=== PATIENT | male | born 1955 | race Caucasian/White ===

== ENCOUNTER 2017-10-03 15:50 | Observation (INO) | payer MEDICARE ==
--- NOTE | 2017-10-03 16:12 | ED ---
General Adult HPI - General Chief complaint: Chest Pain Stated complaint: Chest pain Time Seen by Provider: 10/03/17 15:58 Source: patient, family, EMS, RN notes reviewed Mode of arrival: EMS Limitations: no limitations - History of Present Illness Initial comments: 62-year-old male presents for evaluation of chest pain. Pain began approximately 2 hours prior to presentation. Patient described as a burning sensation, substernal. Nonradiating. Patient did have some dyspnea associated with this. He also felt shaky and lightheaded. Denied nausea or vomiting. Denied diaphoresis. Patient has past medical history of COPD, he is a current smoker. He denies any cough or fever. Denies abdominal pain. Denies lower extremity swelling or calf tenderness. Patient's pain is currently resolved. He is no longer dyspneic. He has no known history of coronary artery disease, although he does not follow regularly with a physician. - Related Data Home Medications Medication Instructions Recorded Confirmed No Known Home Medications [No 10/03/17 10/03/17 Known Home Medications] Allergies Allergy/AdvReac Type Severity Reaction Status Date / Time No Known Allergies Allergy Verified 10/03/17 16:09 Review of Systems ROS Statement: Those systems with pertinent positive or pertinent negative responses have been documented in the HPI. ROS Other: All systems not noted in ROS Statement are negative. Past Medical History Past Medical History: No Reported History History of Any Multi-Drug Resistant Organisms: None Reported Past Surgical History: No Surgical Hx Reported Additional Past Surgical History / Comment(s): hemorrhoids Past Psychological History: Bipolar, Depression Smoking Status: Current every day smoker Past Alcohol Use History: None Reported Past Drug Use History: None Reported General Exam Limitations: no limitations General appearance: alert, in no apparent distress, cachectic Head exam: Present: atraumatic, normocephalic Eye exam: Present: normal appearance, PERRL ENT exam: Present: normal exam Neck exam: Present: normal inspection. Absent: tenderness, meningismus Respiratory exam: Present: decreased breath sounds. Absent: respiratory distress Cardiovascular Exam: Present: normal rhythm, tachycardia GI/Abdominal exam: Present: soft. Absent: distended, tenderness Extremities exam: Present: normal inspection, normal capillary refill. Absent: pedal edema Back exam: Present: normal inspection, full ROM. Absent: tenderness Neurological exam: Present: alert, oriented X3, CN II-XII intact. Absent: motor sensory deficit Psychiatric exam: Present: flat affect Skin exam: Present: warm, dry, intact. Absent: cyanosis, diaphoretic Course Vital Signs 10/03/17 10/03/17 10/03/17 15:53 16:40 17:34 Temperature 97.8 F Pulse Rate 107 H 107 H 100 Respiratory 18 18 18 Rate Blood Pressure 133/78 126/71 120/74 O2 Sat by Pulse 97 98 97 Oximetry 10/03/17 10/03/17 18:17 19:59 Temperature 97.8 F Pulse Rate 98 84 Respiratory 18 18 Rate Blood Pressure 118/89 120/73 O2 Sat by Pulse 96 95 Oximetry EKG Findings - EKG Comments: EKG Findings:: EKG shows sinus tachycardia, rightward axis, ventricular rate 105 , DC interval 142, QRS duration 88, QTC 425 Q wave in the inferior leads, no ST segment elevation or depression. Medical Decision Making - Medical Decision Making 62-year-old man presenting with dyspnea and central chest burning. EKG shows sinus tachycardia rate of [address] segment elevation or depression. Patient's pain is improving and nearly resolved at the time my evaluation. White blood cell count 8.7 which is normal, hemoglobin stable 14.8. Chest x-rays obtained, does show some COPD with scarring in the right lung. D-dimer mildly elevated 0.66, CT angiography is obtained which shows 15% right-sided pneumothorax likely secondary to ruptured bleb according to the radiologist. There is also calcification of the LAD. Case discussed with Dr. Gonzalez regarding the pneumothorax. There is no signs of tension. Patient's vital signs remained stable emergency prompt. Repeat chest x-ray will be obtained to observe for worsening of pneumothorax. This pneumothorax was not present on initial chest x -ray. Cardiology will also be placed on consult as patient does have central chest burning with calcification of the LAD on CT angiography. Diagnosis: Pneumothorax, chest pain, CAD - Lab Data Result diagrams: 10/03/17 16:05 10/03/17 16:36 Lab Results 10/03/17 10/03/17 10/03/17 Range/Units 16:05 16:05 16:05 WBC 8.7 (3.8-10.6) k/uL RBC 4.81 (4.30-5.90) m/uL Hgb 14.8 (13.0-17.5) gm/dL Hct 45.6 (39.0-53.0) % MCV 94.8 (80.0-100.0) fL MCH 30.8 (25.0-35.0) pg MCHC 32.5 (31.0-37.0) g/dL RDW 14.5 (11.5-15.5) % Plt Count 370 (150-450) k/uL Neutrophils % 65 % Lymphocytes % 21 % Monocytes % 7 % Eosinophils % 3 % Basophils % 2 % Neutrophils # 5.6 (1.3-7.7) k/uL Lymphocytes # 1.8 (1.0-4.8) k/uL Monocytes # 0.6 (0-1.0) k/uL Eosinophils # 0.2 (0-0.7) k/uL Basophils # 0.1 (0-0.2) k/uL PT 10.1 (9.0-12.0) sec INR 1.0 (<1.2) APTT 25.2 (22.0-30.0) sec D-Dimer 0.66 H (<0.60) mg/L FEU Sodium (137-145) mmol/L Potassium (3.5-5.1) mmol/L Chloride (98-107) mmol/L Carbon Dioxide (22-30) mmol/L Anion Gap mmol/L BUN (9-20) mg/dL Creatinine (0.66-1.25) mg/dL Est GFR (MDRD) Af Amer (>60 ml/min/1.73 sqM) Est GFR (MDRD) Non-Af (>60 ml/min/1.73 sqM) Glucose (74-99) mg/dL Calcium (8.4-10.2) mg/dL Magnesium (1.6-2.3) mg/dL Total Bilirubin (0.2-1.3) mg/dL AST (17-59) U/L ALT (21-72) U/L Alkaline Phosphatase (38-126) U/L Total Creatine Kinase 68 (55-170) U/L CK-MB (CK-2) <0.2 (0.0-2.4) ng/mL CK-MB (CK-2) Rel Index Troponin I 0.026 (0.000-0.034) ng/mL NT-Pro-B Natriuret Pep pg/mL Total Protein (6.3-8.2) g/dL Albumin (3.5-5.0) g/dL Amylase (30-110) U/L Lipase (23-300) U/L 10/03/17 10/03/17 Range/Units 16:05 16:36 WBC (3.8-10.6) k/uL RBC (4.30-5.90) m/uL Hgb (13.0-17.5) gm/dL Hct (39.0-53.0) % MCV (80.0-100.0) fL MCH (25.0-35.0) pg MCHC (31.0-37.0) g/dL RDW (11.5-15.5) % Plt Count (150-450) k/uL Neutrophils % % Lymphocytes % % Monocytes % % Eosinophils % % Basophils % % Neutrophils # (1.3-7.7) k/uL Lymphocytes # (1.0-4.8) k/uL Monocytes # (0-1.0) k/uL Eosinophils # (0-0.7) k/uL Basophils # (0-0.2) k/uL PT (9.0-12.0) sec INR (<1.2) APTT (22.0-30.0) sec D-Dimer (<0.60) mg/L FEU Sodium 140 (137-145) mmol/L Potassium 5.1 (3.5-5.1) mmol/L Chloride 103 (98-107) mmol/L Carbon Dioxide 24 (22-30) mmol/L Anion Gap 13 mmol/L BUN 15 (9-20) mg/dL Creatinine 0.98 (0.66-1.25) mg/dL Est GFR (MDRD) Af Amer >60 (>60 ml/min/1.73 sqM) Est GFR (MDRD) Non-Af >60 (>60 ml/min/1.73 sqM) Glucose 94 (74-99) mg/dL Calcium 9.2 (8.4-10.2) mg/dL Magnesium 2.4 H (1.6-2.3) mg/dL Total Bilirubin 0.6 (0.2-1.3) mg/dL AST 21 (17-59) U/L ALT 14 L (21-72) U/L Alkaline Phosphatase 142 H (38-126) U/L Total Creatine Kinase (55-170) U/L CK-MB (CK-2) (0.0-2.4) ng/mL CK-MB (CK-2) Rel Index Troponin I (0.000-0.034) ng/mL NT-Pro-B Natriuret Pep 78 pg/mL Total Protein 7.7 (6.3-8.2) g/dL Albumin 4.1 (3.5-5.0) g/dL Amylase 67 (30-110) U/L Lipase 94 (23-300) U/L Critical Care Time Critical Care Time: Yes Total Critical Care Time: 35 Disposition Clinical Impression: Pneumothorax, Chest pain Disposition: ADMITTED IP TO THIS [facility] Condition: Stable Referrals: None,Stated [Primary Care Provider] - 1-2 days Decision to Admit Reason: Admit from EC Decision Date: 10/03/17 Decision Time: 20:09
[2017-10-03 16:22] LABS: Basophils # (A) 0.1 k/uL (0-0.2); Basophils % (A) 2 %; Eosinophils # (A) 0.2 k/uL (0-0.7); Eosinophils % (A) 3 %; HCT 45.6 % (39.0-53.0); HGB 14.8 gm/dL (13.0-17.5); Lymphocytes # (A) 1.8 k/uL (1.0-4.8); Lymphocytes % (A) 21 %; MCH 30.8 pg (25.0-35.0); MCHC 32.5 g/dL (31.0-37.0); MCV 94.8 fL (80.0-100.0); Mean Platelet Volume 8.4; Monocytes # (A) 0.6 k/uL (0-1.0); Monocytes % (A) 7 %; Neutrophils # (A) 5.6 k/uL (1.3-7.7); Neutrophils % (A) 65 %; Platelet Count 370 k/uL (150-450); RBC 4.81 m/uL (4.30-5.90); RDW 14.5 % (11.5-15.5); WBC 8.7 k/uL (3.8-10.6)
--- NOTE | 2017-10-03 16:30 | XR ---
EXAMINATION TYPE: XR chest 2V DATE OF EXAM: 10/03/2017 COMPARISON: None HISTORY: 62-year-old male with chest pain and shortness of breath TECHNIQUE: Frontal and lateral views FINDINGS: Heart normal size. Aorta and pulmonary vasculature within normal limits. Hyperinflation with flatteni ng of the hemidiaphragms. Suggestion of pleural parenchymal scarring and possible bullous changes at the apices. There are some irregular densities at the right apex. No consolidation or pleural effusio n seen. IMPRESSION: COPD with biapical pleural-parenchymal scarring. Irregular densities are greater at the right apex an d subtle underlying infiltrate would be difficult to exclude. Follow-up is recommended.
[2017-10-03 16:32] LABS: D-Dimer 0.66 mg/L FEU (<0.60)
[2017-10-03 16:42] LABS: Creatine Kinase 68 U/L (55-170)
[2017-10-03 16:55] LABS: Creatine Kinase MB <0.2 ng/mL (0.0-2.4); Troponin I 0.026 ng/mL (0.000-0.034)
[2017-10-03 16:56] LABS: ALT 14 U/L (21-72); AST 21 U/L (17-59); Albumin 4.1 g/dL (3.5-5.0); Alkaline Phosphatase 142 U/L (38-126); Amylase 67 U/L (30-110); Anion Gap 13 mmol/L; Blood Urea Nitrogen 15 mg/dL (9-20); Calcium 9.2 mg/dL (8.4-10.2); Carbon Dioxide 24 mmol/L (22-30); Chloride 103 mmol/L (98-107); Glucose 94 mg/dL (74-99); Lipase 94 U/L (23-300); Magnesium 2.4 mg/dL (1.6-2.3); Potassium 5.1 mmol/L (3.5-5.1); Sodium 140 mmol/L (137-145); Total Bilirubin 0.6 mg/dL (0.2-1.3); Total Protein 7.7 g/dL (6.3-8.2)
[2017-10-03 17:05] LABS: Partial Thromboplastin Time 25.2 sec (22.0-30.0); Prothrombin Time 10.1 sec (9.0-12.0)
[2017-10-03] MEDS ORDERED: RX INFO: IV CONTRAST WAS GIVEN 1 EACH MISC MISCELLANE PRN (17:35)
[2017-10-03] MEDS ORDERED: ASPIRIN 325 MG TAB PO STA (17:36)
--- NOTE | 2017-10-03 19:38 | CT ---
EXAMINATION TYPE: CT angio chest contrast and with 3-D reconstruction renderings DATE OF EXAM: 10/03/2017 6:19 PM COMPARISON: NONE HISTORY: Mid chest pain and difficulty breathing. CT DLP: 446.00 mGycm Automated exposure control for dose reduction was used. CONTRAST: CTA scan of the thorax is performed with IV Contrast, patient injected with 74 mL of Omnipaque 350, p ulmonary embolism protocol. . FINDINGS: AIRWAYS, LUNGS, AND PLEURAL SPACES: There are in numerable blebs and bulla throughout the lung parenc hyma, of varying sizes and morphology. There is a right-sided pneumothorax presently, occupying appro ximately 15% of the right hemithorax. The lungs are otherwise unremarkable. Airways are unremarkable. SOFT TISSUES: There is satisfactory enhancement of the pulmonary artery and its branches, there is no CT evidence for pulmonary embolism. There are no greater than 1 cm hilar or mediastinal lymph nodes . There is no cardiomegaly. LAD coronary calcification noted. No pericardial effusion is seen. The a scott shows tortuosity and intimal calcifications but is otherwise unremarkable. IMPRESSION: 1. RIGHT-SIDED PNEUMOTHORAX OCCUPYING APPROXIMATELY 15% OF THE RIGHT HEMITHORAX. 2. NEGATIVE FOR PULMONARY EMBOLI.
[2017-10-03] MEDS ORDERED: ONDANSETRON 4 MG/2 ML VIAL IVP PRN (20:01)
[2017-10-03] MEDS ORDERED: NALOXONE 0.4 MG/ML 1 ML VIAL IV PRN (20:01)
[2017-10-03] MEDS ORDERED: HYDROcodone/APAP 5-325MG 1 EACH TAB PO PRN (20:01)
--- NOTE | 2017-10-03 22:40 | XR ---
EXAMINATION TYPE: XR chest 2V DATE OF EXAM: 10/03/2017 COMPARISON: Today HISTORY: Follow-up pneumothorax TECHNIQUE: Frontal and lateral views of the chest are obtained. FINDINGS: Heart has normal size. There is pulmonary hyperinflation. There are some emphysematous sheeba nges at the lung apices. I see no pneumothorax. There is mild pleural thickening at the right lung ap ex. There are chest leads. Expiration chest x-ray shows no pneumothorax. There is slight blunting of right costophrenic angle. IMPRESSION: Emphysema. Pleural diaphragmatic scarring or fluid at the right lung base. Right apical pleural and pulmonary scarring. No change compared to exam earlier today. No demonstrated pneumothora x. There is a tiny right apical pneumothorax evident on the chest CT scan today. There is a pneumotho rax evident at the right anterior lung base on the CT scan today that is not demonstrated by this [facility] st x-ray. Trachea is midline and there is no evidence of tension.
[2017-10-03] MEDS ORDERED: TEMAZEPAM 15 MG CAP PO PRN (22:54)
[2017-10-03] MEDS ORDERED: ALPRAZolam 0.25 MG TAB PO PRN (22:54)
[2017-10-03 23:07] LABS: Creatine Kinase 33 U/L (55-170)
[2017-10-03 23:15] LABS: Creatine Kinase MB <0.2 ng/mL (0.0-2.4); Troponin I <0.012 ng/mL (0.000-0.034)
[2017-10-04] MEDS: SODIUM CHLORIDE 0.9% 1,000 ML IV SCH ×3 (01:22→19:56)
[2017-10-04] MEDS: LEVOFLOXACIN 500MG-D5W PMX 500 MG in DEXTROSE/WATER 1 100ML.BAG IVPB SCH (02:23)
[2017-10-04 03:48] LABS: Basophils # (A) 0.2 k/uL (0-0.2); Basophils % (A) 2 %; Eosinophils # (A) 0.3 k/uL (0-0.7); Eosinophils % (A) 4 %; HCT 42.9 % (39.0-53.0); HGB 13.6 gm/dL (13.0-17.5); Lymphocytes # (A) 2.6 k/uL (1.0-4.8); Lymphocytes % (A) 35 %; MCH 29.5 pg (25.0-35.0); MCHC 31.6 g/dL (31.0-37.0); MCV 93.5 fL (80.0-100.0); Monocytes # (A) 0.5 k/uL (0-1.0); Monocytes % (A) 6 %; Neutrophils # (A) 3.8 k/uL (1.3-7.7); Neutrophils % (A) 50 %; Platelet Count 335 k/uL (150-450); RBC 4.59 m/uL (4.30-5.90); RDW 13.3 % (11.5-15.5); WBC 7.6 k/uL (3.8-10.6)
[2017-10-04 04:04] LABS: ALT 27 U/L (21-72); AST 16 U/L (17-59); Albumin 3.5 g/dL (3.5-5.0); Alkaline Phosphatase 130 U/L (38-126); Anion Gap 8 mmol/L; Blood Urea Nitrogen 13 mg/dL (9-20); Carbon Dioxide 27 mmol/L (22-30); Chloride 103 mmol/L (98-107); Glucose 94 mg/dL (74-99); Potassium 4.7 mmol/L (3.5-5.1); Sodium 138 mmol/L (137-145); Total Bilirubin 0.4 mg/dL (0.2-1.3); Total Protein 6.7 g/dL (6.3-8.2)
[2017-10-04 04:12] LABS: Creatine Kinase 31 U/L (55-170)
[2017-10-04 04:25] LABS: Creatine Kinase MB <0.2 ng/mL (0.0-2.4); Troponin I <0.012 ng/mL (0.000-0.034)
[2017-10-04] MEDS: PANTOPRAZOLE 40 MG TABLET PO SCH (06:02)
[2017-10-04 06:40] VITALS: RESP 16
[2017-10-04] MEDS: NICOTINE 14MG/24HR PATCH TRANSDERM SCH (07:58)
[2017-10-04] MEDS: HEPARIN SODIUM,PORCINE 5,000 UNIT/ML 1 ML VIAL SQ SCH ×2 (07:58→19:57)
[2017-10-04] MEDS ORDERED: IPRATROPIUM 0.5 MG/2.5 ML NEBU INHALATION SCH (08:00)
[2017-10-04] MEDS ORDERED: ALBUTEROL NEB (CONC) 2.5 MG/0.5 ML INHALATION SCH (08:00)
--- NOTE | 2017-10-04 08:28 | HP ---
HISTORY AND PHYSICAL DATE OF ADMISSION: 10/03/2017 CHIEF COMPLAINT: Chest pain. HISTORY OF PRESENT ILLNESS: This 62-year-old gentleman with a past medical history of multiple medical problems including bipolar depression not being followed by primary physician in the outpatient setting, presented with complaints of cough and sputum. Patient also had right-sided chest pain. The patient came to [facility]. Patient has right-sided pneumothorax. EF 15% and the patient admitted for evaluation and treatment. There is no history of fever, rigors. No history of headache, loss of consciousness, seizures at this time. PAST MEDICAL HISTORY: 1. History of bipolar depression. 2. History of nicotine dependence. MEDICATIONS: Prior to admission include home medications are none. ALLERGIES: None. FAMILY HISTORY: No history of heart disease or strokes in the family. SOCIAL HISTORY: History of smoking on a current basis. REVIEW OF SYSTEMS: ENT: No diminished vision. No diminished hearing. Cardiovascular: No angina. Respiratory: As mentioned earlier. GI: No nausea or vomiting. no dysuria. Nervous system: No numbness, weakness. Allergy/Immunology: No asthma or hayfever. Musculoskeletal: As mentioned earlier. Hematology/Oncology: No history of anemia. Endocrine: No history of diabetes or hypothyroidism. Constitutional: As mentioned earlier. Rheumatology: Negative. Dermatology: Negative. Psychiatric: As mentioned earlier. PHYSICAL EXAM: The patient is alert and oriented times three. Pulse 81, blood pressure 120/70, respiration 18, temperature 98 degrees, pulse ox 98% on room air. HEENT: Conjunctivae normal. Neck: No jugular venous distention. Cardiovascular: S1, S2. Respiratory: Breath sounds diminished in the bases. Scattered rhonchi and crackles. Expiratory wheezing also present. ABDOMEN: Soft, nontender. No mass palpable. Legs are no edema. No swelling. NERVOUS SYSTEM: Higher functions as mentioned earlier. Moves all four limbs. No focal deficits. Lymphatics: No lymph nodes palpable in the neck, axillae or groin. Skin: No ulcer, rash or bleeding. LABS: CBC within normal limits. Alkaline phosphatase 142. Other labs noted. ASSESSMENT: 1. Right sided chest pain and right-sided pneumothorax. 2. Possible chronic obstructive pulmonary disease with acute bronchitis. 3. History of nicotine dependence. 4. Bipolar. 5. Depression. 6. History of nicotine dependence. 7. Mild to moderate protein calorie malnutrition. RECOMMENDATIONS AND DISCUSSION: In this 62-year-old gentleman who presented with multiple complex medical issues, we will monitor the patient closely, continue the current medications, continue symptomatic treatment. Otherwise at this time I recommend continue the current medications. I would recommend bronchodilators empiric antibiotics. Repeat chest x- rays. Symptomatic treatment. DVT prophylaxis. Otherwise the prognosis extremely guarded because of the multiple complex medical issues. I will obtain repeat labs as well. Otherwise, continue to monitor. Prognosis guarded because of multiple complex medical issues. Further recommendations to follow. Discussed with the patient and understands and agrees. Smoking cessation has been advised and recommended. MMODL / IJN: [id number] /
--- NOTE | 2017-10-04 08:52 | P.CRDCN ---
History of Present Illness Consult date: 10/04/17 Requesting physician: Alayna Jimenez Consult reason: chest pain Chief complaint: Chest pain and shortness of breath History of present illness: This is a 62-year-old gentleman with no prior documented history of hypertension, no diabetes, no hyperlipidemia, he is a smoker and does have history of COPD, takes no medications at home. He does not follow regularly with the physician. He presents to the hospital with symptoms of chest discomfort which he describes as a burning sensation, he states he was quite short of breath, felt mildly lightheaded and shaky. He denies any diaphoresis, no nausea or vomiting. EKG on arrival here showed a sinus tachycardia with no acute changes. Chest x-ray revealed COPD with biapical pleural parenchymal scarring. Irregular densities greater in the right apex and subtle underlying infiltrate difficult to exclude. CTA of the chest was performed which revealed a right-sided pneumothorax occupying approximately 15% of the right hemithorax. Negative for pulmonary embolism. Blood pressure 110/60, heart rate in the 90s , 100% on room air. Laboratory data was reviewed, CBC is normal, d-dimer 0.6, sodium 138, potassium 4.7, chloride 103, CO2 27, BUN 13, creatinine 1.0. Alk phos 1:30, troponins negative 3. BNP level 78. At the time of my examination this morning, patient denies chest discomfort or difficulty in breathing this morning. No dizziness or lightheadedness. Past Medical History Past Medical History: No Reported History History of Any Multi-Drug Resistant Organisms: None Reported Past Surgical History: No Surgical Hx Reported Additional Past Surgical History / Comment(s): hemorrhoids Past Psychological History: Bipolar, Depression Smoking Status: Current every day smoker Past Alcohol Use History: None Reported Past Drug Use History: None Reported Medications and Allergies Home Medications Medication Instructions Recorded Confirmed Type No Known Home Medications [No 10/03/17 10/03/17 History Known Home Medications] Allergies Allergy/AdvReac Type Severity Reaction Status Date / Time No Known Allergies Allergy Verified 10/03/17 16:09 Physical Exam Vitals: Vital Signs Temp Pulse Pulse Resp BP BP Pulse Ox 10/04/17 08:43 88 10/04/17 08:36 86 10/04/17 08:00 97.8 F 94 16 110/64 100 10/04/17 04:00 96.7 F L 70 16 113/73 99 10/03/17 21:08 97.1 F L 80 12 126/68 99 10/03/17 20:42 98.0 F 81 18 126/71 96 10/03/17 19:59 84 18 120/73 95 10/03/17 18:17 97.8 F 98 18 118/89 96 10/03/17 17:34 100 18 120/74 97 10/03/17 16:40 107 H 18 126/71 98 10/03/17 15:53 97.8 F 107 H 18 133/78 97 Intake and Output 10/03/17 10/04/17 10/04/17 22:59 06:59 14:59 Intake Total 240 Balance 240 Intake: Oral 240 Other: # Voids 2 Weight 61.235 kg 60.8 kg PHYSICAL EXAMINATION: HEENT: Head is atraumatic, normocephalic. Pupils equal, round. Neck is supple. There is no elevated jugular venous pressure. HEART EXAMINATION: Heart S1, S2 normal. No murmur or gallop heard. CHEST EXAMINATION: Lungs are clear with diminished air entry to the right posterior base. ABDOMEN: Soft, nontender. Bowel sounds are heard. No organomegaly noted. EXTREMITIES: 2+ peripheral pulses with no evidence of peripheral edema and no calf tenderness noted. NEUROLOGIC patient is awake, alert and oriented -3. . Results 10/04/17 03:14 10/04/17 03:14 Cardiac Enzymes 10/03/17 10/03/17 10/03/17 Range/Units 16:05 16:36 22:22 AST 21 (17-59) U/L CK-MB (CK-2) <0.2 <0.2 (0.0-2.4) ng/mL Troponin I 0.026 <0.012 (0.000-0.034) ng/mL 10/04/17 10/04/17 Range/Units 03:14 03:14 AST 16 L (17-59) U/L CK-MB (CK-2) <0.2 (0.0-2.4) ng/mL Troponin I <0.012 (0.000-0.034) ng/mL Coagulation 10/03/17 Range/Units 16:05 PT 10.1 (9.0-12.0) sec APTT 25.2 (22.0-30.0) sec CBC 10/03/17 10/04/17 Range/Units 16:05 03:14 WBC 8.7 7.6 (3.8-10.6) k/uL RBC 4.81 4.59 (4.30-5.90) m/uL Hgb 14.8 13.6 (13.0-17.5) gm/dL Hct 45.6 42.9 (39.0-53.0) % Plt Count 370 335 (150-450) k/uL Comprehensive Metabolic Panel 10/03/17 10/04/17 Range/Units 16:36 03:14 Sodium 140 138 (137-145) mmol/L Potassium 5.1 4.7 (3.5-5.1) mmol/L Chloride 103 103 (98-107) mmol/L Carbon Dioxide 24 27 (22-30) mmol/L BUN 15 13 (9-20) mg/dL Creatinine 0.98 1.00 (0.66-1.25) mg/dL Glucose 94 94 (74-99) mg/dL Calcium 9.2 9.0 (8.4-10.2) mg/dL AST 21 16 L (17-59) U/L ALT 14 L 27 (21-72) U/L Alkaline Phosphatase 142 H 130 H (38-126) U/L Total Protein 7.7 6.7 (6.3-8.2) g/dL Albumin 4.1 3.5 (3.5-5.0) g/dL Current Medications Generic Name Dose Route Start Last Admin Trade Name Freq PRN Reason Stop Dose Admin Hydrocodone Bitart/Acetaminophen 1 each 10/03/17 20:01 [place] 5-325 PO Q4HR PRN Moderate Pain Albuterol Sulfate 2.5 mg 10/04/17 08:00 10/04/17 08:33 Ventolin Nebulized (Conc) INHALATION 2.5 mg RT-TID MIKA Administration Alprazolam 0.25 mg 10/03/17 22:54 Xanax PO TID PRN Anxiety Heparin Sodium (Porcine) 5,000 unit 10/04/17 09:00 10/04/17 07:58 Heparin SQ 5,000 unit Q12HR MIKA Administration Sodium Chloride 1,000 mls @ 75 mls/hr 10/03/17 20:15 10/04/17 07:59 Saline 0.9% IV 75 mls/hr .[id number] MIKA Administration Levofloxacin 500 mg/ IV 100 mls @ 100 mls/hr 10/03/17 23:00 10/04/17 02:23 Solution IVPB 100 mls/hr Q24H MIKA Administration Ipratropium [place] 0.5 mg 10/04/17 08:00 10/04/17 08:33 Atrovent Nebulized INHALATION 0.5 mg RT-TID MIKA Administration Miscellaneous Information 1 each 10/03/17 17:35 10/03/17 18:17 Rx Info: Iv Contrast Was Given MISCELLANE 10/05/17 17:35 1 each DAILY PRN Administration Per Protocol Naloxone HCl 0.2 mg 10/03/17 20:01 Narcan IV Q2M PRN Opioid Reversal Nicotine 1 patch 10/04/17 09:00 10/04/17 07:58 Habitrol 14mg/24hr Patch TRANSDERM 1 patch DAILY MIKA Administration Ondansetron HCl 4 mg 10/03/17 20:01 Zofran IVP Q8HR PRN Nausea And Vomiting Pantoprazole Sodium 40 mg 10/04/17 07:30 10/04/17 06:02 Protonix PO 40 mg [id number] MIKA Administration Temazepam 15 mg 10/03/17 22:54 Restoril PO HS PRN Insomnia Intake and Output 10/03/17 10/04/17 10/04/17 22:59 06:59 14:59 Intake Total 240 Balance 240 Intake: Oral 240 Other: # Voids 2 Weight 61.235 kg 60.8 kg 10/04/17 03:14 10/04/17 03:14 EKG Interpretations (text) EKG shows a sinus tachycardia with no acute changes. Assessment and Plan Plan: Assessment and plan #1 chest pain, atypical for acute coronary syndrome, pleuritic in nature, evidence of right sided pneumothorax. Troponins are negative 3, EKG shows a sinus tachycardia with no acute changes. #2 COPD #3 nicotine dependence #4 bipolar and depression Plan We will obtain an echocardiogram with Doppler study. Check free T4 and TSH level. Further recommendations to follow. DNP note has been reviewed, I agree with a documented findings and plan of care. Patient was seen and examined.
--- NOTE | 2017-10-04 11:41 | ECHOF ---
Referral Reason:chest pain MEASUREMENTS -------- HEIGHT: 175.3 cm WEIGHT: 60.8 kg BP: RVIDd: 2.3 cm (< 3.3) IVSd: 1.0 cm (0.6 - 1.1) LVIDd: 3.9 cm (3.9 - 5.3) LVPWd: 1.0 cm (0.6 - 1.1) IVSs: 1.3 cm LVIDs: 2.6 cm LVPWs: 1.3 cm Ao Diam: 3.0 cm (2.0 - 3.7) AV Cusp: 2.1 cm (1.5 - 2.6) LA Diam: 2.5 cm (2.7 - 3.8) MV E Justino: 0.56 m/s MV DecT: 356 ms MV A Justino: 0.55 m/s MV E/A Ratio: 1.02 FINDINGS -------- Sinus rhythm. This was a technically difficult study with suboptimal views. Only able to obtain views from paraste rnal window. The left ventricular size is normal. Left ventricular wall thickness is normal. Overall left vent ricular systolic function is low-normal with, an EF between 50 - 55 %. The right ventricle is mild to moderately enlarged. The left atrium is normal in size. The right atrium was not well visualized. The aortic valve was not well visualized. The aortic valve is trileaflet and appears structurally n ormal. The mitral valve was not well visualized. The mitral valve leaflets are mildly thickened. The tricuspid valve was not well visualized. Trace tricuspid regurgitation present. Right ventric ular systolic pressure is normal at < 35 mmHg. There is no evidence of pulmonary hypertension. Trace/mild (physiologic) pulmonic regurgitation. The aortic root size is normal. IVC Not well visulized. The pericardium is normal. There is no pericardial effusion. CONCLUSIONS -------- 1. Sinus rhythm. 2. This was a technically difficult study with suboptimal views. 3. Only able to obtain views from parasternal window. 4. The left ventricular size is normal. 5. Left ventricular wall thickness is normal. 6. The right ventricle is mild to moderately enlarged. 7. The left atrium is normal in size. 8. The right atrium was not well visualized. 9. The aortic valve was not well visualized. 10. The aortic valve is trileaflet and appears structurally normal. 11. The mitral valve was not well visualized. 12. The mitral valve leaflets are mildly thickened. 13. The tricuspid valve was not well visualized. 14. Trace tricuspid regurgitation present. 15. Right ventricular systolic pressure is normal at < 35 mmHg. 16. There is no evidence of pulmonary hypertension. 17. Trace/mild (physiologic) pulmonic regurgitation. 18. The aortic root size is normal. 19. IVC Not well visulized. 20. There is no pericardial effusion. TABLE INSPECTOR: Apolinar Hammer RDCS
--- NOTE | 2017-10-04 12:10 | P.CNPUL ---
History of Present Illness Consult date: 10/04/17 Reason for consult: dyspnea, COPD History of present illness: a pleasant 62-year-old male patient was not seen a physician on a regular basis , a chronic smoker without any known history of medical problems nor any long- term medication intake, comes into the hospital because of an acute pain along the right chest and some increased shortness of breath more than his baseline. He claims that he is active and he claims that his been able to perform activities of daily life without any major respiratory difficulties. He has limited congested cough without any significant sputum production. No hemoptysis. No pleurisy. The patient has no swelling in the lower extremities. He smokes around half to 1 pack of cigarettes daily however he carries more than [id number] smoking history. Chest x-ray was consistent with COPD. Subsequently the patient had a CAT scan of the chest that showed extensive bilateral emphysematous changes throughout the lung olivares bilaterally in addition to a 10% loculated pneumothorax in the right lung base. Despite all this, the patient is on room air and is pulse oxing above 94%. He has no specific complaints and the chest pain that he experienced earlier has completed subsided. He has had a follow-up chest x-ray today this morning and she was stable findings and there is noprogression in his findings in terms of the pneumothorax. D-dimer was low.the rest of the blood work including the cardiac enzymes were negative. BNP level was nonelevated. Rest of the electrolytes are all within normal limits. Review of Systems Constitutional: Reports fatigue, Reports weakness, Reports weight loss Eyes: denies blurred vision, denies bulging eye, denies decreased vision Ears: deny: decreased hearing, ear discharge, earache Ears, nose, mouth and throat: Denies headache, Denies sore throat Cardiovascular: Reports decreased exercise tolerance, Reports dyspnea on exertion, Reports shortness of breath Respiratory: Reports congestion, Reports cough, Reports dyspnea Gastrointestinal: Denies abdominal pain, Denies diarrhea, Denies nausea, Denies vomiting Genitourinary: Reports as per HPI Musculoskeletal: Denies myalgias Musculoskeletal: absent: ankle pain, ankle stiffness, ankle swelling Integumentary: Denies pruritus, Denies rash Neurological: Denies numbness, Denies weakness Psychiatric: Denies anxiety, Denies depression Endocrine: Denies fatigue, Denies weight change Hematologic/Lymphatic: Reports as per HPI Allergic/Immunologic: Reports as per HPI Past Medical History Past Medical History: No Reported History, COPD Additional Past Medical History / Comment(s): COPD History of Any Multi-Drug Resistant Organisms: None Reported Past Surgical History: No Surgical Hx Reported Additional Past Surgical History / Comment(s): hemorrhoids Past Psychological History: Bipolar, Depression Smoking Status: Current every day smoker Past Alcohol Use History: None Reported Past Drug Use History: None Reported Medications and Allergies Home Medications Medication Instructions Recorded Confirmed Type No Known Home Medications [No 10/03/17 10/03/17 History Known Home Medications] Allergies Allergy/AdvReac Type Severity Reaction Status Date / Time No Known Allergies Allergy Verified 10/03/17 16:09 Physical Exam Vitals: Vital Signs Temp Pulse Pulse Resp BP BP Pulse Ox 10/04/17 11:35 96.9 F L 74 16 101/64 99 10/04/17 08:43 88 10/04/17 08:36 86 10/04/17 08:00 97.8 F 94 16 110/64 100 10/04/17 04:00 96.7 F L 70 16 113/73 99 10/03/17 21:08 97.1 F L 80 12 126/68 99 10/03/17 20:42 98.0 F 81 18 126/71 96 10/03/17 19:59 84 18 120/73 95 10/03/17 18:17 97.8 F 98 18 118/89 96 10/03/17 17:34 100 18 120/74 97 10/03/17 16:40 107 H 18 126/71 98 10/03/17 15:53 97.8 F 107 H 18 133/78 97 Intake and Output 10/03/17 10/04/17 10/04/17 22:59 06:59 14:59 Intake Total 240 Balance 240 Intake: Oral 240 Other: # Voids 2 Weight 61.235 kg 60.8 kg cachectic thin elderly male patient nonacute distress. He looks quite emaciated and weak. He also comes off very soft spoken.Head exam was generally normal. There was no scleral icterus or corneal arcus. Mucous membranes were moist.Neck was supple and without jugular venous distension, thyromegaly, or carotid bruits. Carotids were easily palpable bilaterally. There was no adenopathy. Lung sounds are markedly diminished bilaterally along with some few scattered external wheeze.Cardiac exam revealed the PMI to be normally situated and sized. The rhythm was regular and no extrasystoles were noted during several minutes of auscultation. The first and second heart sounds were normal and physiologic splitting of the second heart sound was noted. There were no murmurs, rubs, clicks, or gallops.Abdominal exam revealed normal bowel sounds. The abdomen was soft, non-tender, and without masses, organomegaly, or appreciable enlargement of the abdominal aorta.Examination of the extremities revealed easily palpable radial, femoral and pedal pulses. There was no cyanosis , clubbing or edema. Neurologically the patient is awake and alert and there is no focal neurological deficit. Psychiatric the patient has appropriate mood and affect.Examination of the skin revealed no evidence of significant rashes, suspicious appearing nevi or other concerning lesions. Results - Laboratory Findings CBC and BMP: 10/04/17 03:14 10/04/17 03:14 PT/INR, D-dimer PT 10.1 sec (9.0-12.0) 10/03/17 16:05 INR 1.0 (<1.2) 10/03/17 16:05 D-Dimer 0.66 mg/L FEU (<0.60) H 10/03/17 16:05 Abnormal lab findings: Abnormal Labs 10/03/17 10/03/17 10/03/17 16:05 16:36 22:22 D-Dimer 0.66 H Magnesium 2.4 H AST ALT 14 L Alkaline Phosphatase 142 H Total Creatine Kinase 33 L 10/04/17 10/04/17 03:14 03:14 D-Dimer Magnesium AST 16 L ALT Alkaline Phosphatase 130 H Total Creatine Kinase 31 L - Diagnostic Findings CT scan - chest: image reviewed Assessment and Plan Plan: assessment 1 COPD with severe emphysematous changes throughout the lung olivares bilaterally. 2 loculated right-sided 10-15% pneumothorax, not causing any significant hypoxemia or respiratory distress nor there is any significant hemodynamic alteration. 3 chest pain likely secondary to pneumothorax and this has completed subsided 4 chronic smoker 5 chronic exertional dyspnea secondary to above 6 history of depression Plan In terms of the pneumothorax, the pneumothorax is loculated is small and I do not recommend a chest tube insertion at this point. He will need however to be monitored very closely and repeat chest x-ray be done on a daily basis to make sure there is no progression of this finding. Meanwhile, we'll put the patient on DuoNeb neb last treatment [id number], we'll need an outpatient with function test assess the severity of his COPD. The patient will need to quit smoking as soon as possible and smoking cessation counseling was done. Baseline echocardiogram. Will check thyroid function test. We'll continue to follow.
[2017-10-04 12:14] LABS: HIV AB P24 Non-Reactive (Non-Reactive); HIV P24 AG Non-Reactive (Non-Reactive)
[2017-10-04] MEDS ORDERED: IPRATROPIUM-ALBUTEROL 3 ML NEB INHALATION SCH ×2 (13:00→14:10)
[2017-10-04 13:04] LABS: Creatine Kinase 41 U/L (55-170)
[2017-10-04 13:17] LABS: Creatine Kinase MB <0.2 ng/mL (0.0-2.4); Troponin I <0.012 ng/mL (0.000-0.034)
[2017-10-04] MEDS: IPRATROPIUM-ALBUTEROL 3 ML NEB INHALATION SCH ×2 (14:12→21:08)
--- NOTE | 2017-10-04 17:45 | P.PN ---
Subjective Progress Note Date: 10/04/17 Progress note being dictated for Dr. Jimenez Interval history: This is 62-year-old gentleman admitted with acute COPD exacerbation, severe emphysema, loculated right-sided pneumothorax 10-15% and multiple other medical issues. No chest tube insertion recommended at this time as per pulmonary. No further chest pain. Telemetry sinus rhythm. Echo suboptimal, reporting Low Normal LV function, EF 50-55%. Denies chest pain, palpitations or increasing shortness of breath. Denies lightheadedness dizziness or focal deficits. Maintaining O2 sats of 97 and 99% on room air. Objective - Vital Signs Vital signs: Vital Signs Temp 97.4 F L 10/04/17 15:06 Pulse 89 10/04/17 15:06 Resp 16 10/04/17 15:06 BP 97/52 10/04/17 15:06 Pulse Ox 97 10/04/17 15:06 Intake & Output 10/03/17 10/04/17 10/04/17 18:59 06:59 18:59 Intake Total 477 Balance 477 Weight 58.06 kg 60.8 kg Intake: Oral 477 Other: # Voids 2 2 - Exam PHYSICAL EXAM: VITAL SIGNS: As above GENERAL: Sitting up in bed, no acute distress. HEENT: Conjunctivae normal. eyes normal. NECK: No JVD. No thyroid enlargement. No LNs CARDIOVASCULAR: Regular S1, S2. No murmur RESPIRATION: Breath sounds diminished in the bases. Scattered rhonchi and crackles. Occasional expiratory wheeze scattered ABDOMEN: Soft, nontender . No guarding. no masses palpable. Bowel sounds heard. LEGS: No edema. no swelling PSYCHIATRY: Alert and oriented -3, mood and affect normal. NERVOUS SYSTEM: Cranial N 2-12 grossly normal. Moves all 4 limbs. Diffuse weakness No focal deficits. No sensory deficit. Skin: no ulcer no rash - Labs CBC & Chem 7: 10/04/17 03:14 10/04/17 03:14 Labs: Abnormal Lab Results - Last 24 Hours (Table) 10/03/17 10/03/17 10/03/17 Range/Units 16:05 16:36 22:22 D-Dimer 0.66 H (<0.60) mg/L FEU Magnesium 2.4 H (1.6-2.3) mg/dL AST (17-59) U/L ALT 14 L (21-72) U/L Alkaline Phosphatase 142 H (38-126) U/L Total Creatine Kinase 33 L (55-170) U/L 10/04/17 10/04/17 10/04/17 Range/Units 03:14 03:14 12:16 D-Dimer (<0.60) mg/L FEU Magnesium (1.6-2.3) mg/dL AST 16 L (17-59) U/L ALT (21-72) U/L Alkaline Phosphatase 130 H (38-126) U/L Total Creatine Kinase 31 L 41 L (55-170) U/L Assessment and Plan Assessment: 1. Right-sided chest pain with loculated right-sided pneumothorax 10-15% 2. Possible COPD with acute bronchitis, severe emphysematous changes bilateral lungs 3. Nicotine dependence 4. Bipolar 5. Depression 6. Mild to moderate protein calorie malnutrition Plan: Continue on current medication regime ,monitoring and symptomatic treatment. Maintain nebulized dilators, empiric antibiotics. Smoking cessation readdressed. As mentioned above no chest tube at this time, close monitoring with repeat chest x-ray ordered for a.m. The impression and plan of care has been dictated as directed. : I performed a history and examination of this patient, discussed the same with the dictator. I agree with the dictator's note ,documented as a scribe. Any additional findings or plans will be noted.
[2017-10-05] MEDS: LEVOFLOXACIN 500MG-D5W PMX 500 MG in DEXTROSE/WATER 1 100ML.BAG IVPB SCH (05:40)
[2017-10-05] MEDS: IPRATROPIUM-ALBUTEROL 3 ML NEB INHALATION SCH ×2 (07:54→12:59)
[2017-10-05 07:59] VITALS: BP 118/74; TEMP 96.1
[2017-10-05] MEDS: HEPARIN SODIUM,PORCINE 5,000 UNIT/ML 1 ML VIAL SQ SCH (09:10)
[2017-10-05] MEDS: NICOTINE 14MG/24HR PATCH TRANSDERM SCH (09:10)
[2017-10-05] MEDS: PANTOPRAZOLE 40 MG TABLET PO SCH (09:10)
[2017-10-05 10:38] LABS: Anion Gap 11 mmol/L; Blood Urea Nitrogen 10 mg/dL (9-20); Carbon Dioxide 24 mmol/L (22-30); Chloride 106 mmol/L (98-107); Glucose 83 mg/dL (74-99); Potassium 4.2 mmol/L (3.5-5.1); Sodium 141 mmol/L (137-145)
[2017-10-05] MEDS: SODIUM CHLORIDE 0.9% 1,000 ML IV SCH (11:25)
--- NOTE | 2017-10-05 11:56 | XR ---
EXAMINATION TYPE: XR chest 2V DATE OF EXAM: 10/05/2017 COMPARISON: Prior exam 10/03/2017 HISTORY: Right pneumothorax TECHNIQUE: Frontal and lateral views of the chest are obtained on 3 images. FINDINGS: There is no focal air space opacity, pleural effusion, or pneumothorax seen. Emphysematous changes and probable scarring present in the right lung as on prior. The cardiac silhouette size is stable. There is a spinal curvature. The osseous structures are intact. IMPRESSION: No acute cardiopulmonary process.
[2017-10-05 13:06] VITALS: PULSE 80
--- NOTE | 2017-10-05 15:04 | P.PN ---
<Vernell Winston M - Last Filed: 10/05/17 14:56> Subjective Progress Note Date: 10/05/17 Principal diagnosis: COPD with severe emphysematous changes, loculated right-sided 10-15% pneumothorax a pleasant 62-year-old male patient was not seen a physician on a regular basis , a chronic smoker without any known history of medical problems nor any long- term medication intake, comes into the hospital because of an acute pain along the right chest and some increased shortness of breath more than his baseline. He claims that he is active and he claims that his been able to perform activities of daily life without any major respiratory difficulties. He has limited congested cough without any significant sputum production. No hemoptysis. No pleurisy. The patient has no swelling in the lower extremities. He smokes around half to 1 pack of cigarettes daily however he carries more than [id number] smoking history. Chest x-ray was consistent with COPD. Subsequently the patient had a CAT scan of the chest that showed extensive bilateral emphysematous changes throughout the lung olivares bilaterally in addition to a 10% loculated pneumothorax in the right lung base. Despite all this, the patient is on room air and is pulse oxing above 94%. He has no specific complaints and the chest pain that he experienced earlier has completed subsided. He has had a follow-up chest x-ray today this morning and she was stable findings and there is noprogression in his findings in terms of the pneumothorax. D-dimer was low.the rest of the blood work including the cardiac enzymes were negative. BNP level was nonelevated. Rest of the electrolytes are all within normal limits. On 10/05/2017 patient seen in follow-up on medical surgical floor. In no acute distress, lung sounds are clear, no rhonchi no wheezes were noted. His oxygen is on standby, his pulse ox is 98% on room air, vital signs are stable, he is afebrile, be chest x-ray from this morning shows no acute cardiopulmonary process. His lab work was noted, BMP was done, electrolytes and renal profile is within normal limits. HIV testing was negative. He is stable for discharge home today. Follow-up in the office with Dr. Gonzalez in 1 week Objective - Vital Signs Vital signs: Vital Signs Temp 96.1 F L 10/05/17 07:00 Pulse 80 10/05/17 13:05 Resp 16 10/05/17 07:00 BP 118/74 10/05/17 07:00 Pulse Ox 98 10/05/17 07:57 Intake & Output 10/04/17 10/05/17 10/05/17 18:59 06:59 18:59 Intake Total 714 325 Balance 714 325 Weight 60 kg Intake: Intake, IV Titration 225 Amount Sodium Chloride 0.9% 1, 225 000 ml @ 75 mls/hr IV . [id number] [facility] Rx#:[id number] Oral 714 100 Other: # Voids 2 1 3 - Exam cachectic thin elderly male patient nonacute distress. He looks quite emaciated and weak. He also comes off very soft spoken.Head exam was generally normal. There was no scleral icterus or corneal arcus. Mucous membranes were moist.Neck was supple and without jugular venous distension, thyromegaly, or carotid bruits. Carotids were easily palpable bilaterally. There was no adenopathy. Lung sounds are markedly diminished bilaterally.Cardiac exam revealed the PMI to be normally situated and sized. The rhythm was regular and no extrasystoles were noted during several minutes of auscultation. The first and second heart sounds were normal and physiologic splitting of the second heart sound was noted. There were no murmurs, rubs, clicks, or gallops.Abdominal exam revealed normal bowel sounds. The abdomen was soft, non- tender, and without masses, organomegaly, or appreciable enlargement of the abdominal aorta.Examination of the extremities revealed easily palpable radial, femoral and pedal pulses. There was no cyanosis, clubbing or edema. Neurologically the patient is awake and alert and there is no focal neurological deficit. Psychiatric the patient has appropriate mood and affect.Examination of the skin revealed no evidence of significant rashes, suspicious appearing nevi or other concerning lesions. - Labs CBC & Chem 7: 10/04/17 03:14 10/05/17 09:52 Assessment and Plan Plan: Assessment: 1 COPD with severe emphysematous changes throughout the lung olivarse bilaterally. 2 loculated right-sided 10-15% pneumothorax, not causing any significant hypoxemia or respiratory distress nor there is any significant hemodynamic alteration. 3 chest pain likely secondary to pneumothorax and this has completed subsided 4 chronic smoker 5 chronic exertional dyspnea secondary to above 6 history of depression Plan He is doing well, repeat chest x-ray from this morning was reviewed, shows no acute cardiopulmonary process. Patient is maintaining stable oxygenation on room air, denies any acute distress, signs are stable. From pulmonary standpoint he is stable for discharge home today. He will need a follow-up appointment with Dr. Gonzalez in the office in one week. I performed a history & physical examination of the patient and discussed their management with my nurse practitioner, Vernell Winston. I reviewed the nurse practitioner's note and agree with the documented findings and plan of care. Lung sounds are diminished. The findings and the impression was discussed with the patient. I attest to the documentation by the nurse practitioner. Time with Patient: Less than 30 <Zoila Gonzalez - Last Filed: 10/05/17 18:25> Objective - Vital Signs Vital signs: Vital Signs Temp 96.1 F L 10/05/17 07:00 Pulse 80 10/05/17 13:05 Resp 16 10/05/17 07:00 BP 118/74 10/05/17 07:00 Pulse Ox 98 10/05/17 07:57 Intake & Output 10/04/17 10/05/17 10/05/17 18:59 06:59 18:59 Intake Total 714 325 Balance 714 325 Weight 60 kg 60 kg Intake: Intake, IV Titration 225 Amount Sodium Chloride 0.9% 1, 225 000 ml @ 75 mls/hr IV . [id number] [facility] Rx#:[id number] Oral 714 100 Other: # Voids 2 1 3 - Labs CBC & Chem 7: 10/04/17 03:14 10/05/17 09:52 Assessment and Plan Plan: Joint evaluation along with a nurse practitioner. The patient is stable pneumothorax and without any change on today's chest x-ray. Smoking cessation counseling was done. The patient will be discharged home today. 2 be followed up in the office. I attest to the above-mentioned formation.
[2017-10-05 15:28] VITALS: BMI 19.5
--- NOTE | 2017-10-06 08:24 | DS ---
DISCHARGE SUMMARY FINAL DIAGNOSES: 1. Right-sided chest pain with the loculated right sided pneumothorax 10-15% improved. 2. Chronic obstructive pulmonary disease with acute bronchitis with severe emphysematous changes on bilateral lungs. 3. Nicotine dependence. 4. Bipolar depression. 5. Mild to moderate protein calorie malnutrition. DISCHARGE DISPOSITION: The patient is being discharged is stable condition with guarded prognosis. HISTORY OF PRESENT ILLNESS: This 62-year-old gentleman with a past medical history of multiple medical problems was admitted with chest pain. Patient found to have pneumothorax, treated symptomatically, improved significantly. On exam, vital signs are stable. Cardiovascular S1, S2. Respirations a few rhonchi. Abdomen soft nontender. DISCHARGE ADVICE AND MEDICATIONS: 1. Discharge diet is cardiac diet. 2. Activity limited until followup. 3. Follow up with Dr. Coombs in 2-3 days. 4. Follow up with [facility] as advised. MEDICATIONS: 1. Albuterol 2 puffs b.i.d. 2. Levaquin 500 mg daily. 3. Habitrol 14 daily. PAULA / TCN: [id number] /
== END 2017-10-05 15:24 | disposition home or self-care (01) ==
LOC: EC 15:50 → 6SEL 20:03 → INTOOBSV 20:03 → 4MS4W 10-04 22:41
PROVIDERS: ADMIT Hospitalist; ATTEND Hospitalist
DX: J93.9 Pneumothorax, unspecified (principal); R07.89 Other chest pain; F31.9 Bipolar disorder, unspecified; E44.0 Moderate protein-calorie malnutrition; J44.1 Chronic obstructive pulmonary disease with (acute) exacerbation; J20.9 Acute bronchitis, unspecified; J44.0 Chronic obstructive pulmonary disease with (acute) lower respiratory infection; F17.210 Nicotine dependence, cigarettes, uncomplicated
CPT/HCPCS: 99291; 96361; 96365; 96366; 96372 ×2; 36415; 94640 ×4; 94760; 93005; 93306; 85379; 83880; 80053 ×2; 80048; 82150; 82550 ×2; 82553 ×2; 83690; 83735; 84443; 84484 ×2; 85025 ×2; 85610; 85730; 87390; 71046 ×2; 71275; G0378 ×4; S4990 ×2; J1644 ×2; Q9967; J1956 ×2

== ENCOUNTER 2018-07-22 11:43 | Observation (INO) | payer MEDICARE ==
--- NOTE | 2018-07-22 12:12 | ED ---
General Adult HPI - General Chief complaint: Chest Pain Stated complaint: CHEST PAIN, APRIL Time Seen by Provider: 07/22/18 11:56 Source: patient, RN notes reviewed, old records reviewed Mode of arrival: wheelchair Limitations: no limitations - History of Present Illness Initial comments: 63-year-old male history of COPD presents for evaluation of dyspnea and right- sided chest pain. Patient has history of previous pneumothorax proximally 10 months ago. States pain is similar to previous pneumothorax. He does report some preceding symptoms of cough and dyspnea over the past several days. Chest pain began at approximately 10 AM this morning. He states was gradual in onset and right-sided chest pain. Nonradiating. No associated nausea or vomiting. No abdominal pain. No fever or chills. - Related Data Home Medications Medication Instructions Recorded Confirmed Oxybutynin Chloride [Ditropan] 5 mg PO DAILY 07/22/18 07/22/18 Allergies Allergy/AdvReac Type Severity Reaction Status Date / Time No Known Allergies Allergy Verified 07/22/18 12:50 Review of Systems ROS Statement: Those systems with pertinent positive or pertinent negative responses have been documented in the HPI. ROS Other: All systems not noted in ROS Statement are negative. Past Medical History Past Medical History: COPD Additional Past Medical History / Comment(s): COPD History of Any Multi-Drug Resistant Organisms: None Reported Past Surgical History: No Surgical Hx Reported Additional Past Surgical History / Comment(s): hemorrhoids Past Psychological History: Bipolar, Depression Smoking Status: Current every day smoker Past Alcohol Use History: None Reported Past Drug Use History: None Reported General Exam Limitations: no limitations General appearance: alert, in no apparent distress Head exam: Present: atraumatic, normocephalic Eye exam: Present: normal appearance, PERRL ENT exam: Present: normal exam Neck exam: Present: normal inspection. Absent: tenderness, meningismus Respiratory exam: Present: chest wall tenderness (Right-sided chest wall tenderness), decreased breath sounds (Bilateral). Absent: respiratory distress , wheezes Cardiovascular Exam: Present: normal rhythm, tachycardia GI/Abdominal exam: Present: soft. Absent: distended, tenderness Extremities exam: Present: normal inspection, normal capillary refill. Absent: pedal edema Neurological exam: Present: alert, oriented X3, CN II-XII intact. Absent: motor sensory deficit Psychiatric exam: Present: normal affect, normal mood Skin exam: Present: warm, dry, intact. Absent: cyanosis, diaphoretic Course Vital Signs 07/22/18 07/22/18 07/22/18 11:45 12:43 12:47 Temperature 97.5 F L Pulse Rate 108 H 93 90 Respiratory 20 Rate Blood Pressure 152/80 O2 Sat by Pulse 97 Oximetry 07/22/18 07/22/18 07/22/18 13:00 14:08 14:20 Temperature Pulse Rate 80 91 89 Respiratory 17 Rate Blood Pressure 112/79 O2 Sat by Pulse 94 L Oximetry EKG Findings - EKG Comments: EKG Findings:: EKG: Sinus rhythm with sinus arrhythmia, rightward axis, rate of 80, NE interval 132, QRS duration 88, QTC 412, no ST segment elevation Medical Decision Making - Medical Decision Making 63-year-old male history of COPD, emphysema, and previous pneumothorax presenting with chest pain and dyspnea. X-rays obtained which does show hyperinflation, concern for right sided pneumothorax. CT is obtained which does show 15% pneumothorax which is unchanged from previous. Patient has decreased air entry bilaterally with mild respiratory distress. Symptoms likely related to COPD exacerbation without worsening of pneumothorax. Patient has normal CBC, normal CMP, troponin and BNP are negative. Patient will be admitted for treatment of COPD exacerbation. - Lab Data Result diagrams: 07/22/18 12:12 07/22/18 12:12 Lab Results 07/22/18 07/22/18 07/22/18 Range/Units 12:12 12:12 12:12 WBC 6.4 (3.8-10.6) k/uL RBC 5.11 (4.30-5.90) m/uL Hgb 15.6 (13.0-17.5) gm/dL Hct 48.4 (39.0-53.0) % MCV 94.7 (80.0-100.0) fL MCH 30.6 (25.0-35.0) pg MCHC 32.3 (31.0-37.0) g/dL RDW 13.3 (11.5-15.5) % Plt Count 342 (150-450) k/uL Neutrophils % 63 % Lymphocytes % 26 % Monocytes % 5 % Eosinophils % 1 % Basophils % 2 % Neutrophils # 4.0 (1.3-7.7) k/uL Lymphocytes # 1.6 (1.0-4.8) k/uL Monocytes # 0.3 (0-1.0) k/uL Eosinophils # 0.1 (0-0.7) k/uL Basophils # 0.1 (0-0.2) k/uL PT (9.0-12.0) sec INR (<1.2) APTT (22.0-30.0) sec Sodium 141 (137-145) mmol/L Potassium 4.6 (3.5-5.1) mmol/L Chloride 107 (98-107) mmol/L Carbon Dioxide 23 (22-30) mmol/L Anion Gap 11 mmol/L BUN 20 (9-20) mg/dL Creatinine 1.05 (0.66-1.25) mg/dL Est GFR (CKD-EPI)AfAm 89 (>60 ml/min/1.73 sqM) Est GFR (CKD-EPI)NonAf 77 (>60 ml/min/1.73 sqM) Glucose 92 (74-99) mg/dL Plasma Lactic Acid Cj (0.7-2.0) mmol/L Calcium 9.7 (8.4-10.2) mg/dL Magnesium 2.2 (1.6-2.3) mg/dL Total Bilirubin 0.9 (0.2-1.3) mg/dL AST 22 (17-59) U/L ALT 35 (21-72) U/L Alkaline Phosphatase 110 (38-126) U/L Total Creatine Kinase 35 L (55-170) U/L CK-MB (CK-2) <0.2 (0.0-2.4) ng/mL CK-MB (CK-2) Rel Index Troponin I <0.012 (0.000-0.034) ng/mL NT-Pro-B Natriuret Pep pg/mL Total Protein 8.1 (6.3-8.2) g/dL Albumin 4.5 (3.5-5.0) g/dL 07/22/18 07/22/18 07/22/18 Range/Units 12:12 12:12 12:12 WBC (3.8-10.6) k/uL RBC (4.30-5.90) m/uL Hgb (13.0-17.5) gm/dL Hct (39.0-53.0) % MCV (80.0-100.0) fL MCH (25.0-35.0) pg MCHC (31.0-37.0) g/dL RDW (11.5-15.5) % Plt Count (150-450) k/uL Neutrophils % % Lymphocytes % % Monocytes % % Eosinophils % % Basophils % % Neutrophils # (1.3-7.7) k/uL Lymphocytes # (1.0-4.8) k/uL Monocytes # (0-1.0) k/uL Eosinophils # (0-0.7) k/uL Basophils # (0-0.2) k/uL PT 10.1 (9.0-12.0) sec INR 1.0 (<1.2) APTT 23.5 (22.0-30.0) sec Sodium (137-145) mmol/L Potassium (3.5-5.1) mmol/L Chloride (98-107) mmol/L Carbon Dioxide (22-30) mmol/L Anion Gap mmol/L BUN (9-20) mg/dL Creatinine (0.66-1.25) mg/dL Est GFR (CKD-EPI)AfAm (>60 ml/min/1.73 sqM) Est GFR (CKD-EPI)NonAf (>60 ml/min/1.73 sqM) Glucose (74-99) mg/dL Plasma Lactic Acid Cj 2.0 (0.7-2.0) mmol/L Calcium (8.4-10.2) mg/dL Magnesium (1.6-2.3) mg/dL Total Bilirubin (0.2-1.3) mg/dL AST (17-59) U/L ALT (21-72) U/L Alkaline Phosphatase (38-126) U/L Total Creatine Kinase (55-170) U/L CK-MB (CK-2) (0.0-2.4) ng/mL CK-MB (CK-2) Rel Index Troponin I (0.000-0.034) ng/mL NT-Pro-B Natriuret Pep 99 pg/mL Total Protein (6.3-8.2) g/dL Albumin (3.5-5.0) g/dL Disposition Clinical Impression: Pneumothorax, COPD exacerbation Disposition: ADMITTED IP TO THIS HOSP Condition: Stable Is patient prescribed a controlled substance at d/c from ED?: No Referrals: Nicanor Coombs MD [Primary Care Provider] - 1-2 days Decision to Admit Reason: Admit from EC Decision Date: 07/22/18 Decision Time: 14:39
[2018-07-22] MEDS ORDERED: DEXAMETHASONE SOD PHOSPHATE 10 MG/ML 1 ML VIAL IV STA (12:19)
[2018-07-22] MEDS ORDERED: IPRATROPIUM-ALBUTEROL 3 ML NEB INHALATION STA ×2 (12:19→13:58)
[2018-07-22 12:34] LABS: Basophils # (A) 0.1 k/uL (0-0.2); Basophils % (A) 2 %; Eosinophils # (A) 0.1 k/uL (0-0.7); Eosinophils % (A) 1 %; HCT 48.4 % (39.0-53.0); HGB 15.6 gm/dL (13.0-17.5); Lymphocytes # (A) 1.6 k/uL (1.0-4.8); Lymphocytes % (A) 26 %; MCH 30.6 pg (25.0-35.0); MCHC 32.3 g/dL (31.0-37.0); MCV 94.7 fL (80.0-100.0); Mean Platelet Volume 6.9; Monocytes # (A) 0.3 k/uL (0-1.0); Monocytes % (A) 5 %; Neutrophils % (A) 63 %; Platelet Count 342 k/uL (150-450); RBC 5.11 m/uL (4.30-5.90); RDW 13.3 % (11.5-15.5); WBC 6.4 k/uL (3.8-10.6)
[2018-07-22 12:45] LABS: Partial Thromboplastin Time 23.5 sec (22.0-30.0); Prothrombin Time 10.1 sec (9.0-12.0)
[2018-07-22 12:48] LABS: Albumin 4.5 g/dL (3.5-5.0); Calcium 9.7 mg/dL (8.4-10.2); Magnesium 2.2 mg/dL (1.6-2.3); Potassium 4.6 mmol/L (3.5-5.1); Total Bilirubin 0.9 mg/dL (0.2-1.3); Total Protein 8.1 g/dL (6.3-8.2)
--- NOTE | 2018-07-22 12:52 | XR ---
EXAMINATION TYPE: XR chest 1V portable DATE OF EXAM: 07/22/2018 HISTORY: chest pain. REFERENCE: Previous study dated 10/05/2017. FINDINGS: The lungs are overinflated but clear. Pleural spaces are clear. Heart size is within normal limits. There is a gentle levoscoliosis. IMPRESSION: COPD.
[2018-07-22 12:56] LABS: Creatine Kinase 35 U/L (55-170)
[2018-07-22 13:10] LABS: Creatine Kinase MB <0.2 ng/mL (0.0-2.4); Troponin I <0.012 ng/mL (0.000-0.034)
--- NOTE | 2018-07-22 13:52 | CT ---
EXAMINATION TYPE: CT chest wo con DATE OF EXAM: 07/22/2018 COMPARISON: Previous study dated 10/03/2017 HISTORY: Difficulty breathing CT DLP: 226.9 mGycm. Automated Exposure Control for Dose Reduction was Utilized. TECHNIQUE: CT scan of the thorax is performed without IV contrast. FINDINGS: There are marked bullous changes in the upper lobes bilaterally. There is a moderate right- sided pneumothorax. This is larger than previous. This is approximately 50% by volume. There is some shotty axillary adenopathy. There are no pathologically enlarged lymph nodes. There is no pleural or pericardial fluid. The heart is not enlarged. Visualized portions of the upper abdomen are unremarkable. No bony lesion is seen. IMPRESSION: 1. RIGHT-SIDED PNEUMOTHORAX APPROXIMATELY 15% BY VOLUME. 2. EXTENSIVE BULLOUS CHANGE IN THE UPPER LOBES BILATERALLY AND MORE DIFFUSELY THROUGHOUT THE RIGHT ANDRES NG.
[2018-07-22] MEDS ORDERED: IPRATROPIUM-ALBUTEROL 3 ML NEB INHALATION PRN (14:37)
[2018-07-22 16:40] VITALS: BMI 19.9
[2018-07-22] MEDS: IPRATROPIUM-ALBUTEROL 3 ML NEB INHALATION SCH ×2 (16:43→20:35)
[2018-07-22] MEDS ORDERED: TEMAZEPAM 15 MG CAP PO PRN (16:53)
[2018-07-22] MEDS ORDERED: HYDROcodone/APAP 5-325MG 1 EACH TAB PO PRN (16:53)
[2018-07-22] MEDS ORDERED: ALPRAZolam 0.25 MG TAB PO PRN (16:53)
[2018-07-22] MEDS: methylPREDNISolone SOD SUCCI 125 MG/2 ML VIAL IV SCH (17:30)
--- NOTE | 2018-07-22 20:49 | HP ---
HISTORY AND PHYSICAL DATE OF SERVICE: 07/22/2018. CHIEF COMPLAINT: Shortness of breath. HISTORY OF PRESENT ILLNESS: This 63-year-old gentleman with a past history of multiple medical problems including COPD, history of bipolar, depression, history of nicotine dependence, being followed by Dr. Coombs in the outpatient setting, was admitted earlier with 10% to 15% pneumothorax on the right side. Currently the patient has dyspnea and right-sided chest pain. The patient came to [facility] and was found to have 15% pneumothorax on the right side, extensive bullous lesions also noted. The patient was admitted for evaluation and treatment. There is no history of fevers or rigors. No history of headache, loss of consciousness, seizures. PAST MEDICAL HISTORY: History of COPD, history of previous pneumothorax, hemorrhoids, bipolar, depression, history of nicotine dependence. MEDICATIONS: Prior to admission include oxybutynin 5 mg p.o. daily. ALLERGIES: None. FAMILY HISTORY: Cardiac issues in the family. SOCIAL HISTORY: Previous history of smoking. No history of current smoking or alcohol intake. REVIEW OF SYSTEMS: ENT: No diminished vision. CARDIOVASCULAR: No angina or palpitations. RESPIRATORY: As mentioned. GI: No nausea or vomiting. : No dysuria or hematuria. NEUROLOGY: No numbness or weakness. ALLERGY: None. MUSCULOSKELETAL: As mentioned earlier. HEMATOLOGY: None. ENDOCRINE: No history of diabetes or hypothyroidism. CONSTITUTIONAL: As mentioned. HEMATOLOGY: As mentioned earlier. PHYSICAL EXAM: Alert, oriented x3. VITAL SIGNS: Pulse 103, blood pressure 128/74, respirations 16, temperature 98.1, pulse ox 94% on room air. HEENT: Conjunctivae normal. Oral mucosa moist. NECK: No jugular venous distention. No lymph node enlargement. CARDIOVASCULAR: S1 and S2 muffled. LUNGS: Breath sounds diminished at the bases. Few scattered rhonchi. No crackles. ABDOMEN: Soft, scaphoid, nontender. No mass palpable. LEGS: No edema, no swelling. NERVOUS SYSTEM: Higher functions as mentioned earlier. Moves all 4 limbs. No focal deficits. LYMPHATICS: No lymph nodes in the neck. SKIN: No ulcers or rashes. LAB DATA: WBC 6.4, hemoglobin 15.6, creatinine 35. ASSESSMENT: 1. Right-sided chest pain with acute on chronic right pneumothorax, up to 15%. 2. Chronic obstructive pulmonary disease acute exacerbation. 3. History of nicotine dependence. 4. Bipolar depression. 5. Mild to moderate protein calorie malnutrition. 6. Remote history of nicotine dependence. RECOMMENDATIONS AND DISCUSSION: This 63-year-old gentleman who presented with multiple complex medical issues, we will monitor the patient closely, continue the current management, continue symptomatic treatment. It is not clear whether the patient has worsening of the pneumothorax because there is muscle-associated increasing shortness of breath and chest pain on the right side. We will continue to monitor and obtain a Pulmonary consultation with Dr. Andrews. Continue the rest of medications. DVT prophylaxis. Symptomatic treatment. See orders for details. Prognosis guarded. Further recommendations to follow. The patient is not smoking anymore. Further recommendations. Copy forwarded to Dr. Coombs, who is the primary care physician. PAULA / TCN: [id number] /
[2018-07-22] MEDS: HEPARIN SODIUM,PORCINE 5,000 UNIT/ML 1 ML VIAL SQ SCH (21:18)
[2018-07-23 00:38] LABS: Appearance,Urine Clear (Clear); Bilirubin,Urine Negative (Negative); Blood,Urine Small (Negative); Color,Urine Yellow; Glucose,Urine (UA) 3+ (Negative); Leukocyte Esterase,Urine Negative (Negative); Mucus,Urine Few /hpf; Nitrite,Urine Negative (Negative); PH, Urine 5.5 (5.0-8.0); Protein,Urine Negative (Negative); RBC,Urine <1 /hpf (0-5); Specific Gravity,Urine 1.015 (1.001-1.035); Urobilinogen,Urine <2.0 mg/dL (<2.0); WBC,Urine 1 /hpf (0-5)
[2018-07-23 00:54] LABS: Ketones,Urine 2+ (Negative)
[2018-07-23 01:18] LABS: Glucose,Whole Blood 165 mg/dL (75-99)
[2018-07-23] MEDS: methylPREDNISolone SOD SUCCI 125 MG/2 ML VIAL IV SCH ×4 (01:50→18:56)
[2018-07-23 07:19] LABS: Basophils # (A) 0.1 k/uL (0-0.2); Basophils % (A) 1 %; Eosinophils % (A) 0 %; HCT 39.4 % (39.0-53.0); Lymphocytes # (A) 1.1 k/uL (1.0-4.8); Lymphocytes % (A) 14 %; MCH 30.9 pg (25.0-35.0); MCV 93.9 fL (80.0-100.0); Monocytes # (A) 0.1 k/uL (0-1.0); Monocytes % (A) 2 %; Neutrophils # (A) 6.6 k/uL (1.3-7.7); Neutrophils % (A) 83 %; Platelet Count 306 k/uL (150-450); RDW 13.2 % (11.5-15.5); WBC 7.9 k/uL (3.8-10.6)
[2018-07-23 07:26] LABS: Anion Gap 9 mmol/L; Blood Urea Nitrogen 19 mg/dL (9-20); Calcium 9.7 mg/dL (8.4-10.2); Carbon Dioxide 24 mmol/L (22-30); Chloride 105 mmol/L (98-107); Glucose 130 mg/dL (74-99); Potassium 4.5 mmol/L (3.5-5.1); Sodium 138 mmol/L (137-145)
[2018-07-23] MEDS: IPRATROPIUM-ALBUTEROL 3 ML NEB INHALATION SCH ×4 (08:50→20:00)
[2018-07-23] MEDS: PANTOPRAZOLE 40 MG TABLET PO SCH (09:07)
[2018-07-23] MEDS: MULTIVITAMINS, THERA 1 EACH TAB PO SCH (09:08)
[2018-07-23] MEDS: OXYBUTYNIN CHLORIDE 5 MG TAB PO SCH (09:08)
[2018-07-23] MEDS: HEPARIN SODIUM,PORCINE 5,000 UNIT/ML 1 ML VIAL SQ SCH ×2 (09:08→21:22)
--- NOTE | 2018-07-23 14:09 | P.CNPUL ---
History of Present Illness Consult date: 07/23/18 Reason for consult: dyspnea, cough, chest pain, COPD, pneumothorax Chief complaint: Shortness of breath, history of pneumothorax History of present illness: Progress note dated 07/23/2018 63-year-old male with an extensive tobacco history. He apparently has a history of COPD. He also apparently has a history of previous right-sided pneumothorax. This occurred in September 2017. He stated that time, he did not require any invasive modalities to expand the right lung. He comes back into the emergency room with increasing shortness of breath and right-sided chest and again found to have a 10-15% pneumothorax in the right chest. It's similar to the prior x-rays that were done in September this year. Today he is sitting in bed. He is not short of breath. Not requiring any oxygen therapy. No audible wheezing or any use of accessory muscles. He does not appear to be in any distress at this time he states that he does feel better compared to how he fell yesterday when he came into the emergency room. The patient does have a very flat affect. Not a particularly good historian. Speaks very softly and also has this constant lipsmacking making me think that he has some sort of extrapyramidal side effect or drug effect. He is apparently oriented to pain at this time. Apparently his only past medical history other than COPD and right-sided pneumothorax includes a primarily bipolar disorder and depression. He continues to smoke cigarettes despite his COPD and his previous right-sided pneumothorax. Review of Systems A 14 point review of system is positive for shortness of breath and right-sided chest discomfort. It is sharp pain worse on deep breathing. Currently does not appear to have any respiratory distress. I hear no audible wheezing at this time. Past Medical History Past Medical History: COPD Additional Past Medical History / Comment(s): COPD History of Any Multi-Drug Resistant Organisms: None Reported Past Surgical History: No Surgical Hx Reported Additional Past Surgical History / Comment(s): hemorrhoids Past Psychological History: Bipolar, Depression Smoking Status: Former smoker Past Alcohol Use History: None Reported Past Drug Use History: None Reported - Past Family History Father Additional Family Medical History / Comment(s): cardiac issues Mother Additional Family Medical History / Comment(s): heart murmur Medications and Allergies Home Medications Medication Instructions Recorded Confirmed Type Oxybutynin Chloride [Ditropan] 5 mg PO DAILY 07/22/18 07/22/18 History Allergies Allergy/AdvReac Type Severity Reaction Status Date / Time No Known Allergies Allergy Verified 07/22/18 12:50 Physical Exam Osteopathic Statement: *. No significant issues noted on an osteopathic structural exam other than those noted in the History and Physical/Consult. Vitals: Vital Signs Temp Pulse Pulse Resp BP BP Pulse Ox 07/23/18 11:38 88 07/23/18 11:28 88 07/23/18 09:16 97.7 F 99 16 115/70 96 07/23/18 08:59 86 07/23/18 08:50 88 07/23/18 06:17 65 16 108/55 95 07/23/18 02:18 97.8 F 87 87/52 91 L 07/23/18 00:45 16 07/22/18 20:50 97 16 07/22/18 20:43 84 07/22/18 20:35 80 07/22/18 20:00 97.6 F 97 16 104/63 95 07/22/18 16:53 90 07/22/18 16:43 90 07/22/18 16:00 103 H 16 07/22/18 15:45 98.1 F 103 H 16 128/75 95 07/22/18 15:00 97 17 122/74 94 L 07/22/18 14:20 89 07/22/18 14:08 91 Intake and Output 07/22/18 07/23/18 07/23/18 22:59 06:59 14:59 Intake Total 350 250 360 Balance 350 250 360 Intake: Oral 350 250 360 Other: # Voids 2 1 Weight 61.235 kg No acute distress, oriented 3. No sandra respiratory distress. No use of accessory muscles. No audible wheezing. Currently not on any supplemental oxygen. HEENT examination is grossly unremarkable. Mucous membranes are moist. No oral lesions. Neck supple. Full range of motion. No adenopathy thyromegaly or neck vein distention. Cardiovascular examination reveals regular rhythm rate. S1-S2 normal. No S3 or S4. No discernible murmur noted. Lungs reveal very quiet breath sounds. Breath sounds are diminished throughout. No wheezes. A few scattered rhonchi. No crackles. Breath sounds equal bilaterally diminished throughout. Abdomen soft and bowel sounds are heard. No masses or tenderness. Extremities are intact. No cyanosis clubbing or edema. Skin is without rash or lesion. Neurologic examination is brief but nonfocal. Results - Laboratory Findings CBC and BMP: 07/23/18 06:20 07/23/18 06:20 PT/INR, D-dimer PT 10.1 sec (9.0-12.0) 07/22/18 12:12 INR 1.0 (<1.2) 07/22/18 12:12 Abnormal lab findings: Abnormal Labs 07/22/18 07/23/18 07/23/18 12:12 00:04 01:06 RBC Glucose POC Glucose (mg/dL) 165 H Total Creatine Kinase 35 L Urine Glucose (UA) 3+ H Urine Ketones 2+ H Urine Blood Small H Urine Mucus Few H 07/23/18 07/23/18 06:20 06:20 RBC 4.20 L Glucose 130 H POC Glucose (mg/dL) Total Creatine Kinase Urine Glucose (UA) Urine Ketones Urine Blood Urine Mucus - Diagnostic Findings Chest x-ray: report reviewed, image reviewed (X-ray, labs and medications are all reviewed.) Assessment and Plan Assessment: Assessment Mild COPD exacerbation triggered from ongoing tobacco use Persistent right-sided pneumothorax about 10-15%, and unchanged from previous x- rays History of bipolar disorder and depression Chronic tobacco dependence Bullous emphysema. Plan: Plan dated 07/23/2018 Currently, the patient is on DuoNeb's 4 times a day and when necessary and Solu- Medrol 60 mg every 6 hours. I think it's appropriate. I'll add some Symbicort 160/4.5, 2 puffs twice a day. He needs a nicotine patch is not ready ordered. Additional recommendations and suggestions are forthcoming. The pneumothorax does not need any intervention at this time as it is stable. He has significant bullous emphysema. He likely will have additional problems in the future. This is especially so if he continues to smoke. Time with Patient: Greater than 30
[2018-07-23] MEDS: SYMBICORT 160-4.5 MCG INHALER INHALATION SCH (20:00)
--- NOTE | 2018-07-23 21:23 | PN ---
PROGRESS NOTE DATE OF SERVICE: 07/23/2018 This 63-year-old gentleman who was admitted with shortness of breath and COPD also had right-sided pneumothorax also. The patient is being closely monitored at this time. The new onset pain was also suspected. Dr. Andrews has seen the patient. No chest pain. No palpitations. No fever. EXAM: Alert and oriented x2. Pulse 99, blood pressure 115/70, respiration 16, temperature 97.7, pulse ox 98% on room air. HEENT: Conjunctivae normal. Oral mucosa moist. Neck is no jugular venous distention. No carotid bruit. No lymph node enlargement. Cardiovascular: S1, S2 muffled. Respiratory: Breath sounds diminished in the bases. A few rhonchi and crackles. Expiratory wheezing also present. Abdomen is soft, nontender. Legs are no edema. No swelling. Nervous system: No focal deficits. LABS: Hemoglobin 13, glucose 130. Other labs are noted. ASSESSMENT: 1. Right-sided chest pain with possible acute on chronic right pneumothorax about 15%. 2. Chronic obstructive pulmonary disease exacerbation. 3. History of nicotine dependence. 4. Bipolar depression. 5. Mild to moderate protein calorie malnutrition. 6. Remote history of nicotine dependence. RECOMMENDATIONS AND DISCUSSION: Recommend to continue current medications, management and symptomatic treatment. Otherwise, at this time, I recommend continue with current medications. Bronchodilators. Smoking cessation. Closely follow with Pulmonary. Further recommendations to follow. MMODL / IJN: [id number] /
[2018-07-24] MEDS: methylPREDNISolone SOD SUCCI 125 MG/2 ML VIAL IV SCH ×3 (00:42→12:02)
[2018-07-24] MEDS: PANTOPRAZOLE 40 MG TABLET PO SCH (07:49)
[2018-07-24 08:35] LABS: Basophils # (A) 0.1 k/uL (0-0.2); Basophils % (A) 0 %; Eosinophils % (A) 0 %; HGB 13.5 gm/dL (13.0-17.5); Lymphocytes % (A) 5 %; MCH 30.3 pg (25.0-35.0); MCHC 32.1 g/dL (31.0-37.0); MCV 94.4 fL (80.0-100.0); Mean Platelet Volume 7.3; Monocytes # (A) 0.5 k/uL (0-1.0); Monocytes % (A) 3 %; Neutrophils # (A) 16.1 k/uL (1.3-7.7); Neutrophils % (A) 91 %; Platelet Count 326 k/uL (150-450); RBC 4.45 m/uL (4.30-5.90); RDW 13.6 % (11.5-15.5); WBC 17.8 k/uL (3.8-10.6)
[2018-07-24] MEDS: IPRATROPIUM-ALBUTEROL 3 ML NEB INHALATION SCH ×2 (09:18→13:06)
[2018-07-24] MEDS: SYMBICORT 160-4.5 MCG INHALER INHALATION SCH (09:18)
[2018-07-24] MEDS: HEPARIN SODIUM,PORCINE 5,000 UNIT/ML 1 ML VIAL SQ SCH (09:24)
[2018-07-24] MEDS: OXYBUTYNIN CHLORIDE 5 MG TAB PO SCH (09:24)
[2018-07-24 09:28] LABS: Calcium 9.9 mg/dL (8.4-10.2); Potassium 4.8 mmol/L (3.5-5.1)
[2018-07-24] MEDS: MULTIVITAMINS, THERA 1 EACH TAB PO SCH (12:03)
--- NOTE | 2018-07-24 13:47 | XR ---
EXAMINATION TYPE: XR chest 2V DATE OF EXAM: 07/24/2018 COMPARISON: Prior chest x-ray and chest CT 07/22/2018 HISTORY: Pneumothorax TECHNIQUE: Frontal and lateral views of the chest are obtained. FINDINGS: Small right-sided pneumothorax is thought to persist. Emphysematous changes are present. Pa tient is rotated. There is no focal air space opacity, pleural effusion seen. The cardiac silhouette size is stable. The osseous structures are intact. IMPRESSION: Improvement in patient's right-sided pneumothorax.
[2018-07-24 15:27] VITALS: BP 116/70; PULSE 106; RESP 16; TEMP 98.3
--- NOTE | 2018-07-24 17:08 | P.PN ---
Subjective Progress Note Date: 07/24/18 Principal diagnosis: COPD exacerbation, right-sided pneumothorax of 10-15% Progress note dated 07/23/2018 63-year-old male with an extensive tobacco history. He apparently has a history of COPD. He also apparently has a history of previous right-sided pneumothorax. This occurred in September 2017. He stated that time, he did not require any invasive modalities to expand the right lung. He comes back into the emergency room with increasing shortness of breath and right-sided chest and again found to have a 10-15% pneumothorax in the right chest. It's similar to the prior x-rays that were done in September this year. Today he is sitting in bed. He is not short of breath. Not requiring any oxygen therapy. No audible wheezing or any use of accessory muscles. He does not appear to be in any distress at this time he states that he does feel better compared to how he fell yesterday when he came into the emergency room. The patient does have a very flat affect. Not a particularly good historian. Speaks very softly and also has this constant lipsmacking making me think that he has some sort of extrapyramidal side effect or drug effect. He is apparently oriented to pain at this time. Apparently his only past medical history other than COPD and right-sided pneumothorax includes a primarily bipolar disorder and depression. He continues to smoke cigarettes despite his COPD and his previous right-sided pneumothorax. On 07/24/2018 patient seen in follow-up on medical surgical floor. He seems to be fairly comfortable at rest, does any pleurisy, denies any worsening dyspnea. Currently on room air, his pulse ox is 93%, and is slightly tachycardic, with a heart rate up to 116 BPM, hemodynamically stable. Repeated patient's chest x- ray today and it showed improvement in patient's right-sided pneumothorax. Patient has been treated with IV steroids, nebulized bronchodilators, and Symbicort, he is not bronchospastic on today's exam, no cough, no phlegm production. No chest wall discomfort. The patient is stable, from pulmonary perspective patient can be charge home today, with follow-up in the office Objective - Vital Signs Vital signs: Vital Signs Temp 98.3 F 07/24/18 15:00 Pulse 106 H 07/24/18 15:00 Resp 16 07/24/18 15:00 BP 116/70 07/24/18 15:00 Pulse Ox 93 L 07/24/18 15:00 Intake & Output 07/23/18 07/24/18 07/24/18 18:59 06:59 18:59 Intake Total 940 500 850 Balance 940 500 850 Intake: Oral 940 500 850 Other: # Voids 1 2 - Exam No acute distress, oriented 3. No sandra respiratory distress. No use of accessory muscles. No audible wheezing. Currently not on any supplemental oxygen. HEENT examination is grossly unremarkable. Mucous membranes are moist. No oral lesions. Neck supple. Full range of motion. No adenopathy thyromegaly or neck vein distention. Cardiovascular examination reveals regular rhythm rate. S1-S2 normal. No S3 or S4. No discernible murmur noted. Lungs reveal very quiet breath sounds. Breath sounds are diminished throughout. No wheezes. A few scattered rhonchi. No crackles. Breath sounds equal bilaterally diminished throughout. Abdomen soft and bowel sounds are heard. No masses or tenderness. Extremities are intact. No cyanosis clubbing or edema. Skin is without rash or lesion. Neurologic examination is brief but nonfocal. - Labs CBC & Chem 7: 07/24/18 07:23 07/24/18 07:23 Labs: Abnormal Lab Results - Last 24 Hours (Table) 07/24/18 07/24/18 Range/Units 07:23 07:23 WBC 17.8 H (3.8-10.6) k/uL Neutrophils # 16.1 H (1.3-7.7) k/uL BUN 21 H (9-20) mg/dL Glucose 113 H (74-99) mg/dL Microbiology - Last 24 Hours (Table) 07/22/18 12:12 Blood Culture - Preliminary Blood No Growth after 48 hours Assessment and Plan Plan: Assessment: Mild COPD exacerbation triggered from ongoing tobacco use Persistent right-sided pneumothorax about 10-15%, improved on today's chest x- ray History of bipolar disorder and depression Chronic tobacco dependence Bullous emphysema. Plan: Today's chest x-ray showed improvement in the appearance of the right-sided pneumothorax, clinically patient remains stable, no chest pain, no worsening dyspnea, he is on room air, not bronchospastic on today's exam, no cough, no congestion, no phlegm production. From pulmonary perspective patient is stable for discharge home today. We will need follow-up in the office with Dr. Gonzalez in 7-10 days. Instructed to come in sooner if there are recurrence of the symptoms of chest pain, worsening shortness of breath. I performed a history & physical examination of the patient and discussed their management with my nurse practitioner, Vernell Winston. I reviewed the nurse practitioner's note and agree with the documented findings and plan of care. Lung sounds are clear, diminished. The findings and the impression was discussed with the patient. I attest to the documentation by the nurse practitioner. Time with Patient: Less than 30
--- NOTE | 2018-07-31 17:05 | P.DS ---
Providers Date of admission: 07/22/18 14:37 Attending physician: Alayna Jimenez Consults: 07/22/18 16:52 Consult Physician Routine Consulting Provider: González Andrews Consult Reason/Comments: pneumo, copd Do you want consulting provider notified?: Yes Primary care physician: Malvin Vick Pertinent Studies: this is a pleasant 63 yo M with pmh of COPD, current smoker and h/o right sided pneumothorax about 10 months ago , presents with signs and symptoms of right sided chest pain , and mild dyspnea with slightly increased cough and phlegm. pt was found to have mild acute exacerbation of COPD, he was treated with steroid, breathing treatment. pt also have evaluated by pulmonary team who adjusted his medication and follow up with him closely.Repeated patient's chest x-ray today and it showed improvement in patient's right-sided pneumothorax. pt showed interval improvement and on the day of discharge he improved significantly with no dyspnea, no chest pain , no fever. his other symptoms improved as well and he is back to his baseline and felt he can go home today. pt was cleared by pulmonary team for discharge today as well. Pt was instructed about the problems and management plan and Pt verbalized understanding and acceptance Pt is found stable and can be discharged to the community but needs follow up as outpt. pt agreed with appointment and timing and state he is going to f/u with it Discharge exam Gen.: Patient alert awake and oriented X 3, NOT IN DISTRESS CVS: s1-s2, RRR, no murmur CHEST:bilateral CTA, no wheezing or crepitation Abdomen: Soft, no tenderness, no distention, positive bowel sounds Extremities: No leg edema or induration time spent : more than 35 min Patient Condition at Discharge: Stable Plan - Discharge Summary New Discharge Prescriptions: New Budesonide-Formot 160-4.5 Mcg [Symbicort 160-4.5 Mcg Inhaler] 2 puff INHALATION RT-BID 30 Days #1 vial Pantoprazole [Protonix] 40 mg PO -BRKFST #30 tablet. Albuterol Inhaler [Ventolin Hfa Inhaler] 1 - 2 puff INHALATION RT-Q6H PRN #1 inhaler PRN Reason: Shortness Of Breath Continue Oxybutynin Chloride [Ditropan] 5 mg PO DAILY Discharge Medication List Oxybutynin Chloride [Ditropan] 5 mg PO DAILY 07/22/18 [History] Albuterol Inhaler [Ventolin Hfa Inhaler] 1 - 2 puff INHALATION RT-Q6H PRN #1 inhaler 07/24/18 [Rx] Budesonide-Formot 160-4.5 Mcg [Symbicort 160-4.5 Mcg Inhaler] 2 puff INHALATION RT-BID 30 Days #1 vial 07/24/18 [Rx] Pantoprazole [Protonix] 40 mg PO AC-BRKFST #30 tablet. 07/24/18 [Rx] Follow up Appointment(s)/Referral(s): Nicanor Coombs MD [Primary Care Provider] - 08/01/18 2:40 pm Zoila Gonzalez MD [STAFF PHYSICIAN] - 1 Week (Office closed, please call to set appointment) Patient Instructions/Handouts: Albuterol (By breathing), Pantoprazole (By mouth ), Budesonide/Formoterol (By breathing), Spontaneous Pneumothorax (DC) Activity/Diet/Wound Care/Special Instructions: cardiac diet activity is limited till you see your doctor Discharge Disposition: HOME SELF-CARE
== END 2018-07-24 16:58 | disposition home or self-care (01) ==
LOC: EC 11:43 → 4SSUR 14:37
PROVIDERS: ADMIT Hospitalist; ATTEND Hospitalist
DX: J93.83 Other pneumothorax (principal); J93.81 Chronic pneumothorax; J44.1 Chronic obstructive pulmonary disease with (acute) exacerbation; F31.9 Bipolar disorder, unspecified; E44.0 Moderate protein-calorie malnutrition; F17.210 Nicotine dependence, cigarettes, uncomplicated; Z79.899 Other long term (current) drug therapy; Z82.49 Family history of ischemic heart disease and other diseases of the circulatory system; Z68.1 Body mass index [BMI] 19.9 or less, adult
CPT/HCPCS: 96376 ×2; 96372 ×3; 96375; 96374; 99285; 36415; 94640 ×5; 93005; 83880; 80053; 80048 ×2; 82550; 82553; 83605; 83735; 84484; 85025 ×3; 85610; 85730; 81001; 87040; 71045; 71046; 71250; G0378 ×3; J1644 ×3; J1100; J2930 ×3

== ENCOUNTER 2018-12-19 16:15 | Inpatient (IN) | payer MEDICARE ==
--- NOTE | 2018-12-19 16:53 | ED ---
General Adult HPI - General Chief complaint: Shortness of Breath Stated complaint: collapsed lung Time Seen by Provider: 12/19/18 16:29 Source: patient Mode of arrival: ambulatory Limitations: no limitations - History of Present Illness Initial comments: Dictation was produced using [employer] dictation software. please excuse any grammatical, word or spelling errors. Chief Complaint: 63-year-old male with past medical history of COPD and pneumothorax presents with abnormal outpatient x-ray. History of Present Illness: 62-year-old male. He has history of pneumothorax. He reports that over the last 7 days he has been having chest pain and shortness of breath. He was seen at nurse practitioner's office where an x-ray was performed and patient was thought to have a pneumothorax. He was sent to the emergency department for further intervention. The ROS documented in this emergency department record has been reviewed and confirmed by me. Those systems with pertinent positive or negative responses have been documented in the HPI. All other systems are other negative and/or noncontributory. PHYSICAL EXAM: General Impression: Alert and oriented x3, not in acute distress, cachectic HEENT: Normocephalic atraumatic, extra-ocular movements intact, pupils equal and reactive to light bilaterally, dry mucous membranes Cardiovascular: Tachycardic Chest: Diminished right lung sounds Abdomen: Bowel sounds present, abdomen soft, non-tender, non-distended, no organomegaly Musculoskeletal: Pulses present and equal in all extremities, no peripheral edema Motor: no focal deficits noted Neurological: CN II-XII grossly intact, no focal motor or sensory deficits noted Skin: Intact with no visualized rashes Psych: Normal affect and mood ED course: She 63-year-old male with past medical history of COPD pneumothoraces presents with abnormal outpatient x-ray. Vital signs upon arrival shows heart rate of 123, worse vital signs within acceptable limits. Patient is not hypoxic. Stat portable chest x-ray was obtained. It appears that there is concern for pneumothoraces versus large parenchymal bleb repaired patient sent to CT.Laboratory evaluation obtained. Grossly unremarkable. There is mild thrombocytosis with a plate count of 498. Given that there was concern that patient's findings may be secondary to a bleb chest CT was performed for confirmation of pneumothorax and for interventional planning of chest tube placement approach. CT was obtained showing large pneumothorax. Chest tube was placed. Patient tolerated procedure well. Patient observed in emergency department and found to be in stable medical condition. Patient be admitted to telemetry with consultation to pulmonology and cardiac thoracic surgery. EKG interpretation: Ventricular rate 112, sinus tachycardia, MA interval 140, care is 90, QTc 447. No MA prolongation, no QTC prolongation, no ST or T-wave changes noted. Overall, this EKG is unremarkable - Related Data Home Medications Medication Instructions Recorded Confirmed Ranitidine HCl [Zantac] 75 mg PO BID PRN 12/19/18 12/19/18 Previous Rx's Medication Instructions Recorded Albuterol Inhaler [Ventolin Hfa 1 - 2 puff INHALATION RT-Q6H PRN 07/24/18 Inhaler] #1 inhaler Budesonide-Formot 160-4.5 Mcg 2 puff INHALATION RT-BID 30 Days 07/24/18 [Symbicort 160-4.5 Mcg Inhaler] #1 vial Allergies Allergy/AdvReac Type Severity Reaction Status Date / Time No Known Allergies Allergy Verified 12/19/18 16:50 Review of Systems ROS Statement: Those systems with pertinent positive or pertinent negative responses have been documented in the HPI. ROS Other: All systems not noted in ROS Statement are negative. Past Medical History Past Medical History: COPD Additional Past Medical History / Comment(s): pneumothorax, COPD History of Any Multi-Drug Resistant Organisms: None Reported Past Surgical History: No Surgical Hx Reported Additional Past Surgical History / Comment(s): hemorrhoids Past Psychological History: Bipolar, Depression Smoking Status: Former smoker Past Alcohol Use History: None Reported Past Drug Use History: None Reported - Past Family History Father Additional Family Medical History / Comment(s): cardiac issues Mother Additional Family Medical History / Comment(s): heart murmur General Exam Limitations: no limitations Course Vital Signs 12/19/18 16:21 Temperature 97.4 F L Pulse Rate 123 H Respiratory 22 Rate Blood Pressure 127/89 O2 Sat by Pulse 96 Oximetry Procedures - Chest Tube Insertion Consent Obtained: written consent Side of Procedure: right Indication: Pneumothorax Placed on monitor/pulse oximetry: Yes Site Prep: Chloroprep Local Anesthesia: Lidocaine 1%, With Epi Insertion Site: 5th Intercostal Space Scalpel: #15 Open into Pleural Space Using: Diane Clamp Tube Size (Pashto): 28 Returns: Air Sutured in Place: Yes Type of Suture: Nylon Dressing Applied: 4x4 Attached to Suction: Yes Type of Suction: Pleuravac Repeat X-ray Results: Lung Inflated Patient Tolerated Procedure: well Medical Decision Making - Lab Data Result diagrams: 12/19/18 16:38 12/19/18 16:38 Lab Results 12/19/18 12/19/18 12/19/18 Range/Units 16:38 16:38 16:38 WBC 10.5 (3.8-10.6) k/uL RBC 5.60 (4.30-5.90) m/uL Hgb 16.5 (13.0-17.5) gm/dL Hct 51.2 (39.0-53.0) % MCV 91.6 (80.0-100.0) fL MCH 29.4 (25.0-35.0) pg MCHC 32.1 (31.0-37.0) g/dL RDW 13.5 (11.5-15.5) % Plt Count 498 H (150-450) k/uL Neutrophils % 75 % Lymphocytes % 15 % Monocytes % 6 % Eosinophils % 1 % Basophils % 2 % Neutrophils # 7.9 H (1.3-7.7) k/uL Lymphocytes # 1.5 (1.0-4.8) k/uL Monocytes # 0.6 (0-1.0) k/uL Eosinophils # 0.1 (0-0.7) k/uL Basophils # 0.2 (0-0.2) k/uL PT 10.4 (9.0-12.0) sec INR 1.0 (<1.2) Sodium 141 (137-145) mmol/L Potassium 4.9 (3.5-5.1) mmol/L Chloride 104 (98-107) mmol/L Carbon Dioxide 25 (22-30) mmol/L Anion Gap 12 mmol/L BUN 21 H (9-20) mg/dL Creatinine 1.12 (0.66-1.25) mg/dL Est GFR (CKD-EPI)AfAm 82 (>60 ml/min/1.73 sqM) Est GFR (CKD-EPI)NonAf 71 (>60 ml/min/1.73 sqM) Glucose 105 H (74-99) mg/dL Calcium 10.1 (8.4-10.2) mg/dL Disposition Clinical Impression: Pneumothorax, Ruptured emphysematous bleb Disposition: ADMITTED IP TO THIS HOSP Condition: Fair Referrals: Nicanor Coombs MD [Primary Care Provider] - 1-2 days Decision Time: 18:43
[2018-12-19 16:59] LABS: Basophils # (A) 0.2 k/uL (0-0.2); Basophils % (A) 2 %; Eosinophils # (A) 0.1 k/uL (0-0.7); Eosinophils % (A) 1 %; HCT 51.2 % (39.0-53.0); HGB 16.5 gm/dL (13.0-17.5); Lymphocytes # (A) 1.5 k/uL (1.0-4.8); Lymphocytes % (A) 15 %; MCH 29.4 pg (25.0-35.0); MCHC 32.1 g/dL (31.0-37.0); MCV 91.6 fL (80.0-100.0); Mean Platelet Volume 7.3; Monocytes # (A) 0.6 k/uL (0-1.0); Monocytes % (A) 6 %; Neutrophils # (A) 7.9 k/uL (1.3-7.7); Neutrophils % (A) 75 %; Platelet Count 498 k/uL (150-450); RDW 13.5 % (11.5-15.5); WBC 10.5 k/uL (3.8-10.6)
--- NOTE | 2018-12-19 17:06 | XR ---
EXAMINATION: XR chest 1V portable DATE AND TIME: 12/19/2018 4:48 PM CLINICAL INDICATION: PHH; Pain TECHNIQUE: 2 frontal radiographs COMPARISON: 07/24/2018 FINDINGS: There is a large right-sided pneumothorax occupies the lower two-thirds of the right hemith orax. The right upper lung zone shows inflated lung, but bulla and bleb formation is seen throughout this lung parenchyma, with nodular opacities also noted. Bulla and bleb formation is seen throughout the left lung parenchyma, with scattered nodular opacitie s seen on prior study. Able curvature of the thoracic spine is redemonstrated, apex at the lower third of the thoracic spine . No definite change in the mediastinal structures relationship to the spine were compared to the jethro or study. However, assessment for midline shift is limited due to the spinal and emphysematous valorie ectural distortion. There is no left pneumothorax; no pleural effusions. The cardiac silhouette is borderline enlarged. T he skeletal structures and soft tissues are negative for acute findings. IMPRESSION: LARGE RIGHT PNEUMOTHORAX, OCCUPYING APPROXIMATELY TWO THIRDS OF THE RIGHT HEMITHORAX. Results called to the Dr. Crystal just now, in order to ensure time-sensitive communications; patient was already he ading to the CT suite by the time we discussed the radiograph.
[2018-12-19 17:07] LABS: Prothrombin Time 10.4 sec (9.0-12.0)
[2018-12-19 17:10] LABS: Calcium 10.1 mg/dL (8.4-10.2); Potassium 4.9 mmol/L (3.5-5.1)
[2018-12-19] MEDS ORDERED: LIDOCAINE 1%-EPI 1:100,000 20 ML VIAL SQ STA (17:33)
--- NOTE | 2018-12-19 17:40 | CT ---
EXAMINATION TYPE: CT chest wo con DATE OF EXAM: 12/19/2018 COMPARISON: Same day chest radiograph taken at 4:40 PM HISTORY: Difficulty breathing CT DLP: 199.8 mGycm. Automated Exposure Control for Dose Reduction was Utilized. TECHNIQUE: CT scan of the thorax is performed without IV contrast. FINDINGS: Large right-sided pneumothorax occupies the lower two-thirds of the right hemithorax. The r ight upper lung zone shows inflated lung, but bulla and bleb formation is seen throughout this lung p arenchyma, with bronchogenic nodules also noted - which can be assessed once the lung parenchyma is f ully inflated again. Small right pleural effusion dependently noted. Bulla and bleb formation is seen throughout the left lung parenchyma, with scattered subcentimeter pu lmonary nodules. The left-sided pneumothorax. No left-sided pleural effusion. Levocurvature of the thoracic spine is redemonstrated, apex at the lower third of the thoracic spine. Cardiac silhouette is not enlarged. . The trachea is midline, but the lucy is left of midline, as i t was on the prior study. With the advanced bilateral emphysematous bulla and bleb formation is diffi cult to ascertain how much mediastinal shift is present. While there is no definite mass effect upon the right heart chambers or pericardium, the findings are borderline for clinical diagnosis of tensio n pneumothorax. Skeletal structures and soft tissues are negative for acute findings. IMPRESSION: LARGE RIGHT PNEUMOTHORAX. Results discussed with Dr. Mireles just now, in order to ensure time-sensitive communications.
[2018-12-19] MEDS ORDERED: fentaNYL (PF) 50 MCG/ML 2 ML AMP IVP STA (18:18)
[2018-12-19] MEDS ORDERED: ONDANSETRON 4 MG/2 ML VIAL IVP PRN (18:38)
[2018-12-19] MEDS ORDERED: NALOXONE 0.4 MG/ML 1 ML VIAL IV PRN (18:38)
[2018-12-19] MEDS ORDERED: ACETAMINOPHEN TAB 325 MG TAB PO PRN (18:38)
[2018-12-19] MEDS ORDERED: METHOCARBAMOL 750 MG TAB PO PRN (18:40)
--- NOTE | 2018-12-19 18:42 | XR ---
EXAMINATION: XR chest 1V portable DATE AND TIME: 12/19/2018 6:23 PM CLINICAL INDICATION: PHH; chest tube placement TECHNIQUE: Departmental protocol COMPARISON: Chest radiograph 12/19/2018 at 4:41 PM FINDINGS: Since prior study right chest tube has been placed, with its port superimposed over the med ial one third of the right lower lung zone and with its tip superimposed over the right heart border. There is interval improvement, with less pneumothorax currently than seen on the prior study. Also, the right heart border can now be seen to the right of the spine, also representing interval im provement. IMPRESSION: 1. INTERVAL IMPROVEMENT POST RIGHT CHEST TUBE PLACEMENT. 2. NO NEW PROCESS.
[2018-12-19] MEDS ORDERED: FAMOTIDINE 20 MG TAB PO PRN (21:27)
[2018-12-19] MEDS ORDERED: IPRATROPIUM-ALBUTEROL 3 ML NEB INHALATION PRN (21:28)
[2018-12-19] MEDS: SODIUM CHLORIDE 0.9% 1,000 ML IV SCH (21:30)
[2018-12-19] MEDS ORDERED: TEMAZEPAM 15 MG CAP PO PRN (21:32)
[2018-12-19] MEDS: MORPHINE SULFATE 4 MG/ML SYRINGE IV PRN (21:59)
[2018-12-19] MEDS: HYDROcodone/APAP 5-325MG 1 EACH TAB PO PRN (23:01)
--- NOTE | 2018-12-19 23:13 | HP ---
HISTORY AND PHYSICAL DATE OF SERVICE: 12/19/2018. CHIEF COMPLAINT: Shortness of breath. HISTORY OF PRESENT ILLNESS: This 63-year-old gentleman with a past medical history of multiple medical problems including COPD, history of bipolar and depression, history of nicotine dependance, being followed by Dr. Coombs in the outpatient setting, had a right-sided pneumothorax about 10 to 15%. She was treated symptomatically. Dr. Gonzalez saw the patient during hospitalization. The patient went home. Currently the patient complains of shortness of breath increasing over the last 7 days. X-ray was performed and was found to have right pneumothorax. Patient came to [facility] and had a right-sided chest tube drainage. The patient was admitted for evaluation with Pulmonology and Cardiology consultation. There is no history of fever, rigors. No headache. No seizures. PAST MEDICAL HISTORY: Minimal pneumothorax previously, pulmonary embolus, COPD, bipolar and depression. MEDICATIONS: Prior to admission home medications are: 1. Zantac 70 mg p.o. b.i.d. p.r.n. 2. Symbicort dose of 4.5 two puffs b.i.d. 3. Ventolin 1-2 puffs every 6 h p.r.n. ALLERGIES: None. FAMILY HISTORY: History of cardiac issues in the family. SOCIAL HISTORY: Previous history of smoking. No history of current smoking or alcohol. REVIEW OF SYSTEMS: ENT: No diminished hearing or vision. CARDIOVASCULAR: No angina or palpitations. RESPIRATORY: As mentioned earlier. GI: No nausea. : No dysuria. NERVOUS SYSTEM: No numbness or weakness. ALLERGY/IMMUNOLOGY: No asthma or hayfever. MUSCULOSKELETAL: As mentioned. HEMATOLOGY/ONCOLOGY: History of anemia. ENDOCRINE: No diabetes. CONSTITUTIONAL: As mentioned. PSYCHIATRY: As mentioned earlier. PHYSICAL EXAMINATION: Alert and oriented. Pulse is 89, blood pressure 114/70, respiratory rate 20, temp normal, pulse ox 100 percent room air. The patient is emaciated and interdigital spaces are very prominent. HEENT: Conjunctivae normal. NECK: No jugular venous distention. CARDIOVASCULAR: S1 and S2 muffled. LUNGS: Chest tube drainage. Breath sounds diminished gently on right side. Few rhonchi heard. ABDOMEN: Soft, nontender. No mass palpable. LEGS: No edema. No swelling. NERVOUS SYSTEM: Higher functions as mentioned earlier. Moves all 4 limbs. No focal motor deficits. SKIN: No skin rash or ulcer. JOINTS: No active deforming or arthropathy. LAB STUDIES: WBC 11.1, hemoglobin 16.2, platelets of 498,000. Glucose 109. ASSESSMENT: 1. Acute on chronic right pneumothorax status post chest tube drainage. 2. History of previous right-sided pneumothorax 10 to 15T as well as pulmonary emboli. 3. Chronic obstructive pulmonary disease. 4. History of bipolar depression. 5. History hemorrhoids. 6. History of nicotine dependence. 7. Moderate severe protein calorie malnutrition with BMI of 17.9. PLAN: At this time I recommend to continue current management and continue bronchodilators smoke cessation advised. Pulmonology and Cardiothoracic Surgery evaluation. Otherwise, pain medications. Guarded prognosis because of multiple complex medical issues. Further recommendations to follow. MMJOSE ARMANDOL / TCN: [id number] /
[2018-12-20] MEDS: MORPHINE SULFATE 4 MG/ML SYRINGE IV PRN (04:42)
[2018-12-20 06:50] LABS: Basophils # (A) 0.1 k/uL (0-0.2); Basophils % (A) 1 %; Eosinophils # (A) 0.1 k/uL (0-0.7); Eosinophils % (A) 1 %; HCT 45.3 % (39.0-53.0); HGB 14.2 gm/dL (13.0-17.5); Lymphocytes # (A) 1.4 k/uL (1.0-4.8); Lymphocytes % (A) 13 %; MCH 28.6 pg (25.0-35.0); MCHC 31.3 g/dL (31.0-37.0); MCV 91.3 fL (80.0-100.0); Mean Platelet Volume 6.9; Monocytes # (A) 0.8 k/uL (0-1.0); Monocytes % (A) 8 %; Neutrophils # (A) 8.6 k/uL (1.3-7.7); Neutrophils % (A) 76 %; Platelet Count 410 k/uL (150-450); RBC 4.95 m/uL (4.30-5.90); WBC 11.3 k/uL (3.8-10.6)
[2018-12-20 07:05] LABS: Calcium 8.9 mg/dL (8.4-10.2); Potassium 4.6 mmol/L (3.5-5.1)
[2018-12-20] MEDS: SYMBICORT 160-4.5 MCG INHALER INHALATION SCH ×2 (07:30→20:10)
[2018-12-20] MEDS: IPRATROPIUM-ALBUTEROL 3 ML NEB INHALATION SCH ×3 (07:41→20:10)
--- NOTE | 2018-12-20 08:29 | XR ---
EXAMINATION TYPE: XR chest 1V portable DATE OF EXAM: 12/20/2018 COMPARISON: 12/19/2018 HISTORY: Follow-up for pneumothorax. TECHNIQUE: Single frontal view of the chest is obtained. FINDINGS: Improving right basilar component of the pneumothorax with bullous emphysematous changes o f the lungs. Unchanged placement of a right thoracostomy tube. Trace right pleural effusion is also s een. Bibasilar atelectasis is present, right greater than left. Osseous structures are grossly intact . Cardia mediastinal silhouette is within normal limits. IMPRESSION: Improving right hydropneumothorax with extensive underlying bullous emphysema.
[2018-12-20] MEDS: PANTOPRAZOLE 40 MG/10 ML VIAL IV SCH (08:50)
[2018-12-20] MEDS: HEPARIN SODIUM,PORCINE 5,000 UNIT/ML 1 ML VIAL SQ SCH ×2 (08:50→20:30)
--- NOTE | 2018-12-20 10:01 | P.GSCN ---
History of Present Illness Consult date: 12/20/18 Reason for Consult: Recurrent right sided pneumothorax. Requesting physician: Zoila Gonzalez History of present illness: This is 63-year-old gentleman who is followed by Dr. Coombs on an outpatient basis. His past medical history significant for chronic obstructive pulmonary disease, history of nicotine dependence quit in September 2017, bipolar and depression, history of recurrent right-sided pneumothorax and gastroesophageal reflux disease. The patient followed up with pulmonary medicine yesterday and has been complaining of shortness of breath over a week with some right sided chest pain. Patient denies any recent fever, chills, cough, nausea, or vomiting. Subsequently, a chest x-ray was completed in the pulmonary medicine office which demonstrated a right sided pneumothorax. He was sent to the emergency department here at [facility] for further evaluation and treatment. While in the emergency department a chest x-ray was completed which demonstrated a large right pneumothorax. For further evaluation a computed tomography scan of his chest was completed which redemonstrated a large right pneumothorax. Due to the right pneumothorax a right thoracostomy tube was placed in the emergency department. Subsequent, due to the patient's recurrent right pneumothorax and placement of right thoracostomy tube a consult was placed to Dr. Greg Trejo from cardiothoracic surgery for evaluation and further recommendations. Review of Systems A 14 point review of systems was completed and was negative except as mentioned in HPI. Past Medical History Past Medical History: COPD, GERD/Reflux Additional Past Medical History / Comment(s): pneumothorax September 2017 and July 2018, COPD History of Any Multi-Drug Resistant Organisms: None Reported Past Surgical History: No Surgical Hx Reported Additional Past Surgical History / Comment(s): hemorrhoids Past Anesthesia/Blood Transfusion Reactions: No Reported Reaction Past Psychological History: Bipolar, Depression Smoking Status: Former smoker (Quit September 2017) Past Alcohol Use History: None Reported Past Drug Use History: None Reported - Past Family History Father Family Medical History: Cancer Additional Family Medical History / Comment(s): cardiac issues, lung ca Mother Family Medical History: Coronary Artery Disease (CAD) Additional Family Medical History / Comment(s): heart murmur Medications and Allergies Home Medications Medication Instructions Recorded Confirmed Type Albuterol Inhaler [Ventolin Hfa 1 - 2 puff INHALATION RT-Q6H PRN 07/24/18 12/19/18 Rx Inhaler] #1 inhaler Budesonide-Formot 160-4.5 Mcg 2 puff INHALATION RT-BID 30 Days 07/24/18 12/19/18 Rx [Symbicort 160-4.5 Mcg Inhaler] #1 vial Ranitidine HCl [Zantac] 75 mg PO BID PRN 12/19/18 12/19/18 History Allergies Allergy/AdvReac Type Severity Reaction Status Date / Time No Known Allergies Allergy Verified 12/19/18 16:50 Surgical - Exam Vital Signs Temp Pulse Resp BP Pulse Ox 97.4 F L 123 H 22 127/89 96 12/19/18 16:21 12/19/18 16:21 12/19/18 16:21 12/19/18 16:21 12/19/18 16:21 - General well developed, well nourished, no distress, no pain, chronically ill - Eyes PERRL, normal ocular movement - ENT normal pinna, normal nares, normal mucosa, no hearing loss, no congestion, poor fdc - Neck Neck is supple, no lymphadenopathy. no masses, no bruits, trachea midline, no venous distension - Respiratory Lungs sounds are essentially clear but diminished throughout. Respirations are symmetrical and nonlabored. Oxygen saturation are 97% on 4 L nasal cannula. - Cardiovascular Regular rhythm and rate. S1 and S2 present, negative for S3, gallop or murmur. No edema present. Remote telemetry showing normal sinus rhythm heart rate 91. - Abdomen Abdomen soft, nontender and nondistended. Active bowel sounds to all 4 abdominal quadrants. No guarding or rigidity. No organomegaly. - Genitourinary Deferred. - Rectum Deferred - Integumentary no rash, no growths, no abnormal pigmentation - Neurologic normal coordination, normal sensation - Musculoskeletal normal gait, normal posture - Psychiatric oriented to time, oriented to person, oriented to place, speech is normal, memory intact Results - Labs 12/20/18 06:05 12/20/18 06:05 Abnormal Lab Results - Last 24 Hours (Table) 12/19/18 12/19/18 12/20/18 Range/Units 16:38 16:38 06:05 WBC 11.3 H (3.8-10.6) k/uL Plt Count 498 H (150-450) k/uL Neutrophils # 7.9 H 8.6 H (1.3-7.7) k/uL BUN 21 H (9-20) mg/dL Glucose 105 H (74-99) mg/dL 12/20/18 Range/Units 06:05 WBC (3.8-10.6) k/uL Plt Count (150-450) k/uL Neutrophils # (1.3-7.7) k/uL BUN 21 H (9-20) mg/dL Glucose 101 H (74-99) mg/dL Diabetes panel 12/19/18 12/20/18 Range/Units 16:38 06:05 Sodium 141 140 (137-145) mmol/L Potassium 4.9 4.6 (3.5-5.1) mmol/L Chloride 104 105 (98-107) mmol/L Carbon Dioxide 25 29 (22-30) mmol/L BUN 21 H 21 H (9-20) mg/dL Creatinine 1.12 1.04 (0.66-1.25) mg/dL Glucose 105 H 101 H (74-99) mg/dL Calcium 10.1 8.9 (8.4-10.2) mg/dL Calcium panel 12/19/18 12/20/18 Range/Units 16:38 06:05 Calcium 10.1 8.9 (8.4-10.2) mg/dL Pituitary panel 12/19/18 12/20/18 Range/Units 16:38 06:05 Sodium 141 140 (137-145) mmol/L Potassium 4.9 4.6 (3.5-5.1) mmol/L Chloride 104 105 (98-107) mmol/L Carbon Dioxide 25 29 (22-30) mmol/L BUN 21 H 21 H (9-20) mg/dL Creatinine 1.12 1.04 (0.66-1.25) mg/dL Glucose 105 H 101 H (74-99) mg/dL Calcium 10.1 8.9 (8.4-10.2) mg/dL Adrenal panel 12/19/18 12/20/18 Range/Units 16:38 06:05 Sodium 141 140 (137-145) mmol/L Potassium 4.9 4.6 (3.5-5.1) mmol/L Chloride 104 105 (98-107) mmol/L Carbon Dioxide 25 29 (22-30) mmol/L BUN 21 H 21 H (9-20) mg/dL Creatinine 1.12 1.04 (0.66-1.25) mg/dL Glucose 105 H 101 H (74-99) mg/dL Calcium 10.1 8.9 (8.4-10.2) mg/dL - Imaging Chest x-ray: report reviewed, image reviewed CT scan - chest: report reviewed, image reviewed Assessment and Plan Assessment: Recurrent spontaneous pneumothorax, right-sided Chronic obstructive pulmonary disease Gastroesophageal reflux disease History of bipolar and depression History of nicotine dependence in remission, quit in September 2017 Plan: The patient was seen and examined. His chart and diagnostics were reviewed. His case was discussed with Dr. Greg Trejo from cardiothoracic surgery. his right-sided chest tube shows continuous air leak, we will keep his chest tube to low continuous wall suction at this time. No surgical intervention is recommended at this time, although we will continue to follow. Encourage use of incentive spirometry every hour while awake. Discussed the importance with the patient of continued smoking cessation. Medical management per primary care service. Bronchodilators per pulmonary medicine. Recommendations to follow based on patient's clinical course. Thank you Dr. Gonzalez for this consult and we look forward to working with you in the care of your patient. Time with Patient: Greater than 30
[2018-12-20] MEDS: HYDROcodone/APAP 5-325MG 1 EACH TAB PO PRN ×2 (10:40→20:30)
--- NOTE | 2018-12-20 14:22 | P.CNPUL ---
History of Present Illness Consult date: 12/20/18 Requesting physician: Alyce Lovelace Reason for consult: dyspnea, chest pain Chief complaint: Dyspnea, right-sided chest discomfort History of present illness: This is a very pleasant 63-year-old gentleman who follows with Dr. Coombs as his primary care physician. He has a previous history of chronic tobacco dependence quitting in 2018, chronic obstructive pulmonary disease, chronic right-sided pneumothorax of 10-15% and the right chest. He was seen in our office yesterday with complaints of increasing shortness of breath and right-sided chest discomfort. A chest x-ray revealed a significant right-sided pneumothorax. He was referred to the emergency room for chest tube placement. Computed tomography scan of the chest revealed a large right-sided pneumothorax occupying the lower two thirds of the right hemithorax. There is also significant bulla and bleb formation seen within the lung. Chest tube was placed in the emergency room. He is seen today on the selective care unit and consultation. He is currently resting fairly comfortable in bed. He is awake and alert in no acute distress. He is maintaining high 90s on 4 L/m per nasal cannula. He's been afebrile. Digital site pain but no significant chest discomfort. White count 11.3. Hemoglobin 14.2. Creatinine 1.04. He's been initiated and DuoNeb inhalations, Symbicort. Today's chest x-ray shows improved right hydropneumothorax with extensive underlying bullous emphysema. Review of Systems REVIEW OF SYSTEMS: CONSTITUTIONAL: Denies any recent significant weight loss or weight gain. EYES: Denies change in vision. EARS, NOSE, MOUTH, THROAT: Denies headaches, denies sore throat. CARDIOVASCULAR: Positive right-sided chest pain, no palpitations or syncopal episodes. RESPIRATORY: Positive for shortness of breath, no cough, congestion or hemoptysis. GASTROINTESTINAL: Denies change in appetite, denies abdominal pain GENITOURINARY: Difficulty urinating. MUSKULOSKELETAL: Denies pain, denies swelling. INTEGUMENTARY: Denies rash, denies eczema. NEUROLOGICAL: Denies recent memory loss, no recent seizure activity. PSYCHIATRIC: Denies anxiety, denies depression. HEMATOLOGIC/LYMPHATIC: Denies anemia, denies enlarged lymph nodes. Past Medical History Past Medical History: COPD, GERD/Reflux Additional Past Medical History / Comment(s): pneumothorax September 2017 and July 2018, COPD History of Any Multi-Drug Resistant Organisms: None Reported Past Surgical History: No Surgical Hx Reported Additional Past Surgical History / Comment(s): hemorrhoids Past Anesthesia/Blood Transfusion Reactions: No Reported Reaction Past Psychological History: Bipolar, Depression Smoking Status: Former smoker (Quit September 2017) Past Alcohol Use History: None Reported Past Drug Use History: None Reported - Past Family History Father Family Medical History: Cancer Additional Family Medical History / Comment(s): cardiac issues, lung ca Mother Family Medical History: Coronary Artery Disease (CAD) Additional Family Medical History / Comment(s): heart murmur Medications and Allergies Home Medications Medication Instructions Recorded Confirmed Type Albuterol Inhaler [Ventolin Hfa 1 - 2 puff INHALATION RT-Q6H PRN 07/24/18 12/19/18 Rx Inhaler] #1 inhaler Budesonide-Formot 160-4.5 Mcg 2 puff INHALATION RT-BID 30 Days 07/24/18 12/19/18 Rx [Symbicort 160-4.5 Mcg Inhaler] #1 vial Ranitidine HCl [Zantac] 75 mg PO BID PRN 12/19/18 12/19/18 History Allergies Allergy/AdvReac Type Severity Reaction Status Date / Time No Known Allergies Allergy Verified 12/19/18 16:50 Physical Exam Vitals: Vital Signs Temp Pulse Pulse Resp BP BP Pulse Ox 12/20/18 13:28 84 12/20/18 13:17 84 12/20/18 12:00 104 H 16 120/75 99 12/20/18 08:00 97.4 F L 109 H 16 118/86 97 12/20/18 07:43 88 12/20/18 07:30 80 96 12/20/18 04:00 97.9 F 95 22 136/82 97 12/20/18 00:00 113 H 20 116/75 99 12/19/18 20:00 97.6 F 95 22 133/77 100 12/19/18 19:50 89 20 114/76 100 12/19/18 19:40 90 22 131/85 100 12/19/18 19:30 92 17 123/84 100 12/19/18 19:20 94 23 123/84 99 12/19/18 19:10 91 26 H 122/81 99 12/19/18 18:50 99 19 131/91 98 12/19/18 18:40 106 H 14 126/82 99 12/19/18 18:30 108 H 18 135/74 99 12/19/18 18:10 24 114/90 100 12/19/18 18:00 105 H 18 135/85 100 12/19/18 17:40 105 H 25 H 131/88 12/19/18 17:30 112 H 13 139/88 12/19/18 17:10 124/86 12/19/18 17:00 109 H 13 132/88 99 12/19/18 16:40 112 H 18 142/81 97 12/19/18 16:37 96 12/19/18 16:21 97.4 F L 123 H 22 127/89 96 Intake and Output 12/19/18 12/20/18 12/20/18 22:59 06:59 14:59 Intake Total 600 Output Total 700 Balance 600 -700 Intake: Oral 600 Output: Urine 700 Other: Voiding Method Urinal Urinal Urinal Weight 55.066 kg GENERAL EXAM: Alert, active, comfortable in no apparent distress. On 4 L nasal cannula. HEAD: Normocephalic. EYES: Normal reaction of pupils, equal size. NOSE: Clear with pink turbinates. THROAT: No erythema or exudates. NECK: No masses, no JVD. CHEST: No chest wall deformity. LUNGS: Diminished in the right lung, few scattered rhonchi. CVS: S1 and S2 normal with no audible murmur, regular rhythm. ABDOMEN: No hepatosplenomegaly, normal bowel sounds, no guarding or rigidity. SPINE: No scoliosis or deformity SKIN: No rashes CENTRAL NERVOUS SYSTEM: No focal deficits, tone is normal in all 4 extremities. EXTREMITIES: There is no peripheral edema. No clubbing, no cyanosis. Peripheral pulses are intact. Results - Laboratory Findings CBC and BMP: 12/20/18 06:05 12/20/18 06:05 PT/INR, D-dimer PT 10.4 sec (9.0-12.0) 12/19/18 16:38 INR 1.0 (<1.2) 12/19/18 16:38 Abnormal lab findings: Abnormal Labs 12/19/18 12/19/18 12/20/18 16:38 16:38 06:05 WBC 11.3 H Plt Count 498 H Neutrophils # 7.9 H 8.6 H BUN 21 H Glucose 105 H 12/20/18 06:05 WBC Plt Count Neutrophils # BUN 21 H Glucose 101 H - Diagnostic Findings Chest x-ray: image reviewed Assessment and Plan Assessment: Impression: #1 Dyspnea with right-sided chest pain in a patient found to have significant right-sided pneumothorax, status post chest tube placement. #2 History of chronic 10-15% right-sided pneumothorax. #3 History of significant bullous emphysema. #4 history of chronic obstructive pulmonary disease, currently inactive and stable. #5 Chronic tobacco dependence, quit in 2018. #6 History of bipolar disorder. PLAn: The patient was seen and evaluated by Dr. Gonzalez. Chest x-ray and labs were reviewed. Right-sided chest tube remains in place for now. Add incentive spirometer and encourage cough and deep breathing exercises. Continue bronchodilators. Increase his activity as tolerated. We'll continue to follow and make further recommendations based on his clinical status. I, the cosigning physician, performed a history & physical examination of the patient. Lungs sounds are diminished breath sounds on the right. Maintaining good O2 saturations in the 90s on 4 L nasal cannula. I discussed the assessment and plan of care with my nurse practitioner, Venecia Crocker. I attest to the above note as dictated by her. Time with Patient: Greater than 30
[2018-12-20] MEDS: TAMSULOSIN 0.4 MG CAP.ER.24H PO SCH (16:06)
--- NOTE | 2018-12-20 20:51 | HP ---
HISTORY AND PHYSICAL DATE OF SERVICE: 12/20/2018 This 63-year-old gentleman who was admitted with acute on chronic right pneumothorax, had a chest tube drainage. No chest pain. No palpitations. No fever. EXAM: Alert and oriented times three. Pulse 114, blood pressure 140/58. Respirations 15, temperature 97.7, pulse ox 97% on 4 L. HEENT: Conjunctivae normal. NECK: No jugular venous distention. CARDIOVASCULAR: S1, S2 muffled. Respirations: Breath sounds diminished in the bases. A few scattered rhonchi and crackles. ABDOMEN is soft, nontender. Legs are no edema, no swelling. LABS: WBC 11.3, hemoglobin 14.2. ASSESSMENT: 1. Acute on chronic right pneumothorax, status post chest tube drainage. 2. History of previous 10-15 percent. 3. Chronic obstructive pulmonary disease. 4. History of bipolar depression. 5. History of hemorrhoids. 6. History of nicotine dependence. 7. Moderate to severe protein calorie malnutrition BMI of 17.9. RECOMMENDATIONS AND DISCUSSION: Recommend to continue current medications, continue with monitoring, symptomatic treatment. Otherwise, at this time, I recommend closely follow. Follow with multiple consultants including pulmonary and cardiothoracic surgery. Further recommendation to follow. Patient still has some air leak. MMODL / IJN: [id number] / SARITA
[2018-12-21] MEDS: HYDROcodone/APAP 5-325MG 1 EACH TAB PO PRN ×3 (05:30→17:50)
--- NOTE | 2018-12-21 07:24 | XR ---
EXAMINATION TYPE: XR chest 1V portable DATE OF EXAM: 12/21/2018 COMPARISON: 12/20/2018 HISTORY: Follow-up pneumothorax TECHNIQUE: Single frontal view of the chest is obtained. FINDINGS: Stable right basilar component of the pneumothorax with bullous emphysematous changes of t he lungs. Unchanged placement of a right thoracostomy tube. Trace right pleural effusion is also seen . Bibasilar atelectasis is present, right greater than left. Osseous structures are grossly intact. C ardia mediastinal silhouette is within normal limits. IMPRESSION: COPD with stable right-sided hydropneumothorax..
[2018-12-21] MEDS: SODIUM CHLORIDE 0.9% 1,000 ML IV SCH ×2 (07:47→15:02)
[2018-12-21] MEDS: HEPARIN SODIUM,PORCINE 5,000 UNIT/ML 1 ML VIAL SQ SCH ×2 (07:53→21:33)
[2018-12-21] MEDS: TAMSULOSIN 0.4 MG CAP.ER.24H PO SCH (07:53)
[2018-12-21] MEDS: PANTOPRAZOLE 40 MG/10 ML VIAL IV SCH (07:53)
[2018-12-21 08:20] LABS: Basophils # (A) 0.1 k/uL (0-0.2); Basophils % (A) 1 %; Eosinophils # (A) 0.1 k/uL (0-0.7); Eosinophils % (A) 1 %; HCT 44.9 % (39.0-53.0); HGB 13.5 gm/dL (13.0-17.5); Hypochromasia Slight; Lymphocytes # (A) 1.3 k/uL (1.0-4.8); Lymphocytes % (A) 14 %; MCH 28.8 pg (25.0-35.0); MCHC 30.1 g/dL (31.0-37.0); MCV 95.9 fL (80.0-100.0); Monocytes # (A) 0.7 k/uL (0-1.0); Monocytes % (A) 8 %; Neutrophils % (A) 74 %; Platelet Count 382 k/uL (150-450); RBC 4.68 m/uL (4.30-5.90); RDW 12.9 % (11.5-15.5); WBC 9.4 k/uL (3.8-10.6)
[2018-12-21 08:39] LABS: Anion Gap 7 mmol/L; Blood Urea Nitrogen 14 mg/dL (9-20); Calcium 8.8 mg/dL (8.4-10.2); Carbon Dioxide 29 mmol/L (22-30); Chloride 101 mmol/L (98-107); Glucose 93 mg/dL (74-99); Potassium 4.2 mmol/L (3.5-5.1); Sodium 137 mmol/L (137-145)
--- NOTE | 2018-12-21 09:38 | P.PN ---
Subjective Progress Note Date: 12/21/18 Principal diagnosis: Recurrent right-sided pneumothorax with significant bullous emphysema, status post right pleural thoracostomy tube placement by the emergency room physicians. Previous medical history of recurrent right pneumothoraces 2 in 2018, COPD, tobacco dependence, bipolar/depression, GERD. The patient's currently sitting up in bed in no acute distress. Denies pain, states shortness of breath is about baseline. Actively using incentive spirometry. Right-sided chest tube present, continuous air leak present. No new complaints. Objective - Vital Signs Vital signs: Vital Signs Temp 97.6 F 12/21/18 08:00 Pulse 105 H 12/21/18 08:00 Resp 16 12/21/18 08:00 BP 110/71 12/21/18 08:00 Pulse Ox 98 12/21/18 08:00 Intake & Output 12/20/18 12/21/18 12/21/18 18:59 06:59 18:59 Intake Total 840 400 300 Output Total 1190 30 150 Balance -350 370 150 Weight 54.2 kg Intake: Intake, IV Titration 600 Amount Sodium Chloride 0.9% 1, 600 000 ml @ 20 mls/hr IV . Q24H [facility] Rx#:[id number] Oral 240 400 300 Output: Chest Tube Drainage 40 30 Chest Tube Right Mid- 40 30 Axillary Chest Urine 1150 150 Other: Voiding Method Urinal Urinal Urinal # Voids 2 - Constitutional General appearance: Present: cooperative, no acute distress - Respiratory Details: Lungs sounds diminished bilaterally but more so on the right side. Respirations even, nonlabored. Currently on 4 L nasal cannula with oxygen saturation 98%. Able to achieve 4156-5914 mL on his incentive spirometry. Right pleural chest tube to continuous wall suction, 30 mL serous drainage overnight, 300 mL since insertion, continuous air leak present. - Cardiovascular Details: S1, S2 present. Regular rate and rhythm. Palpable peripheral pulses bilaterally. No edema present. No calf pain or tenderness noted. - Gastrointestinal Gastrointestinal Comment(s): Abdomen soft, nontender, nondistended. Active bowel sounds present 4 quadrants. Tolerating diet. - Genitourinary Genitourinary Comment(s): Continues to void clear, yellow urine. - Integumentary Integumentary Comment(s): Skin is warm and dry with evidence of good perfusion. Right lateral chest tube site covered with dry intact dressing. - Neurologic Neurologic: Present: CNII-XII intact - Musculoskeletal Musculoskeletal: Present: strength equal bilaterally - Psychiatric Psychiatric: Present: A&O x's 3, appropriate affect, intact judgment & insight - Allied health notes Allied health notes reviewed: nursing - Labs CBC & Chem 7: 12/21/18 07:28 12/21/18 07:28 Labs: Abnormal Lab Results - Last 24 Hours (Table) 12/21/18 Range/Units 07:28 MCHC 30.1 L (31.0-37.0) g/dL - Imaging and Cardiology Chest x-ray: report reviewed, image reviewed Assessment and Plan Assessment: Recurrent right-sided pneumothorax with significant bullous emphysema, status post right pleural thoracostomy tube placement by the emergency room physicians History of recurrent right pneumothoraces 2 in 2018 COPD Previous tobacco dependence Bipolar/depression GERD Plan: 1. No surgical intervention at this time. Continue right pleural chest tube to wall suction. We will monitor for resolution of air leak. 2. Will monitor daily x-rays. 3. Wean O2 as tolerated. Encourage incentive spirometry is 10 times every hour while awake. 4. Encourage continued smoking cessation. 5. Increase activity, ambulate as tolerated. Nursing to connect enough suction tubing so patient may ambulate around the room. 6. Bronchodilators per pulmonology. 7. Medical management of other comorbidities per primary care service. 8. Will continue to monitor. Time with Patient: Greater than 30
[2018-12-21] MEDS: SYMBICORT 160-4.5 MCG INHALER INHALATION SCH ×2 (09:53→19:37)
[2018-12-21] MEDS: IPRATROPIUM-ALBUTEROL 3 ML NEB INHALATION SCH ×3 (09:54→19:37)
--- NOTE | 2018-12-21 15:45 | P.PN ---
Subjective Progress Note Date: 12/21/18 Principal diagnosis: Dyspnea with right-sided chest pain, related to significant right-sided pneumothorax, status post chest tube placement This is a very pleasant 63-year-old gentleman who follows with Dr. Coombs as his primary care physician. He has a previous history of chronic tobacco dependence quitting in 2018, chronic obstructive pulmonary disease, chronic right-sided pn eumothorax of 10-15% and the right chest. He was seen in our office yesterday with complaints of increasing shortness of breath and right-sided chest discomfort. A chest x-ray revealed a significant right-sided pneumothorax. He was referred to the emergency room for chest tube placement. Computed tomography scan of the chest revealed a large right-sided pneumothorax occupying the lower two thirds of the right hemithorax. There is also significant bulla and bleb formation seen within the lung. Chest tube was placed in the emergency room. He is seen today on the selective care unit and consultation. He is currently resting fairly comfortable in bed. He is awake and alert in no acute distress. He is maintaining high 90s on 4 L/m per nasal cannula. He's been afebrile. Digital site pain but no significant chest discomfort. White count 11.3. Hemoglobin 14.2. Creatinine 1.04. He's been initiated and DuoNeb inhalations, Symbicort. Today's chest x-ray shows improved right hydro pneumothorax with extensive underlying bullous emphysema. On 12/21/2018 patient seen in follow-up. He is awake and alert, in no acute distress, room air pulse ox is 97%, no fever or chills, right-sided chest tube is in place, is continuous air leak still present, today's chest x-ray has been reviewed with Dr. Gonzalez, shows COPD with stable right-sided hydropneumothorax. There is serosanguineous output in the Pleur-evac, and there has been 70 mL of output in last 24 hours. He is working on his incentive spirometer. Denies any specific complaints. She surgery is following, increase activity as tolerated. Objective - Vital Signs Vital signs: Vital Signs Temp 97.4 F L 12/21/18 15:00 Pulse 115 H 12/21/18 15:00 Resp 16 12/21/18 15:02 BP 109/70 12/21/18 15:00 Pulse Ox 97 12/21/18 15:00 Intake & Output 12/20/18 12/21/18 12/21/18 18:59 06:59 18:59 Intake Total 840 400 856 Output Total 1190 30 450 Balance -350 370 406 Weight 54.2 kg 54.2 kg Intake: Intake, IV Titration 600 Amount Sodium Chloride 0.9% 1, 600 000 ml @ 20 mls/hr IV . Q24H MIKA Rx#:[id number] Oral 240 400 856 Output: Chest Tube Drainage 40 30 Chest Tube Right Mid- 40 30 Axillary Chest Urine 1150 450 Other: Voiding Method Urinal Urinal Urinal # Voids 2 - Exam GENERAL EXAM: Alert, pleasant, 63-year-old white male, comfortable in no apparent distress. HEAD: Normocephalic/atraumatic. EYES: Normal reaction of pupils, equal size. Conjunctiva pink, sclera white. NOSE: Clear with pink turbinates. THROAT: No erythema or exudates. NECK: No masses, no JVD, no thyroid enlargement, no adenopathy. CHEST: No chest wall deformity. Symmetrical expansion. Right-sided chest tube is present, connected to Pleur-evac and wall suction, and there is a continuous air leak noted, there is a small amount of serosanguineous output in the Pleur- evac LUNGS: Equal air entry with diminished breath sounds on the right, her breath sounds on the left CVS: Regular rate and rhythm, normal S1 and S2, no gallops, no murmurs, no rubs ABDOMEN: Soft, nontender. No hepatosplenomegaly, normal bowel sounds, no guar ding or rigidity. EXTREMITIES: No clubbing, no edema, no cyanosis, 2+ pulses and upper and lower extremities. MUSCULOSKELETAL: Muscle strength and tone normal. SPINE: No scoliosis or deformity SKIN: No rashes CENTRAL NERVOUS SYSTEM: Alert and oriented -3. No focal deficits, tone is normal in all 4 extremities. PSYCHIATRIC: Alert and oriented -3. Appropriate affect. Intact judgment and insight. - Labs CBC & Chem 7: 12/21/18 07:28 12/21/18 07:28 Labs: Abnormal Lab Results - Last 24 Hours (Table) 12/21/18 Range/Units 07:28 MCHC 30.1 L (31.0-37.0) g/dL Assessment and Plan Plan: Assessment: #1 Dyspnea with right-sided chest pain in a patient found to have significant right-sided pneumothorax, status post chest tube placement. #2 History of chronic 10-15% right-sided pneumothorax. #3 History of significant bullous emphysema. #4 history of chronic obstructive pulmonary disease, currently inactive and stable. #5 Chronic tobacco dependence, quit in 2018. #6 History of bipolar disorder. Plan: Encourage deep breathing and coughing, increase ambulation, patient has a persistent air leak in the right-sided chest tube, right-sided chest tube will remain to suction, today's chest x-ray has been reviewed with Dr. Gonzalez, shows stable right sided hydropneumothorax. No complaints of pain, or shortness of breath. No signs are stable. We'll continue to follow I performed a history & physical examination of the patient and discussed their management with my nurse practitioner, Vernell Winston. I reviewed the nurse practitioner's note and agree with the documented findings and plan of care. Lung sounds are positive for diminished breath sounds on the right, clear breath sounds in the left. The findings and the impression was discussed with the patient. I attest to the documentation by the nurse practitioner. Time with Patient: Less than 30
--- NOTE | 2018-12-21 17:07 | PN ---
PROGRESS NOTE DATE OF SERVICE: 12/21/2018 This 63-year-old gentleman who was admitted with acute on chronic right pneumothorax, had chest tube drainage. Cardiothoracic surgery is following the patient closely. The most recent chest x-ray showed COPD with stable right pneumothorax. Patient being closely monitored along with pulmonary and cardiovascular present. EXAM: Patient is alert, oriented x3, pulse 105. Blood pressure 110/71, respirations 16, temperature 97.2, pulse ox 98% on room air. HEENT: Conjunctivae normal. NECK: No jugular venous distention. CARDIOVASCULAR: S1, S2 muffled. RESPIRATIONS: Breath sounds diminished in the bases. A few scattered rhonchi and crackles. ABDOMEN is soft, nontender. No tenderness. CENTRAL NERVOUS SYSTEM: No focal deficits. Right chest is . LABS: WBC 9.2, hemoglobin 13.5, sodium 137, potassium 4.2. ASSESSMENT: 1. Acute on chronic right pneumothorax with shortness of breath, status post chest tube drainage. 2. History of previous 10-15 percent pneumothorax on the right. 3. Chronic obstructive pulmonary disease. 4. History of bipolar depression. 5. Hemorrhoids. 6. History of nicotine dependence. 7. Moderate to severe protein calorie malnutrition with BMI of 17.9. RECOMMENDATIONS AND DISCUSSION: I recommend to continue current medications, continue with monitoring and symptomatic treatment. Otherwise, at this time, closely follow with cardiothoracic surgery and pulmonary. Further recommendations to follow. PAULA / CORINNA: [id number] / MTDD
--- NOTE | 2018-12-22 07:39 | XR ---
EXAMINATION TYPE: XR chest 1V portable DATE OF EXAM: 12/22/2018 HISTORY: Follow-up pneumothorax COMPARISON: 12/21/2018 TECHNIQUE: Single view of the chest is submitted. FINDINGS: Stable loculated right basilar pneumothorax with adjacent chest tube. Severe emphysematous changes no carlos bilaterally. Left basilar linear atelectasis or infiltrate remains stable. The heart is stable. Hilar and mediastinal structures are within normal limits. Degenerative changes are seen of the dorsal spine. IMPRESSION: 1. Stable chest
[2018-12-22] MEDS: HYDROcodone/APAP 5-325MG 1 EACH TAB PO PRN (07:50)
[2018-12-22] MEDS: TAMSULOSIN 0.4 MG CAP.ER.24H PO SCH (07:50)
[2018-12-22] MEDS: HEPARIN SODIUM,PORCINE 5,000 UNIT/ML 1 ML VIAL SQ SCH ×2 (07:50→20:39)
[2018-12-22] MEDS: PANTOPRAZOLE 40 MG TABLET PO SCH (07:50)
[2018-12-22 08:10] LABS: Basophils # (A) 0.1 k/uL (0-0.2); Basophils % (A) 1 %; Eosinophils # (A) 0.1 k/uL (0-0.7); Eosinophils % (A) 2 %; HCT 43.5 % (39.0-53.0); HGB 13.4 gm/dL (13.0-17.5); Hypochromasia Slight; Lymphocytes # (A) 1.5 k/uL (1.0-4.8); Lymphocytes % (A) 17 %; MCH 29.3 pg (25.0-35.0); MCHC 30.9 g/dL (31.0-37.0); MCV 94.9 fL (80.0-100.0); Monocytes # (A) 0.6 k/uL (0-1.0); Monocytes % (A) 7 %; Neutrophils # (A) 6.2 k/uL (1.3-7.7); Neutrophils % (A) 71 %; Platelet Count 360 k/uL (150-450); RBC 4.58 m/uL (4.30-5.90); WBC 8.7 k/uL (3.8-10.6)
[2018-12-22 08:32] LABS: Anion Gap 5 mmol/L; Blood Urea Nitrogen 14 mg/dL (9-20); Carbon Dioxide 31 mmol/L (22-30); Chloride 102 mmol/L (98-107); Glucose 91 mg/dL (74-99); Potassium 4.7 mmol/L (3.5-5.1); Sodium 138 mmol/L (137-145)
[2018-12-22] MEDS: SYMBICORT 160-4.5 MCG INHALER INHALATION SCH ×2 (09:03→21:04)
[2018-12-22] MEDS: IPRATROPIUM-ALBUTEROL 3 ML NEB INHALATION SCH ×3 (09:03→21:04)
--- NOTE | 2018-12-22 10:51 | P.PN ---
Subjective Progress Note Date: 12/22/18 Principal diagnosis: Recurrent right-sided pneumothorax with significant bullous emphysema, status post right pleural thoracostomy tube placement by the emergency room physicians. Previous medical history of recurrent right pneumothoraces 2 in 2018, chronic obstructive pulmonary disease, history of tobacco dependence, quit smoking in September 2017, bipolar/depression, gastroesophageal reflux disease. POD #2 placement of right sided thoracostomy tube by an emergency room tru hoffman. The patient is currently laying in bed in no acute distress. He denies any complaints of pain or shortness of breath at this time. His oxygen saturation are 98% on 3 L nasal cannula. He is achieving 1000 mL on his incentive spirometry. He is tolerating oral intake. He reports that he did sit up to the bedside chair for most of the day yesterday. Left pleural chest tube remains in place to low continuous wall suction -20 cm H2O, remains with continuous air leak. Objective - Vital Signs Vital signs: Vital Signs Temp 98.2 F 12/22/18 07:15 Pulse 112 H 12/22/18 09:17 Resp 16 12/22/18 00:43 BP 117/76 12/22/18 07:15 Pulse Ox 98 12/22/18 07:15 Intake & Output 12/21/18 12/22/18 12/22/18 18:59 06:59 18:59 Intake Total 1092 650 240 Output Total 470 270 Balance 622 380 240 Weight 54.2 kg Intake: Oral 1092 650 240 Output: Chest Tube Drainage 20 20 Chest Tube Right Mid- 20 20 Axillary Chest Urine 450 250 Other: Voiding Method Urinal Urinal # Voids 3 - Constitutional General appearance: Present: cooperative, no acute distress, thin - Respiratory Details: Lung sounds are essentially diminished throughout. Respirations are symmetrical and nonlabored. Oxygen saturation are 98% on 3 L nasal cannula. Right pleural chest tube remains in place to low continuous wall suction -20 cm H2O. Draining thin serosanguineous drainage. Continuous air leak is present. 10 mL output in the last 8 hours, 40 mL output in the last 24 hours. - Cardiovascular Details: Regular rhythm and rate. S1 and S2 present, negative for S3, gallop or murmur. No edema is present. - Gastrointestinal Gastrointestinal Comment(s): Abdomen is soft, nontender and nondistended. Active bowel sounds all 4 abdominal quadrants. No organomegaly. No guarding or rigidity. - Genitourinary Genitourinary Comment(s): Voiding clear yellow urine. - Integumentary Integumentary Comment(s): Skin is warm and dry. No clubbing or cyanosis is present. No rash or abnormal pigmentation is present. Right pleural chest tube dressing is intact with dressing clean, dry and intact. - Neurologic Neurologic: Present: CNII-XII intact - Musculoskeletal Musculoskeletal: Present: generalized weakness, strength equal bilaterally - Psychiatric Psychiatric: Present: A&O x's 3, appropriate affect, intact judgment & insight - Allied health notes Allied health notes reviewed: nursing - Labs CBC & Chem 7: 12/22/18 07:33 12/22/18 07:33 Labs: Abnormal Lab Results - Last 24 Hours (Table) 12/22/18 12/22/18 Range/Units 07:33 07:33 MCHC 30.9 L (31.0-37.0) g/dL Carbon Dioxide 31 H (22-30) mmol/L - Imaging and Cardiology Chest x-ray: report reviewed, image reviewed Assessment and Plan Assessment: Recurrent spontaneous pneumothorax, right-sided Chronic obstructive pulmonary disease Gastroesophageal reflux disease History of bipolar and depression History of nicotine dependence in remission, quit in September 2017 Plan: 1. No surgical intervention planned at this time. Continue right pleural chest tube to low continuous wall suction at -20 cm H2O. We will monitor for resolution of air leak. 2. Will continue to monitor daily chest x-rays. 3. Wean O2 as tolerated. Encourage use of his incentive spirometry is 10 times every hour while awake. 4. Encourage continued smoking cessation. Discussed the importance of smoking cessation with the patient. 5. Increase activity, ambulate as tolerated. Physical and occupational therapy has been consulted and is following. 6. Bronchodilators per pulmonology management. 7. Medical management of other comorbidities per primary care service. 8. More recommendations follow based on patient's clinical course. Time with Patient: Greater than 30
--- NOTE | 2018-12-22 15:22 | P.PN ---
Subjective Progress Note Date: 12/22/18 Principal diagnosis: Dyspnea with right-sided chest pain, related to significant right-sided pneumothorax, status post chest tube placement This is a very pleasant 63-year-old gentleman who follows with Dr. Coombs as his primary care physician. He has a previous history of chronic tobacco dependence quitting in 2018, chronic obstructive pulmonary disease, chronic right-sided pn eumothorax of 10-15% and the right chest. He was seen in our office yesterday with complaints of increasing shortness of breath and right-sided chest discomfort. A chest x-ray revealed a significant right-sided pneumothorax. He was referred to the emergency room for chest tube placement. Computed tomography scan of the chest revealed a large right-sided pneumothorax occupying the lower two thirds of the right hemithorax. There is also significant bulla and bleb formation seen within the lung. Chest tube was placed in the emergency room. He is seen today on the selective care unit and consultation. He is currently resting fairly comfortable in bed. He is awake and alert in no acute distress. He is maintaining high 90s on 4 L/m per nasal cannula. He's been afebrile. Digital site pain but no significant chest discomfort. White count 11.3. Hemoglobin 14.2. Creatinine 1.04. He's been initiated and DuoNeb inhalations, Symbicort. Today's chest x-ray shows improved right hydro pneumothorax with extensive underlying bullous emphysema. On 12/21/2018 patient seen in follow-up. He is awake and alert, in no acute distress, room air pulse ox is 97%, no fever or chills, right-sided chest tube is in place, is continuous air leak still present, today's chest x-ray has been reviewed with Dr. Gonzalez, shows COPD with stable right-sided hydropneumothorax. There is serosanguineous output in the Pleur-evac, and there has been 70 mL of output in last 24 hours. He is working on his incentive spirometer. Denies any specific complaints. She surgery is following, increase activity as tolerated. On 12/22/2016 patient seen in follow-up on medical surgical floor. Right-sided chest tube still has a significant air leak. Patient is on 2 L of oxygen, with pulse ox of 98%, afebrile, hemodynamically stable, he is up in the recliner today, no significant pain from the chest tube site, no specific complaints, he is working on his incentive spirometer. He's achieving 1000 mL on his incentive spirometer. Left-sided pleural chest tube remains to wall suction, and 40 mL of serosanguineous output in the Pleur-evac. Objective - Vital Signs Vital signs: Vital Signs Temp 98.2 F 12/22/18 07:15 Pulse 132 H 12/22/18 13:52 Resp 16 12/22/18 00:43 BP 117/76 12/22/18 07:15 Pulse Ox 98 12/22/18 07:15 Intake & Output 12/21/18 12/22/18 12/22/18 18:59 06:59 18:59 Intake Total 1092 650 240 Output Total 470 270 130 Balance 622 380 110 Weight 54.2 kg Intake: Oral 1092 650 240 Output: Chest Tube Drainage 20 20 130 Chest Tube Right Mid- 20 20 130 Axillary Chest Urine 450 250 Other: Voiding Method Urinal Urinal # Voids 3 - Exam GENERAL EXAM: Alert, pleasant, 63-year-old white male, comfortable in no apparent distress. HEAD: Normocephalic/atraumatic. EYES: Normal reaction of pupils, equal size. Conjunctiva pink, sclera white. NOSE: Clear with pink turbinates. THROAT: No erythema or exudates. NECK: No masses, no JVD, no thyroid enlargement, no adenopathy. CHEST: No chest wall deformity. Symmetrical expansion. Right-sided chest tube is present, connected to Pleur-evac and wall suction, and there is a continuous air leak noted, there is a small amount of serosanguineous output in the Pleur- evac LUNGS: Equal air entry with diminished breath sounds on the right, her breath sounds on the left CVS: Regular rate and rhythm, normal S1 and S2, no gallops, no murmurs, no rubs ABDOMEN: Soft, nontender. No hepatosplenomegaly, normal bowel sounds, no guarding or rigidity. EXTREMITIES: No clubbing, no edema, no cyanosis, 2+ pulses and upper and lower extremities. MUSCULOSKELETAL: Muscle strength and tone normal. SPINE: No scoliosis or deformity SKIN: No rashes CENTRAL NERVOUS SYSTEM: Alert and oriented -3. No focal deficits, tone is normal in all 4 extremities. PSYCHIATRIC: Alert and oriented -3. Appropriate affect. Intact judgment and insight. - Labs CBC & Chem 7: 12/22/18 07:33 12/22/18 07:33 Labs: Abnormal Lab Results - Last 24 Hours (Table) 12/22/18 12/22/18 Range/Units 07:33 07:33 MCHC 30.9 L (31.0-37.0) g/dL Carbon Dioxide 31 H (22-30) mmol/L Assessment and Plan Plan: Assessment: #1 Dyspnea with right-sided chest pain in a patient found to have significant right-sided pneumothorax, status post chest tube placement. #2 History of chronic 10-15% right-sided pneumothorax. #3 History of significant bullous emphysema. #4 history of chronic obstructive pulmonary disease, currently inactive and stable. #5 Chronic tobacco dependence, quit in 2018. #6 History of bipolar disorder. Plan: Encourage deep breathing and coughing, right-sided chest tube has a significant air leak, remains to wall suction. Today's chest x-ray has been reviewed and shows stable loculated right-sided basilar pneumothorax, severe emphysematous changes bilaterally. Vital signs are stable, no fever or chills. Will follow I performed a history & physical examination of the patient and discussed their management with my nurse practitioner, Vernell Winston. I reviewed the nurse practitioner's note and agree with the documented findings and plan of care. Lung sounds are positive for diminished breath sounds on the right, clear breath sounds in the left. The findings and the impression was discussed with the patient. I attest to the documentation by the nurse practitioner. Time with Patient: Less than 30
--- NOTE | 2018-12-22 20:35 | PN ---
PROGRESS NOTE DATE OF SERVICE: 12/22/2018. This 63-year-old gentleman who was admitted with acute on chronic right pneumothorax, had a chest tube. There is some air leak persisted. No chest pain. No palpitations. Multiple consultants are following the patient. EXAM: Alert and oriented x3. Pulse is 111, blood pressure 103/66, respiration 17, temperature 97.6, pulse ox 98% on 2 L. HEENT is conjunctivae normal. CARDIOVASCULAR: S1, S2 muffled. Respirations: Breath sounds diminished in the bases. A few scattered rhonchi. No crackles. Breath sounds diminished on the right side. Abdomen soft. Nontender. Nervous system: No focal deficits. LABS: WBC 8.7, sodium 130, potassium 4.7. ASSESSMENT: 1. Acute on chronic recurrent right pneumothorax, shortness of breath, status post chest tube drainage. 2. History of previous 2014 pneumothorax on the right ostia. 3. Chronic obstructive pulmonary disease. 4. History of bipolar depression. 5. Hemorrhoids. 6. Nicotine dependence. 7. Remote history of protein calorie malnutrition with BMI of 17.9. RECOMMENDATIONS AND DISCUSSION: Recommend to continue current medications, management and symptomatic treatment. Follow closely. Bronchodilators. Incentive spirometry. Closely follow with cardiothoracic surgery. Further recommendations to follow. MMODL / IJN: [id number] /
[2018-12-22] MEDS: SODIUM CHLORIDE 0.9% 1,000 ML IV SCH (20:59)
[2018-12-23] MEDS: HYDROcodone/APAP 5-325MG 1 EACH TAB PO PRN (06:57)
--- NOTE | 2018-12-23 07:28 | XR ---
EXAMINATION TYPE: XR chest 1V portable DATE OF EXAM: 12/23/2018 HISTORY: chest tube. REFERENCE: Previous study dated 12/22/1989. FINDINGS: There is a right pleural drain in place. There is some lucency at the right lung base. A lo culated basilar pneumothorax is not excluded. There is underlying COPD. Atelectatic change at the lef t lung base has cleared. The heart is not enlarged. IMPRESSION: NO SIGNIFICANT INTERVAL CHANGE IN APPEARANCE OF THE CHEST.
[2018-12-23] MEDS: SYMBICORT 160-4.5 MCG INHALER INHALATION SCH ×2 (07:32→20:52)
[2018-12-23] MEDS: IPRATROPIUM-ALBUTEROL 3 ML NEB INHALATION SCH ×3 (07:32→20:52)
[2018-12-23] MEDS: HEPARIN SODIUM,PORCINE 5,000 UNIT/ML 1 ML VIAL SQ SCH ×2 (08:26→20:40)
[2018-12-23] MEDS: PANTOPRAZOLE 40 MG TABLET PO SCH (08:27)
[2018-12-23] MEDS: TAMSULOSIN 0.4 MG CAP.ER.24H PO SCH (08:27)
--- NOTE | 2018-12-23 15:05 | P.PN ---
Subjective Progress Note Date: 12/23/18 Principal diagnosis: Recurrent right-sided pneumothorax with significant bullous emphysema, status post right pleural thoracostomy tube placement by the emergency room physicians. Previous medical history of recurrent right pneumothoraces 2 in 2018, chronic obstructive pulmonary disease, history of tobacco dependence, quit smoking in September 2017, bipolar/depression, gastroesophageal reflux disease. POD #3 placement of right sided thoracostomy tube by an emergency room tru hoffman. The patient is currently laying in bed in no acute distress. He denies any complaints of pain or shortness of breath at this time. His oxygen saturation are 96% on 2 L nasal cannula. He is achieving 1500 mL on his incentive spirometry. He is tolerating oral intake. He reports that he did sit up to the bedside chair for most of the day yesterday. Left pleural chest tube remains in place to low continuous wall suction -20 cm H2O, remains with continuous air leak. He remains hemodynamically stable. Physical therapy is following. Objective - Vital Signs Vital signs: Vital Signs Temp 97.5 F L 12/23/18 07:00 Pulse 112 H 12/23/18 14:01 Resp 16 12/23/18 07:00 BP 114/78 12/23/18 07:00 Pulse Ox 96 12/23/18 07:34 Intake & Output 12/22/18 12/23/18 12/23/18 18:59 06:59 18:59 Intake Total 240 480 Output Total 260 465 50 Balance -20 -465 430 Intake: Oral 240 480 Output: Chest Tube Drainage 160 90 50 Chest Tube Right Mid- 160 90 50 Axillary Chest Urine 100 375 Other: Voiding Method Urinal Urinal Urinal # Voids 1 2 4 - Constitutional General appearance: Present: cooperative, no acute distress, thin - Respiratory Details: Lung sounds are essentially diminished throughout. Respirations are symmetrical and nonlabored. Oxygen saturation are 98% on 3 L nasal cannula. Right pleural chest tube remains in place to low continuous wall suction -20 cm H2O. Draining thin serosanguineous drainage. Continuous air leak is present. 10 mL output in the last 8 hours, 200 mL output in the last 24 hours. - Cardiovascular Details: Regular rhythm and rate. S1 and S2 present, negative for S3, gallop or murmur. No edema is present. - Gastrointestinal Gastrointestinal Comment(s): Abdomen is soft, nontender and nondistended. Active bowel sounds all 4 abdominal quadrants. No organomegaly. No cardiac or rigidity. - Genitourinary Genitourinary Comment(s): Voiding clear yellow urine. - Integumentary Integumentary Comment(s): Skin is warm and dry. No clubbing or cyanosis present. No rash or abnormal pigmentation is present. Right pleural chest tube dressing is clean, dry and intact. - Neurologic Neurologic: Present: CNII-XII intact - Musculoskeletal Musculoskeletal: Present: generalized weakness, strength equal bilaterally - Psychiatric Psychiatric: Present: A&O x's 3, appropriate affect, intact judgment & insight - Allied health notes Allied health notes reviewed: nursing - Labs CBC & Chem 7: 12/22/18 07:33 12/22/18 07:33 - Imaging and Cardiology Chest x-ray: report reviewed, image reviewed Assessment and Plan Assessment: Recurrent spontaneous pneumothorax, right-sided Chronic obstructive pulmonary disease Gastroesophageal reflux disease History of bipolar and depression History of nicotine dependence in remission, quit in September 2017 Plan: 1. No surgical intervention planned at this time. Continue right pleural chest tube to low continuous wall suction at -20 cm H2O. We will monitor for resolution of air leak. 2. Will continue to monitor daily chest x-rays. 3. Wean O2 as tolerated. Encourage use of his incentive spirometry is 10 times every hour while awake. 4. Encourage continued smoking cessation. Discussed the importance of smoking cessation with the patient. 5. Increase activity, ambulate as tolerated. Physical and occupational therapy has been consulted and is following. 6. Bronchodilators per pulmonology management. 7. Medical management of other comorbidities per primary care service. 8. More recommendations follow based on patient's clinical course. Time with Patient: Greater than 30
--- NOTE | 2018-12-23 15:35 | P.PN ---
Subjective Progress Note Date: 12/23/18 Principal diagnosis: Dyspnea with right-sided chest pain, related to significant right-sided pneumothorax, status post chest tube placement. This is a very pleasant 63-year-old gentleman who follows with Dr. Coombs as his primary care physician. He has a previous history of chronic tobacco dependence quitting in 2018, chronic obstructive pulmonary disease, chronic right-sided p neumothorax of 10-15% and the right chest. He was seen in our office yesterday with complaints of increasing shortness of breath and right-sided chest discomfort. A chest x-ray revealed a significant right-sided pneumothorax. He was referred to the emergency room for chest tube placement. Computed tomography scan of the chest revealed a large right-sided pneumothorax occupying the lower two thirds of the right hemithorax. There is also significant bulla and bleb formation seen within the lung. Chest tube was placed in the emergency room. He is seen today on the selective care unit and consultation. He is currently resting fairly comfortable in bed. He is awake and alert in no acute distress. He is maintaining high 90s on 4 L/m per nasal cannula. He's been afebrile. Digital site pain but no significant chest discomfort. White count 11.3. Hemoglobin 14.2. Creatinine 1.04. He's been initiated and DuoNeb inhalations, Symbicort. Today's chest x-ray shows improved right hydr opneumothorax with extensive underlying bullous emphysema. On 12/21/2018 patient seen in follow-up. He is awake and alert, in no acute distress, room air pulse ox is 97%, no fever or chills, right-sided chest tube is in place, is continuous air leak still present, today's chest x-ray has been reviewed with Dr. Gonzalez, shows COPD with stable right-sided hydropneumothorax. There is serosanguineous output in the Pleur-evac, and there has been 70 mL of output in last 24 hours. He is working on his incentive spirometer. Denies any specific complaints. She surgery is following, increase activity as tolerated. On 12/22/2016 patient seen in follow-up on medical surgical floor. Right-sided chest tube still has a significant air leak. Patient is on 2 L of oxygen, with pulse ox of 98%, afebrile, hemodynamically stable, he is up in the recliner today, no significant pain from the chest tube site, no specific complaints, he is working on his incentive spirometer. He's achieving 1000 mL on his incentive spirometer. Left-sided pleural chest tube remains to wall suction, and 40 mL of serosanguineous output in the Pleur-evac. The patient is seen today 12/23/2018 in follow-up on the regular medical floor. He is currently resting quite comfortably in bed. Awake and alert in no acute distress. No worsening shortness of breath. Some chest tube site insertion discomfort. He is maintaining good O2 saturations in the 90s on 2 L/m per nasal cannula. Chest x-ray shows lucency at the right lung base. Loculated basilar pneumothorax is not excluded. No significant interval change compared to yesterday. Continues with an air leak. He remains on bronchodilators, Symbicort. Working well with the incentive spirometer. Objective - Vital Signs Vital signs: Vital Signs Temp 97.5 F L 12/23/18 07:00 Pulse 112 H 12/23/18 14:01 Resp 16 12/23/18 07:00 BP 114/78 12/23/18 07:00 Pulse Ox 96 12/23/18 07:34 Intake & Output 12/22/18 12/23/18 12/23/18 18:59 06:59 18:59 Intake Total 240 480 Output Total 260 465 50 Balance -20 -465 430 Intake: Oral 240 480 Output: Chest Tube Drainage 160 90 50 Chest Tube Right Mid- 160 90 50 Axillary Chest Urine 100 375 Other: Voiding Method Urinal Urinal Urinal # Voids 1 2 4 - Exam GENERAL EXAM: Alert, pleasant, frail cachectic 63-year-old white male, comfort able in no apparent distress. On 2 L nasal cannula. HEAD: Normocephalic/atraumatic. EYES: Normal reaction of pupils, equal size. Conjunctiva pink, sclera white. NOSE: Clear with pink turbinates. THROAT: No erythema or exudates. NECK: No masses, no JVD, no thyroid enlargement, no adenopathy. CHEST: No chest wall deformity. Symmetrical expansion. Right-sided chest tube is present, connected to Pleur-evac and wall suction, and there is a continuous air leak noted, there is a small amount of serosanguineous output in the Pleur- evac LUNGS: Equal air entry with diminished breath sounds on the right, her breath sounds on the left CVS: Regular rate and rhythm, normal S1 and S2, no gallops, no murmurs, no rubs ABDOMEN: Soft, nontender. No hepatosplenomegaly, normal bowel sounds, no guarding or rigidity. EXTREMITIES: No clubbing, no edema, no cyanosis, 2+ pulses and upper and lower extremities. MUSCULOSKELETAL: Muscle strength and tone normal. SPINE: No scoliosis or deformity SKIN: No rashes CENTRAL NERVOUS SYSTEM: No focal deficits, tone is normal in all 4 extremities. PSYCHIATRIC: Alert and oriented -3. Appropriate affect. Intact judgment and insight. - Labs CBC & Chem 7: 12/22/18 07:33 12/22/18 07:33 Assessment and Plan Assessment: Impression: #1 Dyspnea with right-sided chest pain in a patient found to have significant right-sided pneumothorax, status post chest tube placement. #2 History of chronic 10-15% right-sided pneumothorax. #3 History of significant bullous emphysema. #4 history of chronic obstructive pulmonary disease, currently inactive and stable. #5 Chronic tobacco dependence, quit in 2018. #6 History of bipolar disorder. PLAn: The patient was seen and evaluated by Dr. Gonzalez. Chest x-ray reviewed. Right-sided chest tube remains in place for now, continues with air leak. Add incentive spirometer and encourage cough and deep breathing exercises. Continue bronchodilators. Increase his activity as tolerated. We'll continue to follow and make further recommendations based on his clinical status. I, the cosigning physician, performed a history & physical examination of the patient. Lungs sounds are diminished breath sounds on the right. Maintaining good O2 saturations in the 90s on 2 L nasal cannula. I discussed the assessment and plan of care with my nurse practitioner, Venecia Crocker. I attest to the above note as dictated by her.
[2018-12-23] MEDS: SODIUM CHLORIDE 0.9% 1,000 ML IV SCH (18:10)
--- NOTE | 2018-12-23 19:24 | PN ---
PROGRESS NOTE DATE OF SERVICE: 12/23/2018 This 63-year-old gentleman who was admitted with acute on chronic recurrent right pneumothorax is being closely monitored at this time. No chest pain. No palpitations. No fever. Cardiothoracic Surgery is following the patient for possible intervention on Tuesday. EXAM: Alert and oriented x3. Pulse is 112, blood pressure 130/68, respirations 16, temperature 98.2, pulse ox 98% on room air. HEENT: Conjunctivae normal. CARDIOVASCULAR: S1, S2. Ejection systolic murmur. RESPIRATORY: Breath sounds diminished in the bases. A few scattered rhonchi and crackles. ABDOMEN: Soft, nontender. NERVOUS SYSTEM: No focal deficits. EXAMINATION OF THE RIGHT CHEST: Chest tube with air leak present. LABS: WBC 8.2, hemoglobin 13.4. ASSESSMENT: 1. Acute on chronic recurrent right pneumothorax, shortness of breath, status post chest tube drainage. 2. History of previous 10-15 percent pneumothorax on the right side. 3. Chronic obstructive pulmonary disease. 4. History of bipolar depression. 5. History of hemorrhoids. 6. History of nicotine dependence. 7. Severe protein calorie malnutrition with BMI of 17.9. RECOMMENDATIONS AND DISCUSSION: I recommend to continue current management, continue monitoring and symptomatic treatment. The patient has significant bullous disease of the lungs and as well as air leak. We will closely monitor with Pulmonary and Cardiothoracic Surgery. Possible surgical evaluation. Further recommendations to follow. Guarded prognosis. MMJOSE ARMANDOL / IJN: [id number] /
--- NOTE | 2018-12-24 07:30 | XR ---
EXAMINATION TYPE: XR chest 1V portable DATE OF EXAM: 12/24/2018 HISTORY: Right pneumothorax.. REFERENCE: Previous study dated 12/23/2018. FINDINGS: Right pleural drain remains in place. A small, loculated right basilar pneumothorax is iden tified. There is atelectatic change present at the left lung base. Heart size is upper limits of norm al. No definite pleural fluid is seen. IMPRESSION: NO SIGNIFICANT CHANGE IN THE APPEARANCE OF THE CHEST FROM THE PREVIOUS STUDY.
[2018-12-24] MEDS: SYMBICORT 160-4.5 MCG INHALER INHALATION SCH ×2 (07:53→19:49)
[2018-12-24] MEDS: IPRATROPIUM-ALBUTEROL 3 ML NEB INHALATION SCH ×3 (07:53→19:49)
[2018-12-24] MEDS: TAMSULOSIN 0.4 MG CAP.ER.24H PO SCH (08:32)
[2018-12-24] MEDS: PANTOPRAZOLE 40 MG TABLET PO SCH (08:32)
[2018-12-24] MEDS: HEPARIN SODIUM,PORCINE 5,000 UNIT/ML 1 ML VIAL SQ SCH ×2 (08:32→21:13)
--- NOTE | 2018-12-24 13:25 | P.PN ---
Subjective Progress Note Date: 12/24/18 Principal diagnosis: Recurrent right-sided pneumothorax with significant bullous emphysema, status post right pleural thoracostomy tube placement by the emergency room physicians. Previous medical history of recurrent right pneumothoraces 2 in 2017, chronic obstructive pulmonary disease, history of tobacco dependence, quit smoking in September 2017, bipolar/depression, gastroesophageal reflux disease. POD #4 placement of right sided thoracostomy tube by an emergency room tru hoffman. The patient is currently laying in bed in no acute distress. He denies any complaints of pain or shortness of breath at this time. His oxygen saturation are 97% on 2 L nasal cannula. He is achieving 1250 mL on his incentive spirometry. He is tolerating oral intake. He reports that he did sit up to the bedside chair for most of the day yesterday. Left pleural chest tube remains in place to low continuous wall suction -20 cm H2O, remains with continuous air leak, although seems somewhat improved today. He remains hemodynamically stable. Physical therapy is following. He remains afebrile. Objective - Vital Signs Vital signs: Vital Signs Temp 98.5 F 12/24/18 07:00 Pulse 112 H 12/24/18 08:05 Resp 18 12/24/18 07:00 BP 115/74 12/24/18 07:00 Pulse Ox 97 12/24/18 07:00 Intake & Output 12/23/18 12/24/18 12/24/18 18:59 06:59 18:59 Intake Total 870 100 720 Output Total 80 75 Balance 790 25 720 Intake: Oral 870 100 720 Output: Chest Tube Drainage 80 75 Chest Tube Right Mid- 80 75 Axillary Chest Other: Voiding Method Urinal # Voids 4 1 - Constitutional General appearance: Present: cooperative, no acute distress, thin - Respiratory Details: Lung sounds are essentially diminished throughout. Respirations are symmetrical and nonlabored. Oxygen saturation are 97% on 2 L nasal cannula. Right pleural chest tube remains in place to low continuous wall suction -20 cm H2O. Continuous air leak is present. Draining thin serosanguineous drainage. 120 mL output in the last 24 hours. - Cardiovascular Details: Regular rhythm and tachycardic rate. S1 and S2 present, negative for S3, gallop or murmur. No edema present. - Gastrointestinal Gastrointestinal Comment(s): Abdomen is soft, nontender and nondistended. Hypoactive bowel sounds all 4 abdominal quadrants. No guarding or rigidity. No organomegaly. - Genitourinary Genitourinary Comment(s): Voiding clear yellow urine. - Integumentary Integumentary Comment(s): Skin is warm and dry. No clubbing or cyanosis present. No rash or abnormal pigmentation is present. Right pleural chest tube dressing is clean, dry and intact. - Neurologic Neurologic: Present: CNII-XII intact - Musculoskeletal Musculoskeletal: Present: gait normal, strength equal bilaterally - Psychiatric Psychiatric Comment(s): Flat affect. Psychiatric: Present: A&O x's 3, intact judgment & insight - Allied health notes Allied health notes reviewed: nursing - Labs CBC & Chem 7: 12/22/18 07:33 12/22/18 07:33 - Imaging and Cardiology Chest x-ray: report reviewed, image reviewed Assessment and Plan Assessment: Recurrent spontaneous pneumothorax, right-sided Chronic obstructive pulmonary disease, with significant bullous emphysema Gastroesophageal reflux disease History of bipolar and depression History of nicotine dependence in remission, quit in September 2017 Plan: 1. No surgical intervention planned at this time. Continue right pleural chest tube to low continuous wall suction at -20 cm H2O. We will monitor for resolution of air leak. 2. Will continue to monitor daily chest x-rays. 3. Wean O2 as tolerated. Encourage use of his incentive spirometry is 10 times every hour while awake. 4. Encourage continued smoking cessation. Discussed the importance of smoking cessation with the patient. 5. Increase activity, ambulate as tolerated. Physical and occupational therapy has been consulted and is following. 6. Bronchodilators per pulmonology management. 7. Medical management of other comorbidities per primary care service. 8. More recommendations follow based on patient's clinical course. Time with Patient: Greater than 30
--- NOTE | 2018-12-24 14:48 | P.PN ---
Subjective Progress Note Date: 12/24/18 This is a very pleasant 63-year-old gentleman who follows with Dr. Coombs as his primary care physician. He has a previous history of chronic tobacco dependence quitting in 2018, chronic obstructive pulmonary disease, chronic right-sided pneumothorax of 10-15% and the right chest. He was seen in our office yesterday with complaints of increasing shortness of breath and right-sided chest discomfort. A chest x-ray revealed a significant right-sided pneumothorax. He was referred to the emergency room for chest tube placement. Computed tomography scan of the chest revealed a large right-sided pneumothorax occupying the lower two thirds of the right hemithorax. There is also significant bulla and bleb formation seen within the lung. Chest tube was placed in the emergency room. He is seen today on the selective care unit and consultation. He is currently resting fairly comfortable in bed. He is awake and alert in no acute distress. He is maintaining high 90s on 4 L/m per nasal cannula. He's been afebrile. Digital site pain but no significant chest discomfort. White count 11.3. Hemoglobin 14.2. Creatinine 1.04. He's been initiated and DuoNeb inhalations, Symbicort. Today's chest x-ray shows improved right hydropneumothorax with extensive underlying bullous emphysema. On 12/21/2018 patient seen in follow-up. He is awake and alert, in no acute distress, room air pulse ox is 97%, no fever or chills, right-sided chest tube is in place, is continuous air leak still present, today's chest x-ray has been reviewed with Dr. Gonzalez, shows COPD with stable right-sided hydropne umothorax. There is serosanguineous output in the Pleur-evac, and there has been 70 mL of output in last 24 hours. He is working on his incentive spirometer. Denies any specific complaints. She surgery is following, increase activity as tolerated. On 12/22/2016 patient seen in follow-up on medical surgical floor. Right-sided chest tube still has a significant air leak. Patient is on 2 L of oxygen, with pulse ox of 98%, afebrile, hemodynamically stable, he is up in the recliner today, no significant pain from the chest tube site, no specific complaints, he is working on his incentive spirometer. He's achieving 1000 mL on his incentive spirometer. Left-sided pleural chest tube remains to wall suction, and 40 mL of serosanguineous output in the Pleur-evac. The patient is seen today 12/23/2018 in follow-up on the regular medical floor. He is currently resting quite comfortably in bed. Awake and alert in no acute distress. No worsening shortness of breath. Some chest tube site insertion discomfort. He is maintaining good O2 saturations in the 90s on 2 L/m per nasal cannula. Chest x-ray shows lucency at the right lung base. Loculated basilar pneumothorax is not excluded. No significant interval change compared to yesterday. Continues with an air leak. He remains on bronchodilators, Symbicort. Working well with the incentive spirometer. On 12/24/2018 the patient is postop day #4 following a chest tube insertion on the right. There is still air leak. The chest tube is still attached to wall suction and there is air leak although the motor weakness improved compared to yesterday. He is doing well. Saturation 97% on 2 L of oxygen nasal cannula. His incentive spirometer. No chest pain. No shortness of breath. Hemodynamically stable. No evidence of any tension. Objective - Vital Signs Vital signs: Vital Signs Temp 98.5 F 12/24/18 07:00 Pulse 100 12/24/18 13:56 Resp 18 12/24/18 07:00 BP 115/74 12/24/18 07:00 Pulse Ox 97 12/24/18 07:00 Intake & Output 12/23/18 12/24/18 12/24/18 18:59 06:59 18:59 Intake Total 870 100 720 Output Total 80 75 300 Balance 790 25 420 Intake: Oral 870 100 720 Output: Chest Tube Drainage 80 75 Chest Tube Right Mid- 80 75 Axillary Chest Urine 300 Other: Voiding Method Urinal # Voids 4 1 - Exam - Constitutional General appearance: Present: cooperative, no acute distress, thin - Respiratory Details: Lung sounds are essentially diminished throughout. Respirations are symmetrical and nonlabored. Oxygen saturation are 97% on 2 L nasal cannula. Right pleural chest tube remains in place to low continuous wall suction -20 cm H2O. Continuous air leak is present. Draining thin serosanguineous drainage. 120 mL output in the last 24 hours. - Cardiovascular Details: Regular rhythm and tachycardic rate. S1 and S2 present, negative for S3, gallop or murmur. No edema present. - Gastrointestinal Gastrointestinal Comment(s): Abdomen is soft, nontender and nondistended. Hypoactive bowel sounds all 4 abdominal quadrants. No guarding or rigidity. No organomegaly. - Genitourinary Genitourinary Comment(s): Voiding clear yellow urine. - Integumentary Integumentary Comment(s): Skin is warm and dry. No clubbing or cyanosis present. No rash or abnormal pigmentation is present. Right pleural chest tube dressing is clean, dry and intact. - Neurologic Neurologic: Present: CNII-XII intact - Musculoskeletal Musculoskeletal: Present: gait normal, strength equal bilaterally - Psychiatric Psychiatric Comment(s): Flat affect. Psychiatric: Present: A&O x's 3, intact judgment & insight - Labs CBC & Chem 7: 12/22/18 07:33 12/22/18 07:33 Assessment and Plan Plan: #1 right-sided pneumothorax post chest tube insertion. The patient continues to have some air leak and there is improvement in size of the pneumothorax although is not completely resolved. The follow-up chest x-ray today shows a stable loculated right lower lobe pneumothorax. #2 shortness of breath secondary to above, improved #3 History of significant bullous emphysema. #4 history of chronic obstructive pulmonary disease, currently inactive and stable. #5 Chronic tobacco dependence, quit in 2018. #6 History of bipolar disorder. Plan Keep the chest tube in place to suction. Monitor the air leak. Daily chest x- ray. Incentive spirometer. We'll likely need a surgical bullectomy at a later stage especially if he continues to have persistent air leak and persistent pneumothorax on the right.
--- NOTE | 2018-12-24 15:01 | PN ---
PROGRESS NOTE DATE OF SERVICE: 12/24/2018 This 63-year-old gentleman was admitted with acute on chronic right pneumothorax, also had air leak. The chest x-ray showed no significant changes at this time. No chest pain. No palpitations. No fever. No surgical intervention is being planned at this time. EXAM: Alert and oriented times three. Pulse is 118, blood pressure 150/74, respiration 18, temperature 98.4, pulse ox 97% on 2 L. HEENT: Conjunctivae normal. NECK: No jugular venous distention. CARDIOVASCULAR: S1, S2 muffled. RESPIRATORY: Breath sounds diminished in the bases. A few scattered rhonchi and crackles. Breath sounds diminished on the right side. Chest tube present with some air leak. Abdomen soft nontender. Central nervous system: No focal deficits. LABS: WBC 8.2, hemoglobin 13.4. ASSESSMENT: 1. Acute on chronic right pneumothorax shortness of breath. Status post chest tube drainage. 2. History of previous 10-15 percent pneumothorax on the right side. 3. Chronic obstructive pulmonary disease. 4. History of bipolar depression. 5. History of hemorrhoids. 6. History of nicotine dependence. 7. Severe protein calorie malnutrition with BMI of 17.9. RECOMMENDATIONS AND DISCUSSION: Recommend to continue current medications, continue with monitoring, management. Symptomatic treatment. Otherwise, at this time, I recommend follow closely with cardiothoracic surgery. Continue the bronchodilators. No plan for surgery at this time. Further recommendations to follow. MMODL / IJN: [id number] /
[2018-12-25] MEDS: HEPARIN SODIUM,PORCINE 5,000 UNIT/ML 1 ML VIAL SQ SCH ×2 (07:21→20:34)
[2018-12-25] MEDS: SODIUM CHLORIDE 0.9% 1,000 ML IV SCH ×2 (07:21→20:35)
[2018-12-25] MEDS: PANTOPRAZOLE 40 MG TABLET PO SCH (07:24)
[2018-12-25] MEDS: TAMSULOSIN 0.4 MG CAP.ER.24H PO SCH (07:24)
[2018-12-25] MEDS: IPRATROPIUM-ALBUTEROL 3 ML NEB INHALATION SCH ×3 (07:38→19:26)
[2018-12-25] MEDS: SYMBICORT 160-4.5 MCG INHALER INHALATION SCH ×2 (07:38→19:26)
--- NOTE | 2018-12-25 08:04 | XR ---
EXAMINATION TYPE: XR chest 1V portable DATE OF EXAM: 12/25/2018 Comparison: 12/24/2018 Clinical History: 63-year-old male Right pneumothorax. Findings: Heart normal size. Underlying emphysematous change. Basilar right-sided chest tube. There is suggesti on of a pleural edge at the right base and a small basilar pneumothorax is difficult to exclude. Some patchy opacity along the left heart margin. Impression: Persistent small loculated right basilar pneumothorax with chest tube in place. Some patchy infiltrat e/atelectasis at the left base slightly increased.
--- NOTE | 2018-12-25 11:33 | P.PN ---
Subjective Progress Note Date: 12/25/18 Principal diagnosis: Dyspnea with right-sided chest pain, related to significant right-sided pneumothorax, status post chest tube placement This is a very pleasant 63-year-old gentleman who follows with Dr. Coombs as his primary care physician. He has a previous history of chronic tobacco dependence quitting in 2018, chronic obstructive pulmonary disease, chronic right-sided pn eumothorax of 10-15% and the right chest. He was seen in our office yesterday with complaints of increasing shortness of breath and right-sided chest discomfort. A chest x-ray revealed a significant right-sided pneumothorax. He was referred to the emergency room for chest tube placement. Computed tomography scan of the chest revealed a large right-sided pneumothorax occupying the lower two thirds of the right hemithorax. There is also significant bulla and bleb formation seen within the lung. Chest tube was placed in the emergency room. He is seen today on the selective care unit and consultation. He is currently resting fairly comfortable in bed. He is awake and alert in no acute distress. He is maintaining high 90s on 4 L/m per nasal cannula. He's been afebrile. Digital site pain but no significant chest discomfort. White count 11.3. Hemoglobin 14.2. Creatinine 1.04. He's been initiated and DuoNeb inhalations, Symbicort. Today's chest x-ray shows improved right hydro pneumothorax with extensive underlying bullous emphysema. On 12/21/2018 patient seen in follow-up. He is awake and alert, in no acute distress, room air pulse ox is 97%, no fever or chills, right-sided chest tube is in place, is continuous air leak still present, today's chest x-ray has been reviewed with Dr. Gonzalez, shows COPD with stable right-sided hydropneumothorax. There is serosanguineous output in the Pleur-evac, and there has been 70 mL of output in last 24 hours. He is working on his incentive spirometer. Denies any specific complaints. She surgery is following, increase activity as tolerated. On 12/22/2016 patient seen in follow-up on medical surgical floor. Right-sided chest tube still has a significant air leak. Patient is on 2 L of oxygen, with pulse ox of 98%, afebrile, hemodynamically stable, he is up in the recliner today, no significant pain from the chest tube site, no specific complaints, he is working on his incentive spirometer. He's achieving 1000 mL on his incentive spirometer. Left-sided pleural chest tube remains to wall suction, and 40 mL of serosanguineous output in the Pleur-evac. On 12/25/2018 patient seen in follow-up on medical surgical floor. She is resting comfortably in bed, in no acute distress, there is a persistent air leak from the right-sided chest tube, today's chest x-ray has been reviewed, shows persistent right basilar loculated pneumothorax. Denies any pain, denies any pacific complaints, remains on 2 L of oxygen, lung sounds are diminished at the right base otherwise are clear. His spirometry effort is 1250 ML. Tolerating oral diet, he is voiding, for now has only been up in the chair, has not ambulated much. His labs have been reviewed, and are unremarkable. Objective - Vital Signs Vital signs: Vital Signs Temp 97.8 F 12/25/18 07:00 Pulse 108 H 12/25/18 07:49 Resp 16 12/25/18 07:25 BP 110/75 12/25/18 07:00 Pulse Ox 95 12/25/18 07:38 Intake & Output 12/24/18 12/25/18 12/25/18 18:59 06:59 18:59 Intake Total 1160 296 Output Total 300 500 250 Balance 860 -500 46 Weight 54.2 kg Intake: Oral 1160 296 Output: Chest Tube Drainage 50 Chest Tube Right Mid- 50 Axillary Chest Urine 300 500 200 Other: Voiding Method Urinal # Voids 1 - Exam GENERAL EXAM: Alert, pleasant, 63-year-old white male, comfortable in no apparent distress. HEAD: Normocephalic/atraumatic. EYES: Normal reaction of pupils, equal size. Conjunctiva pink, sclera white. NOSE: Clear with pink turbinates. THROAT: No erythema or exudates. NECK: No masses, no JVD, no thyroid enlargement, no adenopathy. CHEST: No chest wall deformity. Symmetrical expansion. Right-sided chest tube is present, connected to Pleur-evac and wall suction, and there is a continuous air leak noted, there is a small amount of serosanguineous output in the Pleur- evac LUNGS: Equal air entry with diminished breath sounds on the right, her breath sounds on the left CVS: Regular rate and rhythm, normal S1 and S2, no gallops, no murmurs, no rubs ABDOMEN: Soft, nontender. No hepatosplenomegaly, normal bowel sounds, no guarding or rigidity. EXTREMITIES: No clubbing, no edema, no cyanosis, 2+ pulses and upper and lower extremities. MUSCULOSKELETAL: Muscle strength and tone normal. SPINE: No scoliosis or deformity SKIN: No rashes CENTRAL NERVOUS SYSTEM: Alert and oriented -3. No focal deficits, tone is normal in all 4 extremities. PSYCHIATRIC: Alert and oriented -3. Appropriate affect. Intact judgment and insight. - Labs CBC & Chem 7: 12/22/18 07:33 12/22/18 07:33 Assessment and Plan Plan: Assessment: #1 Dyspnea with right-sided chest pain in a patient found to have significant right-sided pneumothorax, status post chest tube placement.The patient continues to have some air leak and there is improvement in size of the pneumothorax although is not completely resolved. The follow-up chest x-ray today shows a stable loculated right lower lobe pneumothorax. #2 History of chronic 10-15% right-sided pneumothorax. #3 History of significant bullous emphysema. #4 history of chronic obstructive pulmonary disease, currently inactive and stable. #5 Chronic tobacco dependence, quit in 2018. #6 History of bipolar disorder. Plan: Continue with the right-sided chest tube to suction, the air leak and the chest tube persists. Chest x-ray shows stable right sided loculated right lower lobe pneumothorax. Encourage deep breathing and coughing. Labs have been reviewed, no acute events overnight. CT surgeries following. We'll continue with nebulized bronchodilators, Symbicort. Pain is controlled. We'll continue to follow. I performed a history & physical examination of the patient and discussed their management with my nurse practitioner, Vernell Winston. I reviewed the nurse practitioner's note and agree with the documented findings and plan of care. Lung sounds are positive for diminished breath sounds on the right, clear breath sounds in the left. The findings and the impression was discussed with the patient. I attest to the documentation by the nurse practitioner. Time with Patient: Less than 30
--- NOTE | 2018-12-25 14:12 | P.PN ---
Subjective Progress Note Date: 12/25/18 Principal diagnosis: Recurrent right-sided pneumothorax with significant bullous emphysema, status post right pleural thoracostomy tube placement by the emergency room physicians. Previous medical history of recurrent right pneumothoraces 2 in 2018, chronic obstructive pulmonary disease, history of tobacco dependence, quit smoking in September 2017, bipolar/depression, gastroesophageal reflux disease. POD #5 placement of right sided thoracostomy tube by an emergency room tru hoffman. The patient is currently laying in bed, he is alert and oriented 3. He denies any complaints of pain or shortness of breath at this time. Oxygen saturation are 95% on 2 L nasal cannula. Achieving 1500 mL on his incentive spirometry. Right pleural chest tube remains in place with continuous air leak present. He reports he has been sitting in the chair off and on yesterday. He remains hemodynamically stable and afebrile. Objective - Vital Signs Vital signs: Vital Signs Temp 97.8 F 12/25/18 07:00 Pulse 108 H 12/25/18 07:49 Resp 16 12/25/18 07:25 BP 110/75 12/25/18 07:00 Pulse Ox 95 12/25/18 07:38 Intake & Output 12/24/18 12/25/18 12/25/18 18:59 06:59 18:59 Intake Total 1160 296 Output Total 300 500 250 Balance 860 -500 46 Weight 54.2 kg Intake: Oral 1160 296 Output: Chest Tube Drainage 50 Chest Tube Right Mid- 50 Axillary Chest Urine 300 500 200 Other: Voiding Method Urinal # Voids 1 - Constitutional General appearance: Present: cooperative, no acute distress, thin - Respiratory Details: Lungs sounds essentially clear to his bilateral upper lobes, diminished to his bilateral bases. Respirations are symmetrical and nonlabored. Oxygen saturation is 95% on 2 L nasal cannula. Achieving 1500 mL on his incentive spir ometry. Right pleural chest tube remains in place to low continuous wall suction -20 cm H2O. Continuous air leak is present. Draining thin serosanguineous drainage 50 mL output in the last 8 hours, 100 mL output in the last 24 hours. - Cardiovascular Details: Regular rhythm and tachycardic rate. S1 and S2 present, negative for S3, gallop or murmur. No edema present. Sequential compression devices in place to his bilateral lower extremities. - Gastrointestinal Gastrointestinal Comment(s): Abdomen is soft, nontender and nondistended. Hypoactive bowel sounds to all 4 abdominal quadrants. No guarding or rigidity. Tolerating oral intake. No organomegaly. - Genitourinary Genitourinary Comment(s): Voiding clear yellow urine. - Integumentary Integumentary Comment(s): Skin is warm and dry. No clubbing or cyanosis present. No rash or abnormal pigmentation is present. Right pleural chest tube dressing is clean, dry and i ntact. - Neurologic Neurologic: Present: CNII-XII intact - Musculoskeletal Musculoskeletal: Present: gait normal, generalized weakness, strength equal bilaterally - Psychiatric Psychiatric: Present: A&O x's 3, appropriate affect, intact judgment & insight - Allied health notes Allied health notes reviewed: nursing - Labs CBC & Chem 7: 12/22/18 07:33 12/22/18 07:33 - Imaging and Cardiology Chest x-ray: report reviewed, image reviewed Assessment and Plan Assessment: Recurrent spontaneous pneumothorax, right-sided Chronic obstructive pulmonary disease, with significant bullous emphysema Gastroesophageal reflux disease History of bipolar and depression History of nicotine dependence in remission, quit in September 2017 Plan: 1. Due to the patient's persistent air leak from his right thoracostomy tube, he will be scheduled for a right video-assisted thoracoscopic surgery with stapling of blebs and talc pleurodesis for 12/28/2018 to be performed by Dr. Lan Quevedo. 2. Will continue to monitor daily chest x-rays. 3. Wean O2 as tolerated. Encourage use of his incentive spirometry is 10 times every hour while awake. 4. Encourage continued smoking cessation. Discussed the importance of smoking cessation with the patient. 5. Increase activity, ambulate as tolerated. Physical and occupational therapy has been consulted and is following. 6. Bronchodilators per pulmonology management. 7. Medical management of other comorbidities per primary care service. 8. He will be made nothing by mouth after midnight on 12/28/2018. We have ordered 2 g of Kefzol IV piggyback to be on-call for the operating room to be given prior to his VATS procedure. 9. More recommendations follow based on patient's clinical course. Time with Patient: Greater than 30
[2018-12-25] MEDS ORDERED: ceFAZolin IN SWFI 2 GM/20 ML SYRINGE IVP ONE (14:15)
--- NOTE | 2018-12-25 14:46 | P.PN ---
Subjective This is a pleasant 63 years old male with past medical history of COPD, GERD, pneumothorax in September 2017. Presents because of signs symptoms of p neumothorax. This is status post chest tube placement on the right side. Is been followed closely by pulmonary and cardiothoracic surgery team. Currently patient is breathing quietly. perspiration is not labored. Pain is controlled. Still has chest tube in place. And still needs to be monitored general medical floor. Vitals stable, however his somewhat tachycardic around 110 but patient is afebrile and blood pressure is stable. Labs reviewed. Objective - Vital Signs Vital signs: Vital Signs Temp 97.8 F 12/25/18 07:00 Pulse 109 H 12/25/18 13:28 Resp 16 12/25/18 13:28 BP 110/75 12/25/18 07:00 Pulse Ox 95 12/25/18 07:38 Intake & Output 12/24/18 12/25/18 12/25/18 18:59 06:59 18:59 Intake Total 1160 1172 Output Total 300 500 250 Balance 860 -500 922 Weight 54.2 kg Intake: Intake, IV Titration 180 Amount Sodium Chloride 0.9% 1, 180 000 ml @ 20 mls/hr IV . Q24H [facility] Rx#:[id number] Oral 1160 992 Output: Chest Tube Drainage 50 Chest Tube Right Mid- 50 Axillary Chest Urine 300 500 200 Other: Voiding Method Urinal # Voids 1 - Exam GENERAL: The patient is alert and oriented x3, not in any acute distress. Well developed, well nourished. HEENT: Pupils are round and equally reacting to light. EOMI. No scleral icterus. No conjunctival pallor. Normocephalic, atraumatic. No pharyngeal erythema. No thyromegaly. CARDIOVASCULAR: S1 and S2 present. No murmurs, rubs, or gallops. -PULMONARY: Chest is clear to auscultation, no wheezing or crackles. Right chest tube ABDOMEN: Soft, nontender, nondistended, normoactive bowel sounds. No palpable organomegaly. MUSCULOSKELETAL: No joint swelling or deformity. EXTREMITIES: No cyanosis, clubbing, or pedal edema. NEUROLOGICAL: Gross neurological examination did not reveal any focal deficits. SKIN: No rashes. - Labs CBC & Chem 7: 12/22/18 07:33 12/22/18 07:33 Assessment and Plan Assessment: Acute and chronic right pneumothorax, status post right-sided chest tube drainage. History of previous 10-15% pneumothorax on the right side Chronic obstructive pulmonary disease, not in acute exacerbation History of bipolar depression, not an active issue History of nicotine dependence Severe protein calorie malnutrition with BMI of 17.9 Plan: This is a pleasant 63 years old male who presents with recurrent right side pneumothorax, his status post chest tube placement. His been followed closely by pulmonary and cardiothoracic surgery.Labs and medication were reviewed.. Continue same treatment. Continue with symptomatic treatment. Resume home medication. Monitor lytes and vitals. DVT and GI prophylaxis. Further recommendations of the clinical course of the patient DVT prophylaxis: Subcutaneous heparin GI Prophylaxis: Ppi Prognosis is guarded
[2018-12-25] MEDS: MAGNESIUM HYDROXIDE 2,400 MG/10 ML CUP PO PRN (16:03)
[2018-12-26 07:11] LABS: Basophils # (A) 0.1 k/uL (0-0.2); Basophils % (A) 1 %; Eosinophils # (A) 0.4 k/uL (0-0.7); Eosinophils % (A) 4 %; HCT 41.7 % (39.0-53.0); HGB 13.3 gm/dL (13.0-17.5); Lymphocytes # (A) 1.9 k/uL (1.0-4.8); Lymphocytes % (A) 20 %; MCH 29.4 pg (25.0-35.0); MCHC 31.9 g/dL (31.0-37.0); Mean Platelet Volume 7.2; Monocytes # (A) 0.7 k/uL (0-1.0); Monocytes % (A) 7 %; Neutrophils # (A) 6.2 k/uL (1.3-7.7); Neutrophils % (A) 65 %; Platelet Count 445 k/uL (150-450); RBC 4.54 m/uL (4.30-5.90); RDW 13.4 % (11.5-15.5); WBC 9.6 k/uL (3.8-10.6)
[2018-12-26 07:16] LABS: Anion Gap 7 mmol/L; Blood Urea Nitrogen 22 mg/dL (9-20); Carbon Dioxide 25 mmol/L (22-30); Chloride 104 mmol/L (98-107); Glucose 87 mg/dL (74-99); Potassium 4.9 mmol/L (3.5-5.1); Sodium 136 mmol/L (137-145)
[2018-12-26] MEDS: SYMBICORT 160-4.5 MCG INHALER INHALATION SCH ×2 (08:10→20:05)
[2018-12-26] MEDS: IPRATROPIUM-ALBUTEROL 3 ML NEB INHALATION SCH ×3 (08:10→20:05)
[2018-12-26] MEDS: PANTOPRAZOLE 40 MG TABLET PO SCH (08:18)
[2018-12-26] MEDS: HEPARIN SODIUM,PORCINE 5,000 UNIT/ML 1 ML VIAL SQ SCH ×2 (08:18→20:21)
[2018-12-26] MEDS: TAMSULOSIN 0.4 MG CAP.ER.24H PO SCH (08:18)
--- NOTE | 2018-12-26 09:39 | P.PN ---
Subjective Progress Note Date: 12/26/18 Principal diagnosis: Recurrent right-sided pneumothorax with significant bullous emphysema, status post right pleural thoracostomy tube placement by the emergency room physicians. Previous medical history of recurrent right pneumothoraces 2 in 2017, chronic obstructive pulmonary disease, history of tobacco dependence, quit smoking in September 2017, bipolar/depression, gastroesophageal reflux disease. POD #6 placement of right sided thoracostomy tube by an emergency room tru hoffman. The patient is currently laying in bed, he is alert and oriented 3. He denies any complaints of pain or shortness of breath at this time. Oxygen saturation are 96% on 2 L nasal cannula. Achieving 1500 mL on his incentive spirometry. Right pleural chest tube remains in place with continuous air leak present. He reports he has been sitting in the chair off and on yesterday. He remains hemodynamically stable and afebrile. He has been scheduled for a right VATS procedure with stapling of blebs and talc pleurodesis for , 12/28/2018 to be performed by Dr. Lan Quevedo. Objective - Vital Signs Vital signs: Vital Signs Temp 97.5 F L 12/26/18 07:00 Pulse 114 H 12/26/18 08:25 Resp 20 12/26/18 08:11 BP 110/72 12/26/18 07:00 Pulse Ox 96 12/26/18 08:11 Intake & Output 12/25/18 12/26/18 12/26/18 18:59 06:59 18:59 Intake Total 1408 240 Output Total 250 15 Balance 1158 -15 240 Intake: Intake, IV Titration 180 Amount Sodium Chloride 0.9% 1, 180 000 ml @ 20 mls/hr IV . Q24H [facility] Rx#:[id number] Oral 1228 240 Output: Chest Tube Drainage 50 15 Chest Tube Right Mid- 50 15 Axillary Chest Urine 200 Other: Voiding Method Urinal Toilet # Voids 1 2 - Constitutional General appearance: Present: cooperative, no acute distress, thin - Respiratory Details: Lungs sounds essentially clear to his bilateral upper lobes, diminished to his bilateral bases. Respirations are symmetrical and nonlabored. Oxygen saturation is 96% on 2 L nasal cannula. Achieving 1500 mL on his incentive spirometry. Right pleural chest tube remains in place to low continuous wall suction -20 cm H2O. Continuous air leak is present. Draining thin serosanguineous drainage 15 mL output in the last 8 hours, 65 mL output in the last 24 hours. - Cardiovascular Details: Regular rhythm with a tachycardic rate. S1 and S2 present, negative for S3, gallop or murmur. No edema present. Knee-high sequential compression devices in place to his bilateral lower extremities. - Gastrointestinal Gastrointestinal Comment(s): Abdomen is soft, nontender and nondistended. Active bowel sounds all 4 abdominal quadrants. No guarding or rigidity. No organomegaly. - Genitourinary Genitourinary Comment(s): Voiding clear yellow urine. - Integumentary Integumentary Comment(s): Skin is warm and dry. No clubbing or cyanosis is present. No rash or abnormal pigmentation is present. Right pleural chest tube site with dressing clean, dry and intact. - Neurologic Neurologic: Present: CNII-XII intact - Musculoskeletal Musculoskeletal: Present: gait normal, strength equal bilaterally - Psychiatric Psychiatric: Present: A&O x's 3, appropriate affect, intact judgment & insight - Allied health notes Allied health notes reviewed: nursing - Labs CBC & Chem 7: 12/26/18 06:19 12/26/18 06:19 Labs: Abnormal Lab Results - Last 24 Hours (Table) 12/26/18 Range/Units 06:19 Sodium 136 L (137-145) mmol/L BUN 22 H (9-20) mg/dL Assessment and Plan Assessment: Recurrent spontaneous pneumothorax, right-sided Chronic obstructive pulmonary disease, with significant bullous emphysema Gastroesophageal reflux disease History of bipolar and depression History of nicotine dependence in remission, quit in September 2017 Plan: 1. Due to the patient's persistent air leak from his right thoracostomy tube, he has been scheduled for a right video-assisted thoracoscopic surgery with stapling of blebs and talc pleurodesis for , 12/28/2018 to be performed by Dr. Lan Quevedo. 2. Will continue to monitor daily chest x-rays. 3. Wean O2 as tolerated. Encourage use of his incentive spirometry is 10 times every hour while awake. 4. Encourage continued smoking cessation. Discussed the importance of smoking cessation with the patient. 5. Increase activity, ambulate as tolerated. Physical and occupational therapy has been consulted and is following. 6. Bronchodilators per pulmonology management. 7. Medical management of other comorbidities per primary care service. 8. He will be made nothing by mouth after midnight on , 12/28/2018. We have ordered 2 g of Kefzol IV piggyback to be on-call for the operating room to be given prior to his VATS procedure. 9. Preoperative teaching initiated. 10. More recommendations follow based on patient's clinical course. Time with Patient: Greater than 30
--- NOTE | 2018-12-26 10:27 | P.PN ---
Subjective This is a pleasant 63 years old male with past medical history of COPD, GERD, pneumothorax in September 2017. Presents because of signs symptoms of p neumothorax. This is status post chest tube placement on the right side. Is been followed closely by pulmonary and cardiothoracic surgery team. Currently patient is breathing quietly. perspiration is not labored. Pain is controlled. Still has chest tube in place. And still needs to be monitored general medical floor. Vitals stable, however his somewhat tachycardic around 110 but patient is afebrile and blood pressure is stable. Labs reviewed. 12/26/2018 Patient clinically stable, with no significant dyspnea. Cardiothoracic surgery team are planning for right-sided pleurodesis on this coming , 12/28/2018. Vitals and labs were reviewed. Objective - Vital Signs Vital signs: Vital Signs Temp 97.5 F L 12/26/18 07:00 Pulse 114 H 12/26/18 08:25 Resp 20 12/26/18 08:18 BP 110/72 12/26/18 07:00 Pulse Ox 96 12/26/18 08:11 Intake & Output 12/25/18 12/26/18 12/26/18 18:59 06:59 18:59 Intake Total 1408 240 Output Total 250 15 Balance 1158 -15 240 Intake: Intake, IV Titration 180 Amount Sodium Chloride 0.9% 1, 180 000 ml @ 20 mls/hr IV . Q24H [facility] Rx#:[id number] Oral 1228 240 Output: Chest Tube Drainage 50 15 Chest Tube Right Mid- 50 15 Axillary Chest Urine 200 Other: Voiding Method Urinal Toilet Toilet Urinal # Voids 1 2 - Exam GENERAL: The patient is alert and oriented x3, not in any acute distress. Well developed, well nourished. HEENT: Pupils are round and equally reacting to light. EOMI. No scleral icterus. No conjunctival pallor. Normocephalic, atraumatic. No pharyngeal erythema. No thyromegaly. CARDIOVASCULAR: S1 and S2 present. No murmurs, rubs, or gallops. -PULMONARY: Chest is clear to auscultation, no wheezing or crackles. Right chest tube ABDOMEN: Soft, nontender, nondistended, normoactive bowel sounds. No palpable organomegaly. MUSCULOSKELETAL: No joint swelling or deformity. EXTREMITIES: No cyanosis, clubbing, or pedal edema. NEUROLOGICAL: Gross neurological examination did not reveal any focal deficits. SKIN: No rashes. - Labs CBC & Chem 7: 12/26/18 06:19 12/26/18 06:19 Labs: Abnormal Lab Results - Last 24 Hours (Table) 12/26/18 Range/Units 06:19 Sodium 136 L (137-145) mmol/L BUN 22 H (9-20) mg/dL Assessment and Plan Assessment: Acute and chronic right pneumothorax, status post right-sided chest tube drainage. History of previous 10-15% pneumothorax on the right side Chronic obstructive pulmonary disease, not in acute exacerbation History of bipolar depression, not an active issue History of nicotine dependence Severe protein calorie malnutrition with BMI of 17.9 Plan: This is a pleasant 63 years old male who presents with recurrent right side pneumothorax, his status post chest tube placement. His been followed closely by pulmonary and cardiothoracic surgery.Labs and medication were reviewed.. Continue same treatment. Continue with symptomatic treatment. Resume home medication. Monitor lytes and vitals. DVT and GI prophylaxis. Further recommendations of the clinical course of the patient DVT prophylaxis: Subcutaneous heparin GI Prophylaxis: Ppi Prognosis is guarded
--- NOTE | 2018-12-26 11:15 | P.PN ---
Subjective Progress Note Date: 12/26/18 Principal diagnosis: Dyspnea with right-sided chest pain, related to significant right-sided pneumothorax, status post chest tube placement This is a very pleasant 63-year-old gentleman who follows with Dr. Coombs as his primary care physician. He has a previous history of chronic tobacco dependence quitting in 2018, chronic obstructive pulmonary disease, chronic right-sided pn eumothorax of 10-15% and the right chest. He was seen in our office yesterday with complaints of increasing shortness of breath and right-sided chest discomfort. A chest x-ray revealed a significant right-sided pneumothorax. He was referred to the emergency room for chest tube placement. Computed tomography scan of the chest revealed a large right-sided pneumothorax occupying the lower two thirds of the right hemithorax. There is also significant bulla and bleb formation seen within the lung. Chest tube was placed in the emergency room. He is seen today on the selective care unit and consultation. He is currently resting fairly comfortable in bed. He is awake and alert in no acute distress. He is maintaining high 90s on 4 L/m per nasal cannula. He's been afebrile. Digital site pain but no significant chest discomfort. White count 11.3. Hemoglobin 14.2. Creatinine 1.04. He's been initiated and DuoNeb inhalations, Symbicort. Today's chest x-ray shows improved right hydro pneumothorax with extensive underlying bullous emphysema. On 12/21/2018 patient seen in follow-up. He is awake and alert, in no acute distress, room air pulse ox is 97%, no fever or chills, right-sided chest tube is in place, is continuous air leak still present, today's chest x-ray has been reviewed with Dr. Gonzalez, shows COPD with stable right-sided hydropneumothorax. There is serosanguineous output in the Pleur-evac, and there has been 70 mL of output in last 24 hours. He is working on his incentive spirometer. Denies any specific complaints. She surgery is following, increase activity as tolerated. On 12/22/2016 patient seen in follow-up on medical surgical floor. Right-sided chest tube still has a significant air leak. Patient is on 2 L of oxygen, with pulse ox of 98%, afebrile, hemodynamically stable, he is up in the recliner today, no significant pain from the chest tube site, no specific complaints, he is working on his incentive spirometer. He's achieving 1000 mL on his incentive spirometer. Left-sided pleural chest tube remains to wall suction, and 40 mL of serosanguineous output in the Pleur-evac. On 12/25/2018 patient seen in follow-up on medical surgical floor. She is resting comfortably in bed, in no acute distress, there is a persistent air leak from the right-sided chest tube, today's chest x-ray has been reviewed, shows persistent right basilar loculated pneumothorax. Denies any pain, denies any pacific complaints, remains on 2 L of oxygen, lung sounds are diminished at the right base otherwise are clear. His spirometry effort is 1250 ML. Tolerating oral diet, he is voiding, for now has only been up in the chair, has not ambulated much. His labs have been reviewed, and are unremarkable. On 12/26/2018 patient seen in follow-up on medical surgical floor. Right-sided chest tube still has a persistent leak, patient remains on 2 L of oxygen with a pulse ox of 96%, afebrile, hemodynamics are stable, today's chest x-ray shows stable right basilar left pneumothorax. No acute complaints, patient is working on incentive spirometer, able to achieve 1262-4973 mL. Patient is scheduled for right VATS with the stapling of the blebs in the pleurodesis on . She surgery is following. No acute events overnight. Patient does experience some discomfort in the right chest with deep breathing and moving, but no acute distress. Objective - Vital Signs Vital signs: Vital Signs Temp 97.5 F L 12/26/18 07:00 Pulse 114 H 12/26/18 08:25 Resp 20 12/26/18 08:18 BP 110/72 12/26/18 07:00 Pulse Ox 96 12/26/18 08:11 Intake & Output 12/25/18 12/26/18 12/26/18 18:59 06:59 18:59 Intake Total 1408 240 Output Total 250 15 Balance 1158 -15 240 Intake: Intake, IV Titration 180 Amount Sodium Chloride 0.9% 1, 180 000 ml @ 20 mls/hr IV . Q24H [facility] Rx#:[id number] Oral 1228 240 Output: Chest Tube Drainage 50 15 Chest Tube Right Mid- 50 15 Axillary Chest Urine 200 Other: Voiding Method Urinal Toilet Toilet Urinal # Voids 1 2 - Exam GENERAL EXAM: Alert, pleasant, 63-year-old white male, comfortable in no appar ent distress. HEAD: Normocephalic/atraumatic. EYES: Normal reaction of pupils, equal size. Conjunctiva pink, sclera white. NOSE: Clear with pink turbinates. THROAT: No erythema or exudates. NECK: No masses, no JVD, no thyroid enlargement, no adenopathy. CHEST: No chest wall deformity. Symmetrical expansion. Right-sided chest tube is present, connected to Pleur-evac and wall suction, and there is a continuous air leak noted, there is a small amount of serosanguineous output in the Pleur- evac LUNGS: Equal air entry with diminished breath sounds on the right, her breath sounds on the left CVS: Regular rate and rhythm, normal S1 and S2, no gallops, no murmurs, no rubs ABDOMEN: Soft, nontender. No hepatosplenomegaly, normal bowel sounds, no guarding or rigidity. EXTREMITIES: No clubbing, no edema, no cyanosis, 2+ pulses and upper and lower extremities. MUSCULOSKELETAL: Muscle strength and tone normal. SPINE: No scoliosis or deformity SKIN: No rashes CENTRAL NERVOUS SYSTEM: Alert and oriented -3. No focal deficits, tone is normal in all 4 extremities. PSYCHIATRIC: Alert and oriented -3. Appropriate affect. Intact judgment and insight. - Labs CBC & Chem 7: 12/26/18 06:19 12/26/18 06:19 Labs: Abnormal Lab Results - Last 24 Hours (Table) 12/26/18 Range/Units 06:19 Sodium 136 L (137-145) mmol/L BUN 22 H (9-20) mg/dL Assessment and Plan Plan: Assessment: #1 Dyspnea with right-sided chest pain in a patient found to have significant right-sided pneumothorax, status post chest tube placement.The patient continues to have some air leak and there is improvement in size of the pneumothorax although is not completely resolved. The follow-up chest x-ray today shows a stable loculated right lower lobe pneumothorax. #2 History of chronic 10-15% right-sided pneumothorax. #3 History of significant bullous emphysema. #4 history of chronic obstructive pulmonary disease, currently inactive and stable. #5 Chronic tobacco dependence, quit in 2018. #6 History of bipolar disorder. Plan: Continue severely persists from the right-sided chest tube, today's chest x-ray has been reviewed, showed stable findings of right basilar likely related pneumothorax, encourage deep breathing and coughing, continue with nebulized broncho-dilators, Symbicort. Continue pain control. CT surgery is following, patient is scheduled for right VATS on I performed a history & physical examination of the patient and discussed their management with my nurse practitioner, Vernell Winston. I reviewed the nurse practitioner's note and agree with the documented findings and plan of care. Lung sounds are positive for diminished breath sounds on the right, clear breath sounds in the left. The findings and the impression was discussed with the margaret ferro. I attest to the documentation by the nurse practitioner. Time with Patient: Less than 30
--- NOTE | 2018-12-26 13:47 | XR ---
EXAMINATION TYPE: XR chest 1V portable DATE OF EXAM: 12/26/2018 COMPARISON: 12/25/2018 INDICATION: Pneumothorax, right-sided chest tube TECHNIQUE: Single frontal view of the chest is obtained. FINDINGS: The suspected loculated right lower lobe pneumothorax remains present. Chest tube is at the right bas e stable in position. Apical pneumothorax is not evident. The heart size is normal. The pulmonary vasculature is normal. The lungs are otherwise clear. IMPRESSION: 1. Loculated right basilar pneumothorax.
[2018-12-26] MEDS: SODIUM CHLORIDE 0.9% 1,000 ML IV SCH (19:13)
[2018-12-27] MEDS: TAMSULOSIN 0.4 MG CAP.ER.24H PO SCH (08:00)
[2018-12-27] MEDS: HEPARIN SODIUM,PORCINE 5,000 UNIT/ML 1 ML VIAL SQ SCH ×2 (08:00→20:06)
[2018-12-27] MEDS: HYDROcodone/APAP 5-325MG 1 EACH TAB PO PRN ×2 (08:00→19:03)
[2018-12-27] MEDS: PANTOPRAZOLE 40 MG TABLET PO SCH (08:00)
[2018-12-27 08:01] LABS: Basophils # (A) 0.2 k/uL (0-0.2); Basophils % (A) 2 %; Eosinophils # (A) 0.3 k/uL (0-0.7); Eosinophils % (A) 3 %; HCT 42.9 % (39.0-53.0); HGB 13.2 gm/dL (13.0-17.5); Lymphocytes # (A) 1.9 k/uL (1.0-4.8); Lymphocytes % (A) 19 %; MCH 28.8 pg (25.0-35.0); MCHC 30.8 g/dL (31.0-37.0); MCV 93.8 fL (80.0-100.0); Mean Platelet Volume 6.7; Monocytes # (A) 0.7 k/uL (0-1.0); Monocytes % (A) 7 %; Neutrophils # (A) 6.6 k/uL (1.3-7.7); Neutrophils % (A) 67 %; Platelet Count 428 k/uL (150-450); RBC 4.57 m/uL (4.30-5.90); RDW 13.1 % (11.5-15.5); WBC 9.9 k/uL (3.8-10.6)
[2018-12-27 08:11] LABS: Anion Gap 7 mmol/L; Blood Urea Nitrogen 24 mg/dL (9-20); Calcium 9.2 mg/dL (8.4-10.2); Carbon Dioxide 28 mmol/L (22-30); Chloride 104 mmol/L (98-107); Glucose 88 mg/dL (74-99); Potassium 5.1 mmol/L (3.5-5.1); Sodium 139 mmol/L (137-145)
[2018-12-27] MEDS: SYMBICORT 160-4.5 MCG INHALER INHALATION SCH ×2 (08:11→20:15)
[2018-12-27] MEDS: IPRATROPIUM-ALBUTEROL 3 ML NEB INHALATION SCH ×3 (08:11→20:15)
--- NOTE | 2018-12-27 09:04 | P.PN ---
Subjective Progress Note Date: 12/27/18 Principal diagnosis: Recurrent right-sided pneumothorax with significant bullous emphysema, status post right pleural thoracostomy tube placement by the emergency room physicians. Previous medical history of recurrent right pneumothoraces 2 in 2017, chronic obstructive pulmonary disease, history of tobacco dependence, quit smoking in September 2017, bipolar/depression, gastroesophageal reflux disease. POD #7 placement of right sided thoracostomy tube by an emergency room tru hoffman. The patient is currently laying in bed, he is alert and oriented 3. He denies any complaints of pain or shortness of breath at this time. Oxygen saturation are 98% on 2 L nasal cannula. He is achieving 1500 mL on his incentive spirometry. Right pleural chest tube remains in place with continuous air leak present. He has been scheduled for a right VATS procedure with stapling of blebs and talc pleurodesis for , 12/28/2018 to be performed by Dr. Lan Quevedo. He remains hemodynamically stable and afebrile. He is tolerating oral intake. He reports he has been sitting up to the bedside chair periodically throughout the day. Questions answered regarding his VATS procedure scheduled for tomorrow to the best of my ability. Objective - Vital Signs Vital signs: Vital Signs Temp 98.0 F 12/27/18 07:02 Pulse 90 12/27/18 08:22 Resp 16 12/27/18 08:00 BP 115/77 12/27/18 07:02 Pulse Ox 98 12/27/18 07:02 Intake & Output 12/26/18 12/27/18 12/27/18 18:59 06:59 18:59 Intake Total 640 Output Total 440 40 Balance 200 -40 Intake: Oral 640 Output: Chest Tube Drainage 40 40 Chest Tube Right Mid- 40 40 Axillary Chest Urine 400 Other: Voiding Method Toilet Toilet Toilet Urinal Urinal Urinal # Voids 3 1 - Constitutional General appearance: Present: cooperative, no acute distress, thin - Respiratory Details: Lung sounds are essentially clear throughout, diminished his bilateral bases. Respirations are symmetrical and nonlabored. Oxygen saturation are 98% on 2 L nasal cannula. He is achieving 1500 mL on his incentive spirometry. Right pleural chest tube remains in place to low continuous wall suction -20 cm H2O. Continuous air leak is present. Draining thin serosanguineous drainage, 110 mL output in the last 24 hours. - Cardiovascular Details: Regular rhythm and and tachycardic rate. S1 and S2 present, negative for S3, gallop or murmur. No edema present. Knee-high sequential compression devices in place was bilateral lower extremities. - Gastrointestinal Gastrointestinal Comment(s): Abdomen is soft, nontender and nondistended. Active bowel sounds all 4 abdominal quadrants. No guarding or rigidity. No organomegaly. - Genitourinary Genitourinary Comment(s): Voiding clear yellow urine. - Integumentary Integumentary Comment(s): Skin is warm and dry. No clubbing or cyanosis is present. Right lateral chest tube insertion site with dressing clean, dry and intact. - Neurologic Neurologic: Present: CNII-XII intact - Musculoskeletal Musculoskeletal: Present: gait normal, generalized weakness, strength equal bilaterally - Psychiatric Psychiatric: Present: A&O x's 3, appropriate affect, intact judgment & insight - Allied health notes Allied health notes reviewed: nursing - Labs CBC & Chem 7: 12/27/18 07:24 12/27/18 07:24 Labs: Abnormal Lab Results - Last 24 Hours (Table) 12/27/18 12/27/18 Range/Units 07:24 07:24 MCHC 30.8 L (31.0-37.0) g/dL BUN 24 H (9-20) mg/dL - Imaging and Cardiology Chest x-ray: image reviewed Assessment and Plan Assessment: Recurrent spontaneous pneumothorax, right-sided Chronic obstructive pulmonary disease, with significant bullous emphysema Gastroesophageal reflux disease History of bipolar and depression History of nicotine dependence in remission, quit in September 2017 Plan: 1. Due to the patient's persistent air leak from his right thoracostomy tube, he is scheduled for a right video-assisted thoracoscopic surgery with stapling of blebs and talc pleurodesis for tomorrow , 12/28/2018 to be performed by Dr. Lan Quevedo. 2. Will continue to monitor daily chest x-rays. 3. Wean O2 as tolerated. Encourage use of his incentive spirometry is 10 times every hour while awake. 4. Encourage continued smoking cessation. Discussed the importance of smoking cessation with the patient. 5. Increase activity, ambulate as tolerated. Physical and occupational therapy has been consulted and is following. 6. Bronchodilators per pulmonology management. 7. Medical management of other comorbidities per primary care service. 8. Nothing by mouth after midnight on , 12/28/2018. We have ordered 2 g of Kefzol IV piggyback to be on-call for the operating room to be given prior to his VATS procedure. 9. Preoperative teaching continued. 10. More recommendations follow based on patient's clinical course. Time with Patient: Greater than 30
--- NOTE | 2018-12-27 09:21 | XR ---
EXAMINATION TYPE: XR chest 1V portable DATE OF EXAM: 12/27/2018 COMPARISON: CT chest 12/19/2018,, CT chest 07/22/2018 chest x-ray 12/26/2018 INDICATION: Pneumothorax TECHNIQUE: Single frontal view of the chest is obtained. FINDINGS: The heart size is normal. The pulmonary vasculature is normal. No suspicious consolidation is evident. Emphysematous changes are evident. There is a chest tube at t he right base. The suspected loculated pneumothorax at the right lung base may be smaller than compar amarilys. Given the extensive emphysematous changes as well as bulla also identified at the lung base. Co nsider CT chest for confirmation of resolution of pneumothorax. IMPRESSION: 1. Right-sided chest tube remains in position. There may be some improvement of the suspected loculat ed pneumothorax at the right base. This could be an emphysematous bulla and CT could be utilized for confirmation.
--- NOTE | 2018-12-27 12:49 | P.PN ---
Subjective This the first day of meeting care of this patient He still has a chest tube in the right chest He is scheduled for VATS tomorrow. Patient says that he is doing good. He is breathing a little better. He does not complain of any chest pain No abdominal pain, no nausea and vomiting, or diarrhea constipation Objective - Vital Signs Vital signs: Vital Signs Temp 98.0 F 12/27/18 07:02 Pulse 93 12/27/18 11:35 Resp 16 12/27/18 08:00 BP 115/77 12/27/18 07:02 Pulse Ox 98 12/27/18 07:02 Intake & Output 12/26/18 12/27/18 12/27/18 18:59 06:59 18:59 Intake Total 640 Output Total 440 40 Balance 200 -40 Intake: Oral 640 Output: Chest Tube Drainage 40 40 Chest Tube Right Mid- 40 40 Axillary Chest Urine 400 Other: Voiding Method Toilet Toilet Toilet Urinal Urinal Urinal # Voids 3 1 1 - Exam On exam, alert and oriented x3. HEENT: Conjunctivae normal. eyes normal. NECK: No JVD. No thyroid enlargement. No LNs CARDIOVASCULAR: S1-S2 positive RESPIRATION: Breath sounds present bilaterally diminished in the bases. Patient has a chest of the right chest hooked to low continuous suction. Draining serosanguineous discharge. ABDOMEN: Soft, nontender . No guarding. no masses palpable. No ascites, No hepatosplenomegaly.Bowel sounds heard. LEGS: No edema. no swelling NERVOUS SYSTEM: Cranial N 2-12 grossly normal. Moves all 4 limbs. No focal deficits. No sensory deficit. No signs of cerebellar dysfucntion. Skin: no ulcer no rash - Labs CBC & Chem 7: 12/27/18 07:24 12/27/18 07:24 Labs: Abnormal Lab Results - Last 24 Hours (Table) 12/27/18 12/27/18 Range/Units 07:24 07:24 MCHC 30.8 L (31.0-37.0) g/dL BUN 24 H (9-20) mg/dL Assessment and Plan Assessment: - Recurrent spontaneous pneumothorax the right side - COPD - History of bipolar disorder and depression - GERD Plan - Patient will possibly have VATS procedure tomorrow - Chest tube hooked to low continuous suction draining serous anginous discharge. - Continue breathing treatments - Continue rest of the medications - We'll follow the patient Time with Patient: Greater than 30
--- NOTE | 2018-12-27 12:59 | P.PN ---
Subjective Progress Note Date: 12/27/18 Principal diagnosis: Dyspnea with right-sided chest pain, related to significant right-sided pneumothorax, status post chest tube placement This is a very pleasant 63-year-old gentleman who follows with Dr. Coombs as his primary care physician. He has a previous history of chronic tobacco dependence quitting in 2018, chronic obstructive pulmonary disease, chronic right-sided pn eumothorax of 10-15% and the right chest. He was seen in our office yesterday with complaints of increasing shortness of breath and right-sided chest discomfort. A chest x-ray revealed a significant right-sided pneumothorax. He was referred to the emergency room for chest tube placement. Computed tomography scan of the chest revealed a large right-sided pneumothorax occupying the lower two thirds of the right hemithorax. There is also significant bulla and bleb formation seen within the lung. Chest tube was placed in the emergency room. He is seen today on the selective care unit and consultation. He is currently resting fairly comfortable in bed. He is awake and alert in no acute distress. He is maintaining high 90s on 4 L/m per nasal cannula. He's been afebrile. Digital site pain but no significant chest discomfort. White count 11.3. Hemoglobin 14.2. Creatinine 1.04. He's been initiated and DuoNeb inhalations, Symbicort. Today's chest x-ray shows improved right hydro pneumothorax with extensive underlying bullous emphysema. On 12/21/2018 patient seen in follow-up. He is awake and alert, in no acute distress, room air pulse ox is 97%, no fever or chills, right-sided chest tube is in place, is continuous air leak still present, today's chest x-ray has been reviewed with Dr. Gonzalez, shows COPD with stable right-sided hydropneumothorax. There is serosanguineous output in the Pleur-evac, and there has been 70 mL of output in last 24 hours. He is working on his incentive spirometer. Denies any specific complaints. She surgery is following, increase activity as tolerated. On 12/22/2016 patient seen in follow-up on medical surgical floor. Right-sided chest tube still has a significant air leak. Patient is on 2 L of oxygen, with pulse ox of 98%, afebrile, hemodynamically stable, he is up in the recliner today, no significant pain from the chest tube site, no specific complaints, he is working on his incentive spirometer. He's achieving 1000 mL on his incentive spirometer. Left-sided pleural chest tube remains to wall suction, and 40 mL of serosanguineous output in the Pleur-evac. On 12/25/2018 patient seen in follow-up on medical surgical floor. She is resting comfortably in bed, in no acute distress, there is a persistent air leak from the right-sided chest tube, today's chest x-ray has been reviewed, shows persistent right basilar loculated pneumothorax. Denies any pain, denies any pacific complaints, remains on 2 L of oxygen, lung sounds are diminished at the right base otherwise are clear. His spirometry effort is 1250 ML. Tolerating oral diet, he is voiding, for now has only been up in the chair, has not ambulated much. His labs have been reviewed, and are unremarkable. On 12/26/2018 patient seen in follow-up on medical surgical floor. Right-sided chest tube still has a persistent leak, patient remains on 2 L of oxygen with a pulse ox of 96%, afebrile, hemodynamics are stable, today's chest x-ray shows stable right basilar left pneumothorax. No acute complaints, patient is working on incentive spirometer, able to achieve 8334-2221 mL. Patient is scheduled for right VATS with the stapling of the blebs in the pleurodesis on . She surgery is following. No acute events overnight. Patient does experience some discomfort in the right chest with deep breathing and moving, but no acute distress. On 12/27/2018 patient seen in follow-up on medical surgical floor. He sitting up in the recliner, currently cleaning up, taken a sponge bath, right-sided chest tube has a persistent leak, chest x-ray was reviewed and shows a right- sided chest tube in good location, some improvement in the suspected loculated pneumothorax at the right base, lung remains reinflated, with continuous leak. Patient is scheduled for a right-sided VATS bleb stapling tomorrow with Dr. Quevedo. Otherwise hemodynamically stable, no acute complaints, his pain is controlled, he is working on his incentive spirometer. Objective - Vital Signs Vital signs: Vital Signs Temp 98.0 F 12/27/18 07:02 Pulse 93 12/27/18 11:35 Resp 16 12/27/18 08:00 BP 115/77 12/27/18 07:02 Pulse Ox 98 12/27/18 07:02 Intake & Output 12/26/18 12/27/18 12/27/18 18:59 06:59 18:59 Intake Total 640 Output Total 440 40 Balance 200 -40 Intake: Oral 640 Output: Chest Tube Drainage 40 40 Chest Tube Right Mid- 40 40 Axillary Chest Urine 400 Other: Voiding Method Toilet Toilet Toilet Urinal Urinal Urinal # Voids 3 1 1 - Exam GENERAL EXAM: Alert, pleasant, 63-year-old white male, comfortable in no apparent distress. HEAD: Normocephalic/atraumatic. EYES: Normal reaction of pupils, equal size. Conjunctiva pink, sclera white. NOSE: Clear with pink turbinates. THROAT: No erythema or exudates. NECK: No masses, no JVD, no thyroid enlargement, no adenopathy. CHEST: No chest wall deformity. Symmetrical expansion. Right-sided chest tube is present, connected to Pleur-evac and wall suction, and there is a continuous air leak noted, there is a small amount of serosanguineous output in the Pleur- evac LUNGS: Equal air entry with diminished breath sounds on the right, her breath sounds on the left CVS: Regular rate and rhythm, normal S1 and S2, no gallops, no murmurs, no rubs ABDOMEN: Soft, nontender. No hepatosplenomegaly, normal bowel sounds, no guarding or rigidity. EXTREMITIES: No clubbing, no edema, no cyanosis, 2+ pulses and upper and lower extremities. MUSCULOSKELETAL: Muscle strength and tone normal. SPINE: No scoliosis or deformity SKIN: No rashes CENTRAL NERVOUS SYSTEM: Alert and oriented -3. No focal deficits, tone is normal in all 4 extremities. PSYCHIATRIC: Alert and oriented -3. Appropriate affect. Intact judgment and insight. - Labs CBC & Chem 7: 12/27/18 07:24 12/27/18 07:24 Labs: Abnormal Lab Results - Last 24 Hours (Table) 12/27/18 12/27/18 Range/Units 07:24 07:24 MCHC 30.8 L (31.0-37.0) g/dL BUN 24 H (9-20) mg/dL Assessment and Plan Plan: Assessment: #1 Dyspnea with right-sided chest pain in a patient found to have significant right-sided pneumothorax, status post chest tube placement.The patient continues to have some air leak and there is improvement in size of the pneumothorax although is not completely resolved. The follow-up chest x-ray today shows a stable loculated right lower lobe pneumothorax. #2 History of chronic 10-15% right-sided pneumothorax. #3 History of significant bullous emphysema. #4 history of chronic obstructive pulmonary disease, currently inactive and stable. #5 Chronic tobacco dependence, quit in 2018. #6 History of bipolar disorder. Plan: We'll continue to follow, no significant events overnight, no acute complaints, right-sided chest tube still has persistent and continuous air leak, patient is scheduled for right-sided VATS tomorrow with Dr. Quevedo. I performed a history & physical examination of the patient and discussed their management with my nurse practitioner, Vernell Winston. I reviewed the nurse practitioner's note and agree with the documented findings and plan of care. Lung sounds are positive for diminished breath sounds on the right, clear breath sounds in the left. The findings and the impression was discussed with the patient. I attest to the documentation by the nurse practitioner. Time with Patient: Less than 30
[2018-12-27] MEDS: SODIUM CHLORIDE 0.9% 1,000 ML IV SCH (20:06)
[2018-12-28] MEDS: HEPARIN SODIUM,PORCINE 5,000 UNIT/ML 1 ML VIAL SQ SCH ×2 (07:13→20:36)
[2018-12-28] MEDS: PANTOPRAZOLE 40 MG TABLET PO SCH (07:13)
[2018-12-28] MEDS: TAMSULOSIN 0.4 MG CAP.ER.24H PO SCH (07:13)
[2018-12-28] MEDS: IPRATROPIUM-ALBUTEROL 3 ML NEB INHALATION SCH ×3 (07:31→20:58)
[2018-12-28] MEDS: SYMBICORT 160-4.5 MCG INHALER INHALATION SCH ×2 (07:31→20:58)
[2018-12-28] MEDS: MORPHINE SULFATE 4 MG/ML SYRINGE IV PRN (07:50)
[2018-12-28] MEDS ORDERED: ceFAZolin IN SWFI 2 GM/20 ML SYRINGE IVP ONE (10:52)
[2018-12-28] MEDS ORDERED: ceFAZolin (PMX-bag) 2,000 MG in DEXTROSE/WATER 1 50ML.BAG IVPB ONE (11:30)
--- NOTE | 2018-12-28 12:23 | P.PN ---
Subjective Progress Note Date: 12/28/18 Principal diagnosis: Dyspnea with right-sided chest pain, related to significant right-sided pneumothorax, status post chest tube placement This is a very pleasant 63-year-old gentleman who follows with Dr. Coombs as his primary care physician. He has a previous history of chronic tobacco dependence quitting in 2018, chronic obstructive pulmonary disease, chronic right-sided pn eumothorax of 10-15% and the right chest. He was seen in our office yesterday with complaints of increasing shortness of breath and right-sided chest discomfort. A chest x-ray revealed a significant right-sided pneumothorax. He was referred to the emergency room for chest tube placement. Computed tomography scan of the chest revealed a large right-sided pneumothorax occupying the lower two thirds of the right hemithorax. There is also significant bulla and bleb formation seen within the lung. Chest tube was placed in the emergency room. He is seen today on the selective care unit and consultation. He is currently resting fairly comfortable in bed. He is awake and alert in no acute distress. He is maintaining high 90s on 4 L/m per nasal cannula. He's been afebrile. Digital site pain but no significant chest discomfort. White count 11.3. Hemoglobin 14.2. Creatinine 1.04. He's been initiated and DuoNeb inhalations, Symbicort. Today's chest x-ray shows improved right hydro pneumothorax with extensive underlying bullous emphysema. On 12/21/2018 patient seen in follow-up. He is awake and alert, in no acute distress, room air pulse ox is 97%, no fever or chills, right-sided chest tube is in place, is continuous air leak still present, today's chest x-ray has been reviewed with Dr. Gonzalez, shows COPD with stable right-sided hydropneumothorax. There is serosanguineous output in the Pleur-evac, and there has been 70 mL of output in last 24 hours. He is working on his incentive spirometer. Denies any specific complaints. She surgery is following, increase activity as tolerated. On 12/22/2016 patient seen in follow-up on medical surgical floor. Right-sided chest tube still has a significant air leak. Patient is on 2 L of oxygen, with pulse ox of 98%, afebrile, hemodynamically stable, he is up in the recliner today, no significant pain from the chest tube site, no specific complaints, he is working on his incentive spirometer. He's achieving 1000 mL on his incentive spirometer. Left-sided pleural chest tube remains to wall suction, and 40 mL of serosanguineous output in the Pleur-evac. On 12/25/2018 patient seen in follow-up on medical surgical floor. She is resting comfortably in bed, in no acute distress, there is a persistent air leak from the right-sided chest tube, today's chest x-ray has been reviewed, shows persistent right basilar loculated pneumothorax. Denies any pain, denies any pacific complaints, remains on 2 L of oxygen, lung sounds are diminished at the right base otherwise are clear. His spirometry effort is 1250 ML. Tolerating oral diet, he is voiding, for now has only been up in the chair, has not ambulated much. His labs have been reviewed, and are unremarkable. On 12/26/2018 patient seen in follow-up on medical surgical floor. Right-sided chest tube still has a persistent leak, patient remains on 2 L of oxygen with a pulse ox of 96%, afebrile, hemodynamics are stable, today's chest x-ray shows stable right basilar left pneumothorax. No acute complaints, patient is working on incentive spirometer, able to achieve 1254-0643 mL. Patient is scheduled for right VATS with the stapling of the blebs in the pleurodesis on . She surgery is following. No acute events overnight. Patient does experience some discomfort in the right chest with deep breathing and moving, but no acute distress. On 12/27/2018 patient seen in follow-up on medical surgical floor. He sitting up in the recliner, currently cleaning up, taken a sponge bath, right-sided chest tube has a persistent leak, chest x-ray was reviewed and shows a right- sided chest tube in good location, some improvement in the suspected loculated pneumothorax at the right base, lung remains reinflated, with continuous leak. Patient is scheduled for a right-sided VATS bleb stapling tomorrow with Dr. Quevedo. Otherwise hemodynamically stable, no acute complaints, his pain is controlled, he is working on his incentive spirometer. On 12/28/2018 patient seen in follow-up in medical surgical floor. He is awake and alert, in no acute distress, he is right-sided VATS is scheduled for today for 11:[address] Quevedo. Right-sided chest tube remains in place, with intermittent air leak, seems to have decreased from yesterday. Hemoglobin and the patient is stable, vital signs are stable, afebrile, remains on 2 L of oxygen with a pulse ox of 97%. No complaints of pain, no acute events overnight. Today's lab work has been reviewed, and is unremarkable. Objective - Vital Signs Vital signs: Vital Signs Temp 97.8 F 12/28/18 07:00 Pulse 101 H 12/28/18 07:00 Resp 20 12/28/18 07:00 BP 110/70 12/28/18 07:00 Pulse Ox 97 12/28/18 07:00 Intake & Output 12/27/18 12/28/18 12/28/18 18:59 06:59 18:59 Intake Total 60 Balance 60 Weight 54.2 kg Intake: Intake, IV Titration 60 Amount Sodium Chloride 0.9% 1, 60 000 ml @ 20 mls/hr IV . Q24H [facility] Rx#:[id number] Other: Voiding Method Toilet Toilet Urinal Urinal # Voids 2 - Exam GENERAL EXAM: Alert, pleasant, 63-year-old white male, comfortable in no apparent distress. HEAD: Normocephalic/atraumatic. EYES: Normal reaction of pupils, equal size. Conjunctiva pink, sclera white. NOSE: Clear with pink turbinates. THROAT: No erythema or exudates. NECK: No masses, no JVD, no thyroid enlargement, no adenopathy. CHEST: No chest wall deformity. Symmetrical expansion. Right-sided chest tube is present, connected to Pleur-evac and wall suction, and there is a continuous air leak noted, there is a small amount of serosanguineous output in the Pleur- evac LUNGS: Equal air entry with diminished breath sounds on the right, her breath sounds on the left CVS: Regular rate and rhythm, normal S1 and S2, no gallops, no murmurs, no rubs ABDOMEN: Soft, nontender. No hepatosplenomegaly, normal bowel sounds, no guarding or rigidity. EXTREMITIES: No clubbing, no edema, no cyanosis, 2+ pulses and upper and lower extremities. MUSCULOSKELETAL: Muscle strength and tone normal. SPINE: No scoliosis or deformity SKIN: No rashes CENTRAL NERVOUS SYSTEM: Alert and oriented -3. No focal deficits, tone is normal in all 4 extremities. PSYCHIATRIC: Alert and oriented -3. Appropriate affect. Intact judgment and insight. - Labs CBC & Chem 7: 12/27/18 07:24 12/27/18 07:24 Assessment and Plan Plan: Assessment: #1 Dyspnea with pain in a patient found to have significant right-sided pneumothorax, status post chest tube placement.The patient continues to have some air leak and there is improvement in size of the pneumothorax although is not completely resolved. The follow-up chest x-ray today shows a stable loculated right lower lobe pneumothorax. #2 History of chronic 10-15% right-sided pneumothorax. #3 History of significant bullous emphysema. #4 history of chronic obstructive pulmonary disease, currently inactive and stable. #5 Chronic tobacco dependence, quit in 2018. #6 History of bipolar disorder. Plan: Decreased somewhat, patient is scheduled for right-sided VATS today, no acute events overnight, stable vital signs, we'll continue to follow along with the thoracic surgery. I performed a history & physical examination of the patient and discussed their management with my nurse practitioner, Vernell Winston. I reviewed the nurse practitioner's note and agree with the documented findings and plan of care. Lung sounds are positive for diminished breath sounds on the right, clear breath sounds in the left. The findings and the impression was discussed with the patient. I attest to the documentation by the nurse practitioner. Time with Patient: Less than 30
--- NOTE | 2018-12-28 12:56 | P.PN ---
Subjective This the first day of meeting care of this patient He still has a chest tube in the right chest He is scheduled for VATS tomorrow. Patient says that he is doing good. He is breathing a little better. He does not complain of any chest pain No abdominal pain, no nausea and vomiting, or diarrhea constipation 12/28/2017 Patient to go for VATS procedure today Apprehensive about it Not complaining of any chest pain or racing heart Says the shortness of breath is better No abdominal pain, nausea and vomiting Objective - Vital Signs Vital signs: Vital Signs Temp 97.8 F 12/28/18 07:00 Pulse 101 H 12/28/18 07:00 Resp 20 12/28/18 07:00 BP 110/70 12/28/18 07:00 Pulse Ox 97 12/28/18 07:00 Intake & Output 12/27/18 12/28/18 12/28/18 18:59 06:59 18:59 Intake Total 60 Balance 60 Weight 54.2 kg Intake: Intake, IV Titration 60 Amount Sodium Chloride 0.9% 1, 60 000 ml @ 20 mls/hr IV . Q24H [facility] Rx#:[id number] Other: Voiding Method Toilet Toilet Urinal Urinal # Voids 2 - Exam On exam, alert and oriented x3. HEENT: Conjunctivae normal. eyes normal. NECK: No JVD. No thyroid enlargement. No LNs CARDIOVASCULAR: S1-S2 positive RESPIRATION: Breath sounds present bilaterally diminished in the bases. Patient has a chest of the right chest hooked to low continuous suction. Draining serosanguineous discharge. ABDOMEN: Soft, nontender . No guarding. no masses palpable. No ascites, No hepatosplenomegaly.Bowel sounds heard. LEGS: No edema. no swelling NERVOUS SYSTEM: Cranial N 2-12 grossly normal. Moves all 4 limbs. No focal deficits. No sensory deficit. No signs of cerebellar dysfucntion. Skin: no ulcer no rash - Labs CBC & Chem 7: 12/27/18 07:24 12/27/18 07:24 Assessment and Plan Assessment: - Recurrent spontaneous pneumothorax the right side - COPD - History of bipolar disorder and depression - GERD Plan - Patient will possibly have VATS procedure today - Continue to monitor - Continue rest medical care Time with Patient: Greater than 30
[2018-12-28] MEDS ORDERED: STERILE TALC 3 GM POWDER W/BLOWER KIT MISCELLANE STA (13:04)
[2018-12-28] MEDS ORDERED: TALC, STERILE 4 GM VIAL INTRAPLEUR STA (13:13)
[2018-12-28] MEDS ORDERED: LACTATED RINGERS 1,000 ML IV ONE (13:27)
[2018-12-28] MEDS ORDERED: MIDAZOLAM 2 MG/2 ML VIAL IVP ONE (13:28)
[2018-12-28] MEDS ORDERED: ONDANSETRON 4 MG/2 ML VIAL IVP ONE ×2 (13:43→18:49)
[2018-12-28] MEDS ORDERED: DEXAMETHASONE SOD PHOS (MDV) 100 MG/10 ML VIAL IVP ONE (13:44)
[2018-12-28] MEDS ORDERED: STERILE TALC 3 GM POWDER W/BLOWER KIT INTRAPLEUR ONE (13:45)
[2018-12-28] MEDS ORDERED: GLYCOPYRROLATE 0.2 MG/ML 2 ML VIAL ONE (14:20)
[2018-12-28] MEDS ORDERED: MIDAZOLAM 2 MG/2 ML VIAL ONE (14:20)
[2018-12-28] MEDS ORDERED: PROPOFOL 10 MG/ML 20 ML VIAL IV ONE (14:20)
[2018-12-28] MEDS ORDERED: fentaNYL (PF) 50 MCG/ML 2 ML AMP ONE (14:20)
[2018-12-28] MEDS ORDERED: LIDOCAINE 1% INJ 10MG/ML (20 ML MDV) ONE (14:20)
[2018-12-28] MEDS ORDERED: HYDROmorphone (PF) 1 MG/ML ONE (14:20)
[2018-12-28] MEDS ORDERED: BUPIVACAINE (PF) 0.5% 30 ML VIAL SQ ONE (14:20)
[2018-12-28] MEDS ORDERED: SUCCINYLCHOLINE CHLORIDE 100 MG/5 ML SYR IV ONE (14:20)
[2018-12-28] MEDS ORDERED: ROCURONIUM BROMIDE 10 MG/ML 10 ML VIAL IV ONE (14:20)
[2018-12-28] MEDS ORDERED: NEOSTIGMINE 1 MG/ML 10 ML VIAL ONE (14:20)
[2018-12-28] MEDS ORDERED: HYDROcodone/APAP 5-325MG 1 EACH TAB PO PRN (16:25)
[2018-12-28] MEDS ORDERED: DEXTROSE 5%-0.45% NACL 1,000 ML IV SCH (16:30)
--- NOTE | 2018-12-28 16:43 | XR ---
EXAMINATION TYPE: XR chest 1V portable DATE OF EXAM: 12/28/2018 COMPARISON: Yesterday HISTORY: Chest tube placement TECHNIQUE: Single frontal view of the chest is obtained. FINDINGS: There is a right-sided chest tube. There is approximately 50% right pneumothorax. There is patchy atelectasis right lower lobe. There is mild atelectasis left lung base. Heart size is normal. Trachea is midline. IMPRESSION: There is right-sided pneumothorax increased compared to yesterday. Chest tube appears i n good position in the right lung apex.
--- NOTE | 2018-12-28 17:52 | P.OP ---
Date of Procedure: 12/28/18 Preoperative Diagnosis: Recurrent spontaneous pneumothorax, persistent bronchopleural fistula, severe COPD with severe bleb disease. Postoperative Diagnosis: Same Procedure(s) Performed: Right thoracoscopy, lysis of pleural he adhesions, stapling of blebs, Talc pleurodesis Anesthesia: MOSES Surgeon: Lan Quevedo Dealer Sales Manager #1: Lennox Orozco Estimated Blood Loss (ml): 20 IV fluids (ml): 200 Urine output (ml): 200 Pathology: other (Left lung with blebs) Condition: stable Disposition: PACU Indications for Procedure: 63-year-old male who presents with his third episode of spontaneous pneumothorax. Chest tube was placed in the emergency room. There is been persistent air leak for a week. Thoracoscopy was indicated for control of persistent bronchopleural fistula in patient with severe COPD and blebs. Operative Findings: The lung tissue was very poor. There was evidence of bleb disease. There were significant adhesions of the upper lobe to the lateral and superior parietal pleura. Description of Procedure: Patient was brought to the operating room, placed supine on the operating table, anesthetized and intubated with a double-lumen endotracheal tube. Tube was positioned with fiberoptic bronchoscopy. The patient was turned in the left lateral decubitus position and the right chest sterilely prepped and draped. 2 one-inch incisions were made lower on the chest and the video thoracoscope was introduced through one. Immediately evident ruptured bleb was evident on the lateral wall of the lung. The lung was partially adherent and was taken down where possible with easy blunt dissection. Superiorly and laterally the lung was more densely adherent and these adhesions were much more difficult to mobilize. Lung tissue itself was very friable and tore easily. The initially discovered a hole in the lung was stapled. 45 mm reinforced medium thick stapler load was used. Higher up where there was severe disease that was densel y adherent to the chest wall was decided to take this down using multiple firings of a medium thick 60 mm reinforced staple layer. This was performed up to the apex completely freeing the lung from the chest wall.'s opened resected lung was removed. We now insufflated 3 g of talc into the chest cavity. 28- Danish chest tube was placed through separate stab incision and positioned posterior apically. Lung was reinflated under direct thoracoscopic vision. There were no obvious leaking blebs at this time. Thoracoscope was removed and the incisions were closed with layers of Vicryl suture. Rib blocks were performed at the level of the incision with half percent Marcaine. Dry sterile dressings were applied the patient was transferred to recovery in stable condition.
[2018-12-28] MEDS: KETOROLAC 30 MG/ML 1 ML VIAL IVP SCH ×2 (18:44→23:00)
[2018-12-28] MEDS ORDERED: DEXAMETHASONE SOD PHOSPHATE 10 MG/ML 1 ML VIAL IV ONE (18:49)
[2018-12-28] MEDS ORDERED: LIDOCAINE 1% 20 ML VIAL (10MG/ML) FOR IV START INTRADERMA PRN (18:49)
[2018-12-28] MEDS ORDERED: SCOPOLAMINE 1.5MG/72HR PATCH TRANSDERM ONE (18:49)
[2018-12-28] MEDS ORDERED: fentaNYL (PF) 50 MCG/ML 2 ML AMP IV PRN (18:49)
[2018-12-28] MEDS ORDERED: HYDROmorphone 0.5 MG/0.5 ML SYRINGE IVP PRN (18:49)
[2018-12-28] MEDS ORDERED: MIDAZOLAM (PF) 2 MG/2 ML VIAL IV PRN (18:49)
[2018-12-28] MEDS: SODIUM CHLORIDE 0.9% 1,000 ML IV SCH (20:27)
[2018-12-28] MEDS: LACTATED RINGERS 1,000 ML IV SCH (20:28)
[2018-12-28] MEDS: ceFAZolin IN SWFI 2 GM/20 ML SYRINGE IVP SCH (23:00)
[2018-12-29] MEDS: PANTOPRAZOLE 40 MG TABLET PO SCH (06:48)
[2018-12-29] MEDS: KETOROLAC 30 MG/ML 1 ML VIAL IVP SCH ×3 (06:49→18:00)
[2018-12-29 07:52] LABS: Basophils # (A) 0.1 k/uL (0-0.2); Basophils % (A) 1 %; Eosinophils % (A) 0 %; HCT 42.4 % (39.0-53.0); HGB 13.3 gm/dL (13.0-17.5); Lymphocytes % (A) 7 %; MCH 28.8 pg (25.0-35.0); MCHC 31.3 g/dL (31.0-37.0); MCV 92.2 fL (80.0-100.0); Mean Platelet Volume 7.4; Monocytes # (A) 0.7 k/uL (0-1.0); Monocytes % (A) 5 %; Neutrophils # (A) 12.8 k/uL (1.3-7.7); Neutrophils % (A) 87 %; Platelet Count 545 k/uL (150-450); WBC 14.8 k/uL (3.8-10.6)
[2018-12-29 08:01] LABS: Anion Gap 6 mmol/L; Blood Urea Nitrogen 20 mg/dL (9-20); Calcium 9.3 mg/dL (8.4-10.2); Carbon Dioxide 29 mmol/L (22-30); Chloride 102 mmol/L (98-107); Glucose 109 mg/dL (74-99); Sodium 137 mmol/L (137-145)
--- NOTE | 2018-12-29 08:03 | XR ---
EXAMINATION TYPE: XR chest 1V DATE OF EXAM: 12/29/2018 COMPARISON: 12/28/2018 HISTORY: Shortness of breath. Post VATS. TECHNIQUE: Single frontal view of the chest is obtained. FINDINGS: There is a persistent pneumothorax despite the right thoracostomy tube appearing appropria tely placed and unchanged in position. Maximum apical pleural separation measures 6.2 cm and right up per lung lateral pleural separation measures 4.8 cm. Punctate foci of subcutaneous emphysema are seen along the right chest wall. Emphysematous changes are noted of the lungs with multifocal probable ri ght-sided linear atelectasis. Cardia mediastinal silhouette is mildly enlarged. IMPRESSION: Similar-appearing right sided pneumothorax in comparison to the exam of 12/28/2018 with s table placement of a right thoracostomy tube and underlying emphysematous change.
[2018-12-29] MEDS: ceFAZolin IN SWFI 2 GM/20 ML SYRINGE IVP SCH (09:00)
[2018-12-29] MEDS: SYMBICORT 160-4.5 MCG INHALER INHALATION SCH ×2 (09:03→20:29)
[2018-12-29] MEDS: IPRATROPIUM-ALBUTEROL 3 ML NEB INHALATION SCH ×3 (09:03→20:29)
[2018-12-29] MEDS: HEPARIN SODIUM,PORCINE 5,000 UNIT/ML 1 ML VIAL SQ SCH ×2 (10:00→20:11)
[2018-12-29] MEDS: TAMSULOSIN 0.4 MG CAP.ER.24H PO SCH (10:00)
--- NOTE | 2018-12-29 10:47 | P.PN ---
Subjective Progress Note Date: 12/29/18 Principal diagnosis: Recurrent right-sided spontaneous pneumothorax with significant bullous emphysema, persistent bronchopleural fistula, status post right pleural thoracostomy tube placement by the emergency room physicians. Previous medical history of recurrent right pneumothoraces 2 in 2018, severe COPD with bleb disease, tobacco dependence, bipolar/depression, GERD. POD #1 right thoracoscopy, lysis of pleural adhesions, stapling of blebs, talc pleurodesis The patient's currently sitting up in bed in no acute distress. Denies pain, states shortness of breath is about baseline. Actively using incentive spirometry. Right-sided chest tube present, continuous air leak present. No new complaints. Objective - Vital Signs Vital signs: Vital Signs Temp 98.1 F 12/29/18 04:00 Pulse 103 H 12/29/18 09:14 Resp 16 12/29/18 09:14 BP 137/69 12/29/18 04:00 Pulse Ox 97 12/29/18 09:04 Intake & Output 12/28/18 12/29/18 12/29/18 18:59 06:59 18:59 Intake Total 900 400 Output Total 250 1350 Balance 650 -1350 400 Weight 54.2 kg 63.5 kg Intake: IV 900 Oral 400 Output: Drainage 150 350 Right Chest 150 350 Urine 80 1000 Estimated Blood Loss 20 Other: Voiding Method Urinal Urinal # Voids 1 - Constitutional General appearance: Present: cooperative, no acute distress - Respiratory Details: Lung sounds diminished bilaterally. Respirations even, nonlabored. Currently on 3 L nasal cannula with oxygen saturation 98%. Able to achieve 1500 mL on his incentive spirometry. Right pleural chest tube to continuous wall suction, 350 mL serosanguineous drainage overnight, 520 mL since surgery, continuous air leak present. - Cardiovascular Details: S1, S2 present. Tachycardic but regular rate and rhythm, sinus tach on telemetry. Palpable peripheral pulses bilaterally. No edema present. No calf pain or tenderness noted. SCDs present. - Gastrointestinal Gastrointestinal Comment(s): Abdomen soft, nontender, nondistended. Active bowel sounds present 4 quadrants. Tolerating diet. - Genitourinary Genitourinary Comment(s): Continues to void clear, yellow urine. - Integumentary Integumentary Comment(s): Skin is warm and dry with evidence of good perfusion. Right pleural chest tube site covered with dry intact dressing. - Neurologic Neurologic: Present: CNII-XII intact - Musculoskeletal Musculoskeletal: Present: gait normal, strength equal bilaterally - Psychiatric Psychiatric: Present: A&O x's 3, appropriate affect, intact judgment & insight - Allied health notes Allied health notes reviewed: nursing - Labs CBC & Chem 7: 12/29/18 07:22 12/29/18 07:22 Labs: Abnormal Lab Results - Last 24 Hours (Table) 12/29/18 12/29/18 Range/Units 07:22 07:22 WBC 14.8 H (3.8-10.6) k/uL Plt Count 545 H (150-450) k/uL Neutrophils # 12.8 H (1.3-7.7) k/uL Glucose 109 H (74-99) mg/dL - Imaging and Cardiology Chest x-ray: report reviewed, image reviewed Assessment and Plan Assessment: 1. Recurrent right-sided pneumothorax with significant bullous emphysema, status post right pleural thoracostomy tube placement by the emergency room physicians, status post right thoracoscopy with lysis of adhesions, stapling of blebs, and talc pleurodesis 2. History of recurrent right pneumothoraces 2 in 2018 3. Severe COPD with bleb disease 4. Previous tobacco dependence 5. Bipolar/depression 6. GERD Plan: 1. Continue right pleural chest tube to wall suction. Will monitor for resolution of air leak. 2. Will monitor daily x-rays. 3. Wean O2 as tolerated. Encourage incentive spirometry is 10 times every hour while awake. 4. Encourage continued smoking cessation. 5. Pain control with current medication regimen. 6. Increase activity, ambulate as tolerated. Nursing to connect enough suction tubing so patient may ambulate around the room. 7. Bronchodilators per pulmonology. 8. GI/DVT prophylaxis. 9. Medical management of other comorbidities per primary care service. 10. More recommendations based on patient's progress. Time with Patient: Greater than 30
--- NOTE | 2018-12-29 14:46 | P.PN ---
Subjective Progress Note Date: 12/29/18 Principal diagnosis: Dyspnea with right-sided chest pain, related to significant right-sided pneumothorax, status post chest tube placement This is a very pleasant 63-year-old gentleman who follows with Dr. Coombs as his primary care physician. He has a previous history of chronic tobacco dependence quitting in 2018, chronic obstructive pulmonary disease, chronic right-sided pn eumothorax of 10-15% and the right chest. He was seen in our office yesterday with complaints of increasing shortness of breath and right-sided chest discomfort. A chest x-ray revealed a significant right-sided pneumothorax. He was referred to the emergency room for chest tube placement. Computed tomography scan of the chest revealed a large right-sided pneumothorax occupying the lower two thirds of the right hemithorax. There is also significant bulla and bleb formation seen within the lung. Chest tube was placed in the emergency room. He is seen today on the selective care unit and consultation. He is currently resting fairly comfortable in bed. He is awake and alert in no acute distress. He is maintaining high 90s on 4 L/m per nasal cannula. He's been afebrile. Digital site pain but no significant chest discomfort. White count 11.3. Hemoglobin 14.2. Creatinine 1.04. He's been initiated and DuoNeb inhalations, Symbicort. Today's chest x-ray shows improved right hydro pneumothorax with extensive underlying bullous emphysema. On 12/21/2018 patient seen in follow-up. He is awake and alert, in no acute distress, room air pulse ox is 97%, no fever or chills, right-sided chest tube is in place, is continuous air leak still present, today's chest x-ray has been reviewed with Dr. Gonzalez, shows COPD with stable right-sided hydropneumothorax. There is serosanguineous output in the Pleur-evac, and there has been 70 mL of output in last 24 hours. He is working on his incentive spirometer. Denies any specific complaints. She surgery is following, increase activity as tolerated. On 12/22/2016 patient seen in follow-up on medical surgical floor. Right-sided chest tube still has a significant air leak. Patient is on 2 L of oxygen, with pulse ox of 98%, afebrile, hemodynamically stable, he is up in the recliner today, no significant pain from the chest tube site, no specific complaints, he is working on his incentive spirometer. He's achieving 1000 mL on his incentive spirometer. Left-sided pleural chest tube remains to wall suction, and 40 mL of serosanguineous output in the Pleur-evac. On 12/25/2018 patient seen in follow-up on medical surgical floor. She is resting comfortably in bed, in no acute distress, there is a persistent air leak from the right-sided chest tube, today's chest x-ray has been reviewed, shows persistent right basilar loculated pneumothorax. Denies any pain, denies any pacific complaints, remains on 2 L of oxygen, lung sounds are diminished at the right base otherwise are clear. His spirometry effort is 1250 ML. Tolerating oral diet, he is voiding, for now has only been up in the chair, has not ambulated much. His labs have been reviewed, and are unremarkable. On 12/26/2018 patient seen in follow-up on medical surgical floor. Right-sided chest tube still has a persistent leak, patient remains on 2 L of oxygen with a pulse ox of 96%, afebrile, hemodynamics are stable, today's chest x-ray shows stable right basilar left pneumothorax. No acute complaints, patient is working on incentive spirometer, able to achieve 3154-4451 mL. Patient is scheduled for right VATS with the stapling of the blebs in the pleurodesis on . She surgery is following. No acute events overnight. Patient does experience some discomfort in the right chest with deep breathing and moving, but no acute distress. On 12/27/2018 patient seen in follow-up on medical surgical floor. He sitting up in the recliner, currently cleaning up, taken a sponge bath, right-sided chest tube has a persistent leak, chest x-ray was reviewed and shows a right- sided chest tube in good location, some improvement in the suspected loculated pneumothorax at the right base, lung remains reinflated, with continuous leak. Patient is scheduled for a right-sided VATS bleb stapling tomorrow with Dr. Quevedo. Otherwise hemodynamically stable, no acute complaints, his pain is controlled, he is working on his incentive spirometer. On 12/28/2018 patient seen in follow-up in medical surgical floor. He is awake and alert, in no acute distress, he is right-sided VATS is scheduled for today for 11:[address] Quevedo. Right-sided chest tube remains in place, with intermittent air leak, seems to have decreased from yesterday. Hemoglobin and the patient is stable, vital signs are stable, afebrile, remains on 2 L of oxygen with a pulse ox of 97%. No complaints of pain, no acute events overnight. Today's lab work has been reviewed, and is unremarkable. On 12/29/2018 patient seen in follow-up on selective care unit, right-sided chest tube is in place, with the continuous air leak. Today is postop day 1, post right-sided VATS, lysis of pleural adhesions, stapling of the blebs, and talc pleurodesis. He is working on his incentive spirometer, he is able to achieve thousand and melena today. States his pain is reasonably well controlled. He is on 3 L of oxygen with a pulse ox of 97%, today's chest x-ray has been reviewed and showed right-sided pneumothorax of 50% with stable placement of a right thoracostomy tube. Objective - Vital Signs Vital signs: Vital Signs Temp 98.1 F 12/29/18 04:00 Pulse 103 H 12/29/18 13:03 Resp 16 12/29/18 13:03 BP 137/69 12/29/18 04:00 Pulse Ox 97 12/29/18 09:04 Intake & Output 12/28/18 12/29/18 12/29/18 18:59 06:59 18:59 Intake Total 900 400 Output Total 250 1350 Balance 650 -1350 400 Weight 54.2 kg 63.5 kg Intake: IV 900 Oral 400 Output: Drainage 150 350 Right Chest 150 350 Urine 80 1000 Estimated Blood Loss 20 Other: Voiding Method Urinal Urinal # Voids 1 - Exam GENERAL EXAM: Alert, pleasant, 63-year-old white male, comfortable in no apparent distress. HEAD: Normocephalic/atraumatic. EYES: Normal reaction of pupils, equal size. Conjunctiva pink, sclera white. NOSE: Clear with pink turbinates. THROAT: No erythema or exudates. NECK: No masses, no JVD, no thyroid enlargement, no adenopathy. CHEST: No chest wall deformity. Symmetrical expansion. Right-sided chest tube is present, connected to Pleur-evac and wall suction, and there is a continuous air leak noted, there is a moderate amount of serosanguineous output in the Pleur-evac LUNGS: Equal air entry with diminished breath sounds on the right, her breath sounds on the left CVS: Regular rate and rhythm, normal S1 and S2, no gallops, no murmurs, no rubs ABDOMEN: Soft, nontender. No hepatosplenomegaly, normal bowel sounds, no guarding or rigidity. EXTREMITIES: No clubbing, no edema, no cyanosis, 2+ pulses and upper and lower extremities. MUSCULOSKELETAL: Muscle strength and tone normal. SPINE: No scoliosis or deformity SKIN: No rashes CENTRAL NERVOUS SYSTEM: Alert and oriented -3. No focal deficits, tone is normal in all 4 extremities. PSYCHIATRIC: Alert and oriented -3. Appropriate affect. Intact judgment and insight. - Labs CBC & Chem 7: 12/29/18 07:22 12/29/18 07:22 Labs: Abnormal Lab Results - Last 24 Hours (Table) 12/29/18 12/29/18 Range/Units 07:22 07:22 WBC 14.8 H (3.8-10.6) k/uL Plt Count 545 H (150-450) k/uL Neutrophils # 12.8 H (1.3-7.7) k/uL Glucose 109 H (74-99) mg/dL Assessment and Plan Plan: Assessment: #1 Dyspnea with pain in a patient found to have significant right-sided pneumothorax, status post chest tube placement, status post right-sided thoracoscopy with lysis of adhesions, stapling of blebs, Intal pleurodesis. Postop chest x-ray showed a 50% pneumothorax on the right with the replacement of the thoracostomy tube #2 History of chronic 10-15% right-sided pneumothorax. #3 History of significant bullous emphysema. #4 history of chronic obstructive pulmonary disease, currently inactive and stable. #5 Chronic tobacco dependence, quit in 2018. #6 History of bipolar disorder. Plan: Continue encouraging deep breathing and coughing, pain control, today's chest x- ray shows stable right-sided pneumothorax approximately 50%, clinically stable, no acute distress, continue breathing treatments. We'll continue to follow with CT surgery I performed a history & physical examination of the patient and discussed their management with my nurse practitioner, Vernell Catrachito. I reviewed the nurse practitioner's note and agree with the documented findings and plan of care. Lung sounds are positive for diminished breath sounds on the right, clear breath sounds in the left. The findings and the impression was discussed with the patient. I attest to the documentation by the nurse practitioner. Time with Patient: Less than 30
[2018-12-29] MEDS: LACTATED RINGERS 1,000 ML IV SCH (18:04)
[2018-12-29] MEDS: SODIUM CHLORIDE 0.9% 1,000 ML IV SCH (18:04)
[2018-12-30] MEDS: KETOROLAC 30 MG/ML 1 ML VIAL IVP SCH ×5 (00:08→23:16)
[2018-12-30] MEDS: HYDROcodone/APAP 5-325MG 1 EACH TAB PO PRN (00:17)
[2018-12-30] MEDS: PANTOPRAZOLE 40 MG TABLET PO SCH (06:43)
--- NOTE | 2018-12-30 07:52 | XR ---
EXAMINATION TYPE: XR chest 1V portable DATE OF EXAM: 12/30/2018 Comparison: 12/29/2018 Clinical History: 63-year-old male post vats Findings: The heart is normal size. Aorta within normal limits. Mild interstitial prominence is unchanged. Righ t apical chest tube remains in place with persistent moderate but slightly smaller right apical pneum othorax. From the apical margin, it measures 5.3 cm versus 6.2 cm, previously. Slightly more peripher ally, it measures 4.1 cm versus 4.8 cm, previously. No cardiomediastinal shift. Impression: Right-sided chest tube with persistent but slightly smaller moderate sized right apical pneumothorax.
[2018-12-30 08:12] LABS: Anion Gap 7 mmol/L; Blood Urea Nitrogen 30 mg/dL (9-20); Calcium 8.3 mg/dL (8.4-10.2); Carbon Dioxide 26 mmol/L (22-30); Chloride 104 mmol/L (98-107); Glucose 88 mg/dL (74-99); Potassium 4.7 mmol/L (3.5-5.1); Sodium 137 mmol/L (137-145)
[2018-12-30 08:19] LABS: Basophils # (A) 0.1 k/uL (0-0.2); Basophils % (A) 1 %; Eosinophils % (A) 0 %; HCT 35.4 % (39.0-53.0); HGB 11.4 gm/dL (13.0-17.5); Lymphocytes # (A) 1.6 k/uL (1.0-4.8); Lymphocytes % (A) 14 %; MCH 29.4 pg (25.0-35.0); MCHC 32.3 g/dL (31.0-37.0); MCV 91.1 fL (80.0-100.0); Mean Platelet Volume 7.5; Monocytes % (A) 8 %; Neutrophils # (A) 8.8 k/uL (1.3-7.7); Neutrophils % (A) 75 %; Platelet Count 418 k/uL (150-450); RBC 3.88 m/uL (4.30-5.90); RDW 13.2 % (11.5-15.5); WBC 11.7 k/uL (3.8-10.6)
[2018-12-30] MEDS: HEPARIN SODIUM,PORCINE 5,000 UNIT/ML 1 ML VIAL SQ SCH ×2 (08:47→20:05)
[2018-12-30] MEDS: TAMSULOSIN 0.4 MG CAP.ER.24H PO SCH (08:47)
[2018-12-30] MEDS: SYMBICORT 160-4.5 MCG INHALER INHALATION SCH ×2 (09:04→19:22)
[2018-12-30] MEDS: IPRATROPIUM-ALBUTEROL 3 ML NEB INHALATION SCH ×3 (09:05→19:22)
--- NOTE | 2018-12-30 09:46 | P.PN ---
Subjective Progress Note Date: 12/30/18 Principal diagnosis: Recurrent right-sided spontaneous pneumothorax with significant bullous emphysema, persistent bronchopleural fistula, status post right pleural thoracostomy tube placement by the emergency room physicians. Previous medical history of recurrent right pneumothoraces 2 in 2018, severe COPD with bleb disease, tobacco dependence, bipolar/depression, GERD. POD #2 right thoracoscopy, lysis of pleural adhesions, stapling of blebs, talc pleurodesis The patient's currently sitting up in bed in no acute distress. States pain is well controlled on current medication regimen, shortness of breath is about baseline. Actively using incentive spirometry. Right-sided chest tube present, continuous air leak present. No new complaints. Objective - Vital Signs Vital signs: Vital Signs Temp 98.7 F 12/30/18 04:22 Pulse 120 H 12/30/18 09:17 Resp 18 12/30/18 04:22 BP 94/58 12/30/18 04:22 Pulse Ox 94 L 12/30/18 04:22 Intake & Output 12/29/18 12/30/18 12/30/18 18:59 06:59 18:59 Intake Total 580 80 Output Total 790 330 Balance -210 -330 80 Intake: Oral 580 80 Output: Chest Tube Drainage 100 Chest Tube Right Mid- 100 Axillary Chest Urine 790 230 Other: Voiding Method Urinal Urinal - Constitutional General appearance: Present: cooperative, no acute distress - Respiratory Details: Lung sounds diminished bilaterally. Respirations even, nonlabored. Currently on 3 L nasal cannula with oxygen saturation 94%. Able to achieve 1500 mL on his incentive spirometry. Right pleural chest tube to continuous wall suction, 100 mL serosanguineous drainage overnight, 700 mL since surgery, continuous air leak present. - Cardiovascular Details: S1, S2 present. Tachycardic but regular rate and rhythm, sinus tach on telemetry. Palpable peripheral pulses bilaterally. No edema present. No calf pain or tenderness noted. SCDs present. - Gastrointestinal Gastrointestinal Comment(s): Abdomen soft, nontender, nondistended. Active bowel sounds present 4 quadrants. Tolerating diet. - Genitourinary Genitourinary Comment(s): Continues to void clear, yellow urine. - Integumentary Integumentary Comment(s): Skin is warm and dry with evidence of good perfusion. Right pleural chest tube site covered with dry intact dressing. - Neurologic Neurologic: Present: CNII-XII intact - Musculoskeletal Musculoskeletal: Present: strength equal bilaterally - Psychiatric Psychiatric: Present: A&O x's 3, appropriate affect, intact judgment & insight - Allied health notes Allied health notes reviewed: nursing - Labs CBC & Chem 7: 12/30/18 06:32 12/30/18 06:32 Labs: Abnormal Lab Results - Last 24 Hours (Table) 12/30/18 12/30/18 Range/Units 06:32 06:32 WBC 11.7 H (3.8-10.6) k/uL RBC 3.88 L (4.30-5.90) m/uL Hgb 11.4 L (13.0-17.5) gm/dL Hct 35.4 L (39.0-53.0) % Neutrophils # 8.8 H (1.3-7.7) k/uL BUN 30 H (9-20) mg/dL Calcium 8.3 L (8.4-10.2) mg/dL - Imaging and Cardiology Chest x-ray: report reviewed, image reviewed Assessment and Plan Assessment: 1. Recurrent right-sided pneumothorax with significant bullous emphysema, status post right pleural thoracostomy tube placement by the emergency room physicians, status post right thoracoscopy with lysis of adhesions, stapling of blebs, and talc pleurodesis 2. History of recurrent right pneumothoraces 2 in 2018 3. Severe COPD with bleb disease 4. Previous tobacco dependence 5. Bipolar/depression 6. GERD Plan: 1. Continue right pleural chest tube to wall suction. Will monitor for resolution of air leak. 2. Will monitor daily x-rays. 3. Wean O2 as tolerated. Encourage incentive spirometry is 10 times every hour while awake. 4. Encourage continued smoking cessation. 5. Pain control with current medication regimen. 6. Increase activity, ambulate as tolerated. Patient may ambulate around the room. 7. Bronchodilators per pulmonology. 8. GI/DVT prophylaxis. 9. Medical management of other comorbidities per primary care service. 10. More recommendations based on patient's progress. Time with Patient: Greater than 30
--- NOTE | 2018-12-30 11:12 | P.PN ---
Subjective Progress Note Date: 12/30/18 Principal diagnosis: Dyspnea with right-sided chest pain, related to significant right-sided pneumothorax, status post chest tube placement. Status post VATS procedure. This is a very pleasant 63-year-old gentleman who follows with Dr. Coombs as his primary care physician. He has a previous history of chronic tobacco dependence quitting in 2018, chronic obstructive pulmonary disease, chronic right-sided pneumothorax of 10-15% and the right chest. He was seen in our office yesterday with complaints of increasing shortness of breath and right-sided chest discomfort. A chest x-ray revealed a significant right-sided pneumothorax. He was referred to the emergency room for chest tube placement. Computed tomography scan of the chest revealed a large right-sided pneumothorax occupying the lower two thirds of the right hemithorax. There is also significant bulla and bleb formation seen within the lung. Chest tube was placed in the emergency room. He is seen today on the selective care unit and consultation. He is currently resting fairly comfortable in bed. He is awake and alert in no acute distress. He is maintaining high 90s on 4 L/m per nasal cannula. He's been afebrile. Digital site pain but no significant chest discomfort. White count 11.3. Hemoglobin 14.2. Creatinine 1.04. He's been initiated and DuoNeb inhalations, Symbicort. Today's chest x-ray shows improved right hydropneumothorax with extensive underlying bullous emphysema. Patient is seen today 12/30/2018 in follow-up on the selective care unit. He is now status post right-sided VATS procedure with lysis of pleural adhesions, stapling of blebs and top pleurodesis. Pathology pending. Chest tube remains in place. There is a continuous air leak today. Chest x-ray reveals persistent but slightly smaller moderate size right apical pneumothorax. He is currently awake and alert in no acute distress. Resting comfortably in bed. He is maintaining O2 saturations in the 90s on 2 L/m per nasal cannula. Working well with the incentive spirometer. He's been afebrile. Still tachycardic in the 110s-120s. White count 11.7. Hemoglobin 11.4. Creatinine 0.87. Objective - Vital Signs Vital signs: Vital Signs Temp 97.4 F L 12/30/18 08:00 Pulse 120 H 12/30/18 09:17 Resp 18 12/30/18 08:00 BP 109/57 12/30/18 08:00 Pulse Ox 96 12/30/18 08:00 Intake & Output 12/29/18 12/30/18 12/30/18 18:59 06:59 18:59 Intake Total 580 80 Output Total 790 330 Balance -210 -330 80 Intake: Oral 580 80 Output: Chest Tube Drainage 100 Chest Tube Right Mid- 100 Axillary Chest Urine 790 230 Other: Voiding Method Urinal Urinal Urinal - Exam GENERAL EXAM: Alert, pleasant, frail cachectic 63-year-old white male, comfortable in no apparent distress. On 2 L nasal cannula. HEAD: Normocephalic/atraumatic. EYES: Normal reaction of pupils, equal size. Conjunctiva pink, sclera white. NOSE: Clear with pink turbinates. THROAT: No erythema or exudates. NECK: No masses, no JVD, no thyroid enlargement, no adenopathy. CHEST: No chest wall deformity. Symmetrical expansion. Right-sided chest tube is present, connected to Pleur-evac and wall suction, and there is a continuous air leak noted, there is a small amount of serosanguineous output in the Pleur- evac LUNGS: Equal air entry with diminished breath sounds on the right, her breath sounds on the left CVS: Regular rate and rhythm, normal S1 and S2, no gallops, no murmurs, no rubs ABDOMEN: Soft, nontender. No hepatosplenomegaly, normal bowel sounds, no guarding or rigidity. EXTREMITIES: No clubbing, no edema, no cyanosis, 2+ pulses and upper and lower extremities. MUSCULOSKELETAL: Muscle strength and tone normal. SPINE: No scoliosis or deformity SKIN: No rashes CENTRAL NERVOUS SYSTEM: No focal deficits, tone is normal in all 4 extremities. PSYCHIATRIC: Alert and oriented -3. Appropriate affect. Intact judgment and insight. - Labs CBC & Chem 7: 12/30/18 06:32 12/30/18 06:32 Labs: Abnormal Lab Results - Last 24 Hours (Table) 12/30/18 12/30/18 Range/Units 06:32 06:32 WBC 11.7 H (3.8-10.6) k/uL RBC 3.88 L (4.30-5.90) m/uL Hgb 11.4 L (13.0-17.5) gm/dL Hct 35.4 L (39.0-53.0) % Neutrophils # 8.8 H (1.3-7.7) k/uL BUN 30 H (9-20) mg/dL Calcium 8.3 L (8.4-10.2) mg/dL Assessment and Plan Assessment: Impression: #1 Dyspnea with right-sided chest pain in a patient found to have significant right-sided pneumothorax, status post chest tube placement. Now status post right-sided thoracoscopy with lysis of adhesions, stapling of blebs, talc pleurodesis. Chest x-ray reveals persistent but slightly smaller right-sided pneumothorax #2 History of chronic 10-15% right-sided pneumothorax. #3 History of significant bullous emphysema. #4 history of chronic obstructive pulmonary disease, currently inactive and stable. #5 Chronic tobacco dependence, quit in 2018. #6 History of bipolar disorder. PLAn: The patient was seen and evaluated by Dr. Gonzalez. Chest x-ray reviewed. Right-sided chest tube remains in place for now, continues with air leak. Continue incentive spirometer and encourage cough and deep breathing exercises. Continue bronchodilators. Increase his activity as tolerated. We'll continue to follow and make further recommendations based on his clinical status. I, the cosigning physician, performed a history & physical examination of the patient. Lungs sounds are diminished breath sounds on the right. Maintaining good O2 saturations in the 90s on 2 L nasal cannula. I discussed the assessment and plan of care with my nurse practitioner, Venecia Crocker. I attest to the above note as dictated by her.
--- NOTE | 2018-12-30 14:54 | P.PN ---
Subjective Progress Note Date: 12/29/18 Principal diagnosis: Recurrent right-sided spontaneous pneumothorax/ bullous emphysema Persistent bronchopleural fistula Recurrent right-sided spontaneous pneumothorax with significant bullous emphysema, persistent bronchopleural fistula, status post right pleural thoracostomy tube placement by the emergency room physicians. Previous medical history of recurrent right pneumothoraces 2 in 2018, severe COPD with bleb disease, tobacco dependence, bipolar/depression, GERD. POD #1 right thoracoscopy, lysis of pleural adhesions, stapling of blebs, talc pleurodesis Objective - Vital Signs Vital signs: Vital Signs Temp 98.1 F 12/29/18 04:00 Pulse 105 H 12/29/18 09:04 Resp 16 12/29/18 09:04 BP 137/69 12/29/18 04:00 Pulse Ox 97 12/29/18 09:04 Intake & Output 12/28/18 12/29/18 12/29/18 18:59 06:59 18:59 Intake Total 900 400 Output Total 250 1350 Balance 650 -1350 400 Weight 54.2 kg 63.5 kg Intake: IV 900 Oral 400 Output: Drainage 150 350 Right Chest 150 350 Urine 80 1000 Estimated Blood Loss 20 Other: Voiding Method Urinal Urinal # Voids 1 - Exam On exam, alert and oriented x3. HEENT: Conjunctivae normal. eyes normal. NECK: No JVD. No thyroid enlargement. No LNs CARDIOVASCULAR: S1-S2 positive RESPIRATION: Breath sounds present bilaterally diminished in the bases. Patient has a chest of the right chest hooked to low continuous suction. Draining sero sanguineous discharge. ABDOMEN: Soft, nontender . No guarding. no masses palpable. No ascites, No hepatosplenomegaly.Bowel sounds heard. LEGS: No edema. no swelling NERVOUS SYSTEM: Cranial N 2-12 grossly normal. Moves all 4 limbs. No focal deficits. No sensory deficit. No signs of cerebellar dysfucntion. Skin: no ulcer no rash - Labs CBC & Chem 7: 12/30/18 06:32 12/30/18 06:32 Labs: Abnormal Lab Results - Last 24 Hours (Table) 12/29/18 12/29/18 Range/Units 07:22 07:22 WBC 14.8 H (3.8-10.6) k/uL Plt Count 545 H (150-450) k/uL Neutrophils # 12.8 H (1.3-7.7) k/uL Glucose 109 H (74-99) mg/dL Assessment and Plan Assessment: 1. Recurrent right-sided pneumothorax with significant bullous emphysema, status post right pleural thoracostomy tube placement by the emergency room physicians, status post right thoracoscopy with lysis of adhesions, stapling of blebs, and talc pleurodesis 2. History of recurrent right pneumothoraces 2 in 2018 3. Severe COPD with bleb disease 4. Previous tobacco dependence 5. Bipolar/depression 6. GERD Plan: 1. Continue right pleural chest tube to wall suction. Will monitor for resolution of air leak. 2. Will monitor daily x-rays. 3. Wean O2 as tolerated. Encourage incentive spirometry is 10 times every hour while awake. 4. Encourage continued smoking cessation. 5. Pain control with current medication regimen. 6. Increase activity, ambulate as tolerated. Nursing to connect enough suction tubing so patient may ambulate around the room. 7. Bronchodilators per pulmonology. 8. GI/DVT prophylaxis. 9. Medical management of other comorbidities per primary care service. 10. More recommendations based on patient's progress.
[2018-12-30] MEDS: SODIUM CHLORIDE 0.9% 1,000 ML IV SCH (17:48)
[2018-12-30] MEDS ORDERED: SODIUM CHLORIDE 0.9% 250 ML IV ONE (19:15)
[2018-12-31] MEDS: KETOROLAC 30 MG/ML 1 ML VIAL IVP SCH ×4 (06:19→23:23)
[2018-12-31] MEDS: PANTOPRAZOLE 40 MG TABLET PO SCH (06:20)
--- NOTE | 2018-12-31 07:15 | XR ---
EXAMINATION TYPE: XR chest 1V portable DATE OF EXAM: 12/31/2018 HISTORY: Shortness of breath. COMPARISON: 12/30/2018 TECHNIQUE: Single view of the chest is submitted. FINDINGS: Right-sided chest tube is unchanged in position. Right apical pneumothorax remains stable measuring a pproximately 0.4 cm from the lung apex. Patchy infiltrate persists throughout the remainder of the ri ght lung. Mild patchy density left medial lung base. Cardiac mediastinal silhouette is stable. IMPRESSION: 1. Stable chest.
[2018-12-31] MEDS: TAMSULOSIN 0.4 MG CAP.ER.24H PO SCH (08:02)
[2018-12-31] MEDS: HEPARIN SODIUM,PORCINE 5,000 UNIT/ML 1 ML VIAL SQ SCH ×2 (08:02→20:05)
[2018-12-31] MEDS: IPRATROPIUM-ALBUTEROL 3 ML NEB INHALATION SCH ×3 (08:46→20:23)
[2018-12-31] MEDS: SYMBICORT 160-4.5 MCG INHALER INHALATION SCH ×2 (08:46→20:23)
--- NOTE | 2018-12-31 09:08 | P.PN ---
Subjective Progress Note Date: 12/31/18 Principal diagnosis: Dyspnea with right-sided chest pain, related to significant right-sided pneumothorax, status post chest tube placement This is a very pleasant 63-year-old gentleman who follows with Dr. Coombs as his primary care physician. He has a previous history of chronic tobacco dependence quitting in 2018, chronic obstructive pulmonary disease, chronic right-sided pn eumothorax of 10-15% and the right chest. He was seen in our office yesterday with complaints of increasing shortness of breath and right-sided chest discomfort. A chest x-ray revealed a significant right-sided pneumothorax. He was referred to the emergency room for chest tube placement. Computed tomography scan of the chest revealed a large right-sided pneumothorax occupying the lower two thirds of the right hemithorax. There is also significant bulla and bleb formation seen within the lung. Chest tube was placed in the emergency room. He is seen today on the selective care unit and consultation. He is currently resting fairly comfortable in bed. He is awake and alert in no acute distress. He is maintaining high 90s on 4 L/m per nasal cannula. He's been afebrile. Digital site pain but no significant chest discomfort. White count 11.3. Hemoglobin 14.2. Creatinine 1.04. He's been initiated and DuoNeb inhalations, Symbicort. Today's chest x-ray shows improved right hydro pneumothorax with extensive underlying bullous emphysema. On 12/21/2018 patient seen in follow-up. He is awake and alert, in no acute distress, room air pulse ox is 97%, no fever or chills, right-sided chest tube is in place, is continuous air leak still present, today's chest x-ray has been reviewed with Dr. Gonzalez, shows COPD with stable right-sided hydropneumothorax. There is serosanguineous output in the Pleur-evac, and there has been 70 mL of output in last 24 hours. He is working on his incentive spirometer. Denies any specific complaints. She surgery is following, increase activity as tolerated. On 12/22/2016 patient seen in follow-up on medical surgical floor. Right-sided chest tube still has a significant air leak. Patient is on 2 L of oxygen, with pulse ox of 98%, afebrile, hemodynamically stable, he is up in the recliner today, no significant pain from the chest tube site, no specific complaints, he is working on his incentive spirometer. He's achieving 1000 mL on his incentive spirometer. Left-sided pleural chest tube remains to wall suction, and 40 mL of serosanguineous output in the Pleur-evac. On 12/25/2018 patient seen in follow-up on medical surgical floor. She is resting comfortably in bed, in no acute distress, there is a persistent air leak from the right-sided chest tube, today's chest x-ray has been reviewed, shows persistent right basilar loculated pneumothorax. Denies any pain, denies any pacific complaints, remains on 2 L of oxygen, lung sounds are diminished at the right base otherwise are clear. His spirometry effort is 1250 ML. Tolerating oral diet, he is voiding, for now has only been up in the chair, has not ambulated much. His labs have been reviewed, and are unremarkable. On 12/26/2018 patient seen in follow-up on medical surgical floor. Right-sided chest tube still has a persistent leak, patient remains on 2 L of oxygen with a pulse ox of 96%, afebrile, hemodynamics are stable, today's chest x-ray shows stable right basilar left pneumothorax. No acute complaints, patient is working on incentive spirometer, able to achieve 4383-3616 mL. Patient is scheduled for right VATS with the stapling of the blebs in the pleurodesis on . She surgery is following. No acute events overnight. Patient does experience some discomfort in the right chest with deep breathing and moving, but no acute distress. On 12/27/2018 patient seen in follow-up on medical surgical floor. He sitting up in the recliner, currently cleaning up, taken a sponge bath, right-sided chest tube has a persistent leak, chest x-ray was reviewed and shows a right- sided chest tube in good location, some improvement in the suspected loculated pneumothorax at the right base, lung remains reinflated, with continuous leak. Patient is scheduled for a right-sided VATS bleb stapling tomorrow with Dr. Quevdeo. Otherwise hemodynamically stable, no acute complaints, his pain is controlled, he is working on his incentive spirometer. On 12/28/2018 patient seen in follow-up in medical surgical floor. He is awake and alert, in no acute distress, he is right-sided VATS is scheduled for today for 11:[address] Quevedo. Right-sided chest tube remains in place, with intermittent air leak, seems to have decreased from yesterday. Hemoglobin and the patient is stable, vital signs are stable, afebrile, remains on 2 L of oxygen with a pulse ox of 97%. No complaints of pain, no acute events overnight. Today's lab work has been reviewed, and is unremarkable. On 12/29/2018 patient seen in follow-up on selective care unit, right-sided chest tube is in place, with the continuous air leak. Today is postop day 1, post right-sided VATS, lysis of pleural adhesions, stapling of the blebs, and talc pleurodesis. He is working on his incentive spirometer, he is able to achieve thousand and melena today. States his pain is reasonably well controlled. He is on 3 L of oxygen with a pulse ox of 97%, today's chest x-ray has been reviewed and showed right-sided pneumothorax of 50% with stable placement of a right thoracostomy tube. On 12/31/2018 ration seen in follow-up on selective care unit, she is resting quietly in bed, in no acute distress, right-sided chest tube is in place, and are still persistent air leak, today's chest x-ray shows persistence of right apical pneumothorax, lung sounds reveal coarse rhonchi over right lung, clear on the left. He is working on his incentive spirometer, he denies any pain. Biopsy results are pending. His lab work has been noted. Chest X-ray has been reviewed with Dr. Byrnes. Objective - Vital Signs Vital signs: Vital Signs Temp 97.6 F 12/31/18 07:58 Pulse 112 H 12/31/18 08:47 Resp 16 12/31/18 07:58 BP 111/62 12/31/18 07:58 Pulse Ox 98 12/31/18 07:58 Intake & Output 12/30/18 12/31/18 12/31/18 18:59 06:59 18:59 Intake Total 260 1200 Output Total 250 725 80 Balance 10 475 -80 Intake: Oral 260 1200 Output: Chest Tube Drainage 200 80 Chest Tube Right Mid- 200 80 Axillary Chest Urine 250 525 Other: Voiding Method Urinal Urinal Urinal - Exam GENERAL EXAM: Alert, pleasant, 63-year-old white male, comfortable in no apparent distress. HEAD: Normocephalic/atraumatic. EYES: Normal reaction of pupils, equal size. Conjunctiva pink, sclera white. NOSE: Clear with pink turbinates. THROAT: No erythema or exudates. NECK: No masses, no JVD, no thyroid enlargement, no adenopathy. CHEST: No chest wall deformity. Symmetrical expansion. Right-sided chest tube is present, connected to Pleur-evac and wall suction, and there is a continuous air leak noted, there is a moderate amount of serosanguineous output in the Pleur-evac LUNGS: Equal air entry with diminished breath sounds on the right, her breath sounds on the left CVS: Regular rate and rhythm, normal S1 and S2, no gallops, no murmurs, no rubs ABDOMEN: Soft, nontender. No hepatosplenomegaly, normal bowel sounds, no guarding or rigidity. EXTREMITIES: No clubbing, no edema, no cyanosis, 2+ pulses and upper and lower extremities. MUSCULOSKELETAL: Muscle strength and tone normal. SPINE: No scoliosis or deformity SKIN: No rashes CENTRAL NERVOUS SYSTEM: Alert and oriented -3. No focal deficits, tone is normal in all 4 extremities. PSYCHIATRIC: Alert and oriented -3. Appropriate affect. Intact judgment and insight. - Labs CBC & Chem 7: 12/30/18 06:32 12/30/18 06:32 Assessment and Plan Plan: Assessment: #1 Dyspnea with pain in a patient found to have significant right-sided pneumothorax, status post chest tube placement, status post right-sided thoracoscopy with lysis of adhesions, stapling of blebs, Intal pleurodesis. Postop chest x-ray showed a 50% pneumothorax on the right with the replacement of the thoracostomy tube. On 12/31/2018 chest tube remains in place, with persistent air leak, chest x-ray shows decreasing apical pneumothorax #2 History of chronic 10-15% right-sided pneumothorax. #3 History of significant bullous emphysema. #4 history of chronic obstructive pulmonary disease, currently inactive and stable. #5 Chronic tobacco dependence, quit in 2018. #6 History of bipolar disorder. Plan: Clinically patient remains stable, denies any acute complaints, denies any pain, he is working on his incentive spirometer, chest x-ray shows decreasing apical pneumothorax, still positive persistent air leak from the chest tube. Otherwise no acute events overnight, lung wedge biopsy is pending, continue to follow along with CT surgery. I performed a history & physical examination of the patient and discussed their management with my nurse practitioner, Vernell Winston. I reviewed the nurse practitioner's note and agree with the documented findings and plan of care. Lung sounds are positive for diminished breath sounds on the right, clear breath sounds in the left. The findings and the impression was discussed with the patient. I attest to the documentation by the nurse practitioner. Time with Patient: Less than 30
--- NOTE | 2018-12-31 11:19 | P.PN ---
Subjective Progress Note Date: 12/30/18 Principal diagnosis: Recurrent right-sided spontaneous pneumothorax/ bullous emphysema Persistent bronchopleural fistula Recurrent right-sided spontaneous pneumothorax with significant bullous emphysema, persistent bronchopleural fistula, status post right pleural thoracostomy tube placement by the emergency room physicians. Previous medical history of recurrent right pneumothoraces 2 in 2018, severe COPD with bleb disease, tobacco dependence, bipolar/depression, GERD. POD #1 right thoracoscopy, lysis of pleural adhesions, stapling of blebs, talc pleurodesis 12/30/2018 Patient seen and evaluated in follow-up on the selective care unit. He is now status post right-sided VATS procedure with lysis of pleural adhesions, stapling of blebs and top pleurodesis. Pathology pending. Chest tube remains in place. There is a continuous air leak today. Chest x-ray reveals persistent but slightly smaller moderate size right apical pneumothorax. He is currently awake and alert in no acute distress. Resting comfortably in bed. He is maintaining O2 saturations in the 90s on 2 L/m per nasal cannula. Working well with the incentive spirometer. He's been afebrile. Still tachycardic in the 110s-120s. White count 11.7. Hemoglobin 11.4. Creatinine 0.87. Chest x-ray shows right sided chest tube in place; continuous air leak; pulmonary's recommending to continue incentive spirometry and encourage cough and deep breathing exercises; continue with current regimen of bronchodilators and increase activity as tolerated Objective - Vital Signs Vital signs: Vital Signs Temp 97.4 F L 12/30/18 08:00 Pulse 120 H 12/30/18 13:13 Resp 18 12/30/18 08:00 BP 109/57 12/30/18 08:00 Pulse Ox 96 12/30/18 08:00 Intake & Output 12/29/18 12/30/18 12/30/18 18:59 06:59 18:59 Intake Total 580 260 Output Total 790 330 250 Balance -210 -330 10 Intake: Oral 580 260 Output: Chest Tube Drainage 100 Chest Tube Right Mid- 100 Axillary Chest Urine 790 230 250 Other: Voiding Method Urinal Urinal Urinal - Exam On exam, alert and oriented x3. HEENT: Conjunctivae normal. eyes normal. NECK: No JVD. No thyroid enlargement. No LNs CARDIOVASCULAR: S1-S2 positive RESPIRATION: Breath sounds present bilaterally diminished in the bases. Patient has a chest of the right chest hooked to low continuous suction. Draining serosanguineous discharge. ABDOMEN: Soft, nontender . No guarding. no masses palpable. No ascites, No hepatosplenomegaly.Bowel sounds heard. LEGS: No edema. no swelling NERVOUS SYSTEM: Cranial N 2-12 grossly normal. Moves all 4 limbs. No focal deficits. No sensory deficit. No signs of cerebellar dysfucntion. Skin: no ulcer no rash - Labs CBC & Chem 7: 12/30/18 06:32 12/30/18 06:32 Labs: Abnormal Lab Results - Last 24 Hours (Table) 12/30/18 12/30/18 Range/Units 06:32 06:32 WBC 11.7 H (3.8-10.6) k/uL RBC 3.88 L (4.30-5.90) m/uL Hgb 11.4 L (13.0-17.5) gm/dL Hct 35.4 L (39.0-53.0) % Neutrophils # 8.8 H (1.3-7.7) k/uL BUN 30 H (9-20) mg/dL Calcium 8.3 L (8.4-10.2) mg/dL Assessment and Plan Assessment: 1. Recurrent right-sided pneumothorax with significant bullous emphysema, status post right pleural thoracostomy tube placement by the emergency room physicians, status post right thoracoscopy with lysis of adhesions, stapling of blebs, and talc pleurodesis 2. History of recurrent right pneumothoraces 2 in 2018 3. Severe COPD with bleb disease 4. Previous tobacco dependence 5. Bipolar/depression 6. GERD Plan: 1. Continue right pleural chest tube to wall suction. Will monitor for resolution of air leak. 2. Will monitor daily x-rays. 3. Wean O2 as tolerated. Encourage incentive spirometry is 10 times every hour while awake. 4. Encourage continued smoking cessation. 5. Pain control with current medication regimen. 6. Increase activity, ambulate as tolerated. Nursing to connect enough suction tubing so patient may ambulate around the room. 7. Bronchodilators per pulmonology. 8. GI/DVT prophylaxis. 9. Medical management of other comorbidities per primary care service. 10. More recommendations based on patient's progress. Time with Patient: Greater than 30
--- NOTE | 2018-12-31 11:28 | P.PN ---
Subjective Progress Note Date: 12/31/18 Principal diagnosis: Recurrent right-sided spontaneous pneumothorax with significant bullous emphysema, persistent bronchopleural fistula, status post right pleural thoracostomy tube placement by the emergency room physicians. Previous medical history of recurrent right pneumothoraces 2 in 2018, severe COPD with bleb disease, tobacco dependence, bipolar/depression, GERD. POD #3 right thoracoscopy, lysis of pleural adhesions, stapling of blebs, talc pleurodesis The patient's currently sitting up in bed in no acute distress. Denies pain, shortness of breath. Actively using incentive spirometry. Right-sided chest tube present, continuous air leak present. No new complaints. Objective - Vital Signs Vital signs: Vital Signs Temp 97.6 F 12/31/18 07:58 Pulse 120 H 12/31/18 09:05 Resp 16 12/31/18 07:58 BP 111/62 12/31/18 07:58 Pulse Ox 98 12/31/18 07:58 Intake & Output 12/30/18 12/31/18 12/31/18 18:59 06:59 18:59 Intake Total 260 1200 240 Output Total 250 725 110 Balance 10 475 130 Intake: Oral 260 1200 240 Output: Chest Tube Drainage 200 110 Chest Tube Right Mid- 200 110 Axillary Chest Urine 250 525 Other: Voiding Method Urinal Urinal Urinal # Voids 0 # Bowel Movements 0 - Constitutional General appearance: Present: cooperative, no acute distress - Respiratory Details: Lung sounds diminished bilaterally. Respirations even, nonlabored. Currently on 2 L nasal cannula with oxygen saturation 97%. Able to achieve 1250 mL on his incentive spirometry. Right pleural chest tube to continuous wall suction, 200 mL serosanguineous drainage overnight, 500 mL since surgery, continuous air leak present. - Cardiovascular Details: S1, S2 present. Tachycardic but regular rate and rhythm, sinus tach on telemetry. Palpable peripheral pulses bilaterally. No edema present. No calf pain or tenderness noted. SCDs present. - Gastrointestinal Gastrointestinal Comment(s): Abdomen soft, nontender, nondistended. Active bowel sounds present 4 quadrants. Tolerating diet. - Genitourinary Genitourinary Comment(s): Continues to void clear, yellow urine. - Integumentary Integumentary Comment(s): Skin is warm and dry with evidence of good perfusion. Right pleural chest tube site covered with dry intact dressing. - Neurologic Neurologic: Present: CNII-XII intact - Musculoskeletal Musculoskeletal: Present: gait normal, strength equal bilaterally - Psychiatric Psychiatric: Present: A&O x's 3, appropriate affect, intact judgment & insight - Allied health notes Allied health notes reviewed: nursing - Labs CBC & Chem 7: 12/30/18 06:32 12/30/18 06:32 - Imaging and Cardiology Chest x-ray: report reviewed, image reviewed Assessment and Plan Assessment: 1. Recurrent right-sided pneumothorax with significant bullous emphysema, status post right pleural thoracostomy tube placement by the emergency room physicians, status post right thoracoscopy with lysis of adhesions, stapling of blebs, and talc pleurodesis 2. History of recurrent right pneumothoraces 2 in 2018 3. Severe COPD with bleb disease 4. Previous tobacco dependence 5. Bipolar/depression 6. GERD Plan: 1. Continue right pleural chest tube to wall suction. Will monitor for resolution of air leak. 2. Will monitor daily x-rays. 3. Wean O2 as tolerated. Encourage incentive spirometry is 10 times every hour while awake. 4. Encourage continued smoking cessation. 5. Pain control with current medication regimen. 6. Increase activity, ambulate as tolerated. Patient may ambulate around the room. 7. Bronchodilators per pulmonology. 8. GI/DVT prophylaxis. 9. Medical management of other comorbidities per primary care service. 10. More recommendations based on patient's progress. Time with Patient: Greater than 30
--- NOTE | 2018-12-31 15:02 | P.PN ---
Subjective Progress Note Date: 12/31/18 Principal diagnosis: Recurrent right-sided spontaneous pneumothorax/ bullous emphysema Persistent bronchopleural fistula Recurrent right-sided spontaneous pneumothorax with significant bullous emphysema, persistent bronchopleural fistula, status post right pleural thoracostomy tube placement by the emergency room physicians. Previous medical history of recurrent right pneumothoraces 2 in 2018, severe COPD with bleb disease, tobacco dependence, bipolar/depression, GERD. POD #1 right thoracoscopy, lysis of pleural adhesions, stapling of blebs, talc pleurodesis 12/30/2018 Patient seen and evaluated in follow-up on the selective care unit. He is now status post right-sided VATS procedure with lysis of pleural adhesions, stapling of blebs and top pleurodesis. Pathology pending. Chest tube remains in place. There is a continuous air leak today. Chest x-ray reveals persistent but slightly smaller moderate size right apical pneumothorax. He is currently awake and alert in no acute distress. Resting comfortably in bed. He is maintaining O2 saturations in the 90s on 2 L/m per nasal cannula. Working well with the incentive spirometer. He's been afebrile. Still tachycardic in the 110s-120s. White count 11.7. Hemoglobin 11.4. Creatinine 0.87. Chest x-ray shows right sided chest tube in place; continuous air leak; pulmonary's recommending to continue incentive spirometry and encourage cough and deep breathing exercises; continue with current regimen of bronchodilators and increase activity as tolerated 12/31/2018 patient seen in follow-up on selective care unit, she is resting quietly in bed, in no acute distress, right-sided chest tube is in place, and are still persistent air leak, today's chest x-ray shows persistence of right apical pneumothorax, lung sounds reveal coarse rhonchi over right lung, clear on the left. He is working on his incentive spirometer, he denies any pain. Biopsy results are pending. His lab work has been noted. Objective - Vital Signs Vital signs: Vital Signs Temp 97.6 F 12/31/18 07:58 Pulse 120 H 12/31/18 09:05 Resp 16 12/31/18 07:58 BP 111/62 12/31/18 07:58 Pulse Ox 98 12/31/18 07:58 Intake & Output 12/30/18 12/31/18 12/31/18 18:59 06:59 18:59 Intake Total 260 1200 240 Output Total 250 725 110 Balance 10 475 130 Intake: Oral 260 1200 240 Output: Chest Tube Drainage 200 110 Chest Tube Right Mid- 200 110 Axillary Chest Urine 250 525 Other: Voiding Method Urinal Urinal Urinal # Voids 0 # Bowel Movements 0 - Exam On exam, alert and oriented x3. HEENT: Conjunctivae normal. eyes normal. NECK: No JVD. No thyroid enlargement. No LNs CARDIOVASCULAR: S1-S2 positive RESPIRATION: Breath sounds present bilaterally diminished in the bases. Patient has a chest of the right chest hooked to low continuous suction. Draining serosanguineous discharge. ABDOMEN: Soft, nontender . No guarding. no masses palpable. No ascites, No hepatosplenomegaly.Bowel sounds heard. LEGS: No edema. no swelling NERVOUS SYSTEM: Cranial N 2-12 grossly normal. Moves all 4 limbs. No focal deficits. No sensory deficit. No signs of cerebellar dysfucntion. Skin: no ulcer no rash - Labs CBC & Chem 7: 12/30/18 06:32 12/30/18 06:32 Assessment and Plan Assessment: 1. Recurrent right-sided pneumothorax with significant bullous emphysema, status post right pleural thoracostomy tube placement by the emergency room physicians, status post right thoracoscopy with lysis of adhesions, stapling of blebs, and talc pleurodesis 2. History of recurrent right pneumothoraces 2 in 2018 3. Severe COPD with bleb disease 4. Previous tobacco dependence 5. Bipolar/depression 6. GERD Plan: 1. Continue right pleural chest tube to wall suction. Will monitor for resolution of air leak. 2. Will monitor daily x-rays. 3. Wean O2 as tolerated. Encourage incentive spirometry is 10 times every hour while awake. 4. Encourage continued smoking cessation. 5. Pain control with current medication regimen. 6. Increase activity, ambulate as tolerated. Nursing to connect enough suction tubing so patient may ambulate around the room. 7. Bronchodilators per pulmonology. 8. GI/DVT prophylaxis. 9. Medical management of other comorbidities per primary care service. 10. More recommendations based on patient's progress. Time with Patient: Greater than 30
[2018-12-31] MEDS: SODIUM CHLORIDE 0.9% 1,000 ML IV SCH (18:56)
[2019-01-01 06:35] LABS: Basophils # (A) 0.1 k/uL (0-0.2); Basophils % (A) 1 %; Eosinophils # (A) 0.2 k/uL (0-0.7); Eosinophils % (A) 2 %; HGB 11.2 gm/dL (13.0-17.5); Lymphocytes # (A) 1.3 k/uL (1.0-4.8); Lymphocytes % (A) 15 %; MCH 29.7 pg (25.0-35.0); MCHC 31.9 g/dL (31.0-37.0); MCV 93.2 fL (80.0-100.0); Mean Platelet Volume 7.5; Monocytes # (A) 0.7 k/uL (0-1.0); Monocytes % (A) 8 %; Neutrophils # (A) 5.9 k/uL (1.3-7.7); Neutrophils % (A) 70 %; Platelet Count 452 k/uL (150-450); RBC 3.76 m/uL (4.30-5.90); RDW 13.1 % (11.5-15.5); WBC 8.4 k/uL (3.8-10.6)
[2019-01-01] MEDS: KETOROLAC 30 MG/ML 1 ML VIAL IVP SCH ×4 (06:36→23:12)
[2019-01-01] MEDS: PANTOPRAZOLE 40 MG TABLET PO SCH (06:36)
[2019-01-01] MEDS: HEPARIN SODIUM,PORCINE 5,000 UNIT/ML 1 ML VIAL SQ SCH ×2 (08:01→19:45)
[2019-01-01] MEDS: TAMSULOSIN 0.4 MG CAP.ER.24H PO SCH (08:01)
[2019-01-01] MEDS: IPRATROPIUM-ALBUTEROL 3 ML NEB INHALATION SCH ×3 (09:06→20:22)
[2019-01-01] MEDS: SYMBICORT 160-4.5 MCG INHALER INHALATION SCH ×2 (09:06→20:23)
--- NOTE | 2019-01-01 10:03 | P.PN ---
Subjective This is a pleasant 63 years old male with past medical history of COPD, GERD, pneumothorax in September 2017. Presents because of signs symptoms of p neumothorax. This is status post chest tube placement on the right side. Is been followed closely by pulmonary and cardiothoracic surgery team. Currently patient is breathing quietly. perspiration is not labored. Pain is controlled. Still has chest tube in place. And still needs to be monitored general medical floor. Vitals stable, however his somewhat tachycardic around 110 but patient is afebrile and blood pressure is stable. Labs reviewed. 12/26/2018 Patient clinically stable, with no significant dyspnea. Cardiothoracic surgery team are planning for right-sided pleurodesis on this coming , 12/28/2018. Vitals and labs were reviewed. Subjective 01/01/2019 Patient lying in bed, not in respiratory distress. No chest pain or dyspnea. He still have right-sided chest tube with air leak. Pulmonology and cardiothoracic surgery R following the patient closely. No leukocytosis today. Vitals stable Objective - Vital Signs Vital signs: Vital Signs Temp 97.5 F L 01/01/19 08:00 Pulse 99 01/01/19 09:07 Resp 18 01/01/19 07:44 BP 115/68 01/01/19 07:44 Pulse Ox 97 01/01/19 07:44 Intake & Output 12/31/18 01/01/19 01/01/19 18:59 06:59 18:59 Intake Total 1320 Output Total 1400 197 160 Balance -80 -197 -160 Intake: Oral 1320 Output: Chest Tube Drainage 200 77 160 Chest Tube Right Mid- 200 77 160 Axillary Chest Urine 1200 120 Other: Voiding Method Urinal Urinal Urinal # Voids 0 0 # Bowel Movements 0 - Exam GENERAL: The patient is alert and oriented x3, not in any acute distress. Well developed, well nourished. HEENT: Pupils are round and equally reacting to light. EOMI. No scleral icterus. No conjunctival pallor. Normocephalic, atraumatic. No pharyngeal erythema. No thyromegaly. CARDIOVASCULAR: S1 and S2 present. No murmurs, rubs, or gallops. -PULMONARY: Chest is clear to auscultation, no wheezing or crackles. Right chest tube ABDOMEN: Soft, nontender, nondistended, normoactive bowel sounds. No palpable organomegaly. MUSCULOSKELETAL: No joint swelling or deformity. EXTREMITIES: No cyanosis, clubbing, or pedal edema. NEUROLOGICAL: Gross neurological examination did not reveal any focal deficits. SKIN: No rashes. - Labs CBC & Chem 7: 01/01/19 06:15 12/30/18 06:32 Labs: Abnormal Lab Results - Last 24 Hours (Table) 01/01/19 Range/Units 06:15 RBC 3.76 L (4.30-5.90) m/uL Hgb 11.2 L (13.0-17.5) gm/dL Hct 35.0 L (39.0-53.0) % Plt Count 452 H (150-450) k/uL Assessment and Plan Assessment: Acute and chronic right pneumothorax, status post right-sided chest tube drainage. History of previous 10-15% pneumothorax on the right side Chronic obstructive pulmonary disease, not in acute exacerbation History of bipolar depression, not an active issue History of nicotine dependence Severe protein calorie malnutrition with BMI of 17.9 Plan: This is a pleasant 63 years old male who presents with recurrent right side pneumothorax, his status post chest tube placement. His been followed closely by pulmonary and cardiothoracic surgery.Labs and medication were reviewed.. Continue same treatment. Continue with symptomatic treatment. Resume home medication. Monitor lytes and vitals. DVT and GI prophylaxis. Further recommendations of the clinical course of the patient DVT prophylaxis: Subcutaneous heparin GI Prophylaxis: Ppi Prognosis is guarded
--- NOTE | 2019-01-01 10:05 | XR ---
EXAMINATION TYPE: XR chest 1V portable DATE OF EXAM: 01/01/2019 COMPARISON: 12/31/2018 INDICATION: Pneumothorax TECHNIQUE: Single frontal view of the chest is obtained. FINDINGS: The heart size is normal. The pulmonary vasculature is normal. There is a right apical pneumothorax. Right-sided chest tube is present. The airspace appears to have increased slightly over the interval IMPRESSION: 1. Small increase in size of the right apical pneumothorax. A Red level critical message alert has been initiated for Ruth Rick via the [employer] (acquired by [employer]) Results System on 01/01/2019 10:02 AM. This message alert has been sent to Ruth Rick via the pref erences provided by the clinician for the receipt of Radiology Critical Findings. Message ID [id number].
--- NOTE | 2019-01-01 11:25 | P.PN ---
Subjective Progress Note Date: 01/01/19 Principal diagnosis: Recurrent right-sided spontaneous pneumothorax with significant bullous emphysema, persistent bronchopleural fistula, status post right pleural thoracostomy tube placement by the emergency room physicians. Previous medical history of recurrent right pneumothoraces 2 in 2018, severe COPD with bleb disease, tobacco dependence, bipolar/depression, GERD. POD #4 right thoracoscopy, lysis of pleural adhesions, stapling of blebs, talc pleurodesis The patient's currently sitting up in bed in no acute distress. Denies pain, shortness of breath. Actively using incentive spirometry. Right-sided chest tube present, continuous air leak present. No new complaints. Objective - Vital Signs Vital signs: Vital Signs Temp 97.5 F L 01/01/19 08:00 Pulse 99 01/01/19 09:07 Resp 18 01/01/19 07:44 BP 115/68 01/01/19 07:44 Pulse Ox 97 01/01/19 07:44 Intake & Output 12/31/18 01/01/19 01/01/19 18:59 06:59 18:59 Intake Total 1320 Output Total 1400 197 160 Balance -80 -197 -160 Intake: Oral 1320 Output: Chest Tube Drainage 200 77 160 Chest Tube Right Mid- 200 77 160 Axillary Chest Urine 1200 120 Other: Voiding Method Urinal Urinal Urinal # Voids 0 0 # Bowel Movements 0 - Constitutional General appearance: Present: cooperative, no acute distress - Respiratory Details: Lung sounds diminished bilaterally. Respirations even, nonlabored. Currently on 2 L nasal cannula with oxygen saturation 98%. Able to achieve 1000 mL on his incentive spirometry. Right pleural chest tube to continuous wall suction, 40 mL serosanguineous drainage overnight, 430 mL in the last 24 hours, continuous air leak present. - Cardiovascular Details: S1, S2 present. Tachycardic but regular rate and rhythm, sinus tach on telemetry. Palpable peripheral pulses bilaterally. No edema present. No calf pain or tenderness noted. SCDs present. - Gastrointestinal Gastrointestinal Comment(s): Abdomen soft, nontender, nondistended. Active bowel sounds present 4 quadrants. Tolerating diet. - Genitourinary Genitourinary Comment(s): Continues to void clear, yellow urine. - Integumentary Integumentary Comment(s): Skin is warm and dry with evidence of good perfusion. Right pleural chest tube site covered with dry intact dressing. - Neurologic Neurologic: Present: CNII-XII intact - Musculoskeletal Musculoskeletal: Present: gait normal, strength equal bilaterally - Psychiatric Psychiatric: Present: A&O x's 3, appropriate affect, intact judgment & insight - Allied health notes Allied health notes reviewed: nursing - Labs CBC & Chem 7: 01/01/19 06:15 12/30/18 06:32 Labs: Abnormal Lab Results - Last 24 Hours (Table) 01/01/19 Range/Units 06:15 RBC 3.76 L (4.30-5.90) m/uL Hgb 11.2 L (13.0-17.5) gm/dL Hct 35.0 L (39.0-53.0) % Plt Count 452 H (150-450) k/uL - Imaging and Cardiology Chest x-ray: report reviewed, image reviewed Assessment and Plan Assessment: 1. Recurrent right-sided pneumothorax with significant bullous emphysema, status post right pleural thoracostomy tube placement by the emergency room physicians, status post right thoracoscopy with lysis of adhesions, stapling of blebs, and talc pleurodesis 2. Continued air leak 3. History of recurrent right pneumothoraces 2 in 2018 4. Severe COPD with bleb disease 5. Previous tobacco dependence 6. Bipolar/depression 7. GERD Plan: 1. Continue right pleural chest tube to wall suction. Will monitor for resolution of air leak. 2. Will monitor daily x-rays. 3. Wean O2 as tolerated. Encourage incentive spirometry is 10 times every hour while awake. 4. Encourage continued smoking cessation. 5. Pain control with current medication regimen. 6. Increase activity, ambulate as tolerated. Patient may ambulate around the room. 7. Bronchodilators per pulmonology. 8. GI/DVT prophylaxis. 9. Medical management of other comorbidities per primary care service. 10. More recommendations based on patient's progress. Time with Patient: Greater than 30
--- NOTE | 2019-01-01 13:58 | P.PN ---
Subjective Progress Note Date: 01/01/19 Principal diagnosis: Dyspnea with right-sided chest pain, related to significant right-sided pneumothorax, status post chest tube placement This is a very pleasant 63-year-old gentleman who follows with Dr. Coombs as his primary care physician. He has a previous history of chronic tobacco dependence quitting in 2018, chronic obstructive pulmonary disease, chronic right-sided pn eumothorax of 10-15% and the right chest. He was seen in our office yesterday with complaints of increasing shortness of breath and right-sided chest discomfort. A chest x-ray revealed a significant right-sided pneumothorax. He was referred to the emergency room for chest tube placement. Computed tomography scan of the chest revealed a large right-sided pneumothorax occupying the lower two thirds of the right hemithorax. There is also significant bulla and bleb formation seen within the lung. Chest tube was placed in the emergency room. He is seen today on the selective care unit and consultation. He is currently resting fairly comfortable in bed. He is awake and alert in no acute distress. He is maintaining high 90s on 4 L/m per nasal cannula. He's been afebrile. Digital site pain but no significant chest discomfort. White count 11.3. Hemoglobin 14.2. Creatinine 1.04. He's been initiated and DuoNeb inhalations, Symbicort. Today's chest x-ray shows improved right hydro pneumothorax with extensive underlying bullous emphysema. On 12/21/2018 patient seen in follow-up. He is awake and alert, in no acute distress, room air pulse ox is 97%, no fever or chills, right-sided chest tube is in place, is continuous air leak still present, today's chest x-ray has been reviewed with Dr. Gonzalez, shows COPD with stable right-sided hydropneumothorax. There is serosanguineous output in the Pleur-evac, and there has been 70 mL of output in last 24 hours. He is working on his incentive spirometer. Denies any specific complaints. She surgery is following, increase activity as tolerated. On 12/22/2016 patient seen in follow-up on medical surgical floor. Right-sided chest tube still has a significant air leak. Patient is on 2 L of oxygen, with pulse ox of 98%, afebrile, hemodynamically stable, he is up in the recliner today, no significant pain from the chest tube site, no specific complaints, he is working on his incentive spirometer. He's achieving 1000 mL on his incentive spirometer. Left-sided pleural chest tube remains to wall suction, and 40 mL of serosanguineous output in the Pleur-evac. On 12/25/2018 patient seen in follow-up on medical surgical floor. She is resting comfortably in bed, in no acute distress, there is a persistent air leak from the right-sided chest tube, today's chest x-ray has been reviewed, shows persistent right basilar loculated pneumothorax. Denies any pain, denies any pacific complaints, remains on 2 L of oxygen, lung sounds are diminished at the right base otherwise are clear. His spirometry effort is 1250 ML. Tolerating oral diet, he is voiding, for now has only been up in the chair, has not ambulated much. His labs have been reviewed, and are unremarkable. On 12/26/2018 patient seen in follow-up on medical surgical floor. Right-sided chest tube still has a persistent leak, patient remains on 2 L of oxygen with a pulse ox of 96%, afebrile, hemodynamics are stable, today's chest x-ray shows stable right basilar left pneumothorax. No acute complaints, patient is working on incentive spirometer, able to achieve 5827-0842 mL. Patient is scheduled for right VATS with the stapling of the blebs in the pleurodesis on . She surgery is following. No acute events overnight. Patient does experience some discomfort in the right chest with deep breathing and moving, but no acute distress. On 12/27/2018 patient seen in follow-up on medical surgical floor. He sitting up in the recliner, currently cleaning up, taken a sponge bath, right-sided chest tube has a persistent leak, chest x-ray was reviewed and shows a right- sided chest tube in good location, some improvement in the suspected loculated pneumothorax at the right base, lung remains reinflated, with continuous leak. Patient is scheduled for a right-sided VATS bleb stapling tomorrow with Dr. Quevedo. Otherwise hemodynamically stable, no acute complaints, his pain is controlled, he is working on his incentive spirometer. On 12/28/2018 patient seen in follow-up in medical surgical floor. He is awake and alert, in no acute distress, he is right-sided VATS is scheduled for today for 11:[address] Quevedo. Right-sided chest tube remains in place, with intermittent air leak, seems to have decreased from yesterday. Hemoglobin and the patient is stable, vital signs are stable, afebrile, remains on 2 L of oxygen with a pulse ox of 97%. No complaints of pain, no acute events overnight. Today's lab work has been reviewed, and is unremarkable. On 12/29/2018 patient seen in follow-up on selective care unit, right-sided chest tube is in place, with the continuous air leak. Today is postop day 1, post right-sided VATS, lysis of pleural adhesions, stapling of the blebs, and talc pleurodesis. He is working on his incentive spirometer, he is able to achieve thousand and melena today. States his pain is reasonably well controlled. He is on 3 L of oxygen with a pulse ox of 97%, today's chest x-ray has been reviewed and showed right-sided pneumothorax of 50% with stable placement of a right thoracostomy tube. On 12/31/2018 ration seen in follow-up on selective care unit, she is resting quietly in bed, in no acute distress, right-sided chest tube is in place, and are still persistent air leak, today's chest x-ray shows persistence of right apical pneumothorax, lung sounds reveal coarse rhonchi over right lung, clear on the left. He is working on his incentive spirometer, he denies any pain. Biopsy results are pending. His lab work has been noted. Chest X-ray has been reviewed with Dr. Byrnes. On 01/01/2019 patient seen in follow-up on selective care unit, he is awake and alert, resting comfortably in bed, in no acute distress, remains on 3 L of oxygen with a pulse ox of 97%, he is afebrile, right-sided chest tube is in place, with continuous air leak. Today's chest x-ray has been reviewed by Dr. Andrews and showed a small increase in size the right apical pneumothorax, patient is working on his incentive spirometer, he denies any pain or discomfort, lung sounds reveal coarse rhonchi over right lung, there are on the left. Wedge biopsy is still pending, today's labs have been noted. No acute events overnight, we'll continue to follow. Objective - Vital Signs Vital signs: Vital Signs Temp 97.4 F L 01/01/19 12:00 Pulse 104 H 01/01/19 12:00 Resp 18 01/01/19 12:00 BP 111/69 01/01/19 12:00 Pulse Ox 97 01/01/19 12:00 Intake & Output 12/31/18 01/01/19 01/01/19 18:59 06:59 18:59 Intake Total 1320 Output Total 1400 197 250 Balance -80 -197 -250 Weight 63.5 kg Intake: Oral 1320 Output: Chest Tube Drainage 200 77 250 Chest Tube Right Mid- 200 77 250 Axillary Chest Urine 1200 120 Other: Voiding Method Urinal Urinal Urinal # Voids 0 0 # Bowel Movements 0 - Exam GENERAL EXAM: Alert, pleasant, 63-year-old white male, comfortable in no apparent distress. HEAD: Normocephalic/atraumatic. EYES: Normal reaction of pupils, equal size. Conjunctiva pink, sclera white. NOSE: Clear with pink turbinates. THROAT: No erythema or exudates. NECK: No masses, no JVD, no thyroid enlargement, no adenopathy. CHEST: No chest wall deformity. Symmetrical expansion. Right-sided chest tube is present, connected to Pleur-evac and wall suction, and there is a continuous air leak noted, there is a moderate amount of serosanguineous output in the Pleur-evac LUNGS: Equal air entry with diminished breath sounds on the right, her breath sounds on the left CVS: Regular rate and rhythm, normal S1 and S2, no gallops, no murmurs, no rubs ABDOMEN: Soft, nontender. No hepatosplenomegaly, normal bowel sounds, no guarding or rigidity. EXTREMITIES: No clubbing, no edema, no cyanosis, 2+ pulses and upper and lower extremities. MUSCULOSKELETAL: Muscle strength and tone normal. SPINE: No scoliosis or deformity SKIN: No rashes CENTRAL NERVOUS SYSTEM: Alert and oriented -3. No focal deficits, tone is norm al in all 4 extremities. PSYCHIATRIC: Alert and oriented -3. Appropriate affect. Intact judgment and insight. - Labs CBC & Chem 7: 01/01/19 06:15 12/30/18 06:32 Labs: Abnormal Lab Results - Last 24 Hours (Table) 01/01/19 Range/Units 06:15 RBC 3.76 L (4.30-5.90) m/uL Hgb 11.2 L (13.0-17.5) gm/dL Hct 35.0 L (39.0-53.0) % Plt Count 452 H (150-450) k/uL Assessment and Plan Plan: Assessment: #1 Dyspnea with pain in a patient found to have significant right-sided pneumothorax, status post chest tube placement, status post right-sided thoracoscopy with lysis of adhesions, stapling of blebs, Intal pleurodesis. Postop chest x-ray showed a 50% pneumothorax on the right with the replacement of the thoracostomy tube. On 12/31/[address] chest tube remains in [address], with persistent air leak, chest x-ray shows decreasing apical pneumothorax On 01/01/2019 right-sided chest tube remains in place with continuous persistent air leak, and chest x-ray shows some worsening in the appearance of the size of the apical pneumothorax on the right side #2 History of chronic 10-15% right-sided pneumothorax. #3 History of significant bullous emphysema. #4 history of chronic obstructive pulmonary disease, currently inactive and stable. #5 Chronic tobacco dependence, quit in 2018. #6 History of bipolar disorder. Plan: Continue current treatment, deep breathing and coughing, incentive spirometry use, today's chest x-ray shows some decrease in the size of the right apical pneumothorax, clinical patient is asymptomatic, no pain, continues with persistent air leak from the right-sided chest tube, CT surgery is on, and we will continue to follow along with them. I performed a history & physical examination of the patient and discussed their management with my nurse practitioner, Vernell Winston. I reviewed the nurse practitioner's note and agree with the documented findings and plan of care. Lung sounds are positive for diminished breath sounds on the right, clear breath sounds in the left. The findings and the impression was discussed with the patient. I attest to the documentation by the nurse practitioner. Time with Patient: Less than 30
[2019-01-01] MEDS: SENNOSIDES-DOCUSATE SODIUM 1 EACH TAB PO SCH (19:45)
[2019-01-02] MEDS: KETOROLAC 30 MG/ML 1 ML VIAL IVP SCH ×3 (06:59→17:44)
[2019-01-02] MEDS: PANTOPRAZOLE 40 MG TABLET PO SCH (06:59)
[2019-01-02 07:07] LABS: Anion Gap 4 mmol/L; Blood Urea Nitrogen 22 mg/dL (9-20); Calcium 8.7 mg/dL (8.4-10.2); Carbon Dioxide 28 mmol/L (22-30); Chloride 106 mmol/L (98-107); Glucose 87 mg/dL (74-99); Potassium 5.2 mmol/L (3.5-5.1); Sodium 138 mmol/L (137-145)
[2019-01-02 07:09] LABS: Basophils # (A) 0.1 k/uL (0-0.2); Basophils % (A) 1 %; Eosinophils # (A) 0.3 k/uL (0-0.7); Eosinophils % (A) 4 %; HCT 35.7 % (39.0-53.0); HGB 11.2 gm/dL (13.0-17.5); Lymphocytes # (A) 1.4 k/uL (1.0-4.8); Lymphocytes % (A) 17 %; MCH 29.1 pg (25.0-35.0); MCHC 31.2 g/dL (31.0-37.0); MCV 93.1 fL (80.0-100.0); Mean Platelet Volume 7.3; Monocytes # (A) 0.6 k/uL (0-1.0); Monocytes % (A) 7 %; Neutrophils # (A) 5.7 k/uL (1.3-7.7); Neutrophils % (A) 68 %; Platelet Count 532 k/uL (150-450); RBC 3.84 m/uL (4.30-5.90); RDW 13.2 % (11.5-15.5); WBC 8.4 k/uL (3.8-10.6)
[2019-01-02] MEDS: IPRATROPIUM-ALBUTEROL 3 ML NEB INHALATION SCH ×3 (08:00→19:48)
[2019-01-02] MEDS: SYMBICORT 160-4.5 MCG INHALER INHALATION SCH ×2 (08:00→19:47)
--- NOTE | 2019-01-02 08:24 | XR ---
EXAMINATION TYPE: XR chest 1V portable DATE OF EXAM: 01/02/2019 HISTORY: Follow-up pneumothorax COMPARISON: 01/01/2019 TECHNIQUE: Single view of the chest is submitted. FINDINGS: Right-sided pneumothorax persists and has increased in size with maximal dimension of 4.9 cm currentl y versus 4.4 cm previously. Right-sided chest tube is unchanged in position with its distal tip withi n the right lung apex. Patchy right perihilar and right lower lobe infiltrate as well as patchy densi ty left medial lung base. The heart is stable. Hilar and mediastinal structures are within normal limits. Degenerative changes are seen of the dorsal spine. IMPRESSION: 1. Right-sided pneumothorax persists and has increased in size with maximal dimension of 4.9 cm curr ently versus 4.4 cm previously. 2.Patchy right perihilar and right lower lobe infiltrate as well as patchy density left medial lung b ase.
[2019-01-02] MEDS: TAMSULOSIN 0.4 MG CAP.ER.24H PO SCH (08:38)
[2019-01-02] MEDS: SENNOSIDES-DOCUSATE SODIUM 1 EACH TAB PO SCH ×2 (08:38→20:38)
[2019-01-02] MEDS: HEPARIN SODIUM,PORCINE 5,000 UNIT/ML 1 ML VIAL SQ SCH ×2 (08:38→20:38)
--- NOTE | 2019-01-02 11:17 | P.PN ---
Subjective Progress Note Date: 01/02/19 Principal diagnosis: Recurrent right-sided spontaneous pneumothorax with significant bullous emphysema, persistent bronchopleural fistula, status post right pleural thoracostomy tube placement by the emergency room physicians. Previous medical history of recurrent right pneumothoraces 2 in 2018, severe COPD with bleb disease, tobacco dependence, bipolar/depression, GERD. POD #5 right thoracoscopy, lysis of pleural adhesions, stapling of blebs, talc pleurodesis The patient's currently sitting up in bed in no acute distress. Denies pain, shortness of breath. Actively using incentive spirometry. Right-sided chest tube present, continuous air leak present. No new complaints. Objective - Vital Signs Vital signs: Vital Signs Temp 97.1 F L 01/02/19 07:32 Pulse 112 H 01/02/19 08:13 Resp 16 01/02/19 07:32 BP 110/77 01/02/19 07:32 Pulse Ox 98 01/02/19 07:32 Intake & Output 01/01/19 01/02/19 01/02/19 18:59 06:59 18:59 Intake Total 10 300 240 Output Total 580 110 100 Balance -570 190 140 Weight 63.5 kg 54 kg Intake: Intake, IV Titration 10 Amount Sodium Chloride 0.9% 1, 10 000 ml @ 20 mls/hr IV . Q24H [facility] Rx#:[id number] Oral 300 240 Output: Chest Tube Drainage 280 20 Chest Tube Right Mid- 280 20 Axillary Chest Drainage 90 100 Right Chest 90 100 Urine 300 Other: Voiding Method Urinal Urinal - Constitutional General appearance: Present: cooperative, no acute distress - Respiratory Details: Lung sounds diminished bilaterally. Respirations even, nonlabored. Currently on 2 L nasal cannula with oxygen saturation 94%. Able to achieve 1000 mL on his incentive spirometry. Right pleural chest tube to continuous wall suction, 200 mL serous drainage overnight, 490 mL in the last 24 hours, continuous air leak present. - Cardiovascular Details: S1, S2 present. Tachycardic but regular rate and rhythm, sinus tach on telemetry. Palpable peripheral pulses bilaterally. No edema present. No calf pain or tenderness noted. SCDs present. - Gastrointestinal Gastrointestinal Comment(s): Abdomen soft, nontender, nondistended. Active bowel sounds present 4 quadrants. Tolerating diet. - Genitourinary Genitourinary Comment(s): Continues to void clear, yellow urine. - Integumentary Integumentary Comment(s): Skin is warm and dry with evidence of good perfusion. Right pleural chest tube site covered with dry intact dressing. - Neurologic Neurologic: Present: CNII-XII intact - Musculoskeletal Musculoskeletal: Present: gait normal, strength equal bilaterally - Psychiatric Psychiatric: Present: A&O x's 3, appropriate affect, intact judgment & insight - Allied health notes Allied health notes reviewed: nursing - Labs CBC & Chem 7: 01/02/19 06:22 01/02/19 06:22 Labs: Abnormal Lab Results - Last 24 Hours (Table) 01/02/19 01/02/19 Range/Units 06:22 06:22 RBC 3.84 L (4.30-5.90) m/uL Hgb 11.2 L (13.0-17.5) gm/dL Hct 35.7 L (39.0-53.0) % Plt Count 532 H (150-450) k/uL Potassium 5.2 H (3.5-5.1) mmol/L BUN 22 H (9-20) mg/dL - Imaging and Cardiology Chest x-ray: report reviewed, image reviewed Assessment and Plan Assessment: 1. Recurrent right-sided pneumothorax with significant bullous emphysema, status post right pleural thoracostomy tube placement by the emergency room physicians, status post right thoracoscopy with lysis of adhesions, stapling of blebs, and talc pleurodesis 2. Continued air leak 3. History of recurrent right pneumothoraces 2 in 2018 4. Severe COPD with bleb disease 5. Previous tobacco dependence 6. Bipolar/depression 7. GERD Plan: 1. Continue right pleural chest tube to wall suction. Will monitor for resolution of air leak. 2. Will monitor daily x-rays. 3. Wean O2 as tolerated. Encourage incentive spirometry is 10 times every hour while awake. 4. Encourage continued smoking cessation. 5. Pain control with current medication regimen. 6. Increase activity, ambulate as tolerated. Patient may ambulate around the room. PT/OT following. 7. Bronchodilators per pulmonology. 8. GI/DVT prophylaxis. 9. Medical management of other comorbidities per primary care service. 10. More recommendations based on patient's progress. Time with Patient: Greater than 30
--- NOTE | 2019-01-02 11:49 | P.PN ---
Subjective Progress Note Date: 01/02/19 Principal diagnosis: Dyspnea with right-sided chest pain, related to significant right-sided pneumothorax, status post chest tube placement. Status post VATS procedure. This is a very pleasant 63-year-old gentleman who follows with Dr. Coombs as his primary care physician. He has a previous history of chronic tobacco dependence quitting in 2018, chronic obstructive pulmonary disease, chronic right-sided pneumothorax of 10-15% and the right chest. He was seen in our office yesterday with complaints of increasing shortness of breath and right-sided chest discomfort. A chest x-ray revealed a significant right-sided pneumothorax. He was referred to the emergency room for chest tube placement. Computed tomography scan of the chest revealed a large right-sided pneumothorax occupying the lower two thirds of the right hemithorax. There is also significant bulla and bleb formation seen within the lung. Chest tube was placed in the emergency room. He is seen today on the selective care unit and consultation. He is currently resting fairly comfortable in bed. He is awake and alert in no acute distress. He is maintaining high 90s on 4 L/m per nasal cannula. He's been afebrile. Digital site pain but no significant chest discomfort. White count 11.3. Hemoglobin 14.2. Creatinine 1.04. He's been initiated and DuoNeb inhalations, Symbicort. Today's chest x-ray shows improved right hydropneumothorax with extensive underlying bullous emphysema. Patient is seen today 12/30/2018 in follow-up on the selective care unit. He is now status post right-sided VATS procedure with lysis of pleural adhesions, stapling of blebs and top pleurodesis. Pathology pending. Chest tube remains in place. There is a continuous air leak today. Chest x-ray reveals persistent but slightly smaller moderate size right apical pneumothorax. He is currently awake and alert in no acute distress. Resting comfortably in bed. He is maintaining O2 saturations in the 90s on 2 L/m per nasal cannula. Working well with the incentive spirometer. He's been afebrile. Still tachycardic in the 110s-120s. White count 11.7. Hemoglobin 11.4. Creatinine 0.87. On 12/31/2018 ration seen in follow-up on selective care unit, she is resting quietly in bed, in no acute distress, right-sided chest tube is in place, and are still persistent air leak, today's chest x-ray shows persistence of right apical pneumothorax, lung sounds reveal coarse rhonchi over right lung, clear on the left. He is working on his incentive spirometer, he denies any pain. Biopsy results are pending. His lab work has been noted. Chest X-ray has been reviewed with Dr. Byrnes. On 01/01/2019 patient seen in follow-up on selective care unit, he is awake and alert, resting comfortably in bed, in no acute distress, remains on 3 L of oxygen with a pulse ox of 97%, he is afebrile, right-sided chest tube is in place, with continuous air leak. Today's chest x-ray has been reviewed by Dr. Andrews and showed a small increase in size the right apical pneumothorax, patient is working on his incentive spirometer, he denies any pain or discomfort, lung sounds reveal coarse rhonchi over right lung, there are on the left. Wedge biopsy is still pending, today's labs have been noted. No acute events o vernight, we'll continue to follow. Patient is seen today 01/02/2019 in follow-up on the selective care unit. He is awake and alert in no acute distress. Continues to maintain good O2 saturation in the upper 90s on 2 L/m per nasal cannula. He is afebrile. Hemodynamically stable. White count 8.4. Hemoglobin 11.2. Potassium 5.2. Creatinine 0.72. He remains on DuoNeb inhalations, Symbicort. Working with the incentive spirometer. Chest tube remains in place significant leak. Chest x-ray reveals a right-sided pneumothorax which has increased in size currently 4.9 cm versus 4.4 cm. There is a patchy right perihilar and right lower lobe infiltrate as well. Itchy density in the left medial lung base. Pathology was negative for malignancy. Objective - Vital Signs Vital signs: Vital Signs Temp 97.1 F L 01/02/19 07:32 Pulse 112 H 01/02/19 08:13 Resp 16 01/02/19 07:32 BP 110/77 01/02/19 07:32 Pulse Ox 98 01/02/19 07:32 Intake & Output 01/01/19 01/02/19 01/02/19 18:59 06:59 18:59 Intake Total 10 300 240 Output Total 580 110 100 Balance -570 190 140 Weight 63.5 kg 54 kg Intake: Intake, IV Titration 10 Amount Sodium Chloride 0.9% 1, 10 000 ml @ 20 mls/hr IV . Q24H [facility] Rx#:[id number] Oral 300 240 Output: Chest Tube Drainage 280 20 Chest Tube Right Mid- 280 20 Axillary Chest Drainage 90 100 Right Chest 90 100 Urine 300 Other: Voiding Method Urinal Urinal - Exam GENERAL EXAM: Alert, pleasant, frail cachectic 63-year-old white male, comfort able in no apparent distress. On 2 L nasal cannula. HEAD: Normocephalic/atraumatic. EYES: Normal reaction of pupils, equal size. Conjunctiva pink, sclera white. NOSE: Clear with pink turbinates. THROAT: No erythema or exudates. NECK: No masses, no JVD, no thyroid enlargement, no adenopathy. CHEST: No chest wall deformity. Symmetrical expansion. Right-sided chest tube is present, connected to Pleur-evac and wall suction, and there is a continuous air leak noted, there is a small amount of serosanguineous output in the Pleur- evac LUNGS: Equal air entry with diminished breath sounds on the right, her breath sounds on the left CVS: Regular rate and rhythm, normal S1 and S2, no gallops, no murmurs, no rubs ABDOMEN: Soft, nontender. No hepatosplenomegaly, normal bowel sounds, no guarding or rigidity. EXTREMITIES: No clubbing, no edema, no cyanosis, 2+ pulses and upper and lower extremities. MUSCULOSKELETAL: Muscle strength and tone normal. SPINE: No scoliosis or deformity SKIN: No rashes CENTRAL NERVOUS SYSTEM: No focal deficits, tone is normal in all 4 extremities. PSYCHIATRIC: Alert and oriented -3. Appropriate affect. Intact judgment and insight. - Labs CBC & Chem 7: 01/02/19 06:22 01/02/19 06:22 Labs: Abnormal Lab Results - Last 24 Hours (Table) 01/02/19 01/02/19 Range/Units 06:22 06:22 RBC 3.84 L (4.30-5.90) m/uL Hgb 11.2 L (13.0-17.5) gm/dL Hct 35.7 L (39.0-53.0) % Plt Count 532 H (150-450) k/uL Potassium 5.2 H (3.5-5.1) mmol/L BUN 22 H (9-20) mg/dL Assessment and Plan Assessment: Impression: #1 Dyspnea with right-sided chest pain in a patient found to have significant right-sided pneumothorax, status post chest tube placement. Now status post right-sided thoracoscopy with lysis of adhesions, stapling of blebs, talc pleurodesis. Chest x-ray reveals persistent but slightly larger right-sided pneumothorax and 4.9 cm versus 4.4 cm. #2 History of chronic 10-15% right-sided pneumothorax. #3 History of significant bullous emphysema. #4 history of chronic obstructive pulmonary disease, currently inactive and stable. #5 Chronic tobacco dependence, quit in 2018. #6 History of bipolar disorder. PLAn: The patient was seen and evaluated by Dr. Andrews Chest x-ray reviewed. Right- sided chest tube remains in place for now, continues with air leak. May receive talc pleurodesis today. Continue incentive spirometer and encourage cough and deep breathing exercises. Continue bronchodilators. Increase his activity as tolerated. We'll continue to follow and make further recommendations based on his clinical status. I, the cosigning physician, performed a history & physical examination of the patient. Lungs sounds are diminished breath sounds on the right. Maintaining go od O2 saturations in the 90s on 2 L nasal cannula. I discussed the assessment and plan of care with my nurse practitioner, Venecia Crocker. I attest to the above note as dictated by her.
[2019-01-02] MEDS: MAGNESIUM HYDROXIDE 2,400 MG/10 ML CUP PO PRN (12:41)
--- NOTE | 2019-01-02 12:48 | P.PN ---
Subjective This is a pleasant 63 years old male with past medical history of COPD, GERD, pneumothorax in September 2017. Presents because of signs symptoms of p neumothorax. This is status post chest tube placement on the right side. Is been followed closely by pulmonary and cardiothoracic surgery team. Currently patient is breathing quietly. perspiration is not labored. Pain is controlled. Still has chest tube in place. And still needs to be monitored general medical floor. Vitals stable, however his somewhat tachycardic around 110 but patient is afebrile and blood pressure is stable. Labs reviewed. 12/26/2018 Patient clinically stable, with no significant dyspnea. Cardiothoracic surgery team are planning for right-sided pleurodesis on this coming , 12/28/2018. Vitals and labs were reviewed. Subjective 01/01/2019 Patient lying in bed, not in respiratory distress. No chest pain or dyspnea. He still have right-sided chest tube with air leak. Pulmonology and cardiothoracic surgery R following the patient closely. No leukocytosis today. Vitals stable 01/02/2019 Patient clinically the same, with no dyspnea or chest pain. Still have left chest tube in place. Repeat chest x-ray showing a large pneumothorax today from 4.4 up to 4.9 cm. Pulmonary and cardiothoracic surgery R following the case. Objective - Vital Signs Vital signs: Vital Signs Temp 97.1 F L 01/02/19 07:32 Pulse 114 H 01/02/19 12:00 Resp 16 01/02/19 12:00 BP 131/82 01/02/19 12:00 Pulse Ox 99 01/02/19 12:00 Intake & Output 01/01/19 01/02/19 01/02/19 18:59 06:59 18:59 Intake Total 10 300 480 Output Total 580 110 100 Balance -570 190 380 Weight 63.5 kg 54 kg Intake: Intake, IV Titration 10 Amount Sodium Chloride 0.9% 1, 10 000 ml @ 20 mls/hr IV . Q24H [facility] Rx#:[id number] Oral 300 480 Output: Chest Tube Drainage 280 20 Chest Tube Right Mid- 280 20 Axillary Chest Drainage 90 100 Right Chest 90 100 Urine 300 Other: Voiding Method Urinal Urinal - Exam GENERAL: The patient is alert and oriented x3, not in any acute distress. Well developed, well nourished. HEENT: Pupils are round and equally reacting to light. EOMI. No scleral icterus. No conjunctival pallor. Normocephalic, atraumatic. No pharyngeal erythema. No thyromegaly. CARDIOVASCULAR: S1 and S2 present. No murmurs, rubs, or gallops. -PULMONARY: Chest is clear to auscultation, no wheezing or crackles. Right chest tube ABDOMEN: Soft, nontender, nondistended, normoactive bowel sounds. No palpable organomegaly. MUSCULOSKELETAL: No joint swelling or deformity. EXTREMITIES: No cyanosis, clubbing, or pedal edema. NEUROLOGICAL: Gross neurological examination did not reveal any focal deficits. SKIN: No rashes. - Labs CBC & Chem 7: 01/02/19 06:22 01/02/19 06:22 Labs: Abnormal Lab Results - Last 24 Hours (Table) 01/02/19 01/02/19 Range/Units 06:22 06:22 RBC 3.84 L (4.30-5.90) m/uL Hgb 11.2 L (13.0-17.5) gm/dL Hct 35.7 L (39.0-53.0) % Plt Count 532 H (150-450) k/uL Potassium 5.2 H (3.5-5.1) mmol/L BUN 22 H (9-20) mg/dL Assessment and Plan Assessment: Acute and chronic right pneumothorax, status post right-sided chest tube drainage. History of previous 10-15% pneumothorax on the right side Chronic obstructive pulmonary disease, not in acute exacerbation History of bipolar depression, not an active issue History of nicotine dependence Severe protein calorie malnutrition with BMI of 17.9 Plan: This is a pleasant 63 years old male who presents with recurrent right side pneumothorax, his status post chest tube placement. His been followed closely by pulmonary and cardiothoracic surgery.Labs and medication were reviewed.. Continue same treatment. Continue with symptomatic treatment. Resume home medication. Monitor lytes and vitals. DVT and GI prophylaxis. Further recommendations of the clinical course of the patient DVT prophylaxis: Subcutaneous heparin GI Prophylaxis: Ppi Prognosis is guarded
[2019-01-03] MEDS: PANTOPRAZOLE 40 MG TABLET PO SCH (06:08)
[2019-01-03 06:55] LABS: Anion Gap 7 mmol/L; Blood Urea Nitrogen 17 mg/dL (9-20); Carbon Dioxide 28 mmol/L (22-30); Chloride 104 mmol/L (98-107); Glucose 94 mg/dL (74-99); Sodium 139 mmol/L (137-145)
[2019-01-03] MEDS: IPRATROPIUM-ALBUTEROL 3 ML NEB INHALATION SCH ×3 (07:53→20:12)
[2019-01-03] MEDS: SYMBICORT 160-4.5 MCG INHALER INHALATION SCH ×2 (07:59→20:12)
--- NOTE | 2019-01-03 08:18 | XR ---
EXAMINATION TYPE: XR chest 1V portable DATE OF EXAM: 01/03/2019 COMPARISON: 01/02/2019 HISTORY: Pneumothorax. Follow-up exam. TECHNIQUE: Single frontal view of the chest is obtained. FINDINGS: There is continued fluctuation in size of the right apical pneumothorax currently measurin g larger than on the prior with similar location in the measurement. This currently measures 5.8 cm a nd previously measured 4.9 cm. Multifocal right lung atelectasis is seen. Patchy airspace disease at the right costophrenic angle also likely relates to atelectasis. Left-sided pulmonary hyperinflation may indicate underlying COPD. Right thoracostomy tube is unchanged in position. Cardiomediastinal jessica houette is within normal limits. Osseous structures are grossly intact. IMPRESSION: Continued fluctuation of the right-sided pneumothorax mildly increased from the prior. M ultifocal right-sided atelectasis.
[2019-01-03] MEDS: SENNOSIDES-DOCUSATE SODIUM 1 EACH TAB PO SCH ×2 (09:45→21:07)
[2019-01-03] MEDS: TAMSULOSIN 0.4 MG CAP.ER.24H PO SCH (09:45)
[2019-01-03] MEDS: MAGNESIUM HYDROXIDE 2,400 MG/10 ML CUP PO PRN (09:45)
[2019-01-03] MEDS: HEPARIN SODIUM,PORCINE 5,000 UNIT/ML 1 ML VIAL SQ SCH ×2 (09:45→21:07)
[2019-01-03] MEDS: SODIUM CHLORIDE 0.9% 1,000 ML IV SCH ×2 (12:00→21:08)
--- NOTE | 2019-01-03 13:50 | P.PN ---
Subjective Progress Note Date: 01/03/19 Principal diagnosis: Dyspnea with right-sided chest pain, related to significant right-sided pneumothorax, status post chest tube placement. Status post VATS procedure. This is a very pleasant 63-year-old gentleman who follows with Dr. Coombs as his primary care physician. He has a previous history of chronic tobacco dependence quitting in 2018, chronic obstructive pulmonary disease, chronic right-sided pneumothorax of 10-15% and the right chest. He was seen in our office yesterday with complaints of increasing shortness of breath and right-sided chest discomfort. A chest x-ray revealed a significant right-sided pneumothorax. He was referred to the emergency room for chest tube placement. Computed tomography scan of the chest revealed a large right-sided pneumothorax occupying the lower two thirds of the right hemithorax. There is also significant bulla and bleb formation seen within the lung. Chest tube was placed in the emergency room. He is seen today on the selective care unit and consultation. He is currently resting fairly comfortable in bed. He is awake and alert in no acute distress. He is maintaining high 90s on 4 L/m per nasal cannula. He's been afebrile. Digital site pain but no significant chest discomfort. White count 11.3. Hemoglobin 14.2. Creatinine 1.04. He's been initiated and DuoNeb inhalations, Symbicort. Today's chest x-ray shows improved right hydropneumothorax with extensive underlying bullous emphysema. Patient is seen today 12/30/2018 in follow-up on the selective care unit. He is now status post right-sided VATS procedure with lysis of pleural adhesions, stapling of blebs and top pleurodesis. Pathology pending. Chest tube remains in place. There is a continuous air leak today. Chest x-ray reveals persistent but slightly smaller moderate size right apical pneumothorax. He is currently awake and alert in no acute distress. Resting comfortably in bed. He is maintaining O2 saturations in the 90s on 2 L/m per nasal cannula. Working well with the incentive spirometer. He's been afebrile. Still tachycardic in the 110s-120s. White count 11.7. Hemoglobin 11.4. Creatinine 0.87. On 12/31/2018 ration seen in follow-up on selective care unit, she is resting quietly in bed, in no acute distress, right-sided chest tube is in place, and are still persistent air leak, today's chest x-ray shows persistence of right apical pneumothorax, lung sounds reveal coarse rhonchi over right lung, clear on the left. He is working on his incentive spirometer, he denies any pain. Biopsy results are pending. His lab work has been noted. Chest X-ray has been reviewed with Dr. Byrnes. On 01/01/2019 patient seen in follow-up on selective care unit, he is awake and alert, resting comfortably in bed, in no acute distress, remains on 3 L of oxygen with a pulse ox of 97%, he is afebrile, right-sided chest tube is in place, with continuous air leak. Today's chest x-ray has been reviewed by Dr. Andrews and showed a small increase in size the right apical pneumothorax, patient is working on his incentive spirometer, he denies any pain or discomfort, lung sounds reveal coarse rhonchi over right lung, there are on the left. Wedge biopsy is still pending, today's labs have been noted. No acute events o vernight, we'll continue to follow. Patient is seen today 01/02/2019 in follow-up on the selective care unit. He is awake and alert in no acute distress. Continues to maintain good O2 saturation in the upper 90s on 2 L/m per nasal cannula. He is afebrile. Hemodynamically stable. White count 8.4. Hemoglobin 11.2. Potassium 5.2. Creatinine 0.72. He remains on DuoNeb inhalations, Symbicort. Working with the incentive spirometer. Chest tube remains in place significant leak. Chest x-ray reveals a right-sided pneumothorax which has increased in size currently 4.9 cm versus 4.4 cm. There is a patchy right perihilar and right lower lobe infiltrate as well. Itchy density in the left medial lung base. Pathology was negative for malignancy. The patient is seen today 01/03/2019 in follow-up on the selective care unit. He is currently resting quite comfortably in bed. Awake and alert in no acute distress. His x-ray continues to reveal fluctuation in the right-sided pneumothorax mildly increased from prior. Multifocal right-sided atelectasis. Chest tube remains in place with continuous air leak. He is maintaining O2 saturations in the high 90s on 2 L/m per nasal cannula. He's been afebrile. Hemodynamically stable. Working well with the incentive spirometer. Sodium 1 39. Potassium 5.0. Creatinine 0.81. He remains on DuoNeb inhalations and Symbicort. Surgical pathology reveals bullous pulmonary emphysema with focal subacute infarction, interstitial and pleural fibrosis. No malignancy. Objective - Vital Signs Vital signs: Vital Signs Temp 98 F 01/03/19 11:42 Pulse 108 H 01/03/19 13:04 Resp 20 01/03/19 11:42 BP 101/62 01/03/19 11:42 Pulse Ox 99 01/03/19 11:42 Intake & Output 01/02/19 01/03/19 01/03/19 18:59 06:59 18:59 Intake Total 720 480 Output Total 100 1330 Balance 620 -1330 480 Intake: Oral 720 480 Output: Chest Tube Drainage 80 Chest Tube Right Mid- 80 Axillary Chest Drainage 100 200 Right Chest 100 200 Urine 1050 Other: Voiding Method Urinal Urinal # Voids 400 - Exam GENERAL EXAM: Alert, pleasant, frail cachectic 63-year-old white male, comfortable in no apparent distress. On 2 L nasal cannula. HEAD: Normocephalic/atraumatic. EYES: Normal reaction of pupils, equal size. Conjunctiva pink, sclera white. NOSE: Clear with pink turbinates. THROAT: No erythema or exudates. NECK: No masses, no JVD, no thyroid enlargement, no adenopathy. CHEST: No chest wall deformity. Symmetrical expansion. Right-sided chest tube is present, connected to Pleur-evac and wall suction, and there is a continuous air leak noted. LUNGS: Equal air entry with diminished breath sounds on the right, her breath sounds on the left CVS: Regular rate and rhythm, normal S1 and S2, no gallops, no murmurs, no rubs ABDOMEN: Soft, nontender. No hepatosplenomegaly, normal bowel sounds, no guarding or rigidity. EXTREMITIES: No clubbing, no edema, no cyanosis, 2+ pulses and upper and lower extremities. MUSCULOSKELETAL: Muscle strength and tone normal. SPINE: No scoliosis or deformity SKIN: No rashes CENTRAL NERVOUS SYSTEM: No focal deficits, tone is normal in all 4 extremities. PSYCHIATRIC: Alert and oriented -3. Appropriate affect. Intact judgment and insight. - Labs CBC & Chem 7: 01/02/19 06:22 01/03/19 06:26 Labs: Abnormal Lab Results - Last 24 Hours (Table) 01/03/19 Range/Units 06:26 Magnesium 2.5 H (1.6-2.3) mg/dL Assessment and Plan Assessment: Impression: #1 Dyspnea with right-sided chest pain in a patient found to have significant right-sided pneumothorax, status post chest tube placement. Now status post right-sided thoracoscopy with lysis of adhesions, stapling of blebs, talc pleurodesis. Chest x-ray reveals persistent but slightly larger right-sided pneumothorax and now 5.8 cm was previously at 4.9 cm yesterday. #2 History of chronic 10-15% right-sided pneumothorax. #3 History of significant bullous emphysema. #4 history of chronic obstructive pulmonary disease, currently inactive and s table. #5 Chronic tobacco dependence, quit in 2018. #6 History of bipolar disorder. PLAn: The patient was seen and evaluated by Dr. Andrews Chest x-ray reviewed. Right- sided chest tube remains in place for now, continues with air leak. May receive talc pleurodesis. Continue incentive spirometer and encourage cough and deep breathing exercises. Continue bronchodilators. Increase his activity as tolerated. We'll continue to follow and make further recommendations based on his clinical status. I, the cosigning physician, performed a history & physical examination of the patient. Lungs sounds are diminished breath sounds on the right. Maintaining good O2 saturations in the 90s on 2 L nasal cannula. I discussed the assessment and plan of care with my nurse practitioner, Venecia Crocker. I attest to the above note as dictated by her.
--- NOTE | 2019-01-03 14:44 | P.PN ---
Subjective Progress Note Date: 01/03/19 Principal diagnosis: Recurrent right-sided spontaneous pneumothorax with significant bullous emphysema, persistent bronchopleural fistula, status post right pleural thoracostomy tube placement by the emergency room physicians. Previous medical history of recurrent right pneumothoraces 2 in 2018, severe COPD with bleb disease, tobacco dependence, bipolar/depression, GERD. POD #6 right thoracoscopy, lysis of pleural adhesions, stapling of blebs, talc pleurodesis with continuing air leak The patient's currently sitting up in bed in no acute distress. Denies pain, shortness of breath. Actively using incentive spirometry. Right-sided chest tube present, continuous air leak present. No new complaints. Objective - Vital Signs Vital signs: Vital Signs Temp 98 F 01/03/19 11:42 Pulse 108 H 01/03/19 13:04 Resp 20 01/03/19 11:42 BP 101/62 01/03/19 11:42 Pulse Ox 99 01/03/19 11:42 Intake & Output 01/02/19 01/03/19 01/03/19 18:59 06:59 18:59 Intake Total 720 480 Output Total 100 1330 Balance 620 -1330 480 Intake: Oral 720 480 Output: Chest Tube Drainage 80 Chest Tube Right Mid- 80 Axillary Chest Drainage 100 200 Right Chest 100 200 Urine 1050 Other: Voiding Method Urinal Urinal # Voids 400 - Constitutional General appearance: Present: cooperative, no acute distress - Respiratory Details: Lung sounds diminished bilaterally. Respirations even, nonlabored. Currently on 2 L nasal cannula with oxygen saturation 99%. Able to achieve 1000 mL on his incentive spirometry. Right pleural chest tube to continuous wall suction, 200 mL serous drainage overnight, 380 mL in the last 24 hours, continuous air leak present. - Cardiovascular Details: S1, S2 present. Tachycardic but regular rate and rhythm, sinus tach on telemetry. Palpable peripheral pulses bilaterally. No edema present. No calf pain or tenderness noted. SCDs present. - Gastrointestinal Gastrointestinal Comment(s): Abdomen soft, nontender, nondistended. Active bowel sounds present 4 quadrants. Tolerating diet. - Genitourinary Genitourinary Comment(s): Continues to void clear, yellow urine. - Integumentary Integumentary Comment(s): Skin is warm and dry with evidence of good perfusion. Right pleural chest tube site covered with dry intact dressing. - Neurologic Neurologic: Present: CNII-XII intact - Musculoskeletal Musculoskeletal: Present: gait normal, strength equal bilaterally - Psychiatric Psychiatric: Present: A&O x's 3, appropriate affect, intact judgment & insight - Allied health notes Allied health notes reviewed: nursing - Labs CBC & Chem 7: 01/02/19 06:22 01/03/19 06:26 Labs: Abnormal Lab Results - Last 24 Hours (Table) 01/03/19 Range/Units 06:26 Magnesium 2.5 H (1.6-2.3) mg/dL - Imaging and Cardiology Chest x-ray: report reviewed, image reviewed Assessment and Plan Assessment: 1. Recurrent right-sided pneumothorax with significant bullous emphysema, status post right pleural thoracostomy tube placement by the emergency room physicians, status post right thoracoscopy with lysis of adhesions, stapling of blebs, and talc pleurodesis 2. Continued air leak 3. History of recurrent right pneumothoraces 2 in 2018 4. Severe COPD with bleb disease 5. Previous tobacco dependence 6. Bipolar/depression 7. GERD Plan: 1. Continue right pleural chest tube to wall suction. Will monitor for resolution of air leak. 2. Will monitor daily x-rays. 3. Wean O2 as tolerated. Encourage incentive spirometry is 10 times every hour while awake. 4. Encourage continued smoking cessation. 5. Pain control with current medication regimen. 6. Increase activity, ambulate as tolerated. Patient may ambulate around the room. PT/OT following. 7. Bronchodilators per pulmonology. 8. GI/DVT prophylaxis. 9. Medical management of other comorbidities per primary care service. 10. More recommendations based on patient's progress. Time with Patient: Greater than 30
[2019-01-03] MEDS: METOPROLOL TARTRATE 25 MG TAB PO SCH ×2 (16:15→21:08)
[2019-01-03] MEDS: HYDROcodone/APAP 5-325MG 1 EACH TAB PO PRN (21:07)
--- NOTE | 2019-01-03 21:09 | P.PN ---
Subjective This is a pleasant 63 years old male with past medical history of COPD, GERD, pneumothorax in September 2017. Presents because of signs symptoms of p neumothorax. This is status post chest tube placement on the right side. Is been followed closely by pulmonary and cardiothoracic surgery team. Currently patient is breathing quietly. perspiration is not labored. Pain is controlled. Still has chest tube in place. And still needs to be monitored general medical floor. Vitals stable, however his somewhat tachycardic around 110 but patient is afebrile and blood pressure is stable. Labs reviewed. 12/26/2018 Patient clinically stable, with no significant dyspnea. Cardiothoracic surgery team are planning for right-sided pleurodesis on this coming , 12/28/2018. Vitals and labs were reviewed. Subjective 01/01/2019 Patient lying in bed, not in respiratory distress. No chest pain or dyspnea. He still have right-sided chest tube with air leak. Pulmonology and cardiothoracic surgery R following the patient closely. No leukocytosis today. Vitals stable 01/02/2019 Patient clinically the same, with no dyspnea or chest pain. Still have left chest tube in place. Repeat chest x-ray showing a large pneumothorax today from 4.4 up to 4.9 cm. Pulmonary and cardiothoracic surgery R following the case. 01/03/2019 Patient remains stable with no dyspnea or chest pain. No other new complaints. Still has chest tube is in place. BMP was unremarkable. Chest x-ray: Mildly increased pneumothorax. Patient today developed tachycardia of heart rate of 150 while walking. EKG was checked and showing:sinus tachycardia. pt is started on normal saline , mg and K level were checked and they are acceptable, pt is with no chest pain or worsening dyspnea, . lopressor is started Review of Systems CONSTITUTIONAL: negative. RESPIRATORY: Negative. CARDIOVASCULAR: Negative. GASTROINTESTINAL: Negative. GENITOURINARY: Negative. INTEGUMENT/BREAST: Negative. MUSCULOSKELETAL: Negative. NEUROLOGICAL: Negative. medication: lopressor, tylenol , albuterol, xanax, symbicort, heparin , norcoro, baxin, Milk of magnesia, zofran, protonix senokot, temazepam, flomax Objective - Vital Signs Vital signs: Vital Signs Temp 97.4 F L 01/03/19 15:47 Pulse 108 H 01/03/19 20:30 Resp 18 01/03/19 15:47 BP 113/65 01/03/19 15:47 Pulse Ox 98 01/03/19 15:47 Intake & Output 01/03/19 01/03/19 01/04/19 06:59 18:59 06:59 Intake Total 720 Output Total 1330 550 Balance -1330 170 Intake: Oral 720 Output: Chest Tube Drainage 80 50 Chest Tube Right Mid- 80 50 Axillary Chest Drainage 200 Right Chest 200 Urine 1050 500 Other: Voiding Method Urinal Urinal - Exam GENERAL: The patient is alert and oriented x3, not in any acute distress. Well developed, well nourished. HEENT: Pupils are round and equally reacting to light. EOMI. No scleral icterus. No conjunctival pallor. Normocephalic, atraumatic. No pharyngeal erythema. No thyromegaly. CARDIOVASCULAR: S1 and S2 present. No murmurs, rubs, or gallops. -PULMONARY: Chest is clear to auscultation, no wheezing or crackles. Right chest tube ABDOMEN: Soft, nontender, nondistended, normoactive bowel sounds. No palpable organomegaly. MUSCULOSKELETAL: No joint swelling or deformity. EXTREMITIES: No cyanosis, clubbing, or pedal edema. NEUROLOGICAL: Gross neurological examination did not reveal any focal deficits. SKIN: No rashes. - Labs CBC & Chem 7: 01/02/19 06:22 01/03/19 06:26 Labs: Abnormal Lab Results - Last 24 Hours (Table) 01/03/19 Range/Units 06:26 Magnesium 2.5 H (1.6-2.3) mg/dL Assessment and Plan Assessment: Acute and chronic right pneumothorax, status post right-sided chest tube drainage. tachycardia History of previous 10-15% pneumothorax on the right side Chronic obstructive pulmonary disease, not in acute exacerbation History of bipolar depression, not an active issue History of nicotine dependence Severe protein calorie malnutrition with BMI of 17.9 Plan: This is a pleasant 63 years old male who presents with recurrent right side pneumothorax, his status post chest tube placement. His been followed closely by pulmonary and cardiothoracic surgery.Labs and medication were reviewed.. Co ntinue same treatment. Continue with symptomatic treatment. Resume home medication. Monitor lytes and vitals. DVT and GI prophylaxis. Further recommendations of the clinical course of the patient DVT prophylaxis: Subcutaneous heparin GI Prophylaxis: Ppi Prognosis is guarded
[2019-01-04] MEDS: PANTOPRAZOLE 40 MG TABLET PO SCH (06:13)
--- NOTE | 2019-01-04 07:18 | XR ---
EXAMINATION TYPE: XR chest 1V portable DATE OF EXAM: 01/04/2019 Comparison: 01/03/2019 Clinical History: 63-year-old male follow-up pneumothorax Findings: Right apical chest tube remains in place. Right apical pneumothorax also redemonstrated. Continues to be small to moderate in size measuring 5.6 cm from the apical margin versus 5.8 cm, previously. Hype rinflation. Some scattered patchy densities in the right lung and in the retrocardiac region. There i s a nodular area at the right base which can be evaluated by CT once the patient's condition has reso lved and the lung is appropriately inflated. Impression: 1. COPD with persistent [id number] right apical pneumothorax not significantly changed (5.6 cm now versus 5.8 cm, previously). 2. Patchy bibasilar areas of atelectasis. 3. Nodular density at the right base can be further evaluated with CT once the patient's condition uriarte s resolved and the lung has fully inflated.
[2019-01-04 07:39] LABS: Basophils # (A) 0.1 k/uL (0-0.2); Basophils % (A) 2 %; Eosinophils # (A) 0.3 k/uL (0-0.7); Eosinophils % (A) 4 %; HCT 36.9 % (39.0-53.0); HGB 11.5 gm/dL (13.0-17.5); Hypochromasia Slight; Lymphocytes # (A) 1.6 k/uL (1.0-4.8); Lymphocytes % (A) 20 %; MCH 29.4 pg (25.0-35.0); MCHC 31.1 g/dL (31.0-37.0); MCV 94.5 fL (80.0-100.0); Mean Platelet Volume 6.7; Monocytes # (A) 0.6 k/uL (0-1.0); Monocytes % (A) 7 %; Neutrophils # (A) 5.1 k/uL (1.3-7.7); Neutrophils % (A) 64 %; Platelet Count 575 k/uL (150-450); RDW 13.2 % (11.5-15.5)
[2019-01-04 07:42] LABS: Anion Gap 4 mmol/L; Blood Urea Nitrogen 17 mg/dL (9-20); Calcium 8.6 mg/dL (8.4-10.2); Carbon Dioxide 27 mmol/L (22-30); Chloride 107 mmol/L (98-107); Glucose 86 mg/dL (74-99); Sodium 138 mmol/L (137-145)
[2019-01-04] MEDS: SYMBICORT 160-4.5 MCG INHALER INHALATION SCH ×2 (08:05→20:12)
[2019-01-04] MEDS: IPRATROPIUM-ALBUTEROL 3 ML NEB INHALATION SCH ×3 (08:05→20:12)
[2019-01-04] MEDS: METOPROLOL TARTRATE 25 MG TAB PO SCH ×2 (08:48→20:42)
[2019-01-04] MEDS: HEPARIN SODIUM,PORCINE 5,000 UNIT/ML 1 ML VIAL SQ SCH ×2 (08:48→20:42)
[2019-01-04] MEDS: TAMSULOSIN 0.4 MG CAP.ER.24H PO SCH (08:48)
[2019-01-04] MEDS: SENNOSIDES-DOCUSATE SODIUM 1 EACH TAB PO SCH ×2 (08:48→20:42)
--- NOTE | 2019-01-04 09:12 | P.PN ---
Subjective Progress Note Date: 01/04/19 Principal diagnosis: Recurrent right-sided spontaneous pneumothorax with significant bullous emphysema, persistent bronchopleural fistula, status post right pleural thoracostomy tube placement by the emergency room physicians. Previous medical history of recurrent right pneumothoraces 2 in 2018, severe chronic obstructive pulmonary disease, history of tobacco dependence, quit smoking in September 2017, bipolar/depression, gastroesophageal reflux disease. POD #7 right thoracoscopy, lysis of pleural adhesions, stapling of blebs, talc pleurodesis with continuing air leak The patient is currently lying in bed with his head elevated. He is in no acute distress. Denies any complaints of pain or shortness of breath. He remains on 2 L nasal cannula with oxygen saturations 99%. He remains afebrile and hemodynamically stable. Right pleural chest tube in place to low continuous wall suction -20 cm H2O. Continuous air leak is present. Draining thin serosanguineous drainage. Achieving 1500 mL on his incentive spirometry. Objective - Vital Signs Vital signs: Vital Signs Temp 98.1 F 01/04/19 04:00 Pulse 102 H 01/04/19 08:18 Resp 18 01/04/19 04:00 BP 100/58 01/04/19 04:00 Pulse Ox 99 01/04/19 08:05 Intake & Output 01/03/19 01/04/19 01/04/19 18:59 06:59 18:59 Intake Total 720 100 Output Total 550 430 Balance 170 -330 Intake: Oral 720 100 Output: Chest Tube Drainage 50 130 Chest Tube Right Mid- 50 130 Axillary Chest Urine 500 300 Other: Voiding Method Urinal Urinal - Constitutional General appearance: Present: cooperative, no acute distress, thin - Respiratory Details: Lungs sounds essentially diminished throughout bilaterally. Oxygen saturations are 99% on 2 L nasal cannula. Respirations are symmetrical and nonlabored. Achieving 1500 mL on his incentive spirometry. Right pleural chest tube in place to low continuous wall suction -20 cm H2O. Continuous air leak is present. Draining thin serosanguineous drainage, 170 mL output in the last 24 hours. - Cardiovascular Details: Regular rhythm and tachycardic rate. S1 and S2 present, negative for S3, or gallop. Patterson systolic murmur 2/6 present. No edema present. Remote telemetry showing sinus tachycardia heart rate 109. Knee-high sequential compression devices in place to his bilateral lower extremities. - Gastrointestinal Gastrointestinal Comment(s): Abdomen is soft, nontender and nondistended. Active bowel sounds to all 4 abdominal quadrants. No guarding or rigidity. No organomegaly. Tolerating oral intake. - Genitourinary Genitourinary Comment(s): Voiding clear yellow urine. - Integumentary Integumentary Comment(s): Skin is warm and dry. No clubbing or cyanosis is present. Right chest thoracoscopy sites clean, dry and approximated. No drainage or redness is present. Right pleural chest tube site dressing is clean, dry and intact. - Neurologic Neurologic: Present: CNII-XII intact - Musculoskeletal Musculoskeletal: Present: gait normal, generalized weakness, strength equal bilaterally - Psychiatric Psychiatric Comment(s): Flat affect. Psychiatric: Present: appropriate affect, intact judgment & insight - Allied health notes Allied health notes reviewed: nursing - Labs CBC & Chem 7: 01/04/19 06:50 01/04/19 06:50 Labs: Abnormal Lab Results - Last 24 Hours (Table) 01/03/19 01/04/19 Range/Units 06:26 06:50 RBC 3.90 L (4.30-5.90) m/uL Hgb 11.5 L (13.0-17.5) gm/dL Hct 36.9 L (39.0-53.0) % Plt Count 575 H (150-450) k/uL Magnesium 2.5 H (1.6-2.3) mg/dL - Imaging and Cardiology Chest x-ray: report reviewed, image reviewed Assessment and Plan Assessment: 1. Recurrent right-sided pneumothorax with significant bullous emphysema, status post right pleural thoracostomy tube placement by the emergency room physicians, status post right thoracoscopy with lysis of adhesions, stapling of blebs, and talc pleurodesis 2. Continued persistent air leak 3. History of recurrent right spontaneous pneumothoraces 2 in 2018 4. Severe COPD with bleb disease 5. Previous tobacco dependence 6. Bipolar/depression 7. GERD Plan: 1. Continue right pleural chest tube to continuous low wall suction. We will continue to monitor for resolution of air leak. 2. Continue to monitor daily x-rays. 3. Wean O2 as tolerated. Encourage incentive spirometry is 10 times every hour while awake. 4. Encourage and discuss the importance of continued smoking cessation. 5. Pain control with current medication regimen. 6. Increase activity, ambulate as tolerated. Patient may ambulate around the room. PT/OT following. 7. Bronchodilators per pulmonology. 8. GI/DVT prophylaxis. 9. Medical management of other comorbidities per primary care service. 10. More recommendations based on patient's clinical course. Time with Patient: Greater than 30
--- NOTE | 2019-01-04 13:26 | P.PN ---
Subjective This is a pleasant 63 years old male with past medical history of COPD, GERD, pneumothorax in September 2017. Presents because of signs symptoms of p neumothorax. This is status post chest tube placement on the right side. Is been followed closely by pulmonary and cardiothoracic surgery team. Currently patient is breathing quietly. perspiration is not labored. Pain is controlled. Still has chest tube in place. And still needs to be monitored general medical floor. Vitals stable, however his somewhat tachycardic around 110 but patient is afebrile and blood pressure is stable. Labs reviewed. 12/26/2018 Patient clinically stable, with no significant dyspnea. Cardiothoracic surgery team are planning for right-sided pleurodesis on this coming , 12/28/2018. Vitals and labs were reviewed. Subjective 01/01/2019 Patient lying in bed, not in respiratory distress. No chest pain or dyspnea. He still have right-sided chest tube with air leak. Pulmonology and cardiothoracic surgery R following the patient closely. No leukocytosis today. Vitals stable 01/02/2019 Patient clinically the same, with no dyspnea or chest pain. Still have left chest tube in place. Repeat chest x-ray showing a large pneumothorax today from 4.4 up to 4.9 cm. Pulmonary and cardiothoracic surgery R following the case. 01/03/2019 Patient remains stable with no dyspnea or chest pain. No other new complaints. Still has chest tube is in place. BMP was unremarkable. Chest x-ray: Mildly increased pneumothorax. Patient today developed tachycardia of heart rate of 150 while walking. EKG was checked and showing:sinus tachycardia. pt is started on normal saline , mg and K level were checked and they are acceptable, pt is with no chest pain or worsening dyspnea, . lopressor is started 01/04/2019 Patient most in bed comfortable not in distress. He denies chest pain or dyspnea. Patient generally feels better with no specific abnormality or complained from last night when his heart rate went high up to 150. Patient already on Lopressor. Currently his heart rate is 102 pressure 98/65, is still on normal saline at 75 mL/h and will be lower today to 50 mL/h. Still has right-sided chest tube. Cardiothoracic surgery and pulmonary team are following the patient closely Objective - Vital Signs Vital signs: Vital Signs Temp 98.0 F 01/04/19 10:38 Pulse 102 H 01/04/19 10:38 Resp 20 01/04/19 10:38 BP 98/65 01/04/19 10:38 Pulse Ox 98 01/04/19 10:38 Intake & Output 01/03/19 01/04/19 01/04/19 18:59 06:59 18:59 Intake Total 720 100 Output Total 550 430 750 Balance 170 -330 -750 Intake: Oral 720 100 Output: Chest Tube Drainage 50 130 Chest Tube Right Mid- 50 130 Axillary Chest Urine 500 300 750 Other: Voiding Method Urinal Urinal # Voids 3 - Exam GENERAL: The patient is alert and oriented x3, not in any acute distress. Well developed, well nourished. HEENT: Pupils are round and equally reacting to light. EOMI. No scleral icterus. No conjunctival pallor. Normocephalic, atraumatic. No pharyngeal erythema. No thyromegaly. CARDIOVASCULAR: S1 and S2 present. No murmurs, rubs, or gallops. -PULMONARY: Chest is clear to auscultation, no wheezing or crackles. Right chest tube ABDOMEN: Soft, nontender, nondistended, normoactive bowel sounds. No palpable organomegaly. MUSCULOSKELETAL: No joint swelling or deformity. EXTREMITIES: No cyanosis, clubbing, or pedal edema. NEUROLOGICAL: Gross neurological examination did not reveal any focal deficits. SKIN: No rashes. - Labs CBC & Chem 7: 01/04/19 06:50 01/04/19 06:50 Labs: Abnormal Lab Results - Last 24 Hours (Table) 01/04/19 Range/Units 06:50 RBC 3.90 L (4.30-5.90) m/uL Hgb 11.5 L (13.0-17.5) gm/dL Hct 36.9 L (39.0-53.0) % Plt Count 575 H (150-450) k/uL Assessment and Plan Assessment: Acute and chronic right pneumothorax, status post right-sided chest tube drainage. tachycardia History of previous 10-15% pneumothorax on the right side Chronic obstructive pulmonary disease, not in acute exacerbation History of bipolar depression, not an active issue History of nicotine dependence Severe protein calorie malnutrition with BMI of 17.9 Plan: This is a pleasant 63 years old male who presents with recurrent right side pneumothorax, his status post chest tube placement. His been followed closely by pulmonary and cardiothoracic surgery.Labs and medication were reviewed.. Continue same treatment. Continue with symptomatic treatment. Resume home medication. Monitor lytes and vitals. DVT and GI prophylaxis. Further recommendations of the clinical course of the patient DVT prophylaxis: Subcutaneous heparin GI Prophylaxis: Ppi Prognosis is guarded
[2019-01-04] MEDS: SODIUM CHLORIDE 0.9% 1,000 ML IV SCH (14:12)
--- NOTE | 2019-01-04 14:56 | P.PN ---
Subjective Progress Note Date: 01/04/19 Principal diagnosis: Dyspnea with right-sided chest pain, related to significant right-sided pneumothorax, status post chest tube placement This is a very pleasant 63-year-old gentleman who follows with Dr. Coombs as his primary care physician. He has a previous history of chronic tobacco dependence quitting in 2018, chronic obstructive pulmonary disease, chronic right-sided pn eumothorax of 10-15% and the right chest. He was seen in our office yesterday with complaints of increasing shortness of breath and right-sided chest discomfort. A chest x-ray revealed a significant right-sided pneumothorax. He was referred to the emergency room for chest tube placement. Computed tomography scan of the chest revealed a large right-sided pneumothorax occupying the lower two thirds of the right hemithorax. There is also significant bulla and bleb formation seen within the lung. Chest tube was placed in the emergency room. He is seen today on the selective care unit and consultation. He is currently resting fairly comfortable in bed. He is awake and alert in no acute distress. He is maintaining high 90s on 4 L/m per nasal cannula. He's been afebrile. Digital site pain but no significant chest discomfort. White count 11.3. Hemoglobin 14.2. Creatinine 1.04. He's been initiated and DuoNeb inhalations, Symbicort. Today's chest x-ray shows improved right hydro pneumothorax with extensive underlying bullous emphysema. On 12/21/2018 patient seen in follow-up. He is awake and alert, in no acute distress, room air pulse ox is 97%, no fever or chills, right-sided chest tube is in place, is continuous air leak still present, today's chest x-ray has been reviewed with Dr. Gonzalez, shows COPD with stable right-sided hydropneumothorax. There is serosanguineous output in the Pleur-evac, and there has been 70 mL of output in last 24 hours. He is working on his incentive spirometer. Denies any specific complaints. She surgery is following, increase activity as tolerated. On 12/22/2016 patient seen in follow-up on medical surgical floor. Right-sided chest tube still has a significant air leak. Patient is on 2 L of oxygen, with pulse ox of 98%, afebrile, hemodynamically stable, he is up in the recliner today, no significant pain from the chest tube site, no specific complaints, he is working on his incentive spirometer. He's achieving 1000 mL on his incentive spirometer. Left-sided pleural chest tube remains to wall suction, and 40 mL of serosanguineous output in the Pleur-evac. On 12/25/2018 patient seen in follow-up on medical surgical floor. She is resting comfortably in bed, in no acute distress, there is a persistent air leak from the right-sided chest tube, today's chest x-ray has been reviewed, shows persistent right basilar loculated pneumothorax. Denies any pain, denies any pacific complaints, remains on 2 L of oxygen, lung sounds are diminished at the right base otherwise are clear. His spirometry effort is 1250 ML. Tolerating oral diet, he is voiding, for now has only been up in the chair, has not ambulated much. His labs have been reviewed, and are unremarkable. On 12/26/2018 patient seen in follow-up on medical surgical floor. Right-sided chest tube still has a persistent leak, patient remains on 2 L of oxygen with a pulse ox of 96%, afebrile, hemodynamics are stable, today's chest x-ray shows stable right basilar left pneumothorax. No acute complaints, patient is working on incentive spirometer, able to achieve 6595-6425 mL. Patient is scheduled for right VATS with the stapling of the blebs in the pleurodesis on . She surgery is following. No acute events overnight. Patient does experience some discomfort in the right chest with deep breathing and moving, but no acute distress. On 12/27/2018 patient seen in follow-up on medical surgical floor. He sitting up in the recliner, currently cleaning up, taken a sponge bath, right-sided chest tube has a persistent leak, chest x-ray was reviewed and shows a right- sided chest tube in good location, some improvement in the suspected loculated pneumothorax at the right base, lung remains reinflated, with continuous leak. Patient is scheduled for a right-sided VATS bleb stapling tomorrow with Dr. Quevedo. Otherwise hemodynamically stable, no acute complaints, his pain is controlled, he is working on his incentive spirometer. On 12/28/2018 patient seen in follow-up in medical surgical floor. He is awake and alert, in no acute distress, he is right-sided VATS is scheduled for today for 11:[address] Quevedo. Right-sided chest tube remains in place, with intermittent air leak, seems to have decreased from yesterday. Hemoglobin and the patient is stable, vital signs are stable, afebrile, remains on 2 L of oxygen with a pulse ox of 97%. No complaints of pain, no acute events overnight. Today's lab work has been reviewed, and is unremarkable. On 12/29/2018 patient seen in follow-up on selective care unit, right-sided chest tube is in place, with the continuous air leak. Today is postop day 1, post right-sided VATS, lysis of pleural adhesions, stapling of the blebs, and talc pleurodesis. He is working on his incentive spirometer, he is able to achieve thousand and melena today. States his pain is reasonably well controlled. He is on 3 L of oxygen with a pulse ox of 97%, today's chest x-ray has been reviewed and showed right-sided pneumothorax of 50% with stable placement of a right thoracostomy tube. On 12/31/2018 ration seen in follow-up on selective care unit, she is resting quietly in bed, in no acute distress, right-sided chest tube is in place, and are still persistent air leak, today's chest x-ray shows persistence of right apical pneumothorax, lung sounds reveal coarse rhonchi over right lung, clear on the left. He is working on his incentive spirometer, he denies any pain. Biopsy results are pending. His lab work has been noted. Chest X-ray has been reviewed with Dr. Byrnes. On 01/01/2019 patient seen in follow-up on selective care unit, he is awake and alert, resting comfortably in bed, in no acute distress, remains on 3 L of oxygen with a pulse ox of 97%, he is afebrile, right-sided chest tube is in place, with continuous air leak. Today's chest x-ray has been reviewed by Dr. Andrews and showed a small increase in size the right apical pneumothorax, patient is working on his incentive spirometer, he denies any pain or discomfort, lung sounds reveal coarse rhonchi over right lung, there are on the left. Wedge biopsy is still pending, today's labs have been noted. No acute events overnight, we'll continue to follow. On 01/04/2019 patient seen in follow-up in selective care unit, he is awake and alert, he is resting in bed, is on supplemental oxygen on 2 L of oxygen, with a pulse ox of 98%, he is afebrile, hemodynamically stable, right-sided chest tube continued with persistent leak. His chest x-ray has been reviewed today, and showed persistent small to moderate right apical pneumothorax that has not significantly changed. Patchy bibasilar areas of atelectasis. Right side chest tube remains to wall suction. She does work on his incentive spirometer, he is able to achieve 1500 ML on it today. Lung sounds are diminished bilaterally, he does have 5 chest wall soreness on the right, which is reasonably controlled, has been able to ambulate in the room, mainly to the bathroom and back and tolerated activity very well. Surgical pathology revealed bullous pulmonary emphysema with focal subacute infarction, interstitial and pleural fibrosis. No cytologically malignant cells. Objective - Vital Signs Vital signs: Vital Signs Temp 98.0 F 01/04/19 10:38 Pulse 100 01/04/19 13:44 Resp 20 01/04/19 10:38 BP 98/65 01/04/19 10:38 Pulse Ox 98 01/04/19 10:38 Intake & Output 01/03/19 01/04/19 01/04/19 18:59 06:59 18:59 Intake Total 720 100 Output Total 550 430 750 Balance 170 -330 -750 Intake: Oral 720 100 Output: Chest Tube Drainage 50 130 Chest Tube Right Mid- 50 130 Axillary Chest Urine 500 300 750 Other: Voiding Method Urinal Urinal # Voids 3 - Exam GENERAL EXAM: Alert, pleasant, 63-year-old white male, comfortable in no apparent distress. HEAD: Normocephalic/atraumatic. EYES: Normal reaction of pupils, equal size. Conjunctiva pink, sclera white. NOSE: Clear with pink turbinates. THROAT: No erythema or exudates. NECK: No masses, no JVD, no thyroid enlargement, no adenopathy. CHEST: No chest wall deformity. Symmetrical expansion. Right-sided chest tube is present, connected to Pleur-evac and wall suction, and there is a continuous air leak noted, there is a moderate amount of serosanguineous output in the Pleur-evac LUNGS: Equal air entry with diminished breath sounds on the right, her breath sounds on the left CVS: Regular rate and rhythm, normal S1 and S2, no gallops, no murmurs, no rubs ABDOMEN: Soft, nontender. No hepatosplenomegaly, normal bowel sounds, no guarding or rigidity. EXTREMITIES: No clubbing, no edema, no cyanosis, 2+ pulses and upper and lower extremities. MUSCULOSKELETAL: Muscle strength and tone normal. SPINE: No scoliosis or deformity SKIN: No rashes CENTRAL NERVOUS SYSTEM: Alert and oriented -3. No focal deficits, tone is normal in all 4 extremities. PSYCHIATRIC: Alert and oriented -3. Appropriate affect. Intact judgment and insight. - Labs CBC & Chem 7: 01/04/19 06:50 01/04/19 06:50 Labs: Abnormal Lab Results - Last 24 Hours (Table) 01/04/19 Range/Units 06:50 RBC 3.90 L (4.30-5.90) m/uL Hgb 11.5 L (13.0-17.5) gm/dL Hct 36.9 L (39.0-53.0) % Plt Count 575 H (150-450) k/uL Assessment and Plan Plan: Assessment: #1 Dyspnea with pain in a patient found to have significant right-sided pneumothorax, status post chest tube placement, status post right-sided thoracoscopy with lysis of adhesions, stapling of blebs, talc pleurodesis. Postop chest x-ray showed a 50% pneumothorax on the right with the replacement of the thoracostomy tube. On 12/31/[address], with persistent air leak, chest x-ray shows decreasing apical pneumothorax On 01/01/2019 right-sided chest tube remains in place with continuous persistent air leak, and chest x-ray shows some worsening in the appearance of the size of the apical pneumothorax on the right side #2 History of chronic 10-15% right-sided pneumothorax. #3 History of significant bullous emphysema. #4 history of chronic obstructive pulmonary disease, currently inactive and stable. #5 Chronic tobacco dependence, quit in 2018. #6 History of bipolar disorder. Plan: continue with current medical treatment, etc. chest tube continues to have persistent air leak, will remain to wall suction, encourage deep breathing and coughing, today's chest x-ray shows stable right apical pneumothorax, not significantly changed. Continue with pain control, ambulation in the room. We'll continue to follow with CT surgery. I performed a history & physical examination of the patient and discussed their management with my nurse practitioner, Vernell Winston. I reviewed the nurse practitioner's note and agree with the documented findings and plan of care. Lung sounds are positive for diminished breath sounds on the right, clear breath sounds in the left. The findings and the impression was discussed with the patient. I attest to the documentation by the nurse practitioner. Time with Patient: Less than 30
[2019-01-04] MEDS: HYDROcodone/APAP 5-325MG 1 EACH TAB PO PRN (20:42)
[2019-01-05] MEDS: SODIUM CHLORIDE 0.9% 1,000 ML IV SCH (03:46)
[2019-01-05] MEDS: PANTOPRAZOLE 40 MG TABLET PO SCH (06:11)
--- NOTE | 2019-01-05 07:38 | XR ---
EXAMINATION TYPE: XR chest 1V portable DATE OF EXAM: 01/05/2019 COMPARISON: 01/04/2019 INDICATION: Pneumothorax TECHNIQUE: Single frontal view of the chest is obtained. FINDINGS: The heart size is normal. The pulmonary vasculature is normal. On lung nodule may be at the right lung base. The adjacent loculated pneumothorax remains present. A right apical pneumothorax remains present which has increased in size over the interval. Right-sided chest tube remains in position. IMPRESSION: 1. Increasing size right apical pneumothorax. 2. Loculated right costophrenic angle pneumothorax with an adjacent nodule, present previously. A [place] critical message alert has been initiated for Ruth Rick via the [employer] al Results System on 01/05/2019 7:35 AM. This message alert has been sent to Ruth Rick via the prefe rences provided by the clinician for the receipt of Radiology Critical Findings. Message ID [id number].
[2019-01-05 08:15] LABS: Basophils # (A) 0.2 k/uL (0-0.2); Basophils % (A) 2 %; Eosinophils # (A) 0.4 k/uL (0-0.7); Eosinophils % (A) 4 %; HCT 37.9 % (39.0-53.0); HGB 11.9 gm/dL (13.0-17.5); Lymphocytes # (A) 1.6 k/uL (1.0-4.8); Lymphocytes % (A) 15 %; MCH 29.3 pg (25.0-35.0); MCHC 31.3 g/dL (31.0-37.0); MCV 93.6 fL (80.0-100.0); Mean Platelet Volume 6.9; Monocytes # (A) 0.7 k/uL (0-1.0); Monocytes % (A) 6 %; Neutrophils % (A) 72 %; Platelet Count 663 k/uL (150-450); RBC 4.05 m/uL (4.30-5.90); RDW 13.5 % (11.5-15.5); WBC 11.1 k/uL (3.8-10.6)
[2019-01-05 08:19] LABS: Anion Gap 1 mmol/L; Blood Urea Nitrogen 15 mg/dL (9-20); Calcium 8.7 mg/dL (8.4-10.2); Carbon Dioxide 29 mmol/L (22-30); Chloride 106 mmol/L (98-107); Glucose 88 mg/dL (74-99); Potassium 5.1 mmol/L (3.5-5.1); Sodium 136 mmol/L (137-145)
[2019-01-05] MEDS: METOPROLOL TARTRATE 25 MG TAB PO SCH ×2 (08:38→20:09)
[2019-01-05] MEDS: TAMSULOSIN 0.4 MG CAP.ER.24H PO SCH (08:38)
[2019-01-05] MEDS: SENNOSIDES-DOCUSATE SODIUM 1 EACH TAB PO SCH ×2 (08:38→20:09)
[2019-01-05] MEDS: HEPARIN SODIUM,PORCINE 5,000 UNIT/ML 1 ML VIAL SQ SCH ×2 (08:38→20:09)
[2019-01-05] MEDS: MAGNESIUM HYDROXIDE 2,400 MG/10 ML CUP PO PRN ×2 (08:38→16:26)
[2019-01-05] MEDS: IPRATROPIUM-ALBUTEROL 3 ML NEB INHALATION SCH ×3 (10:00→20:31)
--- NOTE | 2019-01-05 11:45 | P.PN ---
Subjective Progress Note Date: 01/05/19 Principal diagnosis: Recurrent right-sided spontaneous pneumothorax with significant bullous emphysema, persistent bronchopleural fistula, status post right pleural thoracostomy tube placement by the emergency room physicians. Previous medical history of recurrent right pneumothoraces 2 in 2017, severe chronic obstructive pulmonary disease, history of tobacco dependence, quit smoking in September 2017, bipolar/depression, gastroesophageal reflux disease. POD #8 right thoracoscopy, lysis of pleural adhesions, stapling of blebs, talc pleurodesis with continuing air leak The patient is currently lying in bed with his head elevated. He is in no acute distress. Denies any complaints of pain or shortness of breath. Oxygen saturations 95% on room air. He remains afebrile and hemodynamically stable. Right pleural chest tube in place and was placed to -10 cm H2O continuous low wall suction yesterday. Continuous air leak is present. Draining thin serosanguineous drainage. Achieving 1500 mL on his incentive spirometry. Chest x-ray report this morning shows a continued right apical pneumothorax. Objective - Vital Signs Vital signs: Vital Signs Temp 98.1 F 01/05/19 04:00 Pulse 109 H 01/05/19 08:00 Resp 19 01/05/19 08:00 BP 119/70 01/05/19 08:00 Pulse Ox 95 01/05/19 08:00 Intake & Output 01/04/19 01/05/19 01/05/19 18:59 06:59 18:59 Intake Total 240 100 Output Total 1940 540 Balance -1700 -440 Intake: Oral 240 100 Output: Chest Tube Drainage 90 Chest Tube Right Mid- 90 Axillary Chest Drainage 90 Right Chest 90 Urine 1850 450 Other: Voiding Method Toilet Urinal # Voids 1 1 - Constitutional General appearance: Present: cooperative, no acute distress, thin - Respiratory Details: Lung sounds essentially diminished throughout. Respirations are symmetrical and nonlabored. Oxygen saturation are 95% on room air. Achieving 1500 mL on his incentive spirometry. Right pleural chest tube in place to low continuous wall suction -10 cm H2O. Continuous air leak is present. Draining thin se rosanguineous drainage, 70 mL output in the last 8 hours, 300 mL output in the last 24 hours. - Cardiovascular Details: Regular rhythm with tachycardic rate. S1 and S2 present, negative for S3, gallop or murmur. Remote telemetry showing sinus tachycardia heart rate 111. No edema is present. Knee-high sequential compression devices in place to his bilateral lower extremities. - Gastrointestinal Gastrointestinal Comment(s): Abdomen soft, nontender and nondistended. Active bowel sounds to all 4 abdominal quadrants. No guarding or rigidity. No organomegaly. Tolerating oral intake. - Genitourinary Genitourinary Comment(s): Voiding clear yellow urine. - Integumentary Integumentary Comment(s): Skin is warm and dry. No clubbing or cyanosis is present. Right pleural chest tube dressing clean, dry and intact. - Neurologic Neurologic: Present: CNII-XII intact - Musculoskeletal Musculoskeletal: Present: gait normal, generalized weakness, strength equal bilaterally - Psychiatric Psychiatric Comment(s): Flat affect. Psychiatric: Present: A&O x's 3, intact judgment & insight - Allied health notes Allied health notes reviewed: nursing - Labs CBC & Chem 7: 01/05/19 07:35 01/05/19 07:35 Labs: Abnormal Lab Results - Last 24 Hours (Table) 01/05/19 01/05/19 Range/Units 07:35 07:35 WBC 11.1 H (3.8-10.6) k/uL RBC 4.05 L (4.30-5.90) m/uL Hgb 11.9 L (13.0-17.5) gm/dL Hct 37.9 L (39.0-53.0) % Plt Count 663 H (150-450) k/uL Neutrophils # 8.0 H (1.3-7.7) k/uL Sodium 136 L (137-145) mmol/L - Imaging and Cardiology Chest x-ray: report reviewed, image reviewed (Mr.) Assessment and Plan Assessment: 1. Recurrent right-sided pneumothorax with significant bullous emphysema, status post right pleural thoracostomy tube placement by the emergency room physicians, status post right thoracoscopy with lysis of adhesions, stapling of blebs, and talc pleurodesis 2. Continued persistent air leak 3. History of recurrent right spontaneous pneumothoraces 2 in 2018 4. Severe COPD with bleb disease 5. Previous tobacco dependence 6. Bipolar/depression 7. GERD Plan: 1. Continue right pleural chest tube to continuous low wall suction. We will continue to monitor for resolution of air leak. 2. Continue to monitor daily x-rays. 3. Wean O2 as tolerated. Encourage incentive spirometry is 10 times every hour while awake. 4. Encourage and discuss the importance of continued smoking cessation. 5. Pain control with current medication regimen. 6. Increase activity, ambulate as tolerated. Patient may ambulate around the room. PT/OT following. 7. Bronchodilators per pulmonology. 8. GI/DVT prophylaxis. 9. Medical management of other comorbidities per primary care service. 10. More recommendations based on patient's clinical course. Time with Patient: Greater than 30
[2019-01-05] MEDS: SYMBICORT 160-4.5 MCG INHALER INHALATION SCH ×2 (12:03→20:32)
--- NOTE | 2019-01-05 14:21 | P.PN ---
Subjective Progress Note Date: 01/05/19 Principal diagnosis: Dyspnea with right-sided chest pain, related to significant right-sided pneumothorax, status post chest tube placement. Status post VATS procedure. This is a very pleasant 63-year-old gentleman who follows with Dr. Coombs as his primary care physician. He has a previous history of chronic tobacco dependence quitting in 2018, chronic obstructive pulmonary disease, chronic right-sided pneumothorax of 10-15% and the right chest. He was seen in our office yesterday with complaints of increasing shortness of breath and right-sided chest discomfort. A chest x-ray revealed a significant right-sided pneumothorax. He was referred to the emergency room for chest tube placement. Computed tomography scan of the chest revealed a large right-sided pneumothorax occupying the lower two thirds of the right hemithorax. There is also significant bulla and bleb formation seen within the lung. Chest tube was placed in the emergency room. He is seen today on the selective care unit and consultation. He is currently resting fairly comfortable in bed. He is awake and alert in no acute distress. He is maintaining high 90s on 4 L/m per nasal cannula. He's been afebrile. Digital site pain but no significant chest discomfort. White count 11.3. Hemoglobin 14.2. Creatinine 1.04. He's been initiated and DuoNeb inhalations, Symbicort. Today's chest x-ray shows improved right hydropneumothorax with extensive underlying bullous emphysema. Patient is seen today 12/30/2018 in follow-up on the selective care unit. He is now status post right-sided VATS procedure with lysis of pleural adhesions, stapling of blebs and top pleurodesis. Pathology pending. Chest tube remains in place. There is a continuous air leak today. Chest x-ray reveals persistent but slightly smaller moderate size right apical pneumothorax. He is currently awake and alert in no acute distress. Resting comfortably in bed. He is maintaining O2 saturations in the 90s on 2 L/m per nasal cannula. Working well with the incentive spirometer. He's been afebrile. Still tachycardic in the 110s-120s. White count 11.7. Hemoglobin 11.4. Creatinine 0.87. On 12/31/2018 ration seen in follow-up on selective care unit, she is resting quietly in bed, in no acute distress, right-sided chest tube is in place, and are still persistent air leak, today's chest x-ray shows persistence of right apical pneumothorax, lung sounds reveal coarse rhonchi over right lung, clear on the left. He is working on his incentive spirometer, he denies any pain. Biopsy results are pending. His lab work has been noted. Chest X-ray has been reviewed with Dr. Byrnes. On 01/01/2019 patient seen in follow-up on selective care unit, he is awake and alert, resting comfortably in bed, in no acute distress, remains on 3 L of oxygen with a pulse ox of 97%, he is afebrile, right-sided chest tube is in place, with continuous air leak. Today's chest x-ray has been reviewed by Dr. Andrews and showed a small increase in size the right apical pneumothorax, patient is working on his incentive spirometer, he denies any pain or discomfort, lung sounds reveal coarse rhonchi over right lung, there are on the left. Wedge biopsy is still pending, today's labs have been noted. No acute events o vernight, we'll continue to follow. Patient is seen today 01/02/2019 in follow-up on the selective care unit. He is awake and alert in no acute distress. Continues to maintain good O2 saturation in the upper 90s on 2 L/m per nasal cannula. He is afebrile. Hemodynamically stable. White count 8.4. Hemoglobin 11.2. Potassium 5.2. Creatinine 0.72. He remains on DuoNeb inhalations, Symbicort. Working with the incentive spirometer. Chest tube remains in place significant leak. Chest x-ray reveals a right-sided pneumothorax which has increased in size currently 4.9 cm versus 4.4 cm. There is a patchy right perihilar and right lower lobe infiltrate as well. Itchy density in the left medial lung base. Pathology was negative for malignancy. The patient is seen today 01/03/2019 in follow-up on the selective care unit. He is currently resting quite comfortably in bed. Awake and alert in no acute distress. His x-ray continues to reveal fluctuation in the right-sided pneumothorax mildly increased from prior. Multifocal right-sided atelectasis. Chest tube remains in place with continuous air leak. He is maintaining O2 saturations in the high 90s on 2 L/m per nasal cannula. He's been afebrile. Hemodynamically stable. Working well with the incentive spirometer. Sodium 1 39. Potassium 5.0. Creatinine 0.81. He remains on DuoNeb inhalations and Symbicort. Surgical pathology reveals bullous pulmonary emphysema with focal subacute infarction, interstitial and pleural fibrosis. No malignancy. The patient is seen today 01/05/2018 in follow-up on the selective care unit. He is currently sitting up in a chair at the bedside. Awake and alert in no acute distress. He is somewhat disappointed in his extended stay. Chest x-ray showing increasing right pneumothorax. His chest tube remains in place. There is continuous leak. He is maintaining good O2 saturations in the 90s on 3 L/m per nasal cannula. White count 11.1. Hemoglobin 11.9. Creatinine 0.68. He r emains on bronchodilators and Symbicort. Objective - Vital Signs Vital signs: Vital Signs Temp 98.1 F 01/05/19 04:00 Pulse 104 H 01/05/19 12:17 Resp 19 01/05/19 08:00 BP 119/70 01/05/19 08:00 Pulse Ox 95 01/05/19 08:00 Intake & Output 01/04/19 01/05/19 01/05/19 18:59 06:59 18:59 Intake Total 240 100 Output Total 1940 540 Balance -1700 -440 Intake: Oral 240 100 Output: Chest Tube Drainage 90 Chest Tube Right Mid- 90 Axillary Chest Drainage 90 Right Chest 90 Urine 1850 450 Other: Voiding Method Toilet Urinal # Voids 1 1 - Exam GENERAL EXAM: Alert, pleasant, frail cachectic 63-year-old male, comfortable in no apparent distress. On 3 L nasal cannula. HEAD: Normocephalic/atraumatic. EYES: Normal reaction of pupils, equal size. Conjunctiva pink, sclera white. NOSE: Clear with pink turbinates. THROAT: No erythema or exudates. NECK: No masses, no JVD, no thyroid enlargement, no adenopathy. CHEST: No chest wall deformity. Symmetrical expansion. Right-sided chest tube is present, connected to Pleur-evac and wall suction, and there is a continuous air leak noted. LUNGS: Equal air entry with diminished breath sounds on the right, her breath sounds on the left CVS: Regular rate and rhythm, normal S1 and S2, no gallops, no murmurs, no rubs ABDOMEN: Soft, nontender. No hepatosplenomegaly, normal bowel sounds, no guarding or rigidity. EXTREMITIES: No clubbing, no edema, no cyanosis, 2+ pulses and upper and lower extremities. MUSCULOSKELETAL: Muscle strength and tone normal. SPINE: No scoliosis or deformity SKIN: No rashes CENTRAL NERVOUS SYSTEM: No focal deficits, tone is normal in all 4 extremities. PSYCHIATRIC: Alert and oriented -3. Appropriate affect. Intact judgment and insight. - Labs CBC & Chem 7: 01/05/19 07:35 01/05/19 07:35 Labs: Abnormal Lab Results - Last 24 Hours (Table) 01/05/19 01/05/19 Range/Units 07:35 07:35 WBC 11.1 H (3.8-10.6) k/uL RBC 4.05 L (4.30-5.90) m/uL Hgb 11.9 L (13.0-17.5) gm/dL Hct 37.9 L (39.0-53.0) % Plt Count 663 H (150-450) k/uL Neutrophils # 8.0 H (1.3-7.7) k/uL Sodium 136 L (137-145) mmol/L Assessment and Plan Assessment: Impression: #1 Dyspnea with right-sided chest pain in a patient found to have significant right-sided pneumothorax, status post chest tube placement. Now status post right-sided thoracoscopy with lysis of adhesions, stapling of blebs, talc pleurodesis. Chest x-ray reveals persistent and larger right-sided pneumothorax, now 6.9 cm. #2 History of chronic 10-15% right-sided pneumothorax. #3 History of significant bullous emphysema. #4 history of chronic obstructive pulmonary disease, currently inactive and stable. #5 Chronic tobacco dependence, quit in 2018. #6 History of bipolar disorder. PLAn: The patient was seen and evaluated by Dr. Andrews Chest x-ray reviewed. Right- sided chest tube remains in place for now, continues with air leak. Remains on continuous low wall suction. Cardiothoracic following. Continue incentive spirometer and encourage cough and deep breathing exercises. Continue bronchodilators. Increase his activity as tolerated. We'll continue to follow and make further recommendations based on his clinical status. I, the cosigning physician, performed a history & physical examination of the patient. Lungs sounds are diminished breath sounds on the right. Maintaining good O2 saturations in the 90s on 2 L nasal cannula. I discussed the assessment and plan of care with my nurse practitioner, Venecia Crocker. I attest to the above note as dictated by her.
[2019-01-05] MEDS: HYDROcodone/APAP 5-325MG 1 EACH TAB PO PRN ×2 (16:26→22:25)
--- NOTE | 2019-01-05 17:42 | P.PN ---
Subjective This is a pleasant 63 years old male with past medical history of COPD, GERD, pneumothorax in September 2017. Presents because of signs symptoms of p neumothorax. This is status post chest tube placement on the right side. Is been followed closely by pulmonary and cardiothoracic surgery team. Currently patient is breathing quietly. perspiration is not labored. Pain is controlled. Still has chest tube in place. And still needs to be monitored general medical floor. Vitals stable, however his somewhat tachycardic around 110 but patient is afebrile and blood pressure is stable. Labs reviewed. 12/26/2018 Patient clinically stable, with no significant dyspnea. Cardiothoracic surgery team are planning for right-sided pleurodesis on this coming , 12/28/2018. Vitals and labs were reviewed. Subjective 01/01/2019 Patient lying in bed, not in respiratory distress. No chest pain or dyspnea. He still have right-sided chest tube with air leak. Pulmonology and cardiothoracic surgery R following the patient closely. No leukocytosis today. Vitals stable 01/02/2019 Patient clinically the same, with no dyspnea or chest pain. Still have left chest tube in place. Repeat chest x-ray showing a large pneumothorax today from 4.4 up to 4.9 cm. Pulmonary and cardiothoracic surgery R following the case. 01/03/2019 Patient remains stable with no dyspnea or chest pain. No other new complaints. Still has chest tube is in place. BMP was unremarkable. Chest x-ray: Mildly increased pneumothorax. Patient today developed tachycardia of heart rate of 150 while walking. EKG was checked and showing:sinus tachycardia. pt is started on normal saline , mg and K level were checked and they are acceptable, pt is with no chest pain or worsening dyspnea, . lopressor is started 01/04/2019 Patient most in bed comfortable not in distress. He denies chest pain or dyspnea. Patient generally feels better with no specific abnormality or complained from last night when his heart rate went high up to 150. Patient already on Lopressor. Currently his heart rate is 102 pressure 98/65, is still on normal saline at 75 mL/h and will be lower today to 50 mL/h. Still has right-sided chest tube. Cardiothoracic surgery and pulmonary team are following the patient closely 01/05/2019 Patient remains lying in bed with chest tube on the right side. No Paige dyspnea or chest pain. His heart rate still slightly elevated. Patient remains on IV fluid. Patient is been followed by pulmonary and cardiothoracic surgery team Objective - Vital Signs Vital signs: Vital Signs Temp 97.7 F 01/05/19 12:00 Pulse 111 H 01/05/19 16:00 Resp 20 01/05/19 16:00 BP 110/68 01/05/19 16:00 Pulse Ox 100 01/05/19 16:00 Intake & Output 01/04/19 01/05/19 01/05/19 18:59 06:59 18:59 Intake Total 240 100 Output Total 1940 540 600 Balance -1700 -440 -600 Intake: Oral 240 100 Output: Chest Tube Drainage 90 Chest Tube Right Mid- 90 Axillary Chest Drainage 90 Right Chest 90 Urine 1850 450 600 Other: Voiding Method Toilet Urinal # Voids 1 1 2 - Exam GENERAL: The patient is alert and oriented x3, not in any acute distress. Well developed, well nourished. HEENT: Pupils are round and equally reacting to light. EOMI. No scleral icterus. No conjunctival pallor. Normocephalic, atraumatic. No pharyngeal erythema. No thyromegaly. CARDIOVASCULAR: S1 and S2 present. No murmurs, rubs, or gallops. -PULMONARY: Chest is clear to auscultation, no wheezing or crackles. Right chest tube ABDOMEN: Soft, nontender, nondistended, normoactive bowel sounds. No palpable organomegaly. MUSCULOSKELETAL: No joint swelling or deformity. EXTREMITIES: No cyanosis, clubbing, or pedal edema. NEUROLOGICAL: Gross neurological examination did not reveal any focal deficits. SKIN: No rashes. - Labs CBC & Chem 7: 01/05/19 07:35 01/05/19 07:35 Labs: Abnormal Lab Results - Last 24 Hours (Table) 01/05/19 01/05/19 Range/Units 07:35 07:35 WBC 11.1 H (3.8-10.6) k/uL RBC 4.05 L (4.30-5.90) m/uL Hgb 11.9 L (13.0-17.5) gm/dL Hct 37.9 L (39.0-53.0) % Plt Count 663 H (150-450) k/uL Neutrophils # 8.0 H (1.3-7.7) k/uL Sodium 136 L (137-145) mmol/L Assessment and Plan Assessment: Acute and chronic right pneumothorax, status post right-sided chest tube drainage. tachycardia History of previous 10-15% pneumothorax on the right side Chronic obstructive pulmonary disease, not in acute exacerbation History of bipolar depression, not an active issue History of nicotine dependence Severe protein calorie malnutrition with BMI of 17.9 Plan: This is a pleasant 63 years old male who presents with recurrent right side pneumothorax, his status post chest tube placement. His been followed closely by pulmonary and cardiothoracic surgery.Labs and medication were reviewed.. Continue same treatment. Continue with symptomatic treatment. Resume home medication. Monitor lytes and vitals. DVT and GI prophylaxis. Further recommendations of the clinical course of the patient DVT prophylaxis: Subcutaneous heparin GI Prophylaxis: Ppi Prognosis is guarded
[2019-01-05] MEDS: ALPRAZolam 0.25 MG TAB PO PRN (20:16)
[2019-01-06] MEDS: PANTOPRAZOLE 40 MG TABLET PO SCH (06:22)
[2019-01-06] MEDS: HYDROcodone/APAP 5-325MG 1 EACH TAB PO PRN ×3 (06:22→23:15)
--- NOTE | 2019-01-06 06:39 | XR ---
EXAMINATION TYPE: XR chest 1V portable DATE OF EXAM: 01/06/2019 HISTORY: Postoperative right VATS. REFERENCE: Previous study dated 01/05/2019. FINDINGS: A right pleural drain remains in place. There is a loculated pneumothorax on the right. This is unchanged in size from the previous examinati on. There is increasing right basilar airspace disease. There is a small right effusion. There is und erlying COPD. Heart size upper limits of normal. IMPRESSION: 1. COPD. 2. STABLE, LOCULATED RIGHT APICAL PNEUMOTHORAX. 3. WORSENING RIGHT BASILAR AIRSPACE DISEASE.
[2019-01-06 07:13] LABS: Anion Gap 5 mmol/L; Blood Urea Nitrogen 17 mg/dL (9-20); Calcium 8.5 mg/dL (8.4-10.2); Carbon Dioxide 25 mmol/L (22-30); Chloride 104 mmol/L (98-107); Glucose 86 mg/dL (74-99); Potassium 4.7 mmol/L (3.5-5.1); Sodium 134 mmol/L (137-145)
[2019-01-06] MEDS: SYMBICORT 160-4.5 MCG INHALER INHALATION SCH ×2 (07:58→19:40)
[2019-01-06] MEDS: IPRATROPIUM-ALBUTEROL 3 ML NEB INHALATION SCH ×3 (07:58→19:40)
[2019-01-06] MEDS: TAMSULOSIN 0.4 MG CAP.ER.24H PO SCH (08:35)
[2019-01-06] MEDS: METOPROLOL TARTRATE 25 MG TAB PO SCH ×2 (08:35→20:22)
[2019-01-06] MEDS: HEPARIN SODIUM,PORCINE 5,000 UNIT/ML 1 ML VIAL SQ SCH ×2 (08:35→20:22)
[2019-01-06] MEDS: SENNOSIDES-DOCUSATE SODIUM 1 EACH TAB PO SCH ×2 (08:35→20:22)
[2019-01-06] MEDS: MAGNESIUM HYDROXIDE 2,400 MG/10 ML CUP PO PRN (08:36)
--- NOTE | 2019-01-06 10:10 | P.PN ---
Subjective Progress Note Date: 01/06/19 Principal diagnosis: Recurrent right-sided spontaneous pneumothorax with significant bullous emphysema, persistent bronchopleural fistula, status post right pleural thoracostomy tube placement by the emergency room physicians. Previous medical history of recurrent right pneumothoraces 2 in 2018, severe chronic obstructive pulmonary disease, history of tobacco dependence, quit smoking in September 2017, bipolar/depression, gastroesophageal reflux disease. POD #9 right thoracoscopy, lysis of pleural adhesions, stapling of blebs, talc pleurodesis with continuing air leak The patient is currently lying in bed with his head elevated. He is in no acute distress. Eating his breakfast without difficulty. Denies any complaints of pain or shortness of breath. Oxygen saturations 92% on room air. He remains afebrile and hemodynamically stable. Right pleural chest tube in place and was placed to -10 cm H2O continuous low wall suction yesterday. Continuous air leak is present. Draining thin serosanguineous drainage. Achieving 1250 mL on his incentive spirometry. Chest x-ray report this morning shows a continued stable right apical pneumothorax. Objective - Vital Signs Vital signs: Vital Signs Temp 98.1 F 01/06/19 07:13 Pulse 117 H 01/06/19 08:00 Resp 20 01/06/19 08:00 BP 100/59 01/06/19 07:13 Pulse Ox 92 L 01/06/19 07:13 Intake & Output 01/05/19 01/06/19 01/06/19 18:59 06:59 18:59 Intake Total 200 500 250 Output Total 1500 1300 490 Balance -1300 -800 -240 Weight 56.8 kg Intake: IV 10 Invasive Line 5 10 Intake, IV Titration 500 Amount Sodium Chloride 0.9% 1, 500 000 ml @ 50 mls/hr IV . [facility] Rx#:[id number] Oral 200 240 Output: Chest Tube Drainage 40 Chest Tube Right Mid- 40 Axillary Chest Drainage 100 Right Chest 100 Urine 1500 1200 450 Other: Voiding Method Toilet Toilet Urinal Urinal # Voids 2 2 1 - Constitutional General appearance: Present: cooperative, no acute distress, thin - Respiratory Details: Lung sounds are essentially diminished throughout. Respirations are symmetrical and nonlabored. Oxygen saturation are 92% on room air. Right pleural chest tube in place to low continuous wall suction -10 cm H2O. Draining thin serosanguineous drainage. Continuous air leak is present. 230 mL output the last 24 hours. Achieving 1250 mL on his incentive spirometry. - Cardiovascular Details: Regular rhythm and tachycardic rate. S1 and S2 present, negative for S3, gallop or murmur. Remote telemetry showing sinus tachycardia heart rate 122. No edema present. Knee-high sequential compression devices in place to his bilateral lower extremities. - Gastrointestinal Gastrointestinal Comment(s): Abdomen is soft, nontender and nondistended. Active bowel sounds all 4 quadrants. No guarding or rigidity. No organomegaly. Tolerating oral intake. Passing flatus. - Genitourinary Genitourinary Comment(s): Voiding clear yellow urine. - Integumentary Integumentary Comment(s): Skin is warm and dry. No clubbing or cyanosis is present. Right VATS incisions clean, dry and approximated. No drainage or redness is present. Right pleural chest tube dressing clean, dry and intact. - Neurologic Neurologic: Present: CNII-XII intact - Musculoskeletal Musculoskeletal: Present: gait normal, generalized weakness, strength equal bilaterally - Psychiatric Psychiatric: Present: A&O x's 3, appropriate affect, intact judgment & insight - Allied health notes Allied health notes reviewed: nursing - Labs CBC & Chem 7: 01/05/19 07:35 01/06/19 06:33 Labs: Abnormal Lab Results - Last 24 Hours (Table) 01/06/19 Range/Units 06:33 Sodium 134 L (137-145) mmol/L - Imaging and Cardiology Chest x-ray: report reviewed, image reviewed Assessment and Plan Assessment: 1. Recurrent right-sided pneumothorax with significant bullous emphysema, status post right pleural thoracostomy tube placement by the emergency room physicians, status post right thoracoscopy with lysis of adhesions, stapling of blebs, and talc pleurodesis 2. Continued persistent air leak 3. History of recurrent right spontaneous pneumothoraces 2 in 2018 4. Severe COPD with bleb disease 5. Previous tobacco dependence 6. Bipolar/depression 7. GERD Plan: 1. Continue right pleural chest tube to continuous low wall suction -10 cm H2O. We will continue to monitor for resolution of air leak. 2. Continue to monitor daily x-rays. 3. Wean O2 as tolerated. Encourage incentive spirometry is 10 times every hour while awake. 4. Encourage and discuss the importance of continued smoking cessation. 5. Pain control with current medication regimen. 6. Increase activity, ambulate as tolerated. Patient may ambulate around the room. PT/OT following. Out of bed for all meals. 7. Bronchodilators per pulmonology. 8. GI/DVT prophylaxis. 9. Medical management of other comorbidities per primary care service. 10. More recommendations based on patient's clinical course. Time with Patient: Greater than 30
--- NOTE | 2019-01-06 12:50 | P.PN ---
Subjective Progress Note Date: 01/06/19 Principal diagnosis: Dyspnea with right-sided chest pain, related to significant right-sided pneumothorax, status post chest tube placement. Status post VATS procedure. This is a very pleasant 63-year-old gentleman who follows with Dr. Coombs as his primary care physician. He has a previous history of chronic tobacco dependence quitting in 2018, chronic obstructive pulmonary disease, chronic right-sided pneumothorax of 10-15% and the right chest. He was seen in our office yesterday with complaints of increasing shortness of breath and right-sided chest discomfort. A chest x-ray revealed a significant right-sided pneumothorax. He was referred to the emergency room for chest tube placement. Computed tomography scan of the chest revealed a large right-sided pneumothorax occupying the lower two thirds of the right hemithorax. There is also significant bulla and bleb formation seen within the lung. Chest tube was placed in the emergency room. He is seen today on the selective care unit and consultation. He is currently resting fairly comfortable in bed. He is awake and alert in no acute distress. He is maintaining high 90s on 4 L/m per nasal cannula. He's been afebrile. Digital site pain but no significant chest discomfort. White count 11.3. Hemoglobin 14.2. Creatinine 1.04. He's been initiated and DuoNeb inhalations, Symbicort. Today's chest x-ray shows improved right hydropneumothorax with extensive underlying bullous emphysema. Patient is seen today 12/30/2018 in follow-up on the selective care unit. He is now status post right-sided VATS procedure with lysis of pleural adhesions, stapling of blebs and top pleurodesis. Pathology pending. Chest tube remains in place. There is a continuous air leak today. Chest x-ray reveals persistent but slightly smaller moderate size right apical pneumothorax. He is currently awake and alert in no acute distress. Resting comfortably in bed. He is maintaining O2 saturations in the 90s on 2 L/m per nasal cannula. Working well with the incentive spirometer. He's been afebrile. Still tachycardic in the 110s-120s. White count 11.7. Hemoglobin 11.4. Creatinine 0.87. On 12/31/2018 ration seen in follow-up on selective care unit, she is resting quietly in bed, in no acute distress, right-sided chest tube is in place, and are still persistent air leak, today's chest x-ray shows persistence of right apical pneumothorax, lung sounds reveal coarse rhonchi over right lung, clear on the left. He is working on his incentive spirometer, he denies any pain. Biopsy results are pending. His lab work has been noted. Chest X-ray has been reviewed with Dr. Byrnes. On 01/01/2019 patient seen in follow-up on selective care unit, he is awake and alert, resting comfortably in bed, in no acute distress, remains on 3 L of oxygen with a pulse ox of 97%, he is afebrile, right-sided chest tube is in place, with continuous air leak. Today's chest x-ray has been reviewed by Dr. Andrews and showed a small increase in size the right apical pneumothorax, patient is working on his incentive spirometer, he denies any pain or discomfort, lung sounds reveal coarse rhonchi over right lung, there are on the left. Wedge biopsy is still pending, today's labs have been noted. No acute events o vernight, we'll continue to follow. Patient is seen today 01/02/2019 in follow-up on the selective care unit. He is awake and alert in no acute distress. Continues to maintain good O2 saturation in the upper 90s on 2 L/m per nasal cannula. He is afebrile. Hemodynamically stable. White count 8.4. Hemoglobin 11.2. Potassium 5.2. Creatinine 0.72. He remains on DuoNeb inhalations, Symbicort. Working with the incentive spirometer. Chest tube remains in place significant leak. Chest x-ray reveals a right-sided pneumothorax which has increased in size currently 4.9 cm versus 4.4 cm. There is a patchy right perihilar and right lower lobe infiltrate as well. Itchy density in the left medial lung base. Pathology was negative for malignancy. The patient is seen today 01/03/2019 in follow-up on the selective care unit. He is currently resting quite comfortably in bed. Awake and alert in no acute distress. His x-ray continues to reveal fluctuation in the right-sided pneumothorax mildly increased from prior. Multifocal right-sided atelectasis. Chest tube remains in place with continuous air leak. He is maintaining O2 saturations in the high 90s on 2 L/m per nasal cannula. He's been afebrile. Hemodynamically stable. Working well with the incentive spirometer. Sodium 1 39. Potassium 5.0. Creatinine 0.81. He remains on DuoNeb inhalations and Symbicort. Surgical pathology reveals bullous pulmonary emphysema with focal subacute infarction, interstitial and pleural fibrosis. No malignancy. The patient is seen today 01/05/2019 in follow-up on the selective care unit. He is currently sitting up in a chair at the bedside. Awake and alert in no acute distress. He is somewhat disappointed in his extended stay. Chest x-ray showing increasing right pneumothorax. His chest tube remains in place. There is continuous leak. He is maintaining good O2 saturations in the 90s on 3 L/m per nasal cannula. White count 11.1. Hemoglobin 11.9. Creatinine 0.68. He r emains on bronchodilators and Symbicort. The patient is seen again today 01/06/2019 in follow-up on the selective care unit. Currently resting comfortably in bed. No pulmonary complaints. Maintai saloni O2 saturations in the 90s on room air. He's been afebrile. Hemodynamically stable. Sodium 134. Potassium 4.7. Creatinine 0.69. Chest x- ray reveals evidence of significant COPD with a stable, loculated right apical pneumothorax. There is worsening right basilar airspace disease. Chest tube remains in place. There is a significant air leak still. Objective - Vital Signs Vital signs: Vital Signs Temp 97.7 F 01/06/19 12:00 Pulse 100 01/06/19 12:00 Resp 14 01/06/19 12:00 BP 108/54 01/06/19 12:00 Pulse Ox 92 L 01/06/19 12:00 Intake & Output 01/05/19 01/06/19 01/06/19 18:59 06:59 18:59 Intake Total 200 500 260 Output Total 1500 1300 520 Balance -1300 -800 -260 Weight 56.8 kg Intake: IV 20 Invasive Line 5 20 Intake, IV Titration 500 Amount Sodium Chloride 0.9% 1, 500 000 ml @ 50 mls/hr IV . Q20H [facility] Rx#:[id number] Oral 200 240 Output: Chest Tube Drainage 70 Chest Tube Right Mid- 70 Axillary Chest Drainage 100 Right Chest 100 Urine 1500 1200 450 Other: Voiding Method Toilet Toilet Urinal Urinal # Voids 2 2 1 - Exam GENERAL EXAM: Alert, pleasant, frail cachectic 63-year-old male, comfortable in no apparent distress. On room air. HEAD: Normocephalic/atraumatic. EYES: Normal reaction of pupils, equal size. Conjunctiva pink, sclera white. NOSE: Clear with pink turbinates. THROAT: No erythema or exudates. NECK: No masses, no JVD, no thyroid enlargement, no adenopathy. CHEST: No chest wall deformity. Symmetrical expansion. Right-sided chest tube is present, connected to Pleur-evac and wall suction, and there is a continuous air leak noted. LUNGS: Equal air entry with diminished breath sounds on the right, her breath sounds on the left CVS: Regular rate and rhythm, normal S1 and S2, no gallops, no murmurs, no rubs ABDOMEN: Soft, nontender. No hepatosplenomegaly, normal bowel sounds, no guarding or rigidity. EXTREMITIES: No clubbing, no edema, no cyanosis, 2+ pulses and upper and lower extremities. MUSCULOSKELETAL: Muscle strength and tone normal. SPINE: No scoliosis or deformity SKIN: No rashes CENTRAL NERVOUS SYSTEM: No focal deficits, tone is normal in all 4 extremities. PSYCHIATRIC: Alert and oriented -3. Appropriate affect. Intact judgment and insight. - Labs CBC & Chem 7: 01/05/19 07:35 01/06/19 06:33 Labs: Abnormal Lab Results - Last 24 Hours (Table) 01/06/19 Range/Units 06:33 Sodium 134 L (137-145) mmol/L Assessment and Plan Assessment: Impression: #1 Dyspnea with right-sided chest pain in a patient found to have significant right-sided pneumothorax, status post chest tube placement. Now status post right-sided thoracoscopy with lysis of adhesions, stapling of blebs, talc pleurodesis. Chest x-ray reveals persistent and larger right-sided pneum othorax, now 6.9 cm. #2 History of chronic 10-15% right-sided pneumothorax. #3 History of significant bullous emphysema. #4 history of chronic obstructive pulmonary disease, currently inactive and stable. #5 Chronic tobacco dependence, quit in 2018. #6 History of bipolar disorder. PLAn: The patient was seen and evaluated by Dr. Andrews Chest x-ray reviewed. Right- sided chest tube remains in place for now, continues with air leak. Remains on continuous low wall suction. Continue incentive spirometer and encourage cough and deep breathing exercises. Currently pulling 1250 ML's. Continue bronchodilators. Increase his activity as tolerated. We'll continue to follow and make further recommendations based on his clinical status. I, the cosigning physician, performed a history & physical examination of the patient. Lungs sounds are diminished breath sounds on the right. Maintaining good O2 saturations in the 90s on room air. I discussed the assessment and plan of care with my nurse practitioner, Venecia Crocker. I attest to the above note as dictated by her.
--- NOTE | 2019-01-06 18:19 | P.PN ---
Subjective This is a pleasant 63 years old male with past medical history of COPD, GERD, pneumothorax in September 2017. Presents because of signs symptoms of p neumothorax. This is status post chest tube placement on the right side. Is been followed closely by pulmonary and cardiothoracic surgery team. Currently patient is breathing quietly. perspiration is not labored. Pain is controlled. Still has chest tube in place. And still needs to be monitored general medical floor. Vitals stable, however his somewhat tachycardic around 110 but patient is afebrile and blood pressure is stable. Labs reviewed. 12/26/2018 Patient clinically stable, with no significant dyspnea. Cardiothoracic surgery team are planning for right-sided pleurodesis on this coming , 12/28/2018. Vitals and labs were reviewed. Subjective 01/01/2019 Patient lying in bed, not in respiratory distress. No chest pain or dyspnea. He still have right-sided chest tube with air leak. Pulmonology and cardiothoracic surgery R following the patient closely. No leukocytosis today. Vitals stable 01/02/2019 Patient clinically the same, with no dyspnea or chest pain. Still have left chest tube in place. Repeat chest x-ray showing a large pneumothorax today from 4.4 up to 4.9 cm. Pulmonary and cardiothoracic surgery R following the case. 01/03/2019 Patient remains stable with no dyspnea or chest pain. No other new complaints. Still has chest tube is in place. BMP was unremarkable. Chest x-ray: Mildly increased pneumothorax. Patient today developed tachycardia of heart rate of 150 while walking. EKG was checked and showing:sinus tachycardia. pt is started on normal saline , mg and K level were checked and they are acceptable, pt is with no chest pain or worsening dyspnea, . lopressor is started 01/04/2019 Patient most in bed comfortable not in distress. He denies chest pain or dyspnea. Patient generally feels better with no specific abnormality or complained from last night when his heart rate went high up to 150. Patient already on Lopressor. Currently his heart rate is 102 pressure 98/65, is still on normal saline at 75 mL/h and will be lower today to 50 mL/h. Still has right-sided chest tube. Cardiothoracic surgery and pulmonary team are following the patient closely 01/05/2019 Patient remains lying in bed with chest tube on the right side. No Paige dyspnea or chest pain. His heart rate still slightly elevated. Patient remains on IV fluid. Patient is been followed by pulmonary and cardiothoracic surgery team 01/06/2019 Patient remains lying in bed with chest tube on the right side. No Paige dyspnea or chest pain. His heart rate still slightly elevated. Patient remains on IV fluid. Patient is been followed by pulmonary and cardiothoracic surgery team. His tachycardia is same or little better. He is saturating 94% on room air. Chest x-ray: Stable pneumothorax but worsening right basilar airspace dise ase Objective - Vital Signs Vital signs: Vital Signs Temp 98.6 F 01/06/19 15:49 Pulse 110 H 01/06/19 15:49 Resp 14 01/06/19 15:49 BP 109/56 01/06/19 15:49 Pulse Ox 94 L 01/06/19 15:49 Intake & Output 01/05/19 01/06/19 01/06/19 18:59 06:59 18:59 Intake Total 992 346 1583 Output Total 1500 1300 570 Balance -1300 -800 780 Weight 56.8 kg Intake: IV 30 Invasive Line 5 30 Intake, IV Titration 500 Amount Sodium Chloride 0.9% 1, 500 000 ml @ 50 mls/hr IV . Q20H [facility] Rx#:[id number] Oral 200 1320 Output: Chest Tube Drainage 120 Chest Tube Right Mid- 120 Axillary Chest Drainage 100 Right Chest 100 Urine 1500 1200 450 Other: Voiding Method Toilet Toilet Urinal Urinal # Voids 2 2 500 - Exam GENERAL: The patient is alert and oriented x3, not in any acute distress. Well developed, well nourished. HEENT: Pupils are round and equally reacting to light. EOMI. No scleral icterus. No conjunctival pallor. Normocephalic, atraumatic. No pharyngeal erythema. No thyromegaly. CARDIOVASCULAR: S1 and S2 present. No murmurs, rubs, or gallops. -PULMONARY: Chest is clear to auscultation, no wheezing or crackles. Right chest tube ABDOMEN: Soft, nontender, nondistended, normoactive bowel sounds. No palpable organomegaly. MUSCULOSKELETAL: No joint swelling or deformity. EXTREMITIES: No cyanosis, clubbing, or pedal edema. NEUROLOGICAL: Gross neurological examination did not reveal any focal deficits. SKIN: No rashes. - Labs CBC & Chem 7: 01/05/19 07:35 01/06/19 06:33 Labs: Abnormal Lab Results - Last 24 Hours (Table) 01/06/19 Range/Units 06:33 Sodium 134 L (137-145) mmol/L Assessment and Plan Assessment: Acute and chronic right pneumothorax, status post right-sided chest tube drainage. tachycardia History of previous 10-15% pneumothorax on the right side Chronic obstructive pulmonary disease, not in acute exacerbation History of bipolar depression, not an active issue History of nicotine dependence Severe protein calorie malnutrition with BMI of 17.9 Plan: This is a pleasant 63 years old male who presents with recurrent right side pneumothorax, his status post chest tube placement. His been followed closely by pulmonary and cardiothoracic surgery.Labs and medication were reviewed.. Continue same treatment. Continue with symptomatic treatment. Resume home medication. Monitor lytes and vitals. DVT and GI prophylaxis. Further recommendations of the clinical course of the patient DVT prophylaxis: Subcutaneous heparin GI Prophylaxis: Ppi Prognosis is guarded
[2019-01-06] MEDS: ALPRAZolam 0.25 MG TAB PO PRN (20:22)
[2019-01-07] MEDS: PANTOPRAZOLE 40 MG TABLET PO SCH (06:46)
--- NOTE | 2019-01-07 06:51 | XR ---
EXAMINATION TYPE: XR chest 1V portable DATE OF EXAM: 01/07/2019 HISTORY: Right pneumothorax. REFERENCE: Previous study dated 01/06/2019. FINDINGS: Lung volumes are prominent. There continues to be a loculated pneumothorax on the right, un changed in appearance in size compared to previous. Right pleural drain is in place. There is worseni ng right basilar airspace disease. There is right-sided effusion. The heart is mildly prominent. IMPRESSION: 1. CONTINUING LOCULATED RIGHT APICAL PNEUMOTHORAX. 2. MILD CARDIOMEGALY. 3. COPD. 4. WORSENING RIGHT BASILAR AIRSPACE DISEASE.
[2019-01-07 07:02] LABS: Basophils # (A) 0.2 k/uL (0-0.2); Basophils % (A) 1 %; Eosinophils # (A) 0.2 k/uL (0-0.7); Eosinophils % (A) 1 %; HCT 37.8 % (39.0-53.0); HGB 11.9 gm/dL (13.0-17.5); Lymphocytes # (A) 1.8 k/uL (1.0-4.8); Lymphocytes % (A) 16 %; MCH 29.8 pg (25.0-35.0); MCHC 31.6 g/dL (31.0-37.0); MCV 94.4 fL (80.0-100.0); Mean Platelet Volume 6.7; Monocytes # (A) 0.8 k/uL (0-1.0); Monocytes % (A) 7 %; Neutrophils # (A) 8.1 k/uL (1.3-7.7); Neutrophils % (A) 71 %; Platelet Count 564 k/uL (150-450); RDW 13.2 % (11.5-15.5); WBC 11.3 k/uL (3.8-10.6)
[2019-01-07] MEDS: IPRATROPIUM-ALBUTEROL 3 ML NEB INHALATION SCH ×3 (07:32→19:12)
[2019-01-07] MEDS: SYMBICORT 160-4.5 MCG INHALER INHALATION SCH ×2 (07:32→19:12)
[2019-01-07] MEDS: HYDROcodone/APAP 5-325MG 1 EACH TAB PO PRN ×2 (07:59→18:14)
[2019-01-07] MEDS: METOPROLOL TARTRATE 25 MG TAB PO SCH ×2 (07:59→20:32)
[2019-01-07] MEDS: HEPARIN SODIUM,PORCINE 5,000 UNIT/ML 1 ML VIAL SQ SCH ×2 (07:59→20:32)
[2019-01-07] MEDS: MAGNESIUM HYDROXIDE 2,400 MG/10 ML CUP PO PRN ×2 (07:59→18:15)
[2019-01-07] MEDS: SENNOSIDES-DOCUSATE SODIUM 1 EACH TAB PO SCH ×2 (07:59→20:32)
[2019-01-07] MEDS: TAMSULOSIN 0.4 MG CAP.ER.24H PO SCH (07:59)
--- NOTE | 2019-01-07 09:25 | P.PN ---
Subjective This is a pleasant 63 years old male with past medical history of COPD, GERD, pneumothorax in September 2017. Presents because of signs symptoms of p neumothorax. This is status post chest tube placement on the right side. Is been followed closely by pulmonary and cardiothoracic surgery team. Currently patient is breathing quietly. perspiration is not labored. Pain is controlled. Still has chest tube in place. And still needs to be monitored general medical floor. Vitals stable, however his somewhat tachycardic around 110 but patient is afebrile and blood pressure is stable. Labs reviewed. 12/26/2018 Patient clinically stable, with no significant dyspnea. Cardiothoracic surgery team are planning for right-sided pleurodesis on this coming , 12/28/2018. Vitals and labs were reviewed. Subjective 01/01/2019 Patient lying in bed, not in respiratory distress. No chest pain or dyspnea. He still have right-sided chest tube with air leak. Pulmonology and cardiothoracic surgery R following the patient closely. No leukocytosis today. Vitals stable 01/02/2019 Patient clinically the same, with no dyspnea or chest pain. Still have left chest tube in place. Repeat chest x-ray showing a large pneumothorax today from 4.4 up to 4.9 cm. Pulmonary and cardiothoracic surgery R following the case. 01/03/2019 Patient remains stable with no dyspnea or chest pain. No other new complaints. Still has chest tube is in place. BMP was unremarkable. Chest x-ray: Mildly increased pneumothorax. Patient today developed tachycardia of heart rate of 150 while walking. EKG was checked and showing:sinus tachycardia. pt is started on normal saline , mg and K level were checked and they are acceptable, pt is with no chest pain or worsening dyspnea, . lopressor is started 01/04/2019 Patient most in bed comfortable not in distress. He denies chest pain or dyspnea. Patient generally feels better with no specific abnormality or complained from last night when his heart rate went high up to 150. Patient already on Lopressor. Currently his heart rate is 102 pressure 98/65, is still on normal saline at 75 mL/h and will be lower today to 50 mL/h. Still has right-sided chest tube. Cardiothoracic surgery and pulmonary team are following the patient closely 01/05/2019 Patient remains lying in bed with chest tube on the right side. No Paige dyspnea or chest pain. His heart rate still slightly elevated. Patient remains on IV fluid. Patient is been followed by pulmonary and cardiothoracic surgery team 01/06/2019 Patient remains lying in bed with chest tube on the right side. No Paige dyspnea or chest pain. His heart rate still slightly elevated. Patient remains on IV fluid. Patient is been followed by pulmonary and cardiothoracic surgery team. His tachycardia is same or little better. He is saturating 94% on room air. Chest x-ray: Stable pneumothorax but worsening right basilar airspace dise ase 01/07/2019 patient clinically the same and to P chest x-ray showing persistent right apical pneumothorax and worsening right basilar airspace disease. No new complaint and patient is been followed by pulmonary and cardiothoracic surgery teams. Objective - Vital Signs Vital signs: Vital Signs Temp 98.2 F 01/07/19 07:44 Pulse 114 H 01/07/19 08:00 Resp 16 01/07/19 08:00 BP 105/66 01/07/19 07:44 Pulse Ox 92 L 01/07/19 07:44 Intake & Output 01/06/19 01/07/19 01/07/19 18:59 06:59 18:59 Intake Total 1350 730 Output Total 570 970 40 Balance 780 -970 690 Weight 56.4 kg Intake: IV 30 10 Invasive Line 5 30 Invasive Line 6 10 Oral 1320 720 Output: Chest Tube Drainage 120 100 40 Chest Tube Right Mid- 120 100 40 Axillary Chest Drainage 120 Right Chest 120 Urine 450 750 Other: Voiding Method Toilet Urinal Urinal Urinal # Voids 500 3 - Exam GENERAL: The patient is alert and oriented x3, not in any acute distress. Well developed, well nourished. HEENT: Pupils are round and equally reacting to light. EOMI. No scleral icterus. No conjunctival pallor. Normocephalic, atraumatic. No pharyngeal erythema. No thyromegaly. CARDIOVASCULAR: S1 and S2 present. No murmurs, rubs, or gallops. -PULMONARY: Chest is clear to auscultation, no wheezing or crackles. Right c hest tube ABDOMEN: Soft, nontender, nondistended, normoactive bowel sounds. No palpable organomegaly. MUSCULOSKELETAL: No joint swelling or deformity. EXTREMITIES: No cyanosis, clubbing, or pedal edema. NEUROLOGICAL: Gross neurological examination did not reveal any focal deficits. SKIN: No rashes. - Labs CBC & Chem 7: 01/07/19 06:40 01/06/19 06:33 Labs: Abnormal Lab Results - Last 24 Hours (Table) 01/07/19 Range/Units 06:40 WBC 11.3 H (3.8-10.6) k/uL RBC 4.00 L (4.30-5.90) m/uL Hgb 11.9 L (13.0-17.5) gm/dL Hct 37.8 L (39.0-53.0) % Plt Count 564 H (150-450) k/uL Neutrophils # 8.1 H (1.3-7.7) k/uL Assessment and Plan Assessment: Acute and chronic right pneumothorax, status post right-sided chest tube drainage. tachycardia History of previous 10-15% pneumothorax on the right side Chronic obstructive pulmonary disease, not in acute exacerbation History of bipolar depression, not an active issue History of nicotine dependence Severe protein calorie malnutrition with BMI of 17.9 Plan: This is a pleasant 63 years old male who presents with recurrent right side pneumothorax, his status post chest tube placement. His been followed closely by pulmonary and cardiothoracic surgery.Labs and medication were reviewed.. Continue same treatment. Continue with symptomatic treatment. Resume home medication. Monitor lytes and vitals. DVT and GI prophylaxis. Further recommendations of the clinical course of the patient DVT prophylaxis: Subcutaneous heparin GI Prophylaxis: Ppi Prognosis is guarded
--- NOTE | 2019-01-07 11:21 | P.PN ---
Subjective Progress Note Date: 01/07/19 Principal diagnosis: Recurrent right-sided spontaneous pneumothorax with significant bullous emphysema, persistent bronchopleural fistula, status post right pleural thoracostomy tube placement by the emergency room physicians. Previous medical history of recurrent right pneumothoraces 2 in 2018, severe chronic obstructive pulmonary disease, history of tobacco dependence, quit smoking in September 2017, bipolar/depression, gastroesophageal reflux disease. POD #10 right thoracoscopy, lysis of pleural adhesions, stapling of blebs, talc pleurodesis with continuing air leak The patient is currently sitting up to the bedside chair eating his breakfast. He is in no acute distress. Denies any complaints of pain or shortness of breath. Oxygen saturations 92% on room air. He remains afebrile and hemodynamically stable. Right pleural chest tube in place and remains on -10 cm H2O continuous low wall suction. Intermittent air leak is present which has improved since yesterday. Draining thin serosanguineous drainage. Achieving 1250 mL on his incentive spirometry. Objective - Vital Signs Vital signs: Vital Signs Temp 98.2 F 01/07/19 07:44 Pulse 114 H 01/07/19 08:00 Resp 16 01/07/19 08:00 BP 105/66 01/07/19 07:44 Pulse Ox 92 L 01/07/19 07:44 Intake & Output 01/06/19 01/07/19 01/07/19 18:59 06:59 18:59 Intake Total 1350 730 Output Total 570 970 40 Balance 780 -970 690 Weight 56.4 kg Intake: IV 30 10 Invasive Line 5 30 Invasive Line 6 10 Oral 1320 720 Output: Chest Tube Drainage 120 100 40 Chest Tube Right Mid- 120 100 40 Axillary Chest Drainage 120 Right Chest 120 Urine 450 750 Other: Voiding Method Toilet Urinal Urinal Urinal # Voids 500 3 - Constitutional General appearance: Present: cooperative, no acute distress, thin - Respiratory Details: Lungs sounds essentially clear to his left lobes, diminished to his right lobes with few scattered crackles to his right lower lobe. Respirations are symmetrical and nonlabored. Oxygen saturation are 92% on room air. Achieving 1250 mL on his incentive spirometry. Right pleural chest tube in place to low continuous wall suction -10 cm H2O. Intermittent air leak is present. Draining thin serosanguineous drainage with 140 mL output in the last 24 hours. - Cardiovascular Details: Regular rhythm and tachycardic rate. S1 and S2 present, negative for S3, gallop or murmur. No edema present. Remote telemetry showing sinus tachycardia heart rate 108. - Gastrointestinal Gastrointestinal Comment(s): Abdomen is soft, nontender and nondistended. Active bowel sounds to all 4, quadrants. Tolerating oral intake. Passing flatus. No guarding or rigidity. No organomegaly. - Genitourinary Genitourinary Comment(s): Voiding clear yellow urine. - Integumentary Integumentary Comment(s): Skin is warm and dry. No clubbing or cyanosis is present. Right VATS incisions clean, dry and approximated. No drainage or redness is present. Right pleural chest tube dressing clean, dry and intact. - Neurologic Neurologic: Present: CNII-XII intact - Musculoskeletal Musculoskeletal: Present: gait normal, strength equal bilaterally - Psychiatric Psychiatric: Present: A&O x's 3, appropriate affect, intact judgment & insight - Allied health notes Allied health notes reviewed: nursing - Labs CBC & Chem 7: 01/07/19 06:40 01/06/19 06:33 Labs: Abnormal Lab Results - Last 24 Hours (Table) 01/07/19 Range/Units 06:40 WBC 11.3 H (3.8-10.6) k/uL RBC 4.00 L (4.30-5.90) m/uL Hgb 11.9 L (13.0-17.5) gm/dL Hct 37.8 L (39.0-53.0) % Plt Count 564 H (150-450) k/uL Neutrophils # 8.1 H (1.3-7.7) k/uL - Imaging and Cardiology Chest x-ray: report reviewed, image reviewed Assessment and Plan Assessment: 1. Recurrent right-sided pneumothorax with significant bullous emphysema, status post right pleural thoracostomy tube placement by the emergency room physicians, status post right thoracoscopy with lysis of adhesions, stapling of blebs, and talc pleurodesis 2. Continued persistent air leak 3. History of recurrent right spontaneous pneumothoraces 2 in 2018 4. Severe COPD with bleb disease 5. Previous tobacco dependence 6. Bipolar/depression 7. GERD Plan: 1. Continue right pleural chest tube to continuous low wall suction -10 cm H2O. We will continue to monitor for resolution of air leak. We will consider placing the chest tube to -5 cm H2O continuous wall suction tomorrow. 2. Continue to monitor daily x-rays. 3. Wean O2 as tolerated. Encourage incentive spirometry is 10 times every hour while awake. 4. Encourage and discuss the importance of continued smoking cessation. 5. Pain control with current medication regimen. 6. Increase activity, ambulate as tolerated. Patient may ambulate around the room. PT/OT following. Out of bed for all meals. 7. Bronchodilators per pulmonology. 8. GI/DVT prophylaxis. 9. Medical management of other comorbidities per primary care service. 10. More recommendations based on patient's clinical course. Time with Patient: Greater than 30
--- NOTE | 2019-01-07 12:57 | P.PN ---
Subjective Progress Note Date: 01/07/19 Principal diagnosis: Dyspnea with right-sided chest pain, related to significant right-sided pneumothorax, status post chest tube placement This is a very pleasant 63-year-old gentleman who follows with Dr. Coombs as his primary care physician. He has a previous history of chronic tobacco dependence quitting in 2018, chronic obstructive pulmonary disease, chronic right-sided pn eumothorax of 10-15% and the right chest. He was seen in our office yesterday with complaints of increasing shortness of breath and right-sided chest discomfort. A chest x-ray revealed a significant right-sided pneumothorax. He was referred to the emergency room for chest tube placement. Computed tomography scan of the chest revealed a large right-sided pneumothorax occupying the lower two thirds of the right hemithorax. There is also significant bulla and bleb formation seen within the lung. Chest tube was placed in the emergency room. He is seen today on the selective care unit and consultation. He is currently resting fairly comfortable in bed. He is awake and alert in no acute distress. He is maintaining high 90s on 4 L/m per nasal cannula. He's been afebrile. Digital site pain but no significant chest discomfort. White count 11.3. Hemoglobin 14.2. Creatinine 1.04. He's been initiated and DuoNeb inhalations, Symbicort. Today's chest x-ray shows improved right hydro pneumothorax with extensive underlying bullous emphysema. On 12/21/2018 patient seen in follow-up. He is awake and alert, in no acute distress, room air pulse ox is 97%, no fever or chills, right-sided chest tube is in place, is continuous air leak still present, today's chest x-ray has been reviewed with Dr. Gonzalez, shows COPD with stable right-sided hydropneumothorax. There is serosanguineous output in the Pleur-evac, and there has been 70 mL of output in last 24 hours. He is working on his incentive spirometer. Denies any specific complaints. She surgery is following, increase activity as tolerated. On 12/22/2016 patient seen in follow-up on medical surgical floor. Right-sided chest tube still has a significant air leak. Patient is on 2 L of oxygen, with pulse ox of 98%, afebrile, hemodynamically stable, he is up in the recliner today, no significant pain from the chest tube site, no specific complaints, he is working on his incentive spirometer. He's achieving 1000 mL on his incentive spirometer. Left-sided pleural chest tube remains to wall suction, and 40 mL of serosanguineous output in the Pleur-evac. On 12/25/2018 patient seen in follow-up on medical surgical floor. She is resting comfortably in bed, in no acute distress, there is a persistent air leak from the right-sided chest tube, today's chest x-ray has been reviewed, shows persistent right basilar loculated pneumothorax. Denies any pain, denies any pacific complaints, remains on 2 L of oxygen, lung sounds are diminished at the right base otherwise are clear. His spirometry effort is 1250 ML. Tolerating oral diet, he is voiding, for now has only been up in the chair, has not ambulated much. His labs have been reviewed, and are unremarkable. On 12/26/2018 patient seen in follow-up on medical surgical floor. Right-sided chest tube still has a persistent leak, patient remains on 2 L of oxygen with a pulse ox of 96%, afebrile, hemodynamics are stable, today's chest x-ray shows stable right basilar left pneumothorax. No acute complaints, patient is working on incentive spirometer, able to achieve 2919-5326 mL. Patient is scheduled for right VATS with the stapling of the blebs in the pleurodesis on . She surgery is following. No acute events overnight. Patient does experience some discomfort in the right chest with deep breathing and moving, but no acute distress. On 12/27/2018 patient seen in follow-up on medical surgical floor. He sitting up in the recliner, currently cleaning up, taken a sponge bath, right-sided chest tube has a persistent leak, chest x-ray was reviewed and shows a right- sided chest tube in good location, some improvement in the suspected loculated pneumothorax at the right base, lung remains reinflated, with continuous leak. Patient is scheduled for a right-sided VATS bleb stapling tomorrow with Dr. Quevedo. Otherwise hemodynamically stable, no acute complaints, his pain is controlled, he is working on his incentive spirometer. On 12/28/2018 patient seen in follow-up in medical surgical floor. He is awake and alert, in no acute distress, he is right-sided VATS is scheduled for today for 11:[address] Quevedo. Right-sided chest tube remains in place, with intermittent air leak, seems to have decreased from yesterday. Hemoglobin and the patient is stable, vital signs are stable, afebrile, remains on 2 L of oxygen with a pulse ox of 97%. No complaints of pain, no acute events overnight. Today's lab work has been reviewed, and is unremarkable. On 12/29/2018 patient seen in follow-up on selective care unit, right-sided chest tube is in place, with the continuous air leak. Today is postop day 1, post right-sided VATS, lysis of pleural adhesions, stapling of the blebs, and talc pleurodesis. He is working on his incentive spirometer, he is able to achieve thousand and melena today. States his pain is reasonably well controlled. He is on 3 L of oxygen with a pulse ox of 97%, today's chest x-ray has been reviewed and showed right-sided pneumothorax of 50% with stable placement of a right thoracostomy tube. On 12/31/2018 ration seen in follow-up on selective care unit, she is resting quietly in bed, in no acute distress, right-sided chest tube is in place, and are still persistent air leak, today's chest x-ray shows persistence of right apical pneumothorax, lung sounds reveal coarse rhonchi over right lung, clear on the left. He is working on his incentive spirometer, he denies any pain. Biopsy results are pending. His lab work has been noted. Chest X-ray has been reviewed with Dr. Byrnes. On 01/01/2019 patient seen in follow-up on selective care unit, he is awake and alert, resting comfortably in bed, in no acute distress, remains on 3 L of oxygen with a pulse ox of 97%, he is afebrile, right-sided chest tube is in place, with continuous air leak. Today's chest x-ray has been reviewed by Dr. Andrews and showed a small increase in size the right apical pneumothorax, patient is working on his incentive spirometer, he denies any pain or discomfort, lung sounds reveal coarse rhonchi over right lung, there are on the left. Wedge biopsy is still pending, today's labs have been noted. No acute events overnight, we'll continue to follow. On 01/04/2019 patient seen in follow-up in selective care unit, he is awake and alert, he is resting in bed, is on supplemental oxygen on 2 L of oxygen, with a pulse ox of 98%, he is afebrile, hemodynamically stable, right-sided chest tube continued with persistent leak. His chest x-ray has been reviewed today, and showed persistent small to moderate right apical pneumothorax that has not significantly changed. Patchy bibasilar areas of atelectasis. Right side chest tube remains to wall suction. She does work on his incentive spirometer, he is able to achieve 1500 ML on it today. Lung sounds are diminished bilaterally, he does have 5 chest wall soreness on the right, which is reasonably controlled, has been able to ambulate in the room, mainly to the bathroom and back and tolerated activity very well. Surgical pathology revealed bullous pulmonary emphysema with focal subacute infarction, interstitial and pleural fibrosis. No cytologically malignant cells. On 12/30/2018 patient seen in follow-up on selective care unit, he sitting up in the chair, in no acute distress, his right-sided chest tube shows a decrease in the the air leak, todaySitting right airspace disease at the bases, today's labs have been reviewed, white blood cell count is 11.3, hemoglobin is 11.9, no BMP was done. Chest x-ray shows a continuing loculated right apical pneumothorax, mild cardiomegaly, COPD, and CT surgery is following and is planning on decreasing the wall suction, and possibly switching the chest tube to pneumostat Objective - Vital Signs Vital signs: Vital Signs Temp 98.2 F 01/07/19 07:44 Pulse 90 01/07/19 11:19 Resp 16 01/07/19 11:19 BP 105/66 01/07/19 07:44 Pulse Ox 92 L 01/07/19 07:44 Intake & Output 01/06/19 01/07/19 01/07/19 18:59 06:59 18:59 Intake Total 1350 740 Output Total 570 970 540 Balance 780 -970 200 Weight 56.4 kg Intake: IV 30 20 Invasive Line 5 30 Invasive Line 6 20 Oral 1320 720 Output: Chest Tube Drainage 120 100 40 Chest Tube Right Mid- 120 100 40 Axillary Chest Drainage 120 Right Chest 120 Urine 450 750 500 Other: Voiding Method Toilet Urinal Urinal Urinal # Voids 500 3 - Exam GENERAL EXAM: Alert, pleasant, 63-year-old white male, comfortable in no apparent distress. HEAD: Normocephalic/atraumatic. EYES: Normal reaction of pupils, equal size. Conjunctiva pink, sclera white. NOSE: Clear with pink turbinates. THROAT: No erythema or exudates. NECK: No masses, no JVD, no thyroid enlargement, no adenopathy. CHEST: No chest wall deformity. Symmetrical expansion. Right-sided chest tube is present, connected to Pleur-evac and wall suction, and there is a continuous air leak noted slightly decreased from previous exams, there is a moderate amount of serosanguineous output in the Pleur-evac LUNGS: Equal air entry with diminished breath sounds on the right, her breath sounds on the left CVS: Regular rate and rhythm, normal S1 and S2, no gallops, no murmurs, no rubs ABDOMEN: Soft, nontender. No hepatosplenomegaly, normal bowel sounds, no guarding or rigidity. EXTREMITIES: No clubbing, no edema, no cyanosis, 2+ pulses and upper and lower extremities. MUSCULOSKELETAL: Muscle strength and tone normal. SPINE: No scoliosis or deformity SKIN: No rashes CENTRAL NERVOUS SYSTEM: Alert and oriented -3. No focal deficits, tone is normal in all 4 extremities. PSYCHIATRIC: Alert and oriented -3. Appropriate affect. Intact judgment and insight. - Labs CBC & Chem 7: 01/07/19 06:40 01/06/19 06:33 Labs: Abnormal Lab Results - Last 24 Hours (Table) 01/07/19 Range/Units 06:40 WBC 11.3 H (3.8-10.6) k/uL RBC 4.00 L (4.30-5.90) m/uL Hgb 11.9 L (13.0-17.5) gm/dL Hct 37.8 L (39.0-53.0) % Plt Count 564 H (150-450) k/uL Neutrophils # 8.1 H (1.3-7.7) k/uL Assessment and Plan Plan: Assessment: #1 Dyspnea with pain in a patient found to have significant right-sided pneumothorax, status post chest tube placement, status post right-sided thoracoscopy with lysis of adhesions, stapling of blebs, talc pleurodesis. Postop chest x-ray showed a 50% pneumothorax on the right with the replacement of the thoracostomy tube. On 12/31/[address], with persistent air leak, chest x-ray shows decreasing apical pneumothorax On 01/01/2019 right-sided chest tube remains in place with continuous persistent air leak, and chest x-ray shows some worsening in the appearance of the size of the apical pneumothorax on the right side #2 History of chronic 10-15% right-sided pneumothorax. #3 History of significant bullous emphysema. #4 history of chronic obstructive pulmonary disease, currently inactive and stable. #5 Chronic tobacco dependence, quit in 2018. #6 History of bipolar disorder. Plan: Continue encouraging deep breathing and coughing, patient still has a persistent air leak from the right chest tube, however it seems to have slightly decreased, CT surgery is following, and managing the chest tube. Considering decreasing the wall suction, and possibly converting the chest tube to pneumostatic. We'll continue to follow. Patient is stable, denies any pain, denies any shortness of breath. Vital signs are stable. I performed a history & physical examination of the patient and discussed their management with my nurse practitioner, Vernell Winston. I reviewed the nurse practitioner's note and agree with the documented findings and plan of care. Lung sounds are positive for diminished breath sounds on the right, clear breath sounds in the left. The findings and the impression was discussed with the patient. I attest to the documentation by the nurse practitioner. Time with Patient: Less than 30
[2019-01-07] MEDS: ALPRAZolam 0.25 MG TAB PO PRN (20:32)
[2019-01-08] MEDS: PANTOPRAZOLE 40 MG TABLET PO SCH (06:12)
[2019-01-08 06:49] LABS: Basophils # (A) 0.1 k/uL (0-0.2); Basophils % (A) 1 %; Eosinophils # (A) 0.1 k/uL (0-0.7); Eosinophils % (A) 1 %; HCT 39.3 % (39.0-53.0); HGB 12.1 gm/dL (13.0-17.5); Lymphocytes # (A) 1.5 k/uL (1.0-4.8); Lymphocytes % (A) 13 %; MCHC 30.9 g/dL (31.0-37.0); MCV 93.9 fL (80.0-100.0); Mean Platelet Volume 6.9; Monocytes # (A) 0.8 k/uL (0-1.0); Monocytes % (A) 7 %; Neutrophils # (A) 8.8 k/uL (1.3-7.7); Neutrophils % (A) 75 %; Platelet Count 612 k/uL (150-450); RBC 4.18 m/uL (4.30-5.90); RDW 13.4 % (11.5-15.5); WBC 11.7 k/uL (3.8-10.6)
--- NOTE | 2019-01-08 07:24 | XR ---
EXAMINATION TYPE: XR chest 1V portable DATE OF EXAM: 01/08/2019 Comparison: 01/07/2019 Clinical History: 63-year-old male Right chest tube, pneumothorax Findings: Heart upper limits of normal in size. The left upper lung lucencies. Apical right-sided chest tube is present. Right apical pneumothorax stable to slightly larger at 7.4 cm versus 6.8 cm, previously. Pa tchy densities throughout the right lung remain. Impression: Moderate-sized right apical pneumothorax stable to minimally larger at 7.4 cm versus 6.8 cm, previous ly. Persistent patchy opacities recommend or of the right lung.
[2019-01-08] MEDS: SENNOSIDES-DOCUSATE SODIUM 1 EACH TAB PO SCH ×2 (08:22→21:06)
[2019-01-08] MEDS: TAMSULOSIN 0.4 MG CAP.ER.24H PO SCH (08:22)
[2019-01-08] MEDS: HEPARIN SODIUM,PORCINE 5,000 UNIT/ML 1 ML VIAL SQ SCH ×2 (08:22→21:06)
[2019-01-08] MEDS: METOPROLOL TARTRATE 25 MG TAB PO SCH ×2 (08:22→21:06)
[2019-01-08] MEDS: IPRATROPIUM-ALBUTEROL 3 ML NEB INHALATION SCH ×3 (08:29→19:32)
[2019-01-08] MEDS: SYMBICORT 160-4.5 MCG INHALER INHALATION SCH ×2 (08:29→19:32)
--- NOTE | 2019-01-08 09:22 | P.PN ---
Subjective This is a pleasant 63 years old male with past medical history of COPD, GERD, pneumothorax in September 2017. Presents because of signs symptoms of p neumothorax. This is status post chest tube placement on the right side. Is been followed closely by pulmonary and cardiothoracic surgery team. Currently patient is breathing quietly. perspiration is not labored. Pain is controlled. Still has chest tube in place. And still needs to be monitored general medical floor. Vitals stable, however his somewhat tachycardic around 110 but patient is afebrile and blood pressure is stable. Labs reviewed. 12/26/2018 Patient clinically stable, with no significant dyspnea. Cardiothoracic surgery team are planning for right-sided pleurodesis on this coming , 12/28/2018. Vitals and labs were reviewed. Subjective 01/01/2019 Patient lying in bed, not in respiratory distress. No chest pain or dyspnea. He still have right-sided chest tube with air leak. Pulmonology and cardiothoracic surgery R following the patient closely. No leukocytosis today. Vitals stable 01/02/2019 Patient clinically the same, with no dyspnea or chest pain. Still have left chest tube in place. Repeat chest x-ray showing a large pneumothorax today from 4.4 up to 4.9 cm. Pulmonary and cardiothoracic surgery R following the case. 01/03/2019 Patient remains stable with no dyspnea or chest pain. No other new complaints. Still has chest tube is in place. BMP was unremarkable. Chest x-ray: Mildly increased pneumothorax. Patient today developed tachycardia of heart rate of 150 while walking. EKG was checked and showing:sinus tachycardia. pt is started on normal saline , mg and K level were checked and they are acceptable, pt is with no chest pain or worsening dyspnea, . lopressor is started 01/04/2019 Patient most in bed comfortable not in distress. He denies chest pain or dyspnea. Patient generally feels better with no specific abnormality or complained from last night when his heart rate went high up to 150. Patient already on Lopressor. Currently his heart rate is 102 pressure 98/65, is still on normal saline at 75 mL/h and will be lower today to 50 mL/h. Still has right-sided chest tube. Cardiothoracic surgery and pulmonary team are following the patient closely 01/05/2019 Patient remains lying in bed with chest tube on the right side. No Paige dyspnea or chest pain. His heart rate still slightly elevated. Patient remains on IV fluid. Patient is been followed by pulmonary and cardiothoracic surgery team 01/06/2019 Patient remains lying in bed with chest tube on the right side. No Paige dyspnea or chest pain. His heart rate still slightly elevated. Patient remains on IV fluid. Patient is been followed by pulmonary and cardiothoracic surgery team. His tachycardia is same or little better. He is saturating 94% on room air. Chest x-ray: Stable pneumothorax but worsening right basilar airspace dise ase 01/07/2019 patient clinically the same and to P chest x-ray showing persistent right apical pneumothorax and worsening right basilar airspace disease. No new complaint and patient is been followed by pulmonary and cardiothoracic surgery teams. 01/08/2019. Patient remains clinically the same as yesterday with no dyspnea or chest pain. WBC is 11.7. Afebrile but tachycardic. Repeat chest x-ray from today showing moderate size right pneumothorax with patchy density throughout the right lung. Objective - Vital Signs Vital signs: Vital Signs Temp 98.0 F 01/08/19 04:00 Pulse 116 H 01/08/19 08:44 Resp 19 01/08/19 04:00 BP 103/62 01/08/19 04:00 Pulse Ox 94 L 01/08/19 04:00 Intake & Output 01/07/19 01/08/19 01/08/19 18:59 06:59 18:59 Intake Total 2670 20 120 Output Total 1440 900 Balance 1230 -880 120 Weight 56.3 kg Intake: IV 30 20 Invasive Line 6 30 20 Oral 2640 120 Output: Chest Tube Drainage 40 100 Chest Tube Right Mid- 40 100 Axillary Chest Urine 1400 800 Other: Voiding Method Urinal Urinal - Exam GENERAL: The patient is alert and oriented x3, not in any acute distress. Well developed, well nourished. HEENT: Pupils are round and equally reacting to light. EOMI. No scleral icterus. No conjunctival pallor. Normocephalic, atraumatic. No pharyngeal erythema. No thyromegaly. CARDIOVASCULAR: S1 and S2 present. No murmurs, rubs, or gallops. -PULMONARY: Chest is clear to auscultation, no wheezing or crackles. Right chest tube ABDOMEN: Soft, nontender, nondistended, normoactive bowel sounds. No palpable organomegaly. MUSCULOSKELETAL: No joint swelling or deformity. EXTREMITIES: No cyanosis, clubbing, or pedal edema. NEUROLOGICAL: Gross neurological examination did not reveal any focal deficits. SKIN: No rashes. - Labs CBC & Chem 7: 01/08/19 06:21 01/06/19 06:33 Labs: Abnormal Lab Results - Last 24 Hours (Table) 01/08/19 Range/Units 06:21 WBC 11.7 H (3.8-10.6) k/uL RBC 4.18 L (4.30-5.90) m/uL Hgb 12.1 L (13.0-17.5) gm/dL MCHC 30.9 L (31.0-37.0) g/dL Plt Count 612 H (150-450) k/uL Neutrophils # 8.8 H (1.3-7.7) k/uL Assessment and Plan Assessment: Acute and chronic right pneumothorax, status post right-sided chest tube drainage. tachycardia History of previous 10-15% pneumothorax on the right side Chronic obstructive pulmonary disease, not in acute exacerbation History of bipolar depression, not an active issue History of nicotine dependence Severe protein calorie malnutrition with BMI of 17.9 Plan: This is a pleasant 63 years old male who presents with recurrent right side pneumothorax, his status post chest tube placement. His been followed closely by pulmonary and cardiothoracic surgery.Labs and medication were reviewed.. Continue same treatment. Continue with symptomatic treatment. Resume home medication. Monitor lytes and vitals. DVT and GI prophylaxis. Further recommendations of the clinical course of the patient DVT prophylaxis: Subcutaneous heparin GI Prophylaxis: Ppi Prognosis is guarded
--- NOTE | 2019-01-08 11:14 | P.PN ---
Subjective Progress Note Date: 01/08/19 Principal diagnosis: Recurrent right-sided spontaneous pneumothorax with significant bullous emphysema, persistent bronchopleural fistula, status post right pleural thoracostomy tube placement by the emergency room physicians. Previous medical history of recurrent right pneumothoraces 2 in 2018, severe chronic obstructive pulmonary disease, history of tobacco dependence, quit smoking in September 2017, bipolar/depression, gastroesophageal reflux disease. POD #11 right thoracoscopy, lysis of pleural adhesions, stapling of blebs, talc pleurodesis with continuing air leak The patient is currently sitting up to the bedside chair on the 3 S. cardiac stepdown unit. He is in no acute distress. Denies any complaints of pain or shortness of breath. Oxygen saturations 97% on 2 L nasal cannula. He remains afebrile and hemodynamically stable. Right pleural chest tube in place and remains on -10 cm H2O continuous low wall suction. Intermittent air leak is present. Continues to Drain thin serosanguineous drainage with 300 mL of drainage within the last 24 hours. Achieving 1250 mL on his incentive spirometry. Objective - Vital Signs Vital signs: Vital Signs Temp 97.8 F 01/08/19 08:00 Pulse 116 H 01/08/19 08:44 Resp 19 01/08/19 08:00 BP 114/70 01/08/19 08:00 Pulse Ox 97 01/08/19 08:00 Intake & Output 01/07/19 01/08/19 01/08/19 18:59 06:59 18:59 Intake Total 2670 20 120 Output Total 1440 900 Balance 1230 -880 120 Weight 56.3 kg Intake: IV 30 20 Invasive Line 6 30 20 Oral 2640 120 Output: Chest Tube Drainage 40 100 Chest Tube Right Mid- 40 100 Axillary Chest Urine 1400 800 Other: Voiding Method Urinal Urinal - Constitutional General appearance: Present: cooperative, no acute distress, thin - Respiratory Details: Lung sounds essentially clear to his left lobes, diminished to his right lobes. Respirations are symmetrical and nonlabored. Oxygen saturation are 97% on 2 L nasal cannula. He is achieving 1250 mL on his incentive spirometry. Right pleural chest tube remains in place to low continuous wall suction -10 cm H2O. Intermittent air leak is present. Draining thin serosanguineous drainage with 300 mL output in the last 24 hours. - Cardiovascular Details: Regular rhythm and tachycardic rate. S1 and S2 present, negative for S3, gallop or murmur. No edema present. Knee-high sequential compression devices in place to his bilateral lower extremities. - Gastrointestinal Gastrointestinal Comment(s): Abdomen is soft, nontender and nondistended. Active bowel sounds all 4 abdominal quadrants. No guarding or rigidity. No organomegaly. - Genitourinary Genitourinary Comment(s): Voiding clear yellow urine. - Integumentary Integumentary Comment(s): Skin is warm and dry. No clubbing or cyanosis is present. Right VATS incisions clean, dry and approximated. No drainage or redness is present. Right pleural chest tube dressing clean, dry and intact. - Neurologic Neurologic: Present: CNII-XII intact - Musculoskeletal Musculoskeletal: Present: gait normal, generalized weakness, strength equal bilaterally - Psychiatric Psychiatric Comment(s): Flat affect Psychiatric: Present: A&O x's 3, intact judgment & insight - Allied health notes Allied health notes reviewed: nursing - Labs CBC & Chem 7: 01/08/19 06:21 01/06/19 06:33 Labs: Abnormal Lab Results - Last 24 Hours (Table) 01/08/19 Range/Units 06:21 WBC 11.7 H (3.8-10.6) k/uL RBC 4.18 L (4.30-5.90) m/uL Hgb 12.1 L (13.0-17.5) gm/dL MCHC 30.9 L (31.0-37.0) g/dL Plt Count 612 H (150-450) k/uL Neutrophils # 8.8 H (1.3-7.7) k/uL - Imaging and Cardiology Chest x-ray: report reviewed, image reviewed Assessment and Plan Assessment: 1. Recurrent right-sided pneumothorax with significant bullous emphysema, status post right pleural thoracostomy tube placement by the emergency room physicians, status post right thoracoscopy with lysis of adhesions, stapling of blebs, and talc pleurodesis 2. Continued persistent air leak 3. History of recurrent right spontaneous pneumothoraces 2 in 2018 4. Severe COPD with bleb disease 5. Previous tobacco dependence 6. Bipolar/depression 7. GERD Plan: 1. Continue right pleural chest tube to continuous low wall suction -10 cm H2O. We will continue to monitor for resolution of air leak. We will consider placing the chest tube to -5 cm H2O continuous wall suction tomorrow. 2. Continue to monitor daily x-rays. 3. Wean O2 as tolerated. Encourage incentive spirometry is 10 times every hour while awake. 4. Encourage and discuss the importance of continued smoking cessation. 5. Pain control with current medication regimen. 6. Increase activity, ambulate as tolerated. Patient may ambulate around the room. PT/OT following. Out of bed for all meals. 7. Bronchodilators per pulmonology. 8. GI/DVT prophylaxis. 9. Medical management of other comorbidities per primary care service. 10. More recommendations based on patient's clinical course. Time with Patient: Greater than 30
[2019-01-08 11:23] VITALS: BMI 18.3
--- NOTE | 2019-01-08 16:59 | P.PN ---
Subjective Progress Note Date: 01/08/19 Principal diagnosis: Dyspnea with right-sided chest pain, related to significant right-sided pneumothorax, status post chest tube placement This is a very pleasant 63-year-old gentleman who follows with Dr. Coombs as his primary care physician. He has a previous history of chronic tobacco dependence quitting in 2018, chronic obstructive pulmonary disease, chronic right-sided pn eumothorax of 10-15% and the right chest. He was seen in our office yesterday with complaints of increasing shortness of breath and right-sided chest discomfort. A chest x-ray revealed a significant right-sided pneumothorax. He was referred to the emergency room for chest tube placement. Computed tomography scan of the chest revealed a large right-sided pneumothorax occupying the lower two thirds of the right hemithorax. There is also significant bulla and bleb formation seen within the lung. Chest tube was placed in the emergency room. He is seen today on the selective care unit and consultation. He is currently resting fairly comfortable in bed. He is awake and alert in no acute distress. He is maintaining high 90s on 4 L/m per nasal cannula. He's been afebrile. Digital site pain but no significant chest discomfort. White count 11.3. Hemoglobin 14.2. Creatinine 1.04. He's been initiated and DuoNeb inhalations, Symbicort. Today's chest x-ray shows improved right hydro pneumothorax with extensive underlying bullous emphysema. On 12/21/2018 patient seen in follow-up. He is awake and alert, in no acute distress, room air pulse ox is 97%, no fever or chills, right-sided chest tube is in place, is continuous air leak still present, today's chest x-ray has been reviewed with Dr. Gonzalez, shows COPD with stable right-sided hydropneumothorax. There is serosanguineous output in the Pleur-evac, and there has been 70 mL of output in last 24 hours. He is working on his incentive spirometer. Denies any specific complaints. She surgery is following, increase activity as tolerated. On 12/22/2016 patient seen in follow-up on medical surgical floor. Right-sided chest tube still has a significant air leak. Patient is on 2 L of oxygen, with pulse ox of 98%, afebrile, hemodynamically stable, he is up in the recliner today, no significant pain from the chest tube site, no specific complaints, he is working on his incentive spirometer. He's achieving 1000 mL on his incentive spirometer. Left-sided pleural chest tube remains to wall suction, and 40 mL of serosanguineous output in the Pleur-evac. On 12/25/2018 patient seen in follow-up on medical surgical floor. She is resting comfortably in bed, in no acute distress, there is a persistent air leak from the right-sided chest tube, today's chest x-ray has been reviewed, shows persistent right basilar loculated pneumothorax. Denies any pain, denies any pacific complaints, remains on 2 L of oxygen, lung sounds are diminished at the right base otherwise are clear. His spirometry effort is 1250 ML. Tolerating oral diet, he is voiding, for now has only been up in the chair, has not ambulated much. His labs have been reviewed, and are unremarkable. On 12/26/2018 patient seen in follow-up on medical surgical floor. Right-sided chest tube still has a persistent leak, patient remains on 2 L of oxygen with a pulse ox of 96%, afebrile, hemodynamics are stable, today's chest x-ray shows stable right basilar left pneumothorax. No acute complaints, patient is working on incentive spirometer, able to achieve 0236-0933 mL. Patient is scheduled for right VATS with the stapling of the blebs in the pleurodesis on . She surgery is following. No acute events overnight. Patient does experience some discomfort in the right chest with deep breathing and moving, but no acute distress. On 12/27/2018 patient seen in follow-up on medical surgical floor. He sitting up in the recliner, currently cleaning up, taken a sponge bath, right-sided chest tube has a persistent leak, chest x-ray was reviewed and shows a right- sided chest tube in good location, some improvement in the suspected loculated pneumothorax at the right base, lung remains reinflated, with continuous leak. Patient is scheduled for a right-sided VATS bleb stapling tomorrow with Dr. Quevedo. Otherwise hemodynamically stable, no acute complaints, his pain is controlled, he is working on his incentive spirometer. On 12/28/2018 patient seen in follow-up in medical surgical floor. He is awake and alert, in no acute distress, he is right-sided VATS is scheduled for today for 11:[address] Quevedo. Right-sided chest tube remains in place, with intermittent air leak, seems to have decreased from yesterday. Hemoglobin and the patient is stable, vital signs are stable, afebrile, remains on 2 L of oxygen with a pulse ox of 97%. No complaints of pain, no acute events overnight. Today's lab work has been reviewed, and is unremarkable. On 12/29/2018 patient seen in follow-up on selective care unit, right-sided chest tube is in place, with the continuous air leak. Today is postop day 1, post right-sided VATS, lysis of pleural adhesions, stapling of the blebs, and talc pleurodesis. He is working on his incentive spirometer, he is able to achieve thousand and melena today. States his pain is reasonably well controlled. He is on 3 L of oxygen with a pulse ox of 97%, today's chest x-ray has been reviewed and showed right-sided pneumothorax of 50% with stable placement of a right thoracostomy tube. On 12/31/2018 ration seen in follow-up on selective care unit, she is resting quietly in bed, in no acute distress, right-sided chest tube is in place, and are still persistent air leak, today's chest x-ray shows persistence of right apical pneumothorax, lung sounds reveal coarse rhonchi over right lung, clear on the left. He is working on his incentive spirometer, he denies any pain. Biopsy results are pending. His lab work has been noted. Chest X-ray has been reviewed with Dr. Byrnes. On 01/01/2019 patient seen in follow-up on selective care unit, he is awake and alert, resting comfortably in bed, in no acute distress, remains on 3 L of oxygen with a pulse ox of 97%, he is afebrile, right-sided chest tube is in place, with continuous air leak. Today's chest x-ray has been reviewed by Dr. Andrews and showed a small increase in size the right apical pneumothorax, patient is working on his incentive spirometer, he denies any pain or discomfort, lung sounds reveal coarse rhonchi over right lung, there are on the left. Wedge biopsy is still pending, today's labs have been noted. No acute events overnight, we'll continue to follow. On 01/04/2019 patient seen in follow-up in selective care unit, he is awake and alert, he is resting in bed, is on supplemental oxygen on 2 L of oxygen, with a pulse ox of 98%, he is afebrile, hemodynamically stable, right-sided chest tube continued with persistent leak. His chest x-ray has been reviewed today, and showed persistent small to moderate right apical pneumothorax that has not significantly changed. Patchy bibasilar areas of atelectasis. Right side chest tube remains to wall suction. She does work on his incentive spirometer, he is able to achieve 1500 ML on it today. Lung sounds are diminished bilaterally, he does have 5 chest wall soreness on the right, which is reasonably controlled, has been able to ambulate in the room, mainly to the bathroom and back and tolerated activity very well. Surgical pathology revealed bullous pulmonary emphysema with focal subacute infarction, interstitial and pleural fibrosis. No cytologically malignant cells. On 12/30/2018 patient seen in follow-up on selective care unit, he sitting up in the chair, in no acute distress, his right-sided chest tube shows a decrease in the the air leak, todaySitting right airspace disease at the bases, today's labs have been reviewed, white blood cell count is 11.3, hemoglobin is 11.9, no BMP was done. Chest x-ray shows a continuing loculated right apical pneumothorax, mild cardiomegaly, COPD, and CT surgery is following and is planning on decreasing the wall suction, and possibly switching the chest tube to pneumostat On 01/08/2019 patient seen in follow-up on the selective care unit, he is awake and alert, in no acute distress, right-sided chest tube is in place, with the persistent air leak. There has been 300 mL of serous drainage in the last 24 hours from the right chest tube. Lung sounds are positive for diminished breath sounds. Remains in supply on oxygen at 2 L of oxygen with a pulse ox of 97%, afebrile. Chest x-ray shows moderate-sized right apical pneumothorax Objective - Vital Signs Vital signs: Vital Signs Temp 97.8 F 01/08/19 08:00 Pulse 104 H 01/08/19 12:38 Resp 19 01/08/19 11:57 BP 102/64 01/08/19 11:57 Pulse Ox 97 01/08/19 11:57 Intake & Output 01/07/19 01/08/19 01/08/19 18:59 06:59 18:59 Intake Total 2670 20 360 Output Total 1440 900 50 Balance 1230 -880 310 Weight 56.3 kg 56.3 kg Intake: IV 30 20 Invasive Line 6 30 20 Oral 2640 360 Output: Chest Tube Drainage 40 100 50 Chest Tube Right Mid- 40 100 50 Axillary Chest Urine 1400 800 Other: Voiding Method Urinal Urinal - Exam GENERAL EXAM: Alert, pleasant, 63-year-old white male, comfortable in no apparent distress. HEAD: Normocephalic/atraumatic. EYES: Normal reaction of pupils, equal size. Conjunctiva pink, sclera white. NOSE: Clear with pink turbinates. THROAT: No erythema or exudates. NECK: No masses, no JVD, no thyroid enlargement, no adenopathy. CHEST: No chest wall deformity. Symmetrical expansion. Right-sided chest tube is present, connected to Pleur-evac and wall suction, and there is a continuous air leak noted slightly decreased from previous exams, there is a moderate amount of serosanguineous output in the Pleur-evac LUNGS: Equal air entry with diminished breath sounds on the right, her breath sounds on the left CVS: Regular rate and rhythm, normal S1 and S2, no gallops, no murmurs, no rubs ABDOMEN: Soft, nontender. No hepatosplenomegaly, normal bowel sounds, no guarding or rigidity. EXTREMITIES: No clubbing, no edema, no cyanosis, 2+ pulses and upper and lower extremities. MUSCULOSKELETAL: Muscle strength and tone normal. SPINE: No scoliosis or deformity SKIN: No rashes CENTRAL NERVOUS SYSTEM: Alert and oriented -3. No focal deficits, tone is normal in all 4 extremities. PSYCHIATRIC: Alert and oriented -3. Appropriate affect. Intact judgment and insight. - Labs CBC & Chem 7: 01/08/19 06:21 01/06/19 06:33 Labs: Abnormal Lab Results - Last 24 Hours (Table) 01/08/19 Range/Units 06:21 WBC 11.7 H (3.8-10.6) k/uL RBC 4.18 L (4.30-5.90) m/uL Hgb 12.1 L (13.0-17.5) gm/dL MCHC 30.9 L (31.0-37.0) g/dL Plt Count 612 H (150-450) k/uL Neutrophils # 8.8 H (1.3-7.7) k/uL Assessment and Plan Plan: Assessment: #1 Dyspnea with pain in a patient found to have significant right-sided pneumothorax, status post chest tube placement, status post right-sided thoracoscopy with lysis of adhesions, stapling of blebs, talc pleurodesis. Postop chest x-ray showed a 50% pneumothorax on the right with the replacement of the thoracostomy tube. On 12/31/[address], with persistent air leak, chest x-ray shows decreasing apical pneumothorax On 01/01/2019 right-sided chest tube remains in place with continuous persistent air leak, and chest x-ray shows some worsening in the appearance of the size of the apical pneumothorax on the right side #2 History of chronic 10-15% right-sided pneumothorax. #3 History of significant bullous emphysema. #4 history of chronic obstructive pulmonary disease, currently inactive and stable. #5 Chronic tobacco dependence, quit in 2018. #6 History of bipolar disorder. Plan: Continue encouraging deep breathing and coughing, patient has a persistent right sided chest tube air leak. Continue to follow with CT surgery, and his chest x- ray shows right apical pneumothorax is slightly larger compared to previous chest x-rays. Patient is stable. Will continue to follow with CT surgery I performed a history & physical examination of the patient and discussed their management with my nurse practitioner, Vernell Winston. I reviewed the nurse practitioner's note and agree with the documented findings and plan of care. Lung sounds are positive for diminished breath sounds on the right, clear breath sounds in the left. The findings and the impression was discussed with the patient. I attest to the documentation by the nurse practitioner. Time with Patient: Less than 30
[2019-01-08] MEDS: HYDROcodone/APAP 5-325MG 1 EACH TAB PO PRN (18:02)
[2019-01-08] MEDS: MAGNESIUM HYDROXIDE 2,400 MG/10 ML CUP PO PRN (18:04)
[2019-01-09] MEDS: HYDROcodone/APAP 5-325MG 1 EACH TAB PO PRN (04:03)
[2019-01-09 04:45] LABS: Appearance,Urine Clear (Clear); Bacteria,Urine Moderate /hpf; Bilirubin,Urine Negative (Negative); Blood,Urine Negative (Negative); Color,Urine Yellow; Glucose,Urine (UA) Negative (Negative); Ketones,Urine Negative (Negative); Leukocyte Esterase,Urine Small (Negative); Mucus,Urine Few /hpf; Nitrite,Urine Negative (Negative); Protein,Urine 1+ (Negative); RBC,Urine 16 /hpf (0-5); Specific Gravity,Urine 1.032 (1.001-1.035); Urobilinogen,Urine <2.0 mg/dL (<2.0)
[2019-01-09] MEDS: PANTOPRAZOLE 40 MG TABLET PO SCH (06:51)
[2019-01-09 07:09] LABS: Basophils # (A) 0.2 k/uL (0-0.2); Basophils % (A) 1 %; Eosinophils # (A) 0.1 k/uL (0-0.7); Eosinophils % (A) 1 %; HGB 12.4 gm/dL (13.0-17.5); Lymphocytes # (A) 1.7 k/uL (1.0-4.8); Lymphocytes % (A) 12 %; MCHC 31.1 g/dL (31.0-37.0); MCV 93.1 fL (80.0-100.0); Monocytes # (A) 1.1 k/uL (0-1.0); Monocytes % (A) 7 %; Neutrophils # (A) 11.5 k/uL (1.3-7.7); Neutrophils % (A) 77 %; Platelet Count 742 k/uL (150-450); RBC 4.29 m/uL (4.30-5.90); RDW 13.3 % (11.5-15.5); WBC 14.9 k/uL (3.8-10.6)
[2019-01-09 07:16] LABS: Anion Gap 7 mmol/L; Blood Urea Nitrogen 17 mg/dL (9-20); Calcium 9.2 mg/dL (8.4-10.2); Carbon Dioxide 29 mmol/L (22-30); Chloride 99 mmol/L (98-107); Glucose 91 mg/dL (74-99); Potassium 5.5 mmol/L (3.5-5.1); Sodium 135 mmol/L (137-145)
[2019-01-09] MEDS: SYMBICORT 160-4.5 MCG INHALER INHALATION SCH ×2 (07:59→20:02)
[2019-01-09] MEDS: IPRATROPIUM-ALBUTEROL 3 ML NEB INHALATION SCH ×3 (07:59→20:03)
--- NOTE | 2019-01-09 08:18 | XR ---
EXAMINATION TYPE: XR chest 1V portable DATE OF EXAM: 01/09/2019 COMPARISON: 01/08/2019 HISTORY: Status post VATS. Right sided pneumothorax. TECHNIQUE: Single frontal view of the chest is obtained. FINDINGS: When measured in a similar fashion the right apical pneumothorax appears slightly larger t diego the prior currently measuring 8.3 cm and previously measuring 7.4 cm. There is diffuse osseous de mineralization and emphysematous changes of the left lung. Multifocal right-sided opacities are uncha nged from the prior. Cardiomediastinal silhouette appears nonenlarged. Right-sided thoracostomy tube is unchanged. IMPRESSION: Slightly increased appearing volume of the right apical pneumothorax with similar positi oning of the right thoracostomy tube and no current mediastinal shift. Multifocal right airspace dise ase likely relates to atelectasis.
[2019-01-09] MEDS: TAMSULOSIN 0.4 MG CAP.ER.24H PO SCH (11:41)
[2019-01-09] MEDS: HEPARIN SODIUM,PORCINE 5,000 UNIT/ML 1 ML VIAL SQ SCH ×2 (11:41→21:06)
[2019-01-09] MEDS: METOPROLOL TARTRATE 25 MG TAB PO SCH ×2 (11:41→21:06)
[2019-01-09] MEDS: SENNOSIDES-DOCUSATE SODIUM 1 EACH TAB PO SCH ×2 (11:42→21:06)
[2019-01-09] MEDS: MAGNESIUM HYDROXIDE 2,400 MG/10 ML CUP PO PRN (11:42)
--- NOTE | 2019-01-09 12:07 | P.PN ---
Subjective Progress Note Date: 01/09/19 Principal diagnosis: Recurrent right-sided spontaneous pneumothorax with significant bullous emphysema, persistent bronchopleural fistula, status post right pleural thoracostomy tube placement by the emergency room physicians. Previous medical history of recurrent right pneumothoraces 2 in 2018, severe COPD with bleb disease, tobacco dependence, bipolar/depression, GERD. POD #12 right thoracoscopy, lysis of pleural adhesions, stapling of blebs, talc pleurodesis with continuing air leak The patient's currently sitting up in bed in no acute distress. Denies pain, shortness of breath. Actively using incentive spirometry. Right-sided chest tube present, continuous air leak still present. No new complaints. Objective - Vital Signs Vital signs: Vital Signs Temp 98.3 F 01/09/19 11:48 Pulse 95 01/09/19 11:48 Resp 18 01/09/19 11:48 BP 99/65 01/09/19 11:48 Pulse Ox 98 01/09/19 11:48 Intake & Output 01/08/19 01/09/19 01/09/19 18:59 06:59 18:59 Intake Total 600 240 Output Total 90 340 475 Balance 510 -340 -235 Weight 56.3 kg 56.2 kg Intake: Oral 600 240 Output: Chest Tube Drainage 90 140 Chest Tube Right Mid- 90 140 Axillary Chest Urine 200 475 Other: Voiding Method Urinal # Voids 1 - Constitutional General appearance: Present: cooperative, no acute distress - Respiratory Details: Lung sounds diminished bilaterally. Respirations even, nonlabored. Currently on room air with oxygen saturation 95%. Able to achieve 1000 mL on his incentive spirometry. Right pleural chest tube to -5 cm continuous wall sucti on, 40 mL serous drainage overnight, 250 mL in the last 24 hours, continuous air leak present. - Cardiovascular Details: S1, S2 present. Tachycardic but regular rate and rhythm, sinus tach on telemetry. Palpable peripheral pulses bilaterally. No edema present. No calf pain or tenderness noted. SCDs present. - Gastrointestinal Gastrointestinal Comment(s): Abdomen soft, nontender, nondistended. Active bowel sounds present 4 quadrants. Tolerating diet. - Genitourinary Genitourinary Comment(s): Continues to void clear, yellow urine. - Integumentary Integumentary Comment(s): Skin is warm and dry with evidence of good perfusion. Right pleural chest tube site covered with dry intact dressing. - Neurologic Neurologic: Present: CNII-XII intact - Musculoskeletal Musculoskeletal: Present: gait normal, strength equal bilaterally - Psychiatric Psychiatric: Present: A&O x's 3, appropriate affect, intact judgment & insight - Allied health notes Allied health notes reviewed: nursing - Labs CBC & Chem 7: 01/09/19 06:21 01/09/19 06:21 Labs: Abnormal Lab Results - Last 24 Hours (Table) 01/09/19 01/09/19 01/09/19 Range/Units 04:30 06:21 06:21 WBC 14.9 H (3.8-10.6) k/uL RBC 4.29 L (4.30-5.90) m/uL Hgb 12.4 L (13.0-17.5) gm/dL Plt Count 742 H (150-450) k/uL Neutrophils # 11.5 H (1.3-7.7) k/uL Monocytes # 1.1 H (0-1.0) k/uL Sodium 135 L (137-145) mmol/L Potassium 5.5 H (3.5-5.1) mmol/L Urine Protein 1+ H (Negative) Ur Leukocyte Esterase Small H (Negative) Urine RBC 16 H (0-5) /hpf Urine WBC 32 H (0-5) /hpf Urine Bacteria Moderate H (None) /hpf Urine Mucus Few H (None) /hpf Microbiology - Last 24 Hours (Table) 01/09/19 04:30 Urine Culture - Preliminary Urine,Clean Catch - Imaging and Cardiology Chest x-ray: report reviewed, image reviewed Assessment and Plan Assessment: 1. Recurrent right-sided pneumothorax with significant bullous emphysema, status post right pleural thoracostomy tube placement by the emergency room physicians, status post right thoracoscopy with lysis of adhesions, stapling of blebs, and talc pleurodesis 2. Continued air leak 3. History of recurrent right pneumothoraces 2 in 2018 4. Severe COPD with bleb disease 5. Previous tobacco dependence 6. Bipolar/depression 7. GERD Plan: 1. Continue right pleural chest tube to -5 cm continuous wall suction. Will monitor for resolution of air leak. 2. Will monitor daily x-rays. 3. Encourage incentive spirometry is 10 times every hour while awake. 4. Encourage continued smoking cessation. 5. Pain control with current medication regimen. 6. Increase activity, ambulate as tolerated. Patient may ambulate around the room. PT/OT following. 7. Bronchodilators per pulmonology. 8. GI/DVT prophylaxis. 9. Medical management of other comorbidities per primary care service. 10. More recommendations based on patient's progress. Time with Patient: Greater than 30
--- NOTE | 2019-01-09 12:12 | P.PN ---
Subjective Progress Note Date: 01/09/19 Principal diagnosis: Dyspnea with right-sided chest pain, related to significant right-sided pneumothorax, status post chest tube placement. Status post VATS procedure. This is a very pleasant 63-year-old gentleman who follows with Dr. Coombs as his primary care physician. He has a previous history of chronic tobacco dependence quitting in 2018, chronic obstructive pulmonary disease, chronic right-sided pneumothorax of 10-15% and the right chest. He was seen in our office yesterday with complaints of increasing shortness of breath and right-sided chest discomfort. A chest x-ray revealed a significant right-sided pneumothorax. He was referred to the emergency room for chest tube placement. Computed tomography scan of the chest revealed a large right-sided pneumothorax occupying the lower two thirds of the right hemithorax. There is also significant bulla and bleb formation seen within the lung. Chest tube was placed in the emergency room. He is seen today on the selective care unit and consultation. He is currently resting fairly comfortable in bed. He is awake and alert in no acute distress. He is maintaining high 90s on 4 L/m per nasal cannula. He's been afebrile. Digital site pain but no significant chest discomfort. White count 11.3. Hemoglobin 14.2. Creatinine 1.04. He's been initiated and DuoNeb inhalations, Symbicort. Today's chest x-ray shows improved right hydropneumothorax with extensive underlying bullous emphysema. Patient is seen today 12/30/2018 in follow-up on the selective care unit. He is now status post right-sided VATS procedure with lysis of pleural adhesions, stapling of blebs and top pleurodesis. Pathology pending. Chest tube remains in place. There is a continuous air leak today. Chest x-ray reveals persistent but slightly smaller moderate size right apical pneumothorax. He is currently awake and alert in no acute distress. Resting comfortably in bed. He is maintaining O2 saturations in the 90s on 2 L/m per nasal cannula. Working well with the incentive spirometer. He's been afebrile. Still tachycardic in the 110s-120s. White count 11.7. Hemoglobin 11.4. Creatinine 0.87. On 12/31/2018 ration seen in follow-up on selective care unit, she is resting quietly in bed, in no acute distress, right-sided chest tube is in place, and are still persistent air leak, today's chest x-ray shows persistence of right apical pneumothorax, lung sounds reveal coarse rhonchi over right lung, clear on the left. He is working on his incentive spirometer, he denies any pain. Biopsy results are pending. His lab work has been noted. Chest X-ray has been reviewed with Dr. Byrnes. On 01/01/2019 patient seen in follow-up on selective care unit, he is awake and alert, resting comfortably in bed, in no acute distress, remains on 3 L of oxygen with a pulse ox of 97%, he is afebrile, right-sided chest tube is in place, with continuous air leak. Today's chest x-ray has been reviewed by Dr. Andrews and showed a small increase in size the right apical pneumothorax, patient is working on his incentive spirometer, he denies any pain or discomfort, lung sounds reveal coarse rhonchi over right lung, there are on the left. Wedge biopsy is still pending, today's labs have been noted. No acute events o vernight, we'll continue to follow. Patient is seen today 01/02/2019 in follow-up on the selective care unit. He is awake and alert in no acute distress. Continues to maintain good O2 saturation in the upper 90s on 2 L/m per nasal cannula. He is afebrile. Hemodynamically stable. White count 8.4. Hemoglobin 11.2. Potassium 5.2. Creatinine 0.72. He remains on DuoNeb inhalations, Symbicort. Working with the incentive spirometer. Chest tube remains in place significant leak. Chest x-ray reveals a right-sided pneumothorax which has increased in size currently 4.9 cm versus 4.4 cm. There is a patchy right perihilar and right lower lobe infiltrate as well. Itchy density in the left medial lung base. Pathology was negative for malignancy. The patient is seen today 01/03/2019 in follow-up on the selective care unit. He is currently resting quite comfortably in bed. Awake and alert in no acute distress. His x-ray continues to reveal fluctuation in the right-sided pneumothorax mildly increased from prior. Multifocal right-sided atelectasis. Chest tube remains in place with continuous air leak. He is maintaining O2 saturations in the high 90s on 2 L/m per nasal cannula. He's been afebrile. Hemodynamically stable. Working well with the incentive spirometer. Sodium 1 39. Potassium 5.0. Creatinine 0.81. He remains on DuoNeb inhalations and Symbicort. Surgical pathology reveals bullous pulmonary emphysema with focal subacute infarction, interstitial and pleural fibrosis. No malignancy. The patient is seen today 01/05/2019 in follow-up on the selective care unit. He is currently sitting up in a chair at the bedside. Awake and alert in no acute distress. He is somewhat disappointed in his extended stay. Chest x-ray showing increasing right pneumothorax. His chest tube remains in place. There is continuous leak. He is maintaining good O2 saturations in the 90s on 3 L/m per nasal cannula. White count 11.1. Hemoglobin 11.9. Creatinine 0.68. He r emains on bronchodilators and Symbicort. The patient is seen again today 01/06/2019 in follow-up on the selective care unit. Currently resting comfortably in bed. No pulmonary complaints. [place] O2 saturations in the 90s on room air. He's been afebrile. Hemodynamically stable. Sodium 134. Potassium 4.7. Creatinine 0.69. Chest x- ray reveals evidence of significant COPD with a stable, loculated right apical pneumothorax. There is worsening right basilar airspace disease. Chest tube remains in place. There is a significant air leak still. The patient is seen today 01/09/2019 in follow-up on the selective care unit. He is currently up in a chair at the bedside. Awake and alert in no acute distress. Maintaining good O2 saturations in the upper 90s on 2 L/m per nasal cannula. She's been afebrile. Hemodynamically stable. Urine culture pending. White count 14.9. Hemoglobin 12.4. Creatinine 0.85. He remains on DuoNeb inhalations and Symbicort. Unfortunately, the chest x-ray continues to socialize increase in the volume of the right apical pneumothorax. Right th oracostomy tube remains in place. Multifocal airspace disease on the right related to atelectasis. He is utilizing the incentive spirometer. Objective - Vital Signs Vital signs: Vital Signs Temp 98.3 F 01/09/19 11:48 Pulse 95 01/09/19 11:48 Resp 18 01/09/19 11:48 BP 99/65 01/09/19 11:48 Pulse Ox 98 01/09/19 11:48 Intake & Output 01/08/19 01/09/19 01/09/19 18:59 06:59 18:59 Intake Total 600 240 Output Total 90 340 475 Balance 510 -340 -235 Weight 56.3 kg 56.2 kg Intake: Oral 600 240 Output: Chest Tube Drainage 90 140 Chest Tube Right Mid- 90 140 Axillary Chest Urine 200 475 Other: Voiding Method Urinal # Voids 1 - Exam GENERAL EXAM: Alert, pleasant, frail cachectic 63-year-old male, comfortable in no apparent distress. On 2 L/m per nasal cannula. HEAD: Normocephalic/atraumatic. EYES: Normal reaction of pupils, equal size. Conjunctiva pink, sclera white. NOSE: Clear with pink turbinates. THROAT: No erythema or exudates. NECK: No masses, no JVD, no thyroid enlargement, no adenopathy. CHEST: No chest wall deformity. Symmetrical expansion. Right-sided chest tube is present, connected to Pleur-evac and wall suction, and there is a continuous air leak noted. LUNGS: Equal air entry with diminished breath sounds on the right, her breath sounds on the left CVS: Regular rate and rhythm, normal S1 and S2, no gallops, no murmurs, no rubs ABDOMEN: Soft, nontender. No hepatosplenomegaly, normal bowel sounds, no guarding or rigidity. EXTREMITIES: No clubbing, no edema, no cyanosis, 2+ pulses and upper and lower extremities. MUSCULOSKELETAL: Muscle strength and tone normal. SPINE: No scoliosis or deformity SKIN: No rashes CENTRAL NERVOUS SYSTEM: No focal deficits, tone is normal in all 4 extremities. PSYCHIATRIC: Alert and oriented -3. Appropriate affect. Intact judgment and insight. - Labs CBC & Chem 7: 01/09/19 06:21 01/09/19 06:21 Labs: Abnormal Lab Results - Last 24 Hours (Table) 01/09/19 01/09/19 01/09/19 Range/Units 04: 06:21 06:21 WBC 14.9 H (3.8-10.6) k/uL RBC 4.29 L (4.30-5.90) m/uL Hgb 12.4 L (13.0-17.5) gm/dL Plt Count 742 H (150-450) k/uL Neutrophils # 11.5 H (1.3-7.7) k/uL Monocytes # 1.1 H (0-1.0) k/uL Sodium 135 L (137-145) mmol/L Potassium 5.5 H (3.5-5.1) mmol/L Urine Protein 1+ H (Negative) Ur Leukocyte Esterase Small H (Negative) Urine RBC 16 H (0-5) /hpf Urine WBC 32 H (0-5) /hpf Urine Bacteria Moderate H (None) /hpf Urine Mucus Few H (None) /hpf Microbiology - Last 24 Hours (Table) 01/09/19 04:30 Urine Culture - Preliminary Urine,Clean Catch Assessment and Plan Assessment: Impression: #1 Dyspnea with right-sided chest pain in a patient found to have significant right-sided pneumothorax, status post chest tube placement. Now status post right-sided thoracoscopy with lysis of adhesions, stapling of blebs, talc pleurodesis. Chest x-ray reveals persistent and larger right-sided pneumothorax, now 8.3 cm. #2 History of chronic 10-15% right-sided pneumothorax. #3 History of significant bullous emphysema. #4 history of chronic obstructive pulmonary disease, currently inactive and stable. #5 Chronic tobacco dependence, quit in 2018. #6 History of bipolar disorder. PLAn: The patient was seen and evaluated by Dr. Gonzalez. Chest x-ray reviewed. Right-sided chest tube remains in place for now, continues with air leak. Remains on continuous low wall suction. Continue incentive spirometer and encourage cough and deep breathing exercises. The patient may need to be transferred to a tertiary care center for possible thoracic surgical intervention. Increase his activity as tolerated. We'll continue to follow and make further recommendations based on his clinical status. I, the cosigning physician, performed a history & physical examination of the patient. Lungs sounds are diminished breath sounds on the right. Maintaining good O2 saturations in the 90s on 2 L/m per nasal cannula. I discussed the assessment and plan of care with my nurse practitioner, Venecia Crocker. I attest to the above note as dictated by her.
--- NOTE | 2019-01-09 13:18 | P.PN ---
Subjective This is a pleasant 63 years old male with past medical history of COPD, GERD, pneumothorax in September 2017. Presents because of signs symptoms of p neumothorax. This is status post chest tube placement on the right side. Is been followed closely by pulmonary and cardiothoracic surgery team. Currently patient is breathing quietly. perspiration is not labored. Pain is controlled. Still has chest tube in place. And still needs to be monitored general medical floor. Vitals stable, however his somewhat tachycardic around 110 but patient is afebrile and blood pressure is stable. Labs reviewed. 12/26/2018 Patient clinically stable, with no significant dyspnea. Cardiothoracic surgery team are planning for right-sided pleurodesis on this coming , 12/28/2018. Vitals and labs were reviewed. Subjective 01/01/2019 Patient lying in bed, not in respiratory distress. No chest pain or dyspnea. He still have right-sided chest tube with air leak. Pulmonology and cardiothoracic surgery R following the patient closely. No leukocytosis today. Vitals stable 01/02/2019 Patient clinically the same, with no dyspnea or chest pain. Still have left chest tube in place. Repeat chest x-ray showing a large pneumothorax today from 4.4 up to 4.9 cm. Pulmonary and cardiothoracic surgery R following the case. 01/03/2019 Patient remains stable with no dyspnea or chest pain. No other new complaints. Still has chest tube is in place. BMP was unremarkable. Chest x-ray: Mildly increased pneumothorax. Patient today developed tachycardia of heart rate of 150 while walking. EKG was checked and showing:sinus tachycardia. pt is started on normal saline , mg and K level were checked and they are acceptable, pt is with no chest pain or worsening dyspnea, . lopressor is started 01/04/2019 Patient most in bed comfortable not in distress. He denies chest pain or dyspnea. Patient generally feels better with no specific abnormality or complained from last night when his heart rate went high up to 150. Patient already on Lopressor. Currently his heart rate is 102 pressure 98/65, is still on normal saline at 75 mL/h and will be lower today to 50 mL/h. Still has right-sided chest tube. Cardiothoracic surgery and pulmonary team are following the patient closely 01/05/2019 Patient remains lying in bed with chest tube on the right side. No Paige dyspnea or chest pain. His heart rate still slightly elevated. Patient remains on IV fluid. Patient is been followed by pulmonary and cardiothoracic surgery team 01/06/2019 Patient remains lying in bed with chest tube on the right side. No Paige dyspnea or chest pain. His heart rate still slightly elevated. Patient remains on IV fluid. Patient is been followed by pulmonary and cardiothoracic surgery team. His tachycardia is same or little better. He is saturating 94% on room air. Chest x-ray: Stable pneumothorax but worsening right basilar airspace dise ase 01/07/2019 patient clinically the same and to P chest x-ray showing persistent right apical pneumothorax and worsening right basilar airspace disease. No new complaint and patient is been followed by pulmonary and cardiothoracic surgery teams. 01/08/2019. Patient remains clinically the same as yesterday with no dyspnea or chest pain. WBC is 11.7. Afebrile but tachycardic. Repeat chest x-ray from today showing moderate size right pneumothorax with patchy density throughout the right lung. 01/09/19 Patient remains clinically the same as yesterday with no dyspnea or chest pain. WBC is 14.9. Afebrile but tachycardic. Repeat chest x-ray from today showing moderate size right pneumothorax with patchy density throughout the right lung mostly relates to atelectasis as per pulmonary evaluation , pt using incentive spirometry , UA is suspicous for infection , we will send UC and start pt on ceftriaxone Review of systems CONSTITUTIONAL: No fever, no malaise, no fatigue. HEENT: No recent visual problems or hearing problems. Denied any sore throat. CARDIOVASCULAR: No orthopnea, PND, no palpitations, no syncope. PULMONARY: No shortness of breath, no cough, no hemoptysis. GASTROINTESTINAL: No diarrhea, no nausea, no vomiting, no abdominal pain. Normoactive bowel sounds. NEUROLOGICAL: No headaches, no weakness, no numbness. HEMATOLOGICAL: Denies any bleeding or petechiae. GENITOURINARY: Denies any burning micturition, frequency, or urgency. MUSCULOSKELETAL/RHEUMATOLOGICAL: Denies any joint pain, swelling, or any muscle pain. ENDOCRINE: Denies any polyuria or polydipsia. Medication: Ceftriaxone, albuterol, Tylenol, Xanax, heparin, Symbicort, [place], magnesium, Robaxin, Lopressor, Zofran, Protonix, Senokot, Flomax, Restoril. Objective - Vital Signs Vital signs: Vital Signs Temp 98.3 F 01/09/19 11:48 Pulse 95 01/09/19 11:48 Resp 18 01/09/19 11:48 BP 99/65 01/09/19 11:48 Pulse Ox 98 01/09/19 11:48 Intake & Output 01/08/19 01/09/19 01/09/19 18:59 06:59 18:59 Intake Total 600 240 Output Total 90 340 475 Balance 510 -340 -235 Weight 56.3 kg 56.2 kg Intake: Oral 600 240 Output: Chest Tube Drainage 90 140 Chest Tube Right Mid- 90 140 Axillary Chest Urine 200 475 Other: Voiding Method Urinal # Voids 1 - Exam GENERAL: The patient is alert and oriented x3, not in any acute distress. Well developed, well nourished. HEENT: Pupils are round and equally reacting to light. EOMI. No scleral icterus. No conjunctival pallor. Normocephalic, atraumatic. No pharyngeal erythema. No thyromegaly. CARDIOVASCULAR: S1 and S2 present. No murmurs, rubs, or gallops. -PULMONARY: Chest is clear to auscultation, no wheezing or crackles. Right chest tube ABDOMEN: Soft, nontender, nondistended, normoactive bowel sounds. No palpable organomegaly. MUSCULOSKELETAL: No joint swelling or deformity. EXTREMITIES: No cyanosis, clubbing, or pedal edema. NEUROLOGICAL: Gross neurological examination did not reveal any focal deficits. SKIN: No rashes. - Labs CBC & Chem 7: 01/09/19 06:21 01/09/19 06:21 Labs: Abnormal Lab Results - Last 24 Hours (Table) 01/09/19 01/09/19 01/09/19 Range/Units 04:30 06:21 06:21 WBC 14.9 H (3.8-10.6) k/uL RBC 4.29 L (4.30-5.90) m/uL Hgb 12.4 L (13.0-17.5) gm/dL Plt Count 742 H (150-450) k/uL Neutrophils # 11.5 H (1.3-7.7) k/uL Monocytes # 1.1 H (0-1.0) k/uL Sodium 135 L (137-145) mmol/L Potassium 5.5 H (3.5-5.1) mmol/L Urine Protein 1+ H (Negative) Ur Leukocyte Esterase Small H (Negative) Urine RBC 16 H (0-5) /hpf Urine WBC 32 H (0-5) /hpf Urine Bacteria Moderate H (None) /hpf Urine Mucus Few H (None) /hpf Microbiology - Last 24 Hours (Table) 01/09/19 04:30 Urine Culture - Preliminary Urine,Clean Catch Assessment and Plan Assessment: Acute and chronic right pneumothorax, status post right-sided chest tube drainage. Acute urinary tract infection tachycardia, mostly secondary to History of previous 10-15% pneumothorax on the right side Chronic obstructive pulmonary disease, not in acute exacerbation History of bipolar depression, not an active issue History of nicotine dependence Severe protein calorie malnutrition with BMI of 17.9 Plan: This is a pleasant 63 years old male who presents with recurrent right side pneumothorax, his status post chest tube placement. His been followed closely by pulmonary and cardiothoracic surgery.Labs and medication were reviewed. Start antibiotics for UTI and adjust as per urine culture. Continue same treatment. Continue with symptomatic treatment. Resume home medication. Monitor lytes and vitals. DVT and GI prophylaxis. Further recommendations of the clinical course of the patient DVT prophylaxis: Subcutaneous heparin GI Prophylaxis: Ppi Prognosis is guarded
[2019-01-09] MEDS ORDERED: SODIUM POLYSTYRENE SULFONATE 15 GM/60 ML BOTTLE PO STA (20:07)
[2019-01-09] MEDS ORDERED: INSULIN REGULAR 100 UNIT/ML VIAL IV ONE (20:08)
[2019-01-09] MEDS ORDERED: DEXTROSE 50% SYRINGE 50 ML IVP STA (20:09)
[2019-01-09 22:12] LABS: Glucose,Whole Blood 64 mg/dL (75-99)
[2019-01-09 22:29] LABS: Glucose,Whole Blood 61 mg/dL (75-99)
[2019-01-09 23:00] LABS: Glucose,Whole Blood 80 mg/dL (75-99)
[2019-01-09] MEDS ORDERED: METOPROLOL TARTRATE 5 MG/5 ML VIAL IVP STA (23:43)
[2019-01-09] MEDS ORDERED: METOPROLOL TARTRATE 25 MG TAB PO STA (23:43)
--- NOTE | 2019-01-10 03:11 | CT ---
EXAM: CT Angiography Chest With Intravenous Contrast CLINICAL HISTORY: ITS.REASON CT Reason: D-Dimer elevated and to rule out PE TECHNIQUE: Axial computed tomographic angiography images of the chest with intravenous contrast using pulmonary embolism protocol. CTDI is 4.2 mGy and DLP is 211 mGy-cm. This CT exam was performed using one or more of the following dose reduction techniques: automated exposure control, adjustment of the mA and/or kV according to patient size, and/or use of iterative reconstruction technique. MIP reconstructed images were created and reviewed. COMPARISON: 12/29/18 CT chest FINDINGS: Large right-sided pneumothorax (approximately 50%) with a chest tube inserted in the right lung apex. There is also moderate right pleural effusion with compressive atelectasis. No pulmonary embolism. IMPRESSION: 1. Large right-sided pneumothorax with chest tube inserted. The cavity has decreased in size compared to the prior exam. However there is increased right-sided pleural effusion. 2. No pulmonary embolism.
[2019-01-10] MEDS: PANTOPRAZOLE 40 MG TABLET PO SCH (06:20)
[2019-01-10 07:07] LABS: Basophils # (A) 0.1 k/uL (0-0.2); Basophils % (A) 1 %; Eosinophils % (A) 0 %; HCT 36.2 % (39.0-53.0); HGB 11.3 gm/dL (13.0-17.5); Lymphocytes # (A) 1.5 k/uL (1.0-4.8); Lymphocytes % (A) 8 %; MCH 28.6 pg (25.0-35.0); MCHC 31.1 g/dL (31.0-37.0); Mean Platelet Volume 6.8; Monocytes # (A) 1.1 k/uL (0-1.0); Monocytes % (A) 6 %; Neutrophils # (A) 14.3 k/uL (1.3-7.7); Neutrophils % (A) 82 %; Platelet Count 707 k/uL (150-450); RBC 3.94 m/uL (4.30-5.90); RDW 13.4 % (11.5-15.5); WBC 17.4 k/uL (3.8-10.6)
[2019-01-10] MEDS: IPRATROPIUM-ALBUTEROL 3 ML NEB INHALATION SCH ×3 (07:18→20:39)
[2019-01-10] MEDS: SYMBICORT 160-4.5 MCG INHALER INHALATION SCH ×2 (07:18→20:39)
--- NOTE | 2019-01-10 07:49 | XR ---
EXAMINATION TYPE: XR chest 1V portable DATE OF EXAM: 01/10/2019 HISTORY: Follow-up pneumothorax COMPARISON: 01/09/2019 TECHNIQUE: Single view of the chest is submitted. FINDINGS: Loculated right upper lobe pneumothorax remains unchanged. Chest tube is unchanged in position. Pleur al parenchymal opacity right lung base is stable as well. The left lung is clear. The heart is stable. Hilar and mediastinal structures are within normal limits. Degenerative changes are seen of the dorsal spine. IMPRESSION: 1. Loculated right upper lobe pneumothorax remains unchanged. Chest tube is unchanged in position. P leural parenchymal opacity right lung base is stable as well.
[2019-01-10] MEDS: METOPROLOL TARTRATE 25 MG TAB PO SCH ×2 (07:53→19:57)
[2019-01-10] MEDS: TAMSULOSIN 0.4 MG CAP.ER.24H PO SCH (07:53)
[2019-01-10] MEDS: HEPARIN SODIUM,PORCINE 5,000 UNIT/ML 1 ML VIAL SQ SCH ×2 (07:53→19:56)
[2019-01-10] MEDS: SENNOSIDES-DOCUSATE SODIUM 1 EACH TAB PO SCH (07:54)
--- NOTE | 2019-01-10 10:35 | P.PN ---
Subjective Progress Note Date: 01/10/19 Principal diagnosis: Recurrent right-sided spontaneous pneumothorax with significant bullous emphysema, persistent bronchopleural fistula, status post right pleural thoracostomy tube placement by the emergency room physicians. Previous medical history of recurrent right pneumothoraces 2 in 2018, severe COPD with bleb disease, tobacco dependence, bipolar/depression, GERD. POD #13 right thoracoscopy, lysis of pleural adhesions, stapling of blebs, talc pleurodesis with continuing air leak The patient's currently sitting up in bed in no acute distress. Denies pain, shortness of breath currently. Did have an episode of significant chest pain last night, troponins were drawn which were negative 2, CTA with of the chest was ordered demonstrating no pulmonary embolism, decrease in size of his right pneumothorax compared to previous CT. Chest pain resolved per patient. Actively using incentive spirometry. Right-sided chest tube present, continuous air leak still present. Objective - Vital Signs Vital signs: Vital Signs Temp 97.8 F 01/10/19 07:59 Pulse 94 01/10/19 08:00 Resp 18 01/10/19 08:00 BP 107/59 01/10/19 07:59 Pulse Ox 94 L 01/10/19 07:59 Intake & Output 01/09/19 01/10/19 01/10/19 18:59 06:59 18:59 Intake Total 720 Output Total 575 100 150 Balance 145 -100 -150 Weight 56.3 kg Intake: Oral 720 Output: Urine 575 100 150 Other: # Voids 1 - Constitutional General appearance: Present: cooperative, no acute distress - Respiratory Details: Lung sounds diminished bilaterally. Respirations even, nonlabored. Currently on 2 L nasal cannula with oxygen saturation 94%. Able to achieve 1500 mL on his incentive spirometry. Right pleural chest tube to -5 cm continuous wall suction, no drainage overnight, 100 mL serous drainage in the last 24 hours, continuous air leak present. - Cardiovascular Details: S1, S2 present. Tachycardic but regular rate and rhythm, sinus tach on telemetr y. Palpable peripheral pulses bilaterally. No edema present. No calf pain or tenderness noted. SCDs present. - Gastrointestinal Gastrointestinal Comment(s): Abdomen soft, nontender, nondistended. Active bowel sounds present 4 quadrants. Tolerating diet. - Genitourinary Genitourinary Comment(s): Continues to void clear, yellow urine. - Integumentary Integumentary Comment(s): Skin is warm and dry with evidence of good perfusion. Right pleural chest tube site covered with dry intact dressing. - Neurologic Neurologic: Present: CNII-XII intact - Musculoskeletal Musculoskeletal: Present: gait normal, strength equal bilaterally - Psychiatric Psychiatric: Present: A&O x's 3, appropriate affect, intact judgment & insight - Allied health notes Allied health notes reviewed: nursing - Labs CBC & Chem 7: 01/10/19 06:46 01/10/19 01:37 Labs: Abnormal Lab Results - Last 24 Hours (Table) 01/09/19 01/09/19 01/09/19 Range/Units 17:37 22:10 22:28 WBC (3.8-10.6) k/uL RBC (4.30-5.90) m/uL Hgb (13.0-17.5) gm/dL Hct (39.0-53.0) % Plt Count (150-450) k/uL Neutrophils # (1.3-7.7) k/uL Monocytes # (0-1.0) k/uL D-Dimer (<0.60) mg/L FEU Potassium 5.5 H (3.5-5.1) mmol/L POC Glucose (mg/dL) 64 L 61 L (75-99) mg/dL 01/10/19 01/10/19 Range/Units 00:13 06:46 WBC 17.4 H (3.8-10.6) k/uL RBC 3.94 L (4.30-5.90) m/uL Hgb 11.3 L (13.0-17.5) gm/dL Hct 36.2 L (39.0-53.0) % Plt Count 707 H (150-450) k/uL Neutrophils # 14.3 H (1.3-7.7) k/uL Monocytes # 1.1 H (0-1.0) k/uL D-Dimer 4.42 H (<0.60) mg/L FEU Potassium (3.5-5.1) mmol/L POC Glucose (mg/dL) (75-99) mg/dL Microbiology - Last 24 Hours (Table) 01/09/19 04:30 Urine Culture - Preliminary Urine,Clean Catch - Imaging and Cardiology Chest x-ray: report reviewed, image reviewed Assessment and Plan Assessment: 1. Recurrent right-sided pneumothorax with significant bullous emphysema, status post right pleural thoracostomy tube placement by the emergency room physicians, status post right thoracoscopy with lysis of adhesions, stapling of blebs, and talc pleurodesis 2. Continued air leak 3. History of recurrent right pneumothoraces 2 in 2018 4. Severe COPD with bleb disease 5. Previous tobacco dependence 6. Bipolar/depression 7. GERD Plan: 1. Continue right pleural chest tube to -5 cm continuous wall suction. Will monitor for resolution of air leak. 2. Will monitor daily x-rays. 3. Encourage incentive spirometry is 10 times every hour while awake. 4. Encourage continued smoking cessation. 5. Pain control with current medication regimen. 6. Increase activity, ambulate as tolerated. Patient may ambulate around the room. PT/OT following. 7. Bronchodilators per pulmonology. 8. GI/DVT prophylaxis. 9. Medical management of other comorbidities per primary care service. 10. More recommendations based on patient's progress. Time with Patient: Greater than 30
[2019-01-10] MEDS: MAGNESIUM HYDROXIDE 2,400 MG/10 ML CUP PO PRN (11:59)
--- NOTE | 2019-01-10 14:07 | P.PN ---
Subjective This is a pleasant 63 years old male with past medical history of COPD, GERD, pneumothorax in September 2017. Presents because of signs symptoms of p neumothorax. This is status post chest tube placement on the right side. Is been followed closely by pulmonary and cardiothoracic surgery team. Currently patient is breathing quietly. perspiration is not labored. Pain is controlled. Still has chest tube in place. And still needs to be monitored general medical floor. Vitals stable, however his somewhat tachycardic around 110 but patient is afebrile and blood pressure is stable. Labs reviewed. 12/26/2018 Patient clinically stable, with no significant dyspnea. Cardiothoracic surgery team are planning for right-sided pleurodesis on this coming , 12/28/2018. Vitals and labs were reviewed. Subjective 01/01/2019 Patient lying in bed, not in respiratory distress. No chest pain or dyspnea. He still have right-sided chest tube with air leak. Pulmonology and cardiothoracic surgery R following the patient closely. No leukocytosis today. Vitals stable 01/02/2019 Patient clinically the same, with no dyspnea or chest pain. Still have left chest tube in place. Repeat chest x-ray showing a large pneumothorax today from 4.4 up to 4.9 cm. Pulmonary and cardiothoracic surgery R following the case. 01/03/2019 Patient remains stable with no dyspnea or chest pain. No other new complaints. Still has chest tube is in place. BMP was unremarkable. Chest x-ray: Mildly increased pneumothorax. Patient today developed tachycardia of heart rate of 150 while walking. EKG was checked and showing:sinus tachycardia. pt is started on normal saline , mg and K level were checked and they are acceptable, pt is with no chest pain or worsening dyspnea, . lopressor is started 01/04/2019 Patient most in bed comfortable not in distress. He denies chest pain or dyspnea. Patient generally feels better with no specific abnormality or complained from last night when his heart rate went high up to 150. Patient already on Lopressor. Currently his heart rate is 102 pressure 98/65, is still on normal saline at 75 mL/h and will be lower today to 50 mL/h. Still has right-sided chest tube. Cardiothoracic surgery and pulmonary team are following the patient closely 01/05/2019 Patient remains lying in bed with chest tube on the right side. No Paige dyspnea or chest pain. His heart rate still slightly elevated. Patient remains on IV fluid. Patient is been followed by pulmonary and cardiothoracic surgery team 01/06/2019 Patient remains lying in bed with chest tube on the right side. No Paige dyspnea or chest pain. His heart rate still slightly elevated. Patient remains on IV fluid. Patient is been followed by pulmonary and cardiothoracic surgery team. His tachycardia is same or little better. He is saturating 94% on room air. Chest x-ray: Stable pneumothorax but worsening right basilar airspace dise ase 01/07/2019 patient clinically the same and to P chest x-ray showing persistent right apical pneumothorax and worsening right basilar airspace disease. No new complaint and patient is been followed by pulmonary and cardiothoracic surgery teams. 01/08/2019. Patient remains clinically the same as yesterday with no dyspnea or chest pain. WBC is 11.7. Afebrile but tachycardic. Repeat chest x-ray from today showing moderate size right pneumothorax with patchy density throughout the right lung. 01/09/19 Patient remains clinically the same as yesterday with no dyspnea or chest pain. WBC is 14.9. Afebrile but tachycardic. Repeat chest x-ray from today showing moderate size right pneumothorax with patchy density throughout the right lung mostly relates to atelectasis as per pulmonary evaluation , pt using incentive spirometry , UA is suspicous for infection , we will send UC and start pt on ceftriaxone 01/10/2019 Patient still awake alert. He has no chest pain or dyspnea. He has no urinary symptoms but he was having leukocytosis, he was tachycardic. Patient was found to have worsening leukocytosis and urine analysis was suspicious for infection. Urine culture was growing enterococcus. Patient was already started on ceftriaxone however his leukocytosis kept worsening and today was 17 K, a consult was placed for infectious disease Review of systems CONSTITUTIONAL: No fever, no malaise, no fatigue. HEENT: No recent visual problems or hearing problems. Denied any sore throat. CARDIOVASCULAR: No orthopnea, PND, no palpitations, no syncope. PULMONARY: No shortness of breath, no cough, no hemoptysis. GASTROINTESTINAL: No diarrhea, no nausea, no vomiting, no abdominal pain. Normoactive bowel sounds. NEUROLOGICAL: No headaches, no weakness, no numbness. HEMATOLOGICAL: Denies any bleeding or petechiae. GENITOURINARY: Denies any burning micturition, frequency, or urgency. MUSCULOSKELETAL/RHEUMATOLOGICAL: Denies any joint pain, swelling, or any muscle pain. ENDOCRINE: Denies any polyuria or polydipsia. Medication: Ceftriaxone, albuterol, Tylenol, Xanax, heparin, Symbicort, Dickens, magnesium, Robaxin, Lopressor, Zofran, Protonix, Senokot, Flomax, Restoril. Objective - Vital Signs Vital signs: Vital Signs Temp 98 F 01/10/19 12:00 Pulse 112 H 01/10/19 13:46 Resp 18 01/10/19 12:00 BP 95/56 01/10/19 12:00 Pulse Ox 96 01/10/19 12:00 Intake & Output 01/09/19 01/10/19 01/10/19 18:59 06:59 18:59 Intake Total 720 Output Total 575 100 350 Balance 145 -100 -350 Weight 56.3 kg Intake: Oral 720 Output: Urine 575 100 350 Other: # Voids 1 - Exam GENERAL: The patient is alert and oriented x3, not in any acute distress. Well developed, well nourished. HEENT: Pupils are round and equally reacting to light. EOMI. No scleral icterus. No conjunctival pallor. Normocephalic, atraumatic. No pharyngeal erythema. No thyromegaly. CARDIOVASCULAR: S1 and S2 present. No murmurs, rubs, or gallops. -PULMONARY: Chest is clear to auscultation, no wheezing or crackles. Right chest tube ABDOMEN: Soft, nontender, nondistended, normoactive bowel sounds. No palpable organomegaly. MUSCULOSKELETAL: No joint swelling or deformity. EXTREMITIES: No cyanosis, clubbing, or pedal edema. NEUROLOGICAL: Gross neurological examination did not reveal any focal deficits. SKIN: No rashes. - Labs CBC & Chem 7: 01/10/19 06:46 01/10/19 01:37 Labs: Abnormal Lab Results - Last 24 Hours (Table) 01/09/19 01/09/19 01/09/19 Range/Units 17:37 22:10 22:28 WBC (3.8-10.6) k/uL RBC (4.30-5.90) m/uL Hgb (13.0-17.5) gm/dL Hct (39.0-53.0) % Plt Count (150-450) k/uL Neutrophils # (1.3-7.7) k/uL Monocytes # (0-1.0) k/uL D-Dimer (<0.60) mg/L FEU Potassium 5.5 H (3.5-5.1) mmol/L POC Glucose (mg/dL) 64 L 61 L (75-99) mg/dL 01/10/19 01/10/19 Range/Units 00:13 06:46 WBC 17.4 H (3.8-10.6) k/uL RBC 3.94 L (4.30-5.90) m/uL Hgb 11.3 L (13.0-17.5) gm/dL Hct 36.2 L (39.0-53.0) % Plt Count 707 H (150-450) k/uL Neutrophils # 14.3 H (1.3-7.7) k/uL Monocytes # 1.1 H (0-1.0) k/uL D-Dimer 4.42 H (<0.60) mg/L FEU Potassium (3.5-5.1) mmol/L POC Glucose (mg/dL) (75-99) mg/dL Microbiology - Last 24 Hours (Table) 01/09/19 04:30 Urine Culture - Preliminary Urine,Clean Catch Group D Enterococcus Assessment and Plan Assessment: Acute and chronic right pneumothorax, status post right-sided chest tube drainage. Acute urinary tract infection, urine culture growing enterococcus tachycardia, mostly secondary to History of previous 10-15% pneumothorax on the right side Chronic obstructive pulmonary disease, not in acute exacerbation History of bipolar depression, not an active issue History of nicotine dependence Severe protein calorie malnutrition with BMI of 17.9 Plan: This is a pleasant 63 years old male who presents with recurrent right side pneumothorax, his status post chest tube placement. His been followed closely by pulmonary and cardiothoracic surgery.call infectious disease consult for UTI. Labs and medication were reviewed. Start antibiotics for UTI and adjust as per urine culture. Continue same treatment. Continue with symptomatic treatment. Resume home medication. Monitor lytes and vitals. DVT and GI prophylaxis. Further recommendations of the clinical course of the patient DVT prophylaxis: Subcutaneous heparin GI Prophylaxis: Ppi Prognosis is guarded
[2019-01-10] MEDS ORDERED: SENNOSIDES-DOCUSATE SODIUM 1 EACH TAB PO PRN (16:58)
[2019-01-10] MEDS: DOCUSATE 100 MG CAP PO SCH (17:09)
[2019-01-10] MEDS: AMPICILLIN-SULBACTAM 1.5 GM in SODIUM CHLORIDE 0.9% 50 ML IVPB SCH (17:41)
--- NOTE | 2019-01-10 23:03 | P.CONS ---
History of Present Illness - Reason for Consult Consult date: 01/10/19 Enterococcus urinary tract infection Requesting physician: Edison E Sheet - Chief Complaint Shortness of breath - History of Present Illness Patient is a 63 year male with a past medical history of recurrent right pneumothoraces 2 in 2017, severe COPD with bleb disease, tobacco dependence, bipolar/depression, GERD, patient presented to the ER more than 3 weeks ago with decrease in shortness of breath patient was noticed to have Recurrent right-sided spontaneous pneumothorax with significant bullous emphysema, persistent bronchopleural fistula, status post right pleural thoracostomy tube placement by the emergency room physicians, subsequently the patient did have right thoracoscopy, lysis of pleural adhesions, stapling of blebs, talc pleurodesis with continuing air leak and today the patient is postop day 13. This patient has been afebrile throughout his hospital stay however for the last few days he's noticed to have slowly increasing white count with a white count of 14,000 yesterday and is up to 17,000 today, the patient did have workup done for this elevated white count including a UA that was mildly positive has been treated with IV Rocephin however the urine culture showing enterococcus that prompted this infectious disease consultation. The patient currently denies having any chest pain or shortness of breath very minimal cough denies any bone pain patient did not remember if he has any further cath during this hospital stay that he minimal burning slight discomfort of urine but no suprapubic or flank pain and no hematuria Review of Systems Positive points has been mentioned in HPI rest of the systems are negative Past Medical History Past Medical History: COPD, GERD/Reflux Additional Past Medical History / Comment(s): pneumothorax September 2017 and July 2018, COPD History of Any Multi-Drug Resistant Organisms: None Reported Past Surgical History: No Surgical Hx Reported Additional Past Surgical History / Comment(s): hemorrhoids Past Anesthesia/Blood Transfusion Reactions: No Reported Reaction Past Psychological History: Bipolar, Depression Smoking Status: Former smoker (Quit September 2017) Past Alcohol Use History: None Reported Past Drug Use History: None Reported - Past Family History Father Family Medical History: Cancer Additional Family Medical History / Comment(s): cardiac issues, lung ca Mother Family Medical History: Coronary Artery Disease (CAD) Additional Family Medical History / Comment(s): heart murmur Medications and Allergies Home Medications Medication Instructions Recorded Confirmed Type Albuterol Inhaler [Ventolin Hfa 1 - 2 puff INHALATION RT-Q6H PRN 07/24/18 12/19/18 Rx Inhaler] #1 inhaler Budesonide-Formot 160-4.5 Mcg 2 puff INHALATION RT-BID 30 Days 07/24/18 12/19/18 Rx [Symbicort 160-4.5 Mcg Inhaler] #1 vial Ranitidine HCl [Zantac] 75 mg PO BID PRN 12/19/18 12/19/18 History Allergies Allergy/AdvReac Type Severity Reaction Status Date / Time No Known Allergies Allergy Verified 12/19/18 16:50 Physical Exam Vitals: Vital Signs Temp Pulse Pulse Pulse Resp BP Pulse Ox 01/10/19 13:46 112 H 01/10/19 13:36 110 H 01/10/19 12:00 98 F 98 18 95/56 96 01/10/19 08:00 94 18 01/10/19 07:59 97.8 F 94 18 107/59 94 L 01/10/19 07:30 108 H 01/10/19 07:19 104 H 01/10/19 04:25 97.6 F 110 H 110 H 20 115/61 96 01/09/19 23:15 98.4 F 133 H 20 118/62 94 L 01/09/19 20:40 118 H 01/09/19 20:04 120 H 01/09/19 20:00 98.5 F 120 H 18 117/61 98 Intake and Output 01/10/19 01/10/19 01/10/19 06:59 14:59 22:59 Output Total 100 350 Balance -100 -350 Output: Urine 100 350 Other: # Voids 1 Weight 56.3 kg GENERAL DESCRIPTION: Middle-aged male lying in bed, no distress. No tachypnea or accessory muscle of respiration use. HEENT: Shows Pallor , no scleral icterus. Oral mucous membrane is dry. No pharyngeal erythema or thrush NECK: Trachea central, no thyromegaly. LUNGS: Unlabored breathing. Decreased breath sound at the base. No wheeze or crackle. HEART: S1, S2, regular rate and rhythm. No loud murmur ABDOMEN: Soft, no tenderness , guarding or rigidity, no organomegaly EXTREMITIES: No edema of feet. SKIN: No rash, no masses palpable. NEUROLOGICAL: The patient is awake, alert, oriented x3, mood and affect normal. Results CBC & Chem 7: 01/10/19 06:46 01/10/19 01:37 Labs: Abnormal Lab Results - Last 24 Hours (Table) 01/09/19 01/09/19 01/09/19 Range/Units 17:37 22:10 22:28 WBC (3.8-10.6) k/uL RBC (4.30-5.90) m/uL Hgb (13.0-17.5) gm/dL Hct (39.0-53.0) % Plt Count (150-450) k/uL Neutrophils # (1.3-7.7) k/uL Monocytes # (0-1.0) k/uL D-Dimer (<0.60) mg/L FEU Potassium 5.5 H (3.5-5.1) mmol/L POC Glucose (mg/dL) 64 L 61 L (75-99) mg/dL 01/10/19 01/10/19 Range/Units 00:13 06:46 WBC 17.4 H (3.8-10.6) k/uL RBC 3.94 L (4.30-5.90) m/uL Hgb 11.3 L (13.0-17.5) gm/dL Hct 36.2 L (39.0-53.0) % Plt Count 707 H (150-450) k/uL Neutrophils # 14.3 H (1.3-7.7) k/uL Monocytes # 1.1 H (0-1.0) k/uL D-Dimer 4.42 H (<0.60) mg/L FEU Potassium (3.5-5.1) mmol/L POC Glucose (mg/dL) (75-99) mg/dL Microbiology - Last 24 Hours (Table) 01/09/19 04:30 Urine Culture - Preliminary Urine,Clean Catch Group D Enterococcus Assessment and Plan Assessment: 1-patient with a positive urine culture with enterococcus with a final ID and sensitivities are currently pending in this patient currently not running any fever however the patient noticed to have gradually worsening of his white count the positive UA and some urinary symptoms likely representing a symptomatic urinary tract infection. Plan: 1-the patient will be started on Unasyn 1.5 g every 8 hours 2-discontinue the Rocephin We will follow-up on clinical condition and cultures to further adjust medication if needed Thank you for this consultation will follow this patient along with you Time with Patient: Greater than 30
[2019-01-11] MEDS: AMPICILLIN-SULBACTAM 1.5 GM in SODIUM CHLORIDE 0.9% 50 ML IVPB SCH ×5 (01:14→23:09)
[2019-01-11] MEDS: PANTOPRAZOLE 40 MG TABLET PO SCH (06:44)
[2019-01-11 08:15] LABS: Basophils # (A) 0.1 k/uL (0-0.2); Basophils % (A) 1 %; Eosinophils # (A) 0.1 k/uL (0-0.7); Eosinophils % (A) 0 %; HCT 33.4 % (39.0-53.0); HGB 10.5 gm/dL (13.0-17.5); Lymphocytes # (A) 1.4 k/uL (1.0-4.8); Lymphocytes % (A) 11 %; MCH 28.7 pg (25.0-35.0); MCHC 31.3 g/dL (31.0-37.0); MCV 91.7 fL (80.0-100.0); Mean Platelet Volume 7.1; Monocytes # (A) 1.2 k/uL (0-1.0); Monocytes % (A) 9 %; Neutrophils # (A) 9.8 k/uL (1.3-7.7); Neutrophils % (A) 76 %; Platelet Count 652 k/uL (150-450); RBC 3.64 m/uL (4.30-5.90); RDW 13.1 % (11.5-15.5); WBC 12.9 k/uL (3.8-10.6)
[2019-01-11 08:23] LABS: Anion Gap 7 mmol/L; Blood Urea Nitrogen 15 mg/dL (9-20); Calcium 8.2 mg/dL (8.4-10.2); Carbon Dioxide 25 mmol/L (22-30); Chloride 103 mmol/L (98-107); Glucose 88 mg/dL (74-99); Potassium 4.7 mmol/L (3.5-5.1); Sodium 135 mmol/L (137-145)
[2019-01-11] MEDS: DOCUSATE 100 MG CAP PO SCH ×2 (08:54→20:10)
[2019-01-11] MEDS: TAMSULOSIN 0.4 MG CAP.ER.24H PO SCH (08:54)
[2019-01-11] MEDS: METOPROLOL TARTRATE 25 MG TAB PO SCH ×2 (08:54→20:10)
[2019-01-11] MEDS: HEPARIN SODIUM,PORCINE 5,000 UNIT/ML 1 ML VIAL SQ SCH ×2 (08:54→20:10)
[2019-01-11] MEDS: HYDROcodone/APAP 5-325MG 1 EACH TAB PO PRN (08:59)
[2019-01-11] MEDS: SYMBICORT 160-4.5 MCG INHALER INHALATION SCH ×2 (09:03→20:41)
[2019-01-11] MEDS: IPRATROPIUM-ALBUTEROL 3 ML NEB INHALATION SCH ×3 (09:03→20:41)
--- NOTE | 2019-01-11 10:37 | XR ---
EXAMINATION TYPE: XR chest 1V portable DATE OF EXAM: 01/11/2019 COMPARISON: 01/10/2019 HISTORY: Pneumothorax. Follow-up exam. TECHNIQUE: Single frontal view of the chest is obtained. FINDINGS: Right thoracostomy tube is similar in position. There is similar size of the right-sided p neumothorax that when measured in a similar location measures approximately 8.1 cm. Multifocal right- sided airspace disease again likely represents atelectasis. Right basilar consolidation could represe nt pneumonia. Evaluation for pulmonary mass or nodule is limited. Left lung remains well aerated with underlying emphysematous change. Cardiomediastinal silhouette is stable. No acute osseous pathology. IMPRESSION: Stable loculated right upper lung pneumothorax with multifocal right-sided airspace dise ase, likely multifocal atelectasis
--- NOTE | 2019-01-11 13:43 | P.PN ---
Subjective This is a pleasant 63 years old male with past medical history of COPD, GERD, pneumothorax in September 2017. Presents because of signs symptoms of p neumothorax. This is status post chest tube placement on the right side. Is been followed closely by pulmonary and cardiothoracic surgery team. Currently patient is breathing quietly. perspiration is not labored. Pain is controlled. Still has chest tube in place. And still needs to be monitored general medical floor. Vitals stable, however his somewhat tachycardic around 110 but patient is afebrile and blood pressure is stable. Labs reviewed. 12/26/2018 Patient clinically stable, with no significant dyspnea. Cardiothoracic surgery team are planning for right-sided pleurodesis on this coming , 12/28/2018. Vitals and labs were reviewed. Subjective 01/01/2019 Patient lying in bed, not in respiratory distress. No chest pain or dyspnea. He still have right-sided chest tube with air leak. Pulmonology and cardiothoracic surgery R following the patient closely. No leukocytosis today. Vitals stable 01/02/2019 Patient clinically the same, with no dyspnea or chest pain. Still have left chest tube in place. Repeat chest x-ray showing a large pneumothorax today from 4.4 up to 4.9 cm. Pulmonary and cardiothoracic surgery R following the case. 01/03/2019 Patient remains stable with no dyspnea or chest pain. No other new complaints. Still has chest tube is in place. BMP was unremarkable. Chest x-ray: Mildly increased pneumothorax. Patient today developed tachycardia of heart rate of 150 while walking. EKG was checked and showing:sinus tachycardia. pt is started on normal saline , mg and K level were checked and they are acceptable, pt is with no chest pain or worsening dyspnea, . lopressor is started 01/04/2019 Patient most in bed comfortable not in distress. He denies chest pain or dyspnea. Patient generally feels better with no specific abnormality or complained from last night when his heart rate went high up to 150. Patient already on Lopressor. Currently his heart rate is 102 pressure 98/65, is still on normal saline at 75 mL/h and will be lower today to 50 mL/h. Still has right-sided chest tube. Cardiothoracic surgery and pulmonary team are following the patient closely 01/05/2019 Patient remains lying in bed with chest tube on the right side. No Paige dyspnea or chest pain. His heart rate still slightly elevated. Patient remains on IV fluid. Patient is been followed by pulmonary and cardiothoracic surgery team 01/06/2019 Patient remains lying in bed with chest tube on the right side. No Paige dyspnea or chest pain. His heart rate still slightly elevated. Patient remains on IV fluid. Patient is been followed by pulmonary and cardiothoracic surgery team. His tachycardia is same or little better. He is saturating 94% on room air. Chest x-ray: Stable pneumothorax but worsening right basilar airspace dise ase 01/07/2019 patient clinically the same and to P chest x-ray showing persistent right apical pneumothorax and worsening right basilar airspace disease. No new complaint and patient is been followed by pulmonary and cardiothoracic surgery teams. 01/08/2019. Patient remains clinically the same as yesterday with no dyspnea or chest pain. WBC is 11.7. Afebrile but tachycardic. Repeat chest x-ray from today showing moderate size right pneumothorax with patchy density throughout the right lung. 01/09/19 Patient remains clinically the same as yesterday with no dyspnea or chest pain. WBC is 14.9. Afebrile but tachycardic. Repeat chest x-ray from today showing moderate size right pneumothorax with patchy density throughout the right lung mostly relates to atelectasis as per pulmonary evaluation , pt using incentive spirometry , UA is suspicous for infection , we will send UC and start pt on ceftriaxone 01/10/2019 Patient still awake alert. He has no chest pain or dyspnea. He has no urinary symptoms but he was having leukocytosis, he was tachycardic. Patient was found to have worsening leukocytosis and urine analysis was suspicious for infection. Urine culture was growing enterococcus. Patient was already started on ceftriaxone however his leukocytosis kept worsening and today was 17 K, a consult was placed for infectious disease 01/11/2019 Patient remains alert and awake, no chest pain. Chest tube in place.repeat repeat chest x-ray today: Stable pneumothorax. He remains on antibiotics for his enterococcus UTI and ID input is appreciated. Review of systems CONSTITUTIONAL: No fever, no malaise, no fatigue. HEENT: No recent visual problems or hearing problems. Denied any sore throat. CARDIOVASCULAR: No orthopnea, PND, no palpitations, no syncope. PULMONARY: No shortness of breath, no cough, no hemoptysis. GASTROINTESTINAL: No diarrhea, no nausea, no vomiting, no abdominal pain. Normoactive bowel sounds. NEUROLOGICAL: No headaches, no weakness, no numbness. HEMATOLOGICAL: Denies any bleeding or petechiae. GENITOURINARY: Denies any burning micturition, frequency, or urgency. MUSCULOSKELETAL/RHEUMATOLOGICAL: Denies any joint pain, swelling, or any muscle pain. ENDOCRINE: Denies any polyuria or polydipsia. Medication: Ceftriaxone, albuterol, Tylenol, Xanax, heparin, Symbicort, [place], magnesium, Robaxin, Lopressor, Zofran, Protonix, Senokot, Flomax, Restoril. Objective - Vital Signs Vital signs: Vital Signs Temp 97.7 F 01/11/19 08:15 Pulse 104 H 01/11/19 09:13 Resp 18 01/11/19 08:15 BP 104/61 01/11/19 08:15 Pulse Ox 94 L 01/11/19 08:15 Intake & Output 01/10/19 01/11/19 01/11/19 18:59 06:59 18:59 Intake Total 440 Output Total 350 200 550 Balance -350 -200 -110 Weight 56.4 kg Intake: Oral 440 Output: Urine 350 200 550 Other: # Voids 1 2 - Exam GENERAL: The patient is alert and oriented x3, not in any acute distress. Well developed, well nourished. HEENT: Pupils are round and equally reacting to light. EOMI. No scleral icterus. No conjunctival pallor. Normocephalic, atraumatic. No pharyngeal erythema. No thyromegaly. CARDIOVASCULAR: S1 and S2 present. No murmurs, rubs, or gallops. -PULMONARY: Chest is clear to auscultation, no wheezing or crackles. Right chest tube ABDOMEN: Soft, nontender, nondistended, normoactive bowel sounds. No palpable organomegaly. MUSCULOSKELETAL: No joint swelling or deformity. EXTREMITIES: No cyanosis, clubbing, or pedal edema. NEUROLOGICAL: Gross neurological examination did not reveal any focal deficits. SKIN: No rashes. - Labs CBC & Chem 7: 01/11/19 07:08 01/11/19 07:08 Labs: Abnormal Lab Results - Last 24 Hours (Table) 01/11/19 01/11/19 Range/Units 07:08 07:08 WBC 12.9 H (3.8-10.6) k/uL RBC 3.64 L (4.30-5.90) m/uL Hgb 10.5 L (13.0-17.5) gm/dL Hct 33.4 L (39.0-53.0) % Plt Count 652 H (150-450) k/uL Neutrophils # 9.8 H (1.3-7.7) k/uL Monocytes # 1.2 H (0-1.0) k/uL Sodium 135 L (137-145) mmol/L Calcium 8.2 L (8.4-10.2) mg/dL Microbiology - Last 24 Hours (Table) 01/09/19 04:30 Urine Culture - Final Urine,Clean Catch Enterococcus faecalis Assessment and Plan Assessment: Acute and chronic right pneumothorax, status post right-sided chest tube drainage. Acute urinary tract infection, urine culture growing enterococcus tachycardia, mostly secondary to History of previous 10-15% pneumothorax on the right side Chronic obstructive pulmonary disease, not in acute exacerbation History of bipolar depression, not an active issue History of nicotine dependence Severe protein calorie malnutrition with BMI of 17.9 Plan: This is a pleasant 63 years old male who presents with recurrent right side pneumothorax, his status post chest tube placement. His been followed closely by pulmonary and cardiothoracic surgery.call infectious disease consult for UTI. Labs and medication were reviewed. Start antibiotics for UTI and adjust as per urine culture. Continue same treatment. Continue with symptomatic treatment. Resume home medication. Monitor lytes and vitals. DVT and GI prophylaxis. Further recommendations of the clinical course of the patient DVT prophylaxis: Subcutaneous heparin GI Prophylaxis: Ppi Prognosis is guarded
--- NOTE | 2019-01-11 15:01 | PN ---
PROGRESS NOTE DATE OF SERVICE: 01/11/2019 REASON FOR FOLLOWUP: Leukocytosis and Enterococcus urinary tract infection. INTERVAL HISTORY: The patient is currently afebrile, has been breathing comfortably. Denies having any chest pain. Occasional cough. No nausea, vomiting. No abdominal pain and no diarrhea. PHYSICAL EXAMINATION: Blood pressure 104/61 with a pulse of 100, temperature 97.7, he is 94% on 2 L nasal cannula. General description is a middle-aged male, lying in bed in no distress. RESPIRATORY SYSTEM: Unlabored breathing, clear to auscultation anteriorly. HEART S1, S2, regular rate and rhythm. ABDOMEN: Soft, no tenderness. LABS: Hemoglobin is 10.5, white count of 12.9 with a BUN of 15 and creatinine 0.71. DIAGNOSTIC IMPRESSION AND PLAN: Patient with leukocytosis which is likely multifactorial, possible component of urinary tract infection. The patient did have a minimal urinary symptoms. Urine showing Enterococcus. His white count improved with addition of Unasyn that will be continued and should cover the multiple right-sided airspace disease on the chest x-ray as well and monitor his clinical course closely. Continue supportive care. MMODL / IJN: [id number] /
--- NOTE | 2019-01-11 15:55 | P.PN ---
Subjective Progress Note Date: 01/11/19 Principal diagnosis: Recurrent right-sided spontaneous pneumothorax with significant bullous emphysema, persistent bronchopleural fistula, status post right pleural thoracostomy tube placement by the emergency room physicians. Previous medical history of recurrent right pneumothoraces 2 in 2017, severe chronic obstructive pulmonary disease, history of tobacco dependence, quit smoking in September 2017, bipolar/depression, gastroesophageal reflux disease. POD #14 right thoracoscopy, lysis of pleural adhesions, stapling of blebs, talc pleurodesis with continuing air leak Postoperative urinary tract infection, with urine culture showing enterococcus faecalis an unexpected outcome. The patient is currently sitting up to the bedside chair on the 3 S. cardiac stepdown unit. He is in no acute distress. Denies any complaints of pain or shortness of breath. Oxygen saturations 97% on 2 L nasal cannula. He remains afebrile and hemodynamically stable. Right pleural chest tube in place and remains on -5 cm H2O continuous low wall suction. Intermittent air leak is present. Continues to Drain thin serosanguineous drainage with 150 mL of drainage within the last 24 hours. Achieving 1500 mL on his incentive spirometry. Objective - Vital Signs Vital signs: Vital Signs Temp 97.4 F L 01/11/19 11:45 Pulse 88 01/11/19 13:52 Resp 18 01/11/19 11:45 BP 96/61 01/11/19 11:45 Pulse Ox 97 01/11/19 11:45 Intake & Output 01/10/19 01/11/19 01/11/19 18:59 06:59 18:59 Intake Total 440 Output Total 350 200 550 Balance -350 -200 -110 Weight 56.4 kg Intake: Oral 440 Output: Urine 350 200 550 Other: # Voids 1 2 - Constitutional General appearance: Present: cooperative, no acute distress, thin - Respiratory Details: Lung sounds essentially diminished throughout. Respirations are symmetrical and nonlabored. Oxygen saturation are 97% on 2 L nasal cannula. Achieving 1500 mL on his incentive spirometry. Right pleural chest tube to low continuous wall suction -5 cm H2O. Intermittent air leak continues. Draining thin serosanguineous drainage with 150 mL output in the last 24 hours. - Cardiovascular Details: Regular rhythm and tachycardic rate. S1 and S2 present, negative for S3, gallop or murmur. Remote telemetry showing sinus tachycardia heart rate 115. No edema present. Knee-high sequential compression devices in place to his bilateral lower extremities. - Gastrointestinal Gastrointestinal Comment(s): Abdomen is soft, nontender and nondistended. Active bowel sounds all 4 abdominal quadrants. Tolerating oral intake. No guarding or rigidity. - Genitourinary Genitourinary Comment(s): Voiding clear yellow urine. - Integumentary Integumentary Comment(s): Skin is warm and dry. No clubbing or cyanosis is present. Right VATS incisions clean, dry and approximated. No drainage or redness is present. Right pleural chest tube insertion site dressing clean, dry and in place. - Neurologic Neurologic: Present: CNII-XII intact - Musculoskeletal Musculoskeletal: Present: gait normal, generalized weakness, strength equal bilaterally - Psychiatric Psychiatric Comment(s): Flat affect Psychiatric: Present: intact judgment & insight - Allied health notes Allied health notes reviewed: nursing - Labs CBC & Chem 7: 01/11/19 07:08 01/11/19 07:08 Labs: Abnormal Lab Results - Last 24 Hours (Table) 01/11/19 01/11/19 Range/Units 07:08 07:08 WBC 12.9 H (3.8-10.6) k/uL RBC 3.64 L (4.30-5.90) m/uL Hgb 10.5 L (13.0-17.5) gm/dL Hct 33.4 L (39.0-53.0) % Plt Count 652 H (150-450) k/uL Neutrophils # 9.8 H (1.3-7.7) k/uL Monocytes # 1.2 H (0-1.0) k/uL Sodium 135 L (137-145) mmol/L Calcium 8.2 L (8.4-10.2) mg/dL Microbiology - Last 24 Hours (Table) 01/09/19 04:30 Urine Culture - Final Urine,Clean Catch Enterococcus faecalis - Imaging and Cardiology Chest x-ray: report reviewed, image reviewed Assessment and Plan Assessment: 1. Recurrent right-sided pneumothorax with significant bullous emphysema, status post right pleural thoracostomy tube placement by the emergency room physicians, status post right thoracoscopy with lysis of adhesions, stapling of blebs, and talc pleurodesis 2. Continued persistent air leak 3. History of recurrent right spontaneous pneumothoraces 2 in 2018 4. Severe COPD with bleb disease 5. Previous tobacco dependence 6. Bipolar/depression 7. GERD 8. Postoperative urinary tract infection, with urine culture showing enterococcus faecalis an unexpected outcome, currently on Unasyn Plan: 1. Place a pneumostat to his right pleural chest tube. X-ray 2 hours post placement of pneumostat 2. Continue to monitor daily x-rays. 3. Wean O2 as tolerated. Encourage incentive spirometry is 10 times every hour while awake. 4. Encourage and discuss the importance of continued smoking cessation. 5. Pain control with current medication regimen. 6. Increase activity, ambulate as tolerated. Patient may ambulate around the room. PT/OT following. Out of bed for all meals. 7. Bronchodilators per pulmonology. 8. GI/DVT prophylaxis. 9. Medical management of other comorbidities per primary care service. 10. Continue Unasyn for treatment of the UTI managed by primary care. 11. Discharge planning in place, may discharge to subacute rehab for further rehabilitation needs when okay with primary care service. 12. More recommendations based on patient's clinical course. Time with Patient: Greater than 30
--- NOTE | 2019-01-11 16:08 | XR ---
EXAMINATION TYPE: XR chest 1V portable DATE OF EXAM: 01/11/2019 COMPARISON: 01/11/2019 HISTORY: Pneumothorax evaluation. TECHNIQUE: Single frontal view of the chest is obtained. FINDINGS: There is a similar appearing right apical pneumothorax. Right-sided multifocal airspace di sease is unchanged. Left lung base aeration is improved. Cardia mediastinal silhouette is again nonen larged. Osseous demineralization is present. Right thoracostomy tube is similar in position. IMPRESSION: Stable exam from the prior earlier on the same day other than improved aeration of the l eft lung base.
--- NOTE | 2019-01-11 18:17 | P.PN ---
Subjective Progress Note Date: 01/11/19 Principal diagnosis: Dyspnea with right-sided chest pain, related to significant right-sided pneumothorax, status post chest tube placement. Status post VATS procedure. This is a very pleasant 63-year-old gentleman who follows with Dr. Coombs as his primary care physician. He has a previous history of chronic tobacco dependence quitting in 2018, chronic obstructive pulmonary disease, chronic right-sided pneumothorax of 10-15% and the right chest. He was seen in our office yesterday with complaints of increasing shortness of breath and right-sided chest discomfort. A chest x-ray revealed a significant right-sided pneumothorax. He was referred to the emergency room for chest tube placement. Computed tomography scan of the chest revealed a large right-sided pneumothorax occupying the lower two thirds of the right hemithorax. There is also significant bulla and bleb formation seen within the lung. Chest tube was placed in the emergency room. He is seen today on the selective care unit and consultation. He is currently resting fairly comfortable in bed. He is awake and alert in no acute distress. He is maintaining high 90s on 4 L/m per nasal cannula. He's been afebrile. Digital site pain but no significant chest discomfort. White count 11.3. Hemoglobin 14.2. Creatinine 1.04. He's been initiated and DuoNeb inhalations, Symbicort. Today's chest x-ray shows improved right hydropneumothorax with extensive underlying bullous emphysema. The patient is seen today in 01/11/2019 in follow-up on the selective care unit. He is awake and alert in no acute distress. Currently sitting up in a chair at the bedside. Chest x-ray continues to reveal a stable loculated right upper lobe pneumothorax with multiple right-sided airspace disease, likely multifocal atelectasis. Maintaining good O2 saturations in the upper 90s on 2 L/m per nasal cannula. He is afebrile. Cardiothoracic placed a pneumostat to the right pleural chest tube. Follow-up chest x-ray pending. Urine culture was positive for Enterococcus faecalis. Currently on Unasyn. Currently on DuoNeb inhalations, Symbicort. Working well with the incentive spirometer. Objective - Vital Signs Vital signs: Vital Signs Temp 97.4 F L 01/11/19 15:15 Pulse 123 H 01/11/19 15:15 Resp 22 05/02/19 15:15 BP 112/67 01/11/19 15:15 Pulse Ox 98 01/11/19 15:15 Intake & Output 01/10/19 01/11/19 01/11/19 18:59 06:59 18:59 Intake Total 640 Output Total 350 200 550 Balance -350 -200 90 Weight 56.4 kg Intake: Oral 640 Output: Urine 350 200 550 Other: # Voids 1 3 # Bowel Movements 0 - Exam GENERAL EXAM: Alert, pleasant, frail cachectic 63-year-old male, comfortable in no apparent distress. On 2 L/m per nasal cannula. HEAD: Normocephalic/atraumatic. EYES: Normal reaction of pupils, equal size. Conjunctiva pink, sclera white. NOSE: Clear with pink turbinates. THROAT: No erythema or exudates. NECK: No masses, no JVD, no thyroid enlargement, no adenopathy. CHEST: No chest wall deformity. Symmetrical expansion. Right-sided chest tube is present, now connected to a pneumostat. LUNGS: Equal air entry with diminished breath sounds on the right, her breath sounds on the left CVS: Regular rate and rhythm, normal S1 and S2, no gallops, no murmurs, no rubs ABDOMEN: Soft, nontender. No hepatosplenomegaly, normal bowel sounds, no guarding or rigidity. EXTREMITIES: No clubbing, no edema, no cyanosis, 2+ pulses and upper and lower extremities. MUSCULOSKELETAL: Muscle strength and tone normal. SPINE: No scoliosis or deformity SKIN: No rashes CENTRAL NERVOUS SYSTEM: No focal deficits, tone is normal in all 4 extremities. PSYCHIATRIC: Alert and oriented -3. Appropriate affect. Intact judgment and insight. - Labs CBC & Chem 7: 01/11/19 07:08 01/11/19 07:08 Labs: Abnormal Lab Results - Last 24 Hours (Table) 01/11/19 01/11/19 Range/Units 07:08 07:08 WBC 12.9 H (3.8-10.6) k/uL RBC 3.64 L (4.30-5.90) m/uL Hgb 10.5 L (13.0-17.5) gm/dL Hct 33.4 L (39.0-53.0) % Plt Count 652 H (150-450) k/uL Neutrophils # 9.8 H (1.3-7.7) k/uL Monocytes # 1.2 H (0-1.0) k/uL Sodium 135 L (137-145) mmol/L Calcium 8.2 L (8.4-10.2) mg/dL Microbiology - Last 24 Hours (Table) 01/09/19 04:30 Urine Culture - Final Urine,Clean Catch Enterococcus faecalis Assessment and Plan Assessment: Impression: #1 Dyspnea with right-sided chest pain in a patient found to have significant right-sided pneumothorax, status post chest tube placement. Now status post right-sided thoracoscopy with lysis of adhesions, stapling of blebs, talc pleurodesis. Chest x-ray reveals persistent and larger right-sided pneumothorax. Chest tube is now connected to a pneumostat. #2 History of chronic 10-15% right-sided pneumothorax. #3 History of significant bullous emphysema. #4 history of chronic obstructive pulmonary disease, currently inactive and stable. #5 Chronic tobacco dependence, quit in 2018. #6 History of bipolar disorder. PLAn: The patient was seen and evaluated by Dr. Gonzalez. Chest x-ray reviewed. Right-sided chest tube remains in place for now, connected to a pneumostat. Continue incentive spirometer and encourage cough and deep breathing exercises. Increase his activity as tolerated. We'll continue to follow and make further recommendations based on his clinical status. I, the cosigning physician, performed a history & physical examination of the patient. Lungs sounds are diminished breath sounds on the right. Maintaining good O2 saturations in the 90s on 2 L/m per nasal cannula. I discussed the assessment and plan of care with my nurse practitioner, Venecia Crocker. I attest to the above note as dictated by her.
[2019-01-12] MEDS: PANTOPRAZOLE 40 MG TABLET PO SCH (05:37)
[2019-01-12] MEDS: AMPICILLIN-SULBACTAM 1.5 GM in SODIUM CHLORIDE 0.9% 50 ML IVPB SCH ×2 (05:38→13:07)
[2019-01-12 07:07] LABS: Basophils # (A) 0.1 k/uL (0-0.2); Basophils % (A) 1 %; Eosinophils % (A) 0 %; HCT 33.3 % (39.0-53.0); HGB 10.2 gm/dL (13.0-17.5); Hypochromasia Slight; Lymphocytes # (A) 1.4 k/uL (1.0-4.8); Lymphocytes % (A) 12 %; MCH 28.8 pg (25.0-35.0); MCHC 30.7 g/dL (31.0-37.0); MCV 93.8 fL (80.0-100.0); Mean Platelet Volume 6.5; Monocytes % (A) 9 %; Neutrophils # (A) 8.9 k/uL (1.3-7.7); Neutrophils % (A) 75 %; Platelet Count 640 k/uL (150-450); RBC 3.54 m/uL (4.30-5.90); RDW 13.2 % (11.5-15.5); WBC 11.9 k/uL (3.8-10.6)
--- NOTE | 2019-01-12 07:08 | XR ---
EXAMINATION TYPE: XR chest 1V portable DATE OF EXAM: 01/12/2019 HISTORY: Shortness of breath. COMPARISON: January 11, 2019 TECHNIQUE: Single view of the chest is submitted. FINDINGS: Loculated right upper lobe pneumothorax is stable. Chest tube is unchanged in position. Pleural parenchymal opacity remaining right lung persists and is essentially unchanged. Small right-s ided pleural effusion. The heart is stable. Hilar and mediastinal structures are within normal limits. Degenerative changes are seen of the dorsal spine. IMPRESSION: 1. Stable chest.
[2019-01-12] MEDS: SYMBICORT 160-4.5 MCG INHALER INHALATION SCH (08:06)
[2019-01-12] MEDS: IPRATROPIUM-ALBUTEROL 3 ML NEB INHALATION SCH ×2 (08:06→13:52)
[2019-01-12] MEDS: METOPROLOL TARTRATE 25 MG TAB PO SCH (09:17)
[2019-01-12] MEDS: TAMSULOSIN 0.4 MG CAP.ER.24H PO SCH (09:17)
[2019-01-12] MEDS: DOCUSATE 100 MG CAP PO SCH (09:18)
[2019-01-12] MEDS: HEPARIN SODIUM,PORCINE 5,000 UNIT/ML 1 ML VIAL SQ SCH (09:18)
[2019-01-12] MEDS: HYDROcodone/APAP 5-325MG 1 EACH TAB PO PRN (09:22)
--- NOTE | 2019-01-12 11:29 | P.PN ---
Subjective This is a pleasant 63 years old male with past medical history of COPD, GERD, pneumothorax in September 2017. Presents because of signs symptoms of p neumothorax. This is status post chest tube placement on the right side. Is been followed closely by pulmonary and cardiothoracic surgery team. Currently patient is breathing quietly. perspiration is not labored. Pain is controlled. Still has chest tube in place. And still needs to be monitored general medical floor. Vitals stable, however his somewhat tachycardic around 110 but patient is afebrile and blood pressure is stable. Labs reviewed. 12/26/2018 Patient clinically stable, with no significant dyspnea. Cardiothoracic surgery team are planning for right-sided pleurodesis on this coming , 12/28/2018. Vitals and labs were reviewed. Subjective 01/01/2019 Patient lying in bed, not in respiratory distress. No chest pain or dyspnea. He still have right-sided chest tube with air leak. Pulmonology and cardiothoracic surgery R following the patient closely. No leukocytosis today. Vitals stable 01/02/2019 Patient clinically the same, with no dyspnea or chest pain. Still have left chest tube in place. Repeat chest x-ray showing a large pneumothorax today from 4.4 up to 4.9 cm. Pulmonary and cardiothoracic surgery R following the case. 01/03/2019 Patient remains stable with no dyspnea or chest pain. No other new complaints. Still has chest tube is in place. BMP was unremarkable. Chest x-ray: Mildly increased pneumothorax. Patient today developed tachycardia of heart rate of 150 while walking. EKG was checked and showing:sinus tachycardia. pt is started on normal saline , mg and K level were checked and they are acceptable, pt is with no chest pain or worsening dyspnea, . lopressor is started 01/04/2019 Patient most in bed comfortable not in distress. He denies chest pain or dyspnea. Patient generally feels better with no specific abnormality or complained from last night when his heart rate went high up to 150. Patient already on Lopressor. Currently his heart rate is 102 pressure 98/65, is still on normal saline at 75 mL/h and will be lower today to 50 mL/h. Still has right-sided chest tube. Cardiothoracic surgery and pulmonary team are following the patient closely 01/05/2019 Patient remains lying in bed with chest tube on the right side. No Paige dyspnea or chest pain. His heart rate still slightly elevated. Patient remains on IV fluid. Patient is been followed by pulmonary and cardiothoracic surgery team 01/06/2019 Patient remains lying in bed with chest tube on the right side. No Paige dyspnea or chest pain. His heart rate still slightly elevated. Patient remains on IV fluid. Patient is been followed by pulmonary and cardiothoracic surgery team. His tachycardia is same or little better. He is saturating 94% on room air. Chest x-ray: Stable pneumothorax but worsening right basilar airspace dise ase 01/07/2019 patient clinically the same and to P chest x-ray showing persistent right apical pneumothorax and worsening right basilar airspace disease. No new complaint and patient is been followed by pulmonary and cardiothoracic surgery teams. 01/08/2019. Patient remains clinically the same as yesterday with no dyspnea or chest pain. WBC is 11.7. Afebrile but tachycardic. Repeat chest x-ray from today showing moderate size right pneumothorax with patchy density throughout the right lung. 01/09/19 Patient remains clinically the same as yesterday with no dyspnea or chest pain. WBC is 14.9. Afebrile but tachycardic. Repeat chest x-ray from today showing moderate size right pneumothorax with patchy density throughout the right lung mostly relates to atelectasis as per pulmonary evaluation , pt using incentive spirometry , UA is suspicous for infection , we will send UC and start pt on ceftriaxone 01/10/2019 Patient still awake alert. He has no chest pain or dyspnea. He has no urinary symptoms but he was having leukocytosis, he was tachycardic. Patient was found to have worsening leukocytosis and urine analysis was suspicious for infection. Urine culture was growing enterococcus. Patient was already started on ceftriaxone however his leukocytosis kept worsening and today was 17 K, a consult was placed for infectious disease 01/11/2019 Patient remains alert and awake, no chest pain. Chest tube in place.repeat repeat chest x-ray today: Stable pneumothorax. He remains on antibiotics for his enterococcus UTI and ID input is appreciated. 01/12/2019 Patient basically is the same. He was seen walking in the room to the shower. No chest pain or dyspnea. Still tachycardic elevated with no fever. Leukocytosis is improving. Patient remains on Unasyn. Pulmonary and cardiothoracic surgery R following the patient for his chest tube and pneumothorax. Repeat chest x-ray showing a stable chest Review of systems CONSTITUTIONAL: No fever, no malaise, no fatigue. HEENT: No recent visual problems or hearing problems. Denied any sore throat. CARDIOVASCULAR: No orthopnea, PND, no palpitations, no syncope. PULMONARY: No shortness of breath, no cough, no hemoptysis. GASTROINTESTINAL: No diarrhea, no nausea, no vomiting, no abdominal pain. Normoactive bowel sounds. NEUROLOGICAL: No headaches, no weakness, no numbness. HEMATOLOGICAL: Denies any bleeding or petechiae. GENITOURINARY: Denies any burning micturition, frequency, or urgency. MUSCULOSKELETAL/RHEUMATOLOGICAL: Denies any joint pain, swelling, or any muscle pain. ENDOCRINE: Denies any polyuria or polydipsia. Medication: Ceftriaxone, albuterol, Tylenol, Xanax, heparin, Symbicort, [place], magnesium, Robaxin, Lopressor, Zofran, Protonix, Senokot, Flomax, Restoril. Objective - Vital Signs Vital signs: Vital Signs Temp 97.3 F L 01/12/19 08:00 Pulse 110 H 01/12/19 08:18 Resp 18 01/12/19 08:00 BP 112/69 01/12/19 08:00 Pulse Ox 97 01/12/19 08:08 Intake & Output 01/11/19 01/12/19 01/12/19 18:59 06:59 18:59 Intake Total 640 120 Output Total 550 420 Balance 90 -420 120 Weight 59.5 kg Intake: Oral 640 120 Output: Drainage 30 Right Chest 30 Urine 550 390 Other: Voiding Method Urinal # Voids 3 # Bowel Movements 0 - Exam GENERAL: The patient is alert and oriented x3, not in any acute distress. Well developed, well nourished. HEENT: Pupils are round and equally reacting to light. EOMI. No scleral icterus. No conjunctival pallor. Normocephalic, atraumatic. No pharyngeal erythema. No thyromegaly. CARDIOVASCULAR: S1 and S2 present. No murmurs, rubs, or gallops. -PULMONARY: Chest is clear to auscultation, no wheezing or crackles. Right chest tube ABDOMEN: Soft, nontender, nondistended, normoactive bowel sounds. No palpable organomegaly. MUSCULOSKELETAL: No joint swelling or deformity. EXTREMITIES: No cyanosis, clubbing, or pedal edema. NEUROLOGICAL: Gross neurological examination did not reveal any focal deficits. SKIN: No rashes. - Labs CBC & Chem 7: 01/12/19 06:50 01/11/19 07:08 Labs: Abnormal Lab Results - Last 24 Hours (Table) 01/12/19 Range/Units 06:50 WBC 11.9 H (3.8-10.6) k/uL RBC 3.54 L (4.30-5.90) m/uL Hgb 10.2 L (13.0-17.5) gm/dL Hct 33.3 L (39.0-53.0) % MCHC 30.7 L (31.0-37.0) g/dL Plt Count 640 H (150-450) k/uL Neutrophils # 8.9 H (1.3-7.7) k/uL Microbiology - Last 24 Hours (Table) 01/09/19 04:30 Urine Culture - Final Urine,Clean Catch Enterococcus faecalis Assessment and Plan Assessment: Acute and chronic right pneumothorax, status post right-sided chest tube drainage. Acute urinary tract infection, urine culture growing enterococcus tachycardia, mostly secondary to History of previous 10-15% pneumothorax on the right side Chronic obstructive pulmonary disease, not in acute exacerbation History of bipolar depression, not an active issue History of nicotine dependence Severe protein calorie malnutrition with BMI of 17.9 Plan: This is a pleasant 63 years old male who presents with recurrent right side pneumothorax, his status post chest tube placement. His been followed closely by pulmonary and cardiothoracic surgery.call infectious disease consult for UTI. Labs and medication were reviewed. Start antibiotics for UTI and adjust as per urine culture. Continue same treatment. Continue with symptomatic treatment. Resume home medication. Monitor lytes and vitals. DVT and GI prophylaxis. Further recommendations of the clinical course of the patient DVT prophylaxis: Subcutaneous heparin GI Prophylaxis: Ppi Prognosis is guarded
--- NOTE | 2019-01-12 14:12 | PN ---
PROGRESS NOTE DATE OF SERVICE: 01/12/2019 REASON FOR FOLLOWUP: Enterococcus UTI infection. INTERVAL HISTORY: The patient is currently afebrile. Patient is breathing comfortably. Patient denies having any chest pain, minimal cough. No abdominal pain, no diarrhea. PHYSICAL EXAMINATION: Blood pressure 112/69 with a pulse of 100, temperature 97.3, he is 98% on 2 L nasal cannula. General description is a middle-aged male, up in the bed in no distress. RESPIRATORY SYSTEM: Unlabored breathing with decreased breath sounds at the bases, no wheeze. HEART: S1, S2. Regular rate and rhythm. ABDOMEN: Soft, no tenderness. LABS: Hemoglobin 10.2, white count of 11.9. DIAGNOSTIC IMPRESSION AND PLAN: Patient with leukocytosis, likely multifactorial did have a component of Enterococcus faecalis urinary tract infection. The patient is currently covered with Unasyn, transition to oral Augmentin on discharge, continue supportive care. MMODL / IJN: [id number] /
--- NOTE | 2019-01-12 15:49 | P.PN ---
Subjective Progress Note Date: 01/12/19 Principal diagnosis: Recurrent right-sided spontaneous pneumothorax with significant bullous emphysema, persistent bronchopleural fistula, status post right pleural thoracostomy tube placement by the emergency room physicians. Previous medical history of recurrent right pneumothoraces 2 in 2018, severe COPD with bleb disease, tobacco dependence, bipolar/depression, GERD. POD #15 right thoracoscopy, lysis of pleural adhesions, stapling of blebs, talc pleurodesis with continuing air leak The patient's currently sitting up in bed in no acute distress. Denies pain, shortness of breath currently. Actively using incentive spirometry. Right- sided chest tube present, connected to Pneumostat yesterday Objective - Vital Signs Vital signs: Vital Signs Temp 97.2 F L 01/12/19 11:40 Pulse 100 01/12/19 14:04 Resp 18 01/12/19 11:40 BP 104/67 01/12/19 11:40 Pulse Ox 95 01/12/19 11:40 Intake & Output 01/11/19 01/12/19 01/12/19 18:59 06:59 18:59 Intake Total 640 620 Output Total 550 420 20 Balance 90 -420 600 Weight 59.5 kg Intake: Intake, IV Titration 100 Amount Ampicillin-Sulbactam 1.5 100 gm In Sodium Chloride 0.9 % 50 ml @ 100 mls/hr IVPB Q6HR [facility] Rx#:[id number] Oral 640 520 Output: Drainage 30 20 Right Chest 30 20 Urine 550 390 Other: Voiding Method Urinal # Voids 3 2 # Bowel Movements 0 - Constitutional General appearance: Present: cooperative, no acute distress - Respiratory Details: Lung sounds diminished bilaterally. Respirations even, nonlabored. Currently on room air with oxygen saturation 95%. Able to achieve 1000 mL on his incentive spirometry. Right pleural Pneumostat device present, drainage of 30 mL serous fluid overnight, positive air leak still present. - Cardiovascular Details: S1, S2 present. Tachycardic but regular rate and rhythm, sinus tach on telemetry. Palpable peripheral pulses bilaterally. No edema present. No calf pain or tenderness noted. SCDs present. - Gastrointestinal Gastrointestinal Comment(s): Abdomen soft, nontender, nondistended. Active bowel sounds present 4 quadrants. Tolerating diet. - Genitourinary Genitourinary Comment(s): Continues to void clear, yellow urine. - Integumentary Integumentary Comment(s): Skin is warm and dry with evidence of good perfusion. Right pleural Pneumostat covered with dressing, occasionally moist with serous fluid, changed by nursing staff. - Musculoskeletal Musculoskeletal: Present: gait normal, strength equal bilaterally - Psychiatric Psychiatric: Present: A&O x's 3, appropriate affect - Allied health notes Allied health notes reviewed: nursing - Labs CBC & Chem 7: 01/12/19 06:50 01/11/19 07:08 Labs: Abnormal Lab Results - Last 24 Hours (Table) 01/12/19 Range/Units 06:50 WBC 11.9 H (3.8-10.6) k/uL RBC 3.54 L (4.30-5.90) m/uL Hgb 10.2 L (13.0-17.5) gm/dL Hct 33.3 L (39.0-53.0) % MCHC 30.7 L (31.0-37.0) g/dL Plt Count 640 H (150-450) k/uL Neutrophils # 8.9 H (1.3-7.7) k/uL Microbiology - Last 24 Hours (Table) 01/09/19 04:30 Urine Culture - Final Urine,Clean Catch Enterococcus faecalis - Imaging and Cardiology Chest x-ray: report reviewed, image reviewed Assessment and Plan Assessment: 1. Recurrent right-sided pneumothorax with significant bullous emphysema, status post right pleural thoracostomy tube placement by the emergency room physicians, status post right thoracoscopy with lysis of adhesions, stapling of blebs, and talc pleurodesis, status post Pneumostat placement 2. Continued air leak 3. History of recurrent right pneumothoraces 2 in 2018 4. Severe COPD with bleb disease 5. Previous tobacco dependence 6. Bipolar/depression 7. GERD 8. Enterococcus urinary tract infection Plan: 1. Continue Pneumostat. Will monitor for resolution of air leak. Drain per protocol. 2. Will monitor daily x-rays while hospitalized. 3. Encourage incentive spirometry is 10 times every hour while awake. 4. Encourage continued smoking cessation. 5. Pain control with current medication regimen. 6. Increase activity, ambulate as tolerated. PT/OT following. 7. Bronchodilators per pulmonology. 8. GI/DVT prophylaxis. 9. Medical management of other comorbidities per primary care service. 10. Patient may be discharged to subacute rehab from our standpoint. Nursing staff at site should monitor Pneumostat for resolution of air leak and drain as often as is needed. Instructions left on discharge plan as well as education material to be sent with patient. Once no more air leak present for greater toby n 24 hours patient should have chest x-ray with follow-up visit in the surgeons office for possible removal. 11. More recommendations based on patient's progress. Time with Patient: Greater than 30
--- NOTE | 2019-01-12 16:09 | P.DS ---
Providers Date of admission: 12/19/18 18:38 Attending physician: Alyce Lovelace Consults: 12/19/18 18:39 Consult Physician Routine Consulting Provider: Zoila Gonzalez Consult Reason/Comments: pneumothorax, copd Do you want consulting provider notified?: Yes Consult Physician Routine Consulting Provider: Arely France Consult Reason/Comments: pneumothorax Do you want consulting provider notified?: Yes 01/10/19 14:06 Consult Physician Urgent Consulting Provider: Avelina Ellis Consult Reason/Comments: Enterococcus UTI Do you want consulting provider notified?: Yes Primary care physician: Malvin Vick [facility] Course: Diagnoses: Acute and chronic right pneumothorax, status post right-sided chest tube drainage. Acute urinary tract infection, urine culture growing enterococcus tachycardia, mostly secondary to above History of previous 10-15% pneumothorax on the right side Chronic obstructive pulmonary disease, not in acute exacerbation History of bipolar depression, not an active issue History of nicotine dependence Severe protein calorie malnutrition with BMI of 17.9 Hospital course: This is a pleasant 63 years old male with past medical history of COPD, GERD, pneumothorax in September 2017. Presents because of signs symptoms of pneumothorax. This is status post chest tube placement on the right side. Is been followed closely by pulmonary and cardiothoracic surgery team. His pneumothorax did not resolve over 3 weeks despite chest tube , eventually Cardiothoracic placed a pneumostat to the right pleural chest tube. Currently patient is breathing quietly. perspiration is not labored. Pain is controlled. Also patient developed leukocytosis and UTI secondary to enterococcus infection. Infectious disease evaluate the patient and start him on Unasyn, leukocytosis improved significantly from 17 K down to 11.9 K. Patient on the day of discharge does not have urinary symptoms like no dysuria or change in frequency. Infectious disease specialist. The patient for discharge on Augmentin for 7 more days. Hospital stable and he can go to rehab today. Pulmonary and cardiothoracic surgery cleared the patient for discharge Problems and management plan were discussed with the patient and he verbalized understanding and acceptance Patient was found stable and can be discharged to [facility] for inpatient rehab and guarded prognosis, however he needs follow-up as an outpatient Gen: patient is a AAOx3, no distress CVS: S1-S2, RRR, no murmur Lungs: B/L CTA, no wheezing. Transect chest tube with pneumostat Abdomen: soft, no distention, no tenderness, positive bowel sounds Extremity: no leg edema or induration Time spent more than 35 minutes Patient Condition at Discharge: Fair Plan - Discharge Summary Discharge Rx Participant: No New Discharge Prescriptions: New Amoxic-Pot Clav 875-125Mg [Augmentin 875-125] 1 tab PO Q12HR #14 tablet Docusate [Colace] 100 mg PO BID PRN cap PRN Reason: Constipation Ipratropium-Albuterol Nebulize [Duoneb 0.5 mg-3 mg/3 ml Soln] 3 ml INHALATION RT-TID ampul.neb Metoprolol Tartrate [Lopressor] 25 mg PO BID tab Magnesium Hydroxide [Milk of Magnesia Concentrate] 2,400 mg PO DAILY PRN ml PRN Reason: Constipation HYDROcodone/APAP 5-325MG [[place] 5-325] 1 each PO Q8HR PRN #10 tab PRN Reason: Pain SCALE 1-5 Sennosides-Docusate Sodium [Senokot-S] 2 each PO BID PRN tab PRN Reason: Constipation ALPRAZolam [Xanax] 0.25 mg PO BID #6 tab Continue Budesonide-Formot 160-4.5 Mcg [Symbicort 160-4.5 Mcg Inhaler] 2 puff INHALATION RT-BID 30 Days #1 vial Albuterol Inhaler [Ventolin Hfa Inhaler] 1 - 2 puff INHALATION RT-Q6H PRN #1 inhaler PRN Reason: Shortness Of Breath Ranitidine HCl [Zantac] 75 mg PO BID PRN PRN Reason: Heartburn Discharge Medication List Albuterol Inhaler [Ventolin Hfa Inhaler] 1 - 2 puff INHALATION RT-Q6H PRN #1 inhaler 07/24/18 [Rx] Budesonide-Formot 160-4.5 Mcg [Symbicort 160-4.5 Mcg Inhaler] 2 puff INHALATION RT-BID 30 Days #1 vial 07/24/18 [Rx] Ranitidine HCl [Zantac] 75 mg PO BID PRN 12/19/18 [History] ALPRAZolam [Xanax] 0.25 mg PO BID #6 tab 01/12/19 [Rx] Amoxic-Pot Clav 875-125Mg [Augmentin 875-125] 1 tab PO Q12HR #14 tablet 01/12/19 [Rx] Docusate [Colace] 100 mg PO BID PRN cap 01/12/19 [Rx] HYDROcodone/APAP 5-325MG [[place] 5-325] 1 each PO Q8HR PRN #10 tab 01/12/19 [Rx] Ipratropium-Albuterol Nebulize [Duoneb 0.5 mg-3 mg/3 ml Soln] 3 ml INHALATION RT-TID ampul.neb 01/12/19 [Rx] Magnesium Hydroxide [Milk of Magnesia Concentrate] 2,400 mg PO DAILY PRN ml 01/12/19 [Rx] Metoprolol Tartrate [Lopressor] 25 mg PO BID tab 01/12/19 [Rx] Sennosides-Docusate Sodium [Senokot-S] 2 each PO BID PRN tab 01/12/19 [Rx] Follow up Appointment(s)/Referral(s): Oly Serna MD [STAFF PHYSICIAN] - 3 Weeks Nicanor Coombs MD [Primary Care Provider] - 3 Days (Previous primary appointment missed, make on day of discharge. ) Lan Quevedo MD [STAFF PHYSICIAN] - 1 Week [facility], [NON-STAFF] - Patient Instructions/Handouts: Spontaneous Pneumothorax (DC), Chronic Lung Disease and Infection Prevention (DC), Video Assisted Thoracoscopic Surgery (DC) Activity/Diet/Wound Care/Special Instructions: Pneumostat: 1. Check for air leak every day by adding 1 cc water to air leak well. Once no air leak detected for >24 hours, obtain chest x-ray and make appointment with Dr. Quevedo for possible removal. 2. Drain fluid from luer sample port as often as needed. Chamber only holds 30 mL, please don't let it get above 25 mL as this may cause malfunction of the device. 3. Any questions please call the surgery office @ .
[2019-01-12 16:10] VITALS: BP 120/67; PULSE 93; RESP 15; TEMP 97
--- NOTE | 2019-01-12 16:58 | P.PN ---
Subjective Progress Note Date: 01/12/19 Principal diagnosis: Dyspnea with right-sided chest pain, related to significant right-sided pneumothorax, status post chest tube placement. Status post VATS procedure. This is a very pleasant 63-year-old gentleman who follows with Dr. Coombs as his primary care physician. He has a previous history of chronic tobacco dependence quitting in 2018, chronic obstructive pulmonary disease, chronic right-sided pneumothorax of 10-15% and the right chest. He was seen in our office yesterday with complaints of increasing shortness of breath and right-sided chest discomfort. A chest x-ray revealed a significant right-sided pneumothorax. He was referred to the emergency room for chest tube placement. Computed tomography scan of the chest revealed a large right-sided pneumothorax occupying the lower two thirds of the right hemithorax. There is also significant bulla and bleb formation seen within the lung. Chest tube was placed in the emergency room. He is seen today on the selective care unit and consultation. He is currently resting fairly comfortable in bed. He is awake and alert in no acute distress. He is maintaining high 90s on 4 L/m per nasal cannula. He's been afebrile. Digital site pain but no significant chest discomfort. White count 11.3. Hemoglobin 14.2. Creatinine 1.04. He's been initiated and DuoNeb inhalations, Symbicort. Today's chest x-ray shows improved right hydropneumothorax with extensive underlying bullous emphysema. The patient is seen today in 01/11/2019 in follow-up on the selective care unit. He is awake and alert in no acute distress. Currently sitting up in a chair at the bedside. Chest x-ray continues to reveal a stable loculated right upper lobe pneumothorax with multiple right-sided airspace disease, likely multifocal atelectasis. Maintaining good O2 saturations in the upper 90s on 2 L/m per nasal cannula. He is afebrile. Cardiothoracic placed a pneumostat to the right pleural chest tube. Follow-up chest x-ray pending. Urine culture was positive for Enterococcus faecalis. Currently on Unasyn. Currently on DuoNeb inhalations, Symbicort. Working well with the incentive spirometer. Patient is seen today 01/12/2019 in follow-up on the selective care unit. He is currently sitting up in a chair at the bedside. Awake and alert in no acute distress. He denies any worsening shortness of breath, cough or congestion.Significant right-sided chest discomfort. He remains with a pneumostat in place. His chest x-ray remains stable with a loculated right upper lobe pneumothorax. Chest tube in place. He is maintaining good O2 saturations in the 90s on 2 L/m per nasal cannula. He is afebrile. H emodynamically stable. Objective - Vital Signs Vital signs: Vital Signs Temp 97.0 F L 01/12/19 16:00 Pulse 93 01/12/19 16:00 Resp 15 01/12/19 16:00 BP 120/67 01/12/19 16:00 Pulse Ox 95 01/12/19 11:40 Intake & Output 01/11/19 01/12/19 01/12/19 18:59 06:59 18:59 Intake Total 640 740 Output Total 550 420 44 Balance 90 -420 696 Weight 59.5 kg Intake: Intake, IV Titration 100 Amount Ampicillin-Sulbactam 1.5 100 gm In Sodium Chloride 0.9 % 50 ml @ 100 mls/hr IVPB Q6HR [facility] Rx#:[id number] Oral 640 640 Output: Drainage 30 32 Right Chest 30 32 Urine 550 390 Other 12 Other: Voiding Method Urinal # Voids 3 2 # Bowel Movements 0 - Exam GENERAL EXAM: Alert, pleasant, frail cachectic 63-year-old male, comfortable in no apparent distress. On 2 L/m per nasal cannula. HEAD: Normocephalic/atraumatic. EYES: Normal reaction of pupils, equal size. Conjunctiva pink, sclera white. NOSE: Clear with pink turbinates. THROAT: No erythema or exudates. NECK: No masses, no JVD, no thyroid enlargement, no adenopathy. CHEST: No chest wall deformity. Symmetrical expansion. Right-sided chest tube is present, now connected to a pneumostat. LUNGS: Equal air entry with diminished breath sounds on the right, her breath sounds on the left CVS: Regular rate and rhythm, normal S1 and S2, no gallops, no murmurs, no rubs ABDOMEN: Soft, nontender. No hepatosplenomegaly, normal bowel sounds, no guarding or rigidity. EXTREMITIES: No clubbing, no edema, no cyanosis, 2+ pulses and upper and lower extremities. MUSCULOSKELETAL: Muscle strength and tone normal. SPINE: No scoliosis or deformity SKIN: No rashes CENTRAL NERVOUS SYSTEM: No focal deficits, tone is normal in all 4 extremities. PSYCHIATRIC: Alert and oriented -3. Appropriate affect. Intact judgment and insight. - Labs CBC & Chem 7: 01/12/19 06:50 01/11/19 07:08 Labs: Abnormal Lab Results - Last 24 Hours (Table) 01/12/19 Range/Units 06:50 WBC 11.9 H (3.8-10.6) k/uL RBC 3.54 L (4.30-5.90) m/uL Hgb 10.2 L (13.0-17.5) gm/dL Hct 33.3 L (39.0-53.0) % MCHC 30.7 L (31.0-37.0) g/dL Plt Count 640 H (150-450) k/uL Neutrophils # 8.9 H (1.3-7.7) k/uL Microbiology - Last 24 Hours (Table) 01/09/19 04:30 Urine Culture - Final Urine,Clean Catch Enterococcus faecalis Assessment and Plan Assessment: Impression: #1 Dyspnea with right-sided chest pain in a patient found to have significant right-sided pneumothorax, status post chest tube placement. Now status post right-sided thoracoscopy with lysis of adhesions, stapling of blebs, talc pleurodesis. Chest x-ray reveals persistent and larger right-sided pneumothor ax. Chest tube is now connected to a pneumostat. #2 History of chronic 10-15% right-sided pneumothorax. #3 History of significant bullous emphysema. #4 history of chronic obstructive pulmonary disease, currently inactive and stable. #5 Chronic tobacco dependence, quit in 2018. #6 History of bipolar disorder. PLAn: The patient was seen and evaluated by Dr. Gonzalez. He is stable from the p ulmonary standpoint to transfer to an extended care facility for inpatient rehabilitation with the chest tube remaining in place and connected to the pneumostat. I, the cosigning physician, performed a history & physical examination of the patient. Lungs sounds are diminished breath sounds on the right. Maintaining good O2 saturations in the 90s on 2 L/m per nasal cannula. I discussed the assessment and plan of care with my nurse practitioner, Venecia Crocker. I attest to the above note as dictated by her.
== END 2019-01-12 16:56 | DRG 163 ==
LOC: EC 16:15 → 3SCARD 18:38 → 4SSUR 12-20 17:24 → 3SCARD 12-28 17:12
PROVIDERS: ADMIT Internal Medicine; ATTEND Internal Medicine
PROC: 0W9930Z Drainage of Right Pleural Cavity with Drainage Device, Percutaneous Approach (ICD-10-PCS; 2018-12-19)
PROC: 0BQK4ZZ Repair Right Lung, Percutaneous Endoscopic Approach (ICD-10-PCS; 2018-12-28)
PROC: 0BNN4ZZ Release Right Pleura, Percutaneous Endoscopic Approach (ICD-10-PCS; 2018-12-28)
PROC: 3E0L4GC Introduction of Other Therapeutic Substance into Pleural Cavity, Percutaneous Endoscopic Approach (ICD-10-PCS; principal; 2018-12-28 12:15)
DX: J93.11 Primary spontaneous pneumothorax (principal); E43 Unspecified severe protein-calorie malnutrition; F31.30 Bipolar disorder, current episode depressed, mild or moderate severity, unspecified; J94.8 Other specified pleural conditions; N39.0 Urinary tract infection, site not specified; Z68.1 Body mass index [BMI] 19.9 or less, adult; B95.2 Enterococcus as the cause of diseases classified elsewhere; J43.9 Emphysema, unspecified; J93.81 Chronic pneumothorax; J93.82 Other air leak; K21.9 Gastro-esophageal reflux disease without esophagitis; K64.9 Unspecified hemorrhoids; N99.89 Other postprocedural complications and disorders of genitourinary system; Z79.51 Long term (current) use of inhaled steroids; Z80.1 Family history of malignant neoplasm of trachea, bronchus and lung; Z82.49 Family history of ischemic heart disease and other diseases of the circulatory system; Z86.711 Personal history of pulmonary embolism; Z87.891 Personal history of nicotine dependence; R00.0 Tachycardia, unspecified; D47.3 Essential (hemorrhagic) thrombocythemia
CPT/HCPCS: 32551; 36415; 71045; 71250; 71275; 80048; 81001; 83735; 84132; 84443; 84484; 85025; 85379; 85610; 87077; 87086; 87186; 88307; 93005; 94640; 94760; 96374; 96375; 99285

== ENCOUNTER → 2019-01-18 | Outpatient (CLI) | payer MEDICARE ==
--- NOTE | 2019-01-18 12:02 | XR ---
EXAMINATION TYPE: XR chest 2V DATE OF EXAM: 01/18/2019 COMPARISON: Chest x-ray [address] chest 8 days ago. HISTORY: Right-sided pneumothorax and chest tube progress study. TECHNIQUE: Frontal and lateral views of the chest are obtained. FINDINGS: There is persistent right apical pneumothorax despite chest tube placement. Size is stabl e. There is background advanced emphysematous change with persistent right mid to lower lung opacity. Multiple air-fluid levels right lung base remain present correlating with subpulmonic effusion. Left lung remains clear. No mediastinal shift is present. The cardiac silhouette size remains within norm al limits. The osseous structures are intact. IMPRESSION: Overall stable findings, small to moderate-sized right apical pneumothorax despite chest tube. Advanced emphysematous change with right mid to basilar infiltrate and/or atelectasis. Stable s ubpulmonic right pleural effusion.
== END | disposition home or self-care (01) ==
LOC: RADXRMAIN 11:43
PROVIDERS: ATTEND Nurse Practitioner Acute Care
DX: J93.9 Pneumothorax, unspecified (principal); J43.9 Emphysema, unspecified; J90 Pleural effusion, not elsewhere classified
CPT/HCPCS: 71046

== ENCOUNTER → 2019-01-25 | Outpatient (CLI) | payer MEDICARE ==
--- NOTE | 2019-01-25 12:59 | XR ---
EXAMINATION TYPE: XR chest 2V DATE OF EXAM: 01/25/2019 COMPARISON: 01/19/2016 TECHNIQUE: PA and lateral views submitted. HISTORY: Pneumothorax FINDINGS: There is persistent right apical pneumothorax despite chest tube placement. Size is stable. There is background advanced emphysematous change with persistent right mid to lower lung opacity. Multiple ai r-fluid levels right lung base remain present correlating with subpulmonic effusion. Left lung remain s clear. No mediastinal shift is present. The cardiac silhouette size remains within normal limits. T he osseous structures are intact. IMPRESSION: 1. Stable appearance of the chest with a moderate-sized right apical pneumothorax and chest tube stab le in position. No significant interval change. Air-fluid levels in the right lower lobe consolidatio n and pleural effusion may represent loculated areas of hydropneumothoraces. Infectious etiology not excluded.
== END | disposition home or self-care (01) ==
LOC: RADXRMAIN 12:37
PROVIDERS: ATTEND Thoracic Surgery (Cardiothoracic Vascular Surgery)
DX: J93.9 Pneumothorax, unspecified (principal); J90 Pleural effusion, not elsewhere classified; Z97.8 Presence of other specified devices
CPT/HCPCS: 71046

== ENCOUNTER 2019-02-12 11:50 | Inpatient (IN) | payer MEDICARE ==
[2019-02-12] MEDS ORDERED: ORPHENADRINE 30 MG/ML 2 ML VIAL IM STA (13:38)
[2019-02-12] MEDS ORDERED: MORPHINE SULFATE 4 MG/ML SYRINGE IM STA (13:38)
[2019-02-12] MEDS ORDERED: KETOROLAC 30 MG/ML 1 ML VIAL IM STA (13:38)
--- NOTE | 2019-02-12 13:45 | ED ---
Back Pain HPI <González Crawford - Last Filed: 02/12/19 16:25> - General Source: patient, RN notes reviewed, old records reviewed Limitations: no limitations <Argentina Borges - Last Filed: 02/12/19 16:42> - General Chief Complaint: Back Pain/Injury Stated Complaint: lower back pain Time Seen by Provider: 02/12/19 13:21 - History of Present Illness Initial Comments: 63-year-old male presents transferred to complaints of lower back pain onset this morning when he woke up. He also reports having history of significant weight loss over the past few weeks. Was admitted for pneumothorax related to COPD, had chest tubes and was recently discharged from extended care facility. Patient called his brother today with concern for falling due to leg weakness, and the severe back pain. Patient states that he's had no recent fevers or chills. Patient denies any associated chest pain or shortness of breath at this time. (Argentina Borges) - Related Data Home Medications Medication Instructions Recorded Confirmed Ranitidine HCl [Zantac] 75 mg PO BID PRN 12/19/18 12/19/18 Previous Rx's Medication Instructions Recorded Albuterol Inhaler [Ventolin Hfa 1 - 2 puff INHALATION RT-Q6H PRN 07/24/18 Inhaler] #1 inhaler Budesonide-Formot 160-4.5 Mcg 2 puff INHALATION RT-BID 30 Days 07/24/18 [Symbicort 160-4.5 Mcg Inhaler] #1 vial ALPRAZolam [Xanax] 0.25 mg PO BID #6 tab 01/12/19 Amoxic-Pot Clav 875-125Mg 1 tab PO Q12HR #14 tablet 01/12/19 [Augmentin 875-125] Docusate [Colace] 100 mg PO BID PRN cap 01/12/19 HYDROcodone/APAP 5-325MG [[place] 1 each PO Q8HR PRN #10 tab 01/12/19 5-325] Ipratropium-Albuterol Nebulize 3 ml INHALATION RT-TID ampul.neb 01/12/19 [Duoneb 0.5 mg-3 mg/3 ml Soln] Magnesium Hydroxide [Milk of 2,400 mg PO DAILY PRN ml 01/12/19 Magnesia Concentrate] Metoprolol Tartrate [Lopressor] 25 mg PO BID tab 01/12/19 Sennosides-Docusate Sodium 2 each PO BID PRN tab 01/12/19 [Senokot-S] Allergies Allergy/AdvReac Type Severity Reaction Status Date / Time No Known Allergies Allergy Verified 02/12/19 12:35 Review of Systems ROS Other: All systems not noted in ROS Statement are negative. <González Crawford - Last Filed: 02/12/19 16:25> ROS Other: All systems not noted in ROS Statement are negative. <Argentina Borges - Last Filed: 02/12/19 16:42> ROS Statement: Those systems with pertinent positive or pertinent negative responses have been documented in the HPI. Past Medical History Past Medical History: COPD, GERD/Reflux Additional Past Medical History / Comment(s): pneumothorax September 2017 and July 2018, COPD History of Any Multi-Drug Resistant Organisms: None Reported Past Surgical History: No Surgical Hx Reported Additional Past Surgical History / Comment(s): hemorrhoids Past Anesthesia/Blood Transfusion Reactions: No Reported Reaction Past Psychological History: Bipolar, Depression Smoking Status: Former smoker Past Alcohol Use History: None Reported Past Drug Use History: None Reported - Past Family History Father Family Medical History: Cancer Additional Family Medical History / Comment(s): cardiac issues, lung ca Mother Family Medical History: Coronary Artery Disease (CAD) Additional Family Medical History / Comment(s): heart murmur <Argentina Borges - Last Filed: 02/12/19 16:42> General Exam Limitations: no limitations General appearance: alert, in no apparent distress Head exam: Present: atraumatic Eye exam: Present: normal appearance, PERRL, EOMI. Absent: scleral icterus, conjunctival injection, periorbital swelling ENT exam: Present: normal exam, mucous membranes moist Neck exam: Present: normal inspection. Absent: tenderness, meningismus, lymphadenopathy Respiratory exam: Present: decreased breath sounds. Absent: normal lung sounds bilaterally, respiratory distress, wheezes, rales, rhonchi, stridor Cardiovascular Exam: Present: regular rate, normal rhythm, normal heart sounds. Absent: systolic murmur, diastolic murmur, rubs, gallop, clicks GI/Abdominal exam: Present: soft Extremities exam: Present: normal inspection, full ROM, normal capillary refill. Absent: tenderness, pedal edema, joint swelling, calf tenderness Back exam: Present: normal inspection, other (Is no tenderness over the lumbar spine and sciatic notch.) Neurological exam: Present: alert Psychiatric exam: Present: normal affect, normal mood Skin exam: Present: warm, dry, intact, normal color. Absent: rash <Argentina Borges - Last Filed: 02/12/19 16:42> - General Exam Comments Initial Comments: Patient's a 63-year-old male. Alert and oriented. No distress. Patient appears thin, cachectic. (Argentina Borges) Course <González Crawford - Last Filed: 02/12/19 16:25> Vital Signs 02/12/19 02/12/19 12:35 15:45 Temperature 98 F Pulse Rate 105 H 82 Respiratory 18 18 Rate Blood Pressure 153/72 92/55 O2 Sat by Pulse 99 96 Oximetry - Reevaluation(s) Reevaluation #1: 02/12/19 16:25 PA supervision I proceeded [id number] evaluation the patient did discuss the findings with patient and with he has have evidence of a hydropneumothorax and seems somewhat larger and was previously about 2 weeks ago some evidence of a either residual or recurrent empyema I did discuss he hasn't patient will be admitted (González Crawford) Medical Decision Making - Lab Data Result diagrams: 02/12/19 13:54 02/12/19 13:54 <TyGonzález - Last Filed: 02/12/19 16:25> - Lab Data Result diagrams: 02/12/19 13:54 02/12/19 13:54 - Radiology Data Radiology results: report reviewed <Argentina Borges - Last Filed: 02/12/19 16:42> - Medical Decision Making Patient's a 63-year-old male appears much older than stated age with recent history of pneumothorax due to COPD, and chest tube placement as well as an empyema. He was discharged from extended care facility in his back residing in his own home. He came today for evaluation for lower back pain, frequent falls and pain remained on the right leg. Patient also reports a significant amount weight loss over the past few weeks. Therefore computed tomography scan of the lumbar spine is completed. There is evidence of multilevel degenerative disc disease, but no acute pathologic fractures. Patient CT she redemonstrated the empyema for the right lung base. Patient's had a chest x-ray which showed increased hydropneumothorax from chest tube placement. Patient denies any significant difficulty breathing at this time. Patient case with Dr. Crawford, with his history of empyema, chest x-ray showing increased hydropneumothorax, as well as Asians concern for back pain, and inability ambulate [place] the Patient for observation with consult and pulmonology as well as [facility]. All questions were answered to the family and the feel comfortable Patient being made as they're unable take care of him at home. (Argentina Borges) - Lab Data Lab Results 02/12/19 02/12/19 02/12/19 Range/Units 13:54 13:54 13:54 WBC 11.7 H (3.8-10.6) k/uL RBC 4.53 (4.30-5.90) m/uL Hgb 11.8 L (13.0-17.5) gm/dL Hct 40.0 (39.0-53.0) % MCV 88.3 (80.0-100.0) fL MCH 26.1 (25.0-35.0) pg MCHC 29.6 L (31.0-37.0) g/dL RDW 14.1 (11.5-15.5) % Plt Count 656 H (150-450) k/uL Neutrophils % 80 % Lymphocytes % 12 % Monocytes % 5 % Eosinophils % 1 % Basophils % 1 % Neutrophils # 9.3 H (1.3-7.7) k/uL Lymphocytes # 1.4 (1.0-4.8) k/uL Monocytes # 0.6 (0-1.0) k/uL Eosinophils # 0.1 (0-0.7) k/uL Basophils # 0.1 (0-0.2) k/uL Hypochromasia Marked PT 10.2 (9.0-12.0) sec INR 0.9 (<1.2) APTT 25.1 (22.0-30.0) sec Sodium 139 (137-145) mmol/L Potassium 5.2 H (3.5-5.1) mmol/L Chloride 102 (98-107) mmol/L Carbon Dioxide 29 (22-30) mmol/L Anion Gap 8 mmol/L BUN 12 (9-20) mg/dL Creatinine 0.78 (0.66-1.25) mg/dL Est GFR (CKD-EPI)AfAm >90 (>60 ml/min/1.73 sqM) Est GFR (CKD-EPI)NonAf >90 (>60 ml/min/1.73 sqM) Glucose 102 H (74-99) mg/dL Calcium 8.7 (8.4-10.2) mg/dL Total Bilirubin 0.3 (0.2-1.3) mg/dL AST 24 (17-59) U/L ALT 25 (21-72) U/L Alkaline Phosphatase 111 (38-126) U/L Total Protein 6.9 (6.3-8.2) g/dL Albumin 3.3 L (3.5-5.0) g/dL - Radiology Data Multilevel mild degenerative disc disease and disc bulging. Correlating with MRI. Right pleural fluid collection mixed with air suggestive of an empyema also noted on computed tomography scan a 01/10/2019. (Argentina Borges) Disposition <González Crawford - Last Filed: 02/12/19 16:25> Is patient prescribed a controlled substance at d/c from ED?: No Time of Disposition: 16:42 <Argentina Borges - Last Filed: 02/12/19 16:42> Clinical Impression: Impaired ambulation, Lower back pain, Hydropneumothorax, History of COPD Disposition: ADMITTED IP TO THIS HOSP Condition: Stable Referrals: Nicanor Coombs MD [Primary Care Provider] - 1-2 days
[2019-02-12] MEDS ORDERED: KETOROLAC 30 MG/ML 1 ML VIAL IVP STA (13:48)
[2019-02-12] MEDS ORDERED: MORPHINE SULFATE 4 MG/ML SYRINGE IVP STA (13:48)
[2019-02-12] MEDS ORDERED: ORPHENADRINE 30 MG/ML 2 ML VIAL IVP STA (13:49)
--- NOTE | 2019-02-12 15:03 | CT ---
EXAMINATION TYPE: CT lumbar spine wo con DATE OF EXAM: 02/12/2019 2:43 PM COMPARISON: HISTORY: Low back pain CT DLP: 486.9 mGycm Automated exposure control for dose reduction was used. Unenhanced CT of the lumbar spine was performed. Bone and soft tissue window settings are submitted as well as coronal and sagittal reconstructions. There is a right-sided pleural fluid collection mixed with air suggestive of empyema which was also seen on the CT scan of 01/10/2019. Correlate for COPD. Simple appearing right renal cyst noted. Cardiom egaly noted. L1-L2: Normal disc space height. No disc herniation protrusion or central stenosis. No facet joint arthropathy. No evidence for foraminal encroachment. L2-L3: Normal disc space height. No disc herniation protrusion or central stenosis. No facet joint arthropathy. No evidence for foraminal encroachment. L3-L4: Circumferential disc bulging with hypertrophic changes facets. There is no significant foramin al encroachment or canal stenosis. L4-L5: Disc bulging. There is mild effacement of thecal sac. Facet arthropathy. Neural foramina paten t. L5-S1: Central disc bulging. No canal stenosis or foraminal encroachment. There is facet arthropathy. Alignment is anatomic there is multilevel mild degenerative disc disease. Vascular calcifications are noted. IMPRESSION: 1. Multilevel mild degenerative disc disease and disc bulging. Correlate with MRI. 2. There is a right pleural fluid collection mixed with air suggestive of empyema also noted on the C T scan of 01/10/2019.
--- NOTE | 2019-02-12 16:02 | XR ---
EXAMINATION TYPE: XR chest 2V DATE OF EXAM: 02/12/2019 COMPARISON: 01/25/2019 HISTORY: Chest pain TECHNIQUE: Frontal and lateral views of the chest are obtained. FINDINGS: There is a loculated right apical pneumothorax is seen on the prior exam of 01/25/2019 lerner patricio there is been removal of the chest tube in the interim. Oblique dimension measures 6.1 cm and pre viously measured approximately 5.0 cm. Probable scarring is seen at the lateral aspect with developme nt of a thick-walled wall. No sizable left pleural effusion or left pneumothorax is seen. Air-fluid l evels at the right lung base has improved from the prior with a small right pleural effusion persisti ng. Scattered areas of atelectasis are seen within the right lung. 30 mediastinal silhouette is stabl e and nonenlarged. No acute osseous pathology. No mediastinal shift. IMPRESSION: Increasing size of the loculated right apical hydropneumothorax status post chest tube r emoval without current mediastinal shift.
[2019-02-12 16:07] LABS: INR 0.9 (<1.2); Partial Thromboplastin Time 25.1 sec (22.0-30.0); Prothrombin Time 10.2 sec (9.0-12.0)
[2019-02-12 16:09] LABS: ALT 25 U/L (21-72); AST 24 U/L (17-59); Albumin 3.3 g/dL (3.5-5.0); Alkaline Phosphatase 111 U/L (38-126); Anion Gap 8 mmol/L; Blood Urea Nitrogen 12 mg/dL (9-20); Calcium 8.7 mg/dL (8.4-10.2); Carbon Dioxide 29 mmol/L (22-30); Chloride 102 mmol/L (98-107); Glucose 102 mg/dL (74-99); Potassium 5.2 mmol/L (3.5-5.1); Sodium 139 mmol/L (137-145); Total Bilirubin 0.3 mg/dL (0.2-1.3); Total Protein 6.9 g/dL (6.3-8.2)
[2019-02-12 16:17] LABS: Basophils # (A) 0.1 k/uL (0-0.2); Basophils % (A) 1 %; Eosinophils # (A) 0.1 k/uL (0-0.7); Eosinophils % (A) 1 %; HGB 11.8 gm/dL (13.0-17.5); Hypochromasia Marked; Lymphocytes # (A) 1.4 k/uL (1.0-4.8); Lymphocytes % (A) 12 %; MCH 26.1 pg (25.0-35.0); MCHC 29.6 g/dL (31.0-37.0); MCV 88.3 fL (80.0-100.0); Mean Platelet Volume 7.9; Monocytes # (A) 0.6 k/uL (0-1.0); Monocytes % (A) 5 %; Neutrophils # (A) 9.3 k/uL (1.3-7.7); Neutrophils % (A) 80 %; Platelet Count 656 k/uL (150-450); RBC 4.53 m/uL (4.30-5.90); RDW 14.1 % (11.5-15.5); WBC 11.7 k/uL (3.8-10.6)
[2019-02-12] MEDS ORDERED: MORPHINE SULFATE 4 MG/ML SYRINGE IV PRN (16:46)
[2019-02-12] MEDS ORDERED: NALOXONE 0.4 MG/ML 1 ML VIAL IV PRN (16:46)
[2019-02-12] MEDS ORDERED: ONDANSETRON 4 MG/2 ML VIAL IVP PRN (16:46)
[2019-02-12] MEDS ORDERED: FAMOTIDINE 20 MG TAB PO PRN (19:13)
[2019-02-12] MEDS: TAMSULOSIN 0.4 MG CAP.ER.24H PO SCH (20:16)
[2019-02-12] MEDS: METOPROLOL TARTRATE 25 MG TAB PO SCH (20:16)
[2019-02-12] MEDS ORDERED: ALBUTEROL NEBULIZED 2.5 MG/3 ML INHALATION PRN (21:23)
[2019-02-13] MEDS: HEPARIN SODIUM,PORCINE 5,000 UNIT/ML 1 ML VIAL SQ SCH ×3 (00:10→20:04)
--- NOTE | 2019-02-13 05:43 | HP ---
HISTORY AND PHYSICAL DATE OF SERVICE: 02/12/2019 CHIEF COMPLAINTS: Back pain and as well as weakness, weight loss. HISTORY OF PRESENT ILLNESS: This 63-year-old gentleman with a past medical history of multiple medical problems including COPD, history of GERD, history of pneumothorax, bipolar depression being followed by Dr. Coombs in the outpatient setting. The patient was recently admitted in January to [facility] for several days. The patient has acute on chronic pneumothorax on the right side and the patient initially had chest tube drainage. Subsequently, patient underwent right thoracoscopy, lysis of pleural adhesions, stapling of the blebs, and talc pleurodesis by Dr. Quevedo. The patient improved significantly and the patient subsequently was discharge home. The patient had enterococcal UTI during that admission and the patient was complaining of weakness. Subsequently, patient has weight loss. Patient has been helped by some family members. Currently the patient is complaining of severe back pain, which is radiating down to the right leg which is aggravating for the past few weeks and the patient came to [facility] and admitted for evaluation and treatment. The patient has been recently in ECF and a CAT scan showed multilevel DJD. Otherwise, a chest x-ray which was personally reviewed by me showed increase in size of the loculated right apical hydropneumothorax also noted. There is no history of any fever, rigors. No history of headache, loss of consciousness or seizures. PAST MEDICAL HISTORY: History of COPD, history of recent recurrent pneumothorax and multiple other and medical surgical issues as mentioned earlier, history of bipolar depression. MEDICATIONS: Medications prior to admission include: 1. Flomax 0.4 q.h.s. 2. Zantac 75 mg p.o. b.i.d. 3. Lopressor 50 mg q.a.m. and 25 mg q.h.s. 4. Iron sulfate 325 mg p.o. daily. 5. Symbicort 160/4.5 two puffs b.i.d. 6. Ventolin nebulized 2.5 q.i.d. p.r.n. ALLERGIES: Allergies are none. FAMILY HISTORY: History of cancer, cardiac issues, lung cancer. SOCIAL HISTORY: History of smoking, previous smoking. No history of alcohol intake. REVIEW OF SYSTEMS: ENT: No diminished hearing or diminished vision. CARDIOVASCULAR SYSTEM: No angina. RESPIRATORY SYSTEM: As mentioned earlier. GI: No nausea. : No dysuria. NERVOUS SYSTEM: As mentioned earlier. ALLERGIES/IMMUNOLOGY: No history of asthma. MUSCULOSKELETAL: As mentioned earlier. HEMATOLOGY/ONCOLOGY: No history of anemia. ENDOCRINE: No history of diabetes, hypothyroidism. CONSTITUTIONAL: As mentioned earlier. DERMATOLOGY: Negative. RHEUMATOLOGY: Negative. PSYCHIATRY: As mentioned earlier. PHYSICAL EXAMINATION: The patient is alert, oriented x3. Pulse is 82, blood pressure 97/63, respirations 17, temperature 98.1, pulse ox 94% on room air. HEENT: Conjunctivae normal. Oral mucosa moist. NECK: No jugular venous distention. No carotid bruit. No lymph node enlargement. CARDIOVASCULAR: S1, S2 muffled. No S3, no S4. RESPIRATORY: Breath sounds diminished at the bases. Bilateral scattered rhonchi and crackles. Breath sounds are markedly diminished on the right side. Right-sided scars of the recent surgery, which is healing. ABDOMEN: Soft, scaphoid, nontender. No mass palpable. LEGS: No edema. No swelling. NERVOUS SYSTEM: Higher functions as mentioned earlier. Moves all 4 limbs. There is mild diffuse weakness. LYMPHATICS: No lymphadenopathy of the neck, axillae or groin. EXAMINATION OF THE BACK: Some tenderness present and pain is increased on movement of the low back pain spine. SKIN: Minimal hyperpigmentation noted in the spinous process possibly early decubitus. LABS: Labs are at this time show WBC 11.7, hemoglobin 11.8, platelets 656. Sodium 139, potassium 5.2. ASSESSMENT: 1. Severe back pain with gait dysfunction, possibly degenerative joint disease. 2. History of recent right recurrent pneumothorax, status post thoracoscopy, lysis of pleural adhesions, stapling of the blebs and talc pleurodesis. 3. Severe protein calorie malnutrition with a BMI of 17.7. 4. Increased WBC. 5. Anemia of chronic disease. 6. Increased platelets. 7. Mild hyperkalemia. 8. History of chronic obstructive pulmonary disease. 9. Gastroesophageal reflux disease. 10.History of bipolar depression. 11.History of nicotine dependence. 12.History of hemorrhoids. RECOMMENDATIONS AND DISCUSSION: This 63-year-old gentleman presented with multiple complex medical issues, at this time I recommend to continue current medications and continue symptomatic treatment. I would recommend symptomatic treatment, consult Orthopedic Surgery for the back pain and evaluation of the CAT scan. Other than that, the chest x-ray was reviewed. I would also recommend a CAT scan of the chest to rule out the possibility of any persisting infection. Otherwise, overall prognosis extremely guarded. Dietary consultation was also noted because of the continued severe malnutrition. The patient's appetite continues to be poor apparently. Overall prognosis extremely guarded. Resume the home medications and DVT prophylaxis. See orders for details. A copy of dictation forwarded to Dr. Coombs who is the primary physician. This patient requires more than 2 nights hospital stay as a full admit for continued evaluation and treatment. I would also recommend PT, OT evaluation too for the evaluation of the gait and as well as safety at home also along with geriatric social worker. MMODL / IJN: [id number] / MTDD
[2019-02-13] MEDS: IOPAMIDOL-300 CONTRAST 30 ML VIAL (ORAL USE) PO PRN ×2 (07:26→08:25)
[2019-02-13] MEDS: Acetaminophen-Codeine 300-30mg TAB PO PRN (07:30)
[2019-02-13] MEDS: FOLIC ACID 1 MG TAB PO SCH (07:33)
[2019-02-13] MEDS: MULTIVITAMINS, THERA 1 EACH TAB PO SCH (07:33)
[2019-02-13] MEDS: METOPROLOL TARTRATE 50 MG TAB PO SCH (07:33)
[2019-02-13] MEDS: FERROUS SULFATE 325 MG TAB PO SCH (07:33)
[2019-02-13] MEDS: SYMBICORT 160-4.5 MCG INHALER INHALATION SCH ×2 (07:35→20:15)
[2019-02-13 09:33] LABS: Amorphous Sediment,Urine Occasional /hpf; Appearance,Urine Cloudy (Clear); Bilirubin,Urine Negative (Negative); Blood,Urine Trace (Negative); Color,Urine Yellow; Glucose,Urine (UA) Negative (Negative); Hyaline Casts,Urine 9 /lpf (0-2); Ketones,Urine Negative (Negative); Leukocyte Esterase,Urine Negative (Negative); Mucus,Urine Many /hpf; Nitrite,Urine Negative (Negative); PH, Urine 5.5 (5.0-8.0); Protein,Urine 1+ (Negative); RBC,Urine 11 /hpf (0-5); Specific Gravity,Urine 1.032 (1.001-1.035)
--- NOTE | 2019-02-13 09:46 | CT ---
EXAMINATION TYPE: CT ChestAbdPelvis wo con DATE OF EXAM: 02/13/2019 COMPARISON: 02/12/2019 CT lumbar spine and 12/19/2018 CT chest HISTORY: weight loss, recent pleurodesis rt lung, severe low back pain CT DLP: 880 mGycm. Automated Exposure Control for Dose Reduction was Utilized. TECHNIQUE: CT scan of the thorax, abdomen and pelvis is performed without IV contrast. FINDINGS: Lack of intravenous and oral contrast limit evaluation of both the hollow and solid viscera . LUNGS: There is a right apical pneumothorax after removal of the chest tube as indicated on the recen t chest x-ray of 02/12/2019. Maximal pleural separation is seen of 6.6 cm and a transverse dimension an d 6.4 cm in an oblique craniocaudal dimension as measured on the prior chest x-ray. There are surgica l sutures surrounding this extending to the mediastinum and right lateral lung from prior pleurodesis . There is a peripheral thick rim seen medially, inferiorly and laterally. Extensive emphysematous ch anges of lungs are present. Multifocal right-sided linear appearing atelectasis is seen. At the right lung base there is a peripherally hyperdense pleural fluid collection measuring up to 5.8 cm in thic kness with numerous air-fluid levels again relating to a loculated empyema with portion in the right anterior thorax overlying upper lobe and middle lobe and loculated component of the posterior right u pper thorax overlying the lung apex. No current mediastinal shift. MEDIASTINUM: There are no greater than 1 cm hilar or mediastinal lymph nodes. No pericardial effusi on is seen. Mild coronary calcifications are present. OTHER: No additional significant abnormality is seen. LIVER/GB: Very minimally mottled appearance of the liver could relate to congestive hepatopathy or ar tifact. This is limited given lack of intravenous contrast. No radio opaque calculi in the gallbladde r. PANCREAS: No ductal dilatation. SPLEEN: No splenomegaly. ADRENALS: No nodularity or thickening. KIDNEYS: Right renal cyst measures 3.2 cm. No hydronephrosis or nephrolithiasis of either kidney. BOWEL: There is gaseous dilatation of the rectum up tor 7.7 cm in anterior posterior dimension. There is redundancy of the sigmoid colon and few colonic diverticula without gross evidence of pericolonic fat stranding. There is prolapse of loops of small bowel within the left lower quadrant and left mid abdomen seen posterior lateral to the colon. Moderate degree fecal stasis is present. Appendix is no t identified. No dilated small bowel. GENITAL ORGANS: Prostate gland is heterogenous containing central zone calcifications. LYMPH NODES: No greater than 1cm abdominal or pelvic lymph nodes are appreciated. However this is de dios ited without intravenous contrast. OSSEOUS STRUCTURES: Multilevel degenerative disc disease of the spine is noted. On the prior lumbar s pine CT multilevel disc bulging was identified, also seen on this exam. No acute fracture or vertebra l body height loss is seen. Spinal canal is limited on CT and MRI could be of further benefit. There is a mild dextroscoliosis of the lumbar spine. Probable bone island of the right femoral head is subc entimeter. OTHER: Moderate to severe atherosclerosis of the lower abdominal aorta and its branches. IMPRESSION: 1. Overall similar size but redistribution of the loculated moderate right empyema with numerous air- fluid levels in peripheral hyperdense pleural surface status post pleurodesis with postsurgical matute e noted. 2. Right apical pneumothorax is similar in size to the prior chest x-ray 02/12/2019 however increased f rom the x-ray of 01/25/2019 status post chest tube removal. No current mediastinal shift. 3. Evaluation of the hollow and solid viscera are limited without contrast. There is very mild hetero genous attenuation of the liver on liver window that could be artifact or related to hepatocellular d isease or possible congestive hepatopathy. 4. Gaseous dilatation of the rectum without dilatation of the remainder of the small or large bowel. 5. Redemonstration of a mild dextro lumbar spine and multilevel degenerative disc disease. MRI could evaluate for disc herniation in this patient with back pain.
[2019-02-13 11:52] LABS: Anion Gap 7 mmol/L; Blood Urea Nitrogen 19 mg/dL (9-20); C Reactive Protein 67.4 mg/L (<10.0); Calcium 8.6 mg/dL (8.4-10.2); Carbon Dioxide 28 mmol/L (22-30); Chloride 102 mmol/L (98-107); Glucose 110 mg/dL (74-99); Potassium 5.1 mmol/L (3.5-5.1); Sodium 137 mmol/L (137-145)
[2019-02-13 11:53] LABS: Basophils # (A) 0.1 k/uL (0-0.2); Basophils % (A) 1 %; Eosinophils # (A) 0.1 k/uL (0-0.7); Eosinophils % (A) 1 %; HCT 33.9 % (39.0-53.0); HGB 10.4 gm/dL (13.0-17.5); Hypochromasia Marked; Lymphocytes # (A) 1.3 k/uL (1.0-4.8); Lymphocytes % (A) 14 %; MCH 26.7 pg (25.0-35.0); MCHC 30.6 g/dL (31.0-37.0); MCV 87.1 fL (80.0-100.0); Mean Platelet Volume 7.1; Monocytes # (A) 0.5 k/uL (0-1.0); Monocytes % (A) 5 %; Neutrophils # (A) 7.6 k/uL (1.3-7.7); Neutrophils % (A) 78 %; Platelet Count 559 k/uL (150-450); RDW 13.5 % (11.5-15.5); WBC 9.7 k/uL (3.8-10.6)
[2019-02-13] MEDS ORDERED: IPRATROPIUM-ALBUTEROL 3 ML NEB INHALATION PRN (12:46)
[2019-02-13] MEDS: THIAMINE 100 MG TAB PO SCH (13:04)
[2019-02-13 13:18] VITALS: BMI 17.7
[2019-02-13] MEDS: LACTULOSE 20 GM/30 ML CUP PO SCH (13:30)
[2019-02-13 14:49] LABS: Erythrocyte Sedimentation Rate 103 mm/hr (0-15)
--- NOTE | 2019-02-13 16:08 | PN ---
PROGRESS NOTE DATE OF SERVICE: 02/13/2019 This 63-year-old gentleman who was admitted with severe back pain and gait dysfunction had possible DJD. The patient also had recent recurrent right pneumothorax and patient had a thoracoscopy, and stapling of the blebs also. Patient complained of generalized weakness and tiredness. Patient continues to be malnourished with BMI of 17.7. WBC was elevated 11.7. The patient is not running a fever, but however, CRP was 67.4. Cortisol level was 10. PAST MEDICAL HISTORY: Reviewed. REVIEW OF SYSTEMS: CARDIOVASCULAR SYSTEM: No angina. RESPIRATION: As mentioned earlier. GI: As mentioned earlier. : No dysuria. CENTRAL NERVOUS SYSTEM: No focal deficits. CURRENT MEDICATIONS: Reviewed and include: 1. Tylenol #3. 2. DuoNeb q.i.d. and p.r.n. 3. Symbicort 160/4.5 b.i.d. 4. Iron sulfate. 5. Folic acid. 6. Heparin. 7. Lopressor. 8. Multivitamins. 9. Narcan. 10.Zofran. 11.Flomax. 12.Vitamin B1. 13.Doses reviewed. PHYSICAL EXAM: Patient is alert, oriented x3. Pulse 85. Blood pressure 98/62, respirations 17, temperature 97.8, pulse ox 94% on room air. HEENT is conjunctivae normal. NECK: No jugular venous distention. CARDIOVASCULAR: S1, S2. RESPIRATORY: Breath sounds diminished at the bases. Bilateral scattered rhonchi and crackles. ABDOMEN: Soft, nontender. LEGS: Legs no edema. CENTRAL NERVOUS SYSTEM: No focal deficits. LABS: WBC 9.7, hemoglobin 10.4, sodium 137, potassium 5.1 and C-reactive protein 67.4. ASSESSMENT: 1. Severe back pain and gait dysfunction with possible degenerative joint disease. 2. History of recent right recurrent pneumothorax, status post thoracoscopy, lysis of pleural adhesions and stapling of the blebs and talc pleurodesis. 3. Severe protein calorie malnutrition BMI of 17.7. 4. Increased WBC. 5. Anemia of chronic disease. 6. Increased platelets. 7. Mild hyperkalemia. 8. History of chronic obstructive pulmonary disease. 9. Gastroesophageal reflux disease. 10.History of bipolar depression. 11.History of nicotine dependence. 12.History of hemorrhoids. RECOMMENDATIONS AND DISCUSSION: In this 63-year-old gentleman who presented with multiple complex medical issues, we will monitor the patient closely, continue the current medications, management and symptomatic treatment. Otherwise at this time, I recommend continued monitoring. Otherwise orthopedic evaluation has been noted. We also performed a CT scan of the chest, abdomen, pelvis, and the results of which shows overall similar in size and distribution of the loculated right empyema with numerous air-fluid levels. Right apical pneumothorax also noted. Continue to monitor evaluation, possible ECF rehab. The patient is deemed unsafe and generally weak. Otherwise, I would also repeat a serum cortisol at 8:00 am and continue to monitor. Further recommendations to follow. MMODL / IJN: [id number] / MTDTremaine
[2019-02-13] MEDS: IPRATROPIUM-ALBUTEROL 3 ML NEB INHALATION SCH ×2 (16:20→20:15)
--- NOTE | 2019-02-13 18:38 | CONS ---
CONSULTATION PULMONARY/CRITICAL CARE CONSULTATION: DATE OF SERVICE: 02/13/2019 This patient is a 63-year-old male, well known to our service. He apparently presented to the emergency room yesterday with complaints of low back pain. He states that the pain developed when he first woke up. The patient has had significant weight loss over the past few weeks. He is very frail. He had a previous admission to the hospital for persistent pneumothorax with bronchopleural fistula. He had a chest tube for a long period of time which was converted to a Pneumostat, which was removed a couple of weeks after discharge. He was discharged from here to an extended-care facility, i.e.[facility]. He apparently was admitted today from the emergency room for complaints of leg weakness and severe back pain. He denies any chest pain or chest discomfort. No fever. No chills. No nausea, vomiting, diarrhea. No shortness of breath, difficulty breathing, coughing, wheezing or phlegm production. HOME MEDICATIONS: His home medications include: 1. Ranitidine. 2. Albuterol inhaler. 3. Symbicort. 4. Xanax. 5. Augmentin. 6. Colace. 7. Marion. 8. Updrafts. 9. Milk of Magnesia. 10.Metoprolol. 11.Senokot. ALLERGIES: DENIED. PAST MEDICAL HISTORY: His past medical history includes: 1. Severe COPD, mostly bullous emphysema, mostly involving the upper lobes. 2. History of gastroesophageal reflux disease. 3. Previous history/recent history of pneumothorax with persistent chest tube placement, persistent air leak, bronchopleural fistula and eventual replacement of the chest tube with a Pneumostat. SURGICAL HISTORY: The patient's surgical history includes hemorrhoid surgery. SOCIAL HISTORY: Positive for previous tobacco use. Denies alcohol or illicit drug use. FAMILY HISTORY: Positive for lung cancer, cardiac issues and CAD. REVIEW OF SYSTEMS: CONSTITUTIONAL: Negative except for weakness and weight loss. NEUROLOGIC: Negative. HEENT: Negative. CARDIOVASCULAR: Negative. PULMONARY: Negative. GI: Negative. : Negative. RHEUMATOLOGIC: Back pain, acute. IMMUNOLOGIC: Negative. ENDOCRINOLOGIC: Negative. DERMATOLOGIC: Negative. PHYSICAL EXAMINATION: VITAL SIGNS: Current vital signs are reviewed. Currently temperature is 97.8, heart rate 80, respiratory rate 17, blood pressure 98/62, mean 74, room-air saturation 95%. GENERAL: He appears in no acute distress. Not having any respiratory distress. No audible wheezing or use of accessory muscles or conversational dyspnea. HEENT examination is grossly unremarkable. Mucous membranes are moist. NECK: Supple. Full range of motion. No adenopathy or thyromegaly. Neck veins are flat. CARDIOVASCULAR: Cardiovascular examination reveals regular rhythm and rate. Heart sounds are distant. LUNGS: Diminished breath sounds throughout. A few scattered mild rhonchi are noted. No wheezes or crackles. Breath sounds are equal bilaterally. ABDOMEN: Soft. Bowel sounds are heard. EXTREMITIES: Intact. No cyanosis, clubbing or edema. SKIN: Without rash. NEUROLOGIC: Neurologic examination is brief but nonfocal. LABS/IMAGING: White count 9.7, hemoglobin 10.4, hematocrit 33.9, platelet count 559,000. Sodium, potassium, chloride, CO2 all normal. Anion gap is 7. BUN and creatinine were 19 and 0.82. Urine is evaluated. It appears to be relatively normal. The patient had a lumbar spine CT. It showed multilevel mild degenerative disc disease and disc bulging. There is a right pleural fluid collection mixed with air suggestive of empyema on the CT scan. Chest x-ray shows increasing size of the loculated right apical hydropneumothorax, status post chest tube removal, without mediastinal shift. The chest, abdomen and pelvic CT is reviewed. It shows similar size but redistribution of the loculated moderate right empyema with numerous air-fluid levels and peripheral hypodense pleural surface, status post pleurodesis with post-surgical changes noted. The right apical pneumothorax is similar in size to prior chest x-rays. However, it is increased from the x-ray of 01/25/2019. No mediastinal shift. The rest of the changes are unrelated to the lungs. ASSESSMENT: 1. Persistent right upper lobe hydropneumothorax in a patient with a recent episode of pneumothorax, requiring prolonged chest tube placement, bronchopleural fistula and placement of a Pneumostat which was subsequently removed. 2. History of severe bullous emphysema. 3. Acute back pain. 4. Anorexia/cachexia syndrome. 5. Previous history of heavy tobacco use. 6. History of gastroesophageal reflux disease. 7. Wasting syndrome. PLAN: The patient's lung status is stable. No additional recommendations are made at this time. Would not put any sort of drainage catheter into that area in the right upper lobe. This is a chronic abnormality. Will continue to follow closely. Will make sure he is on appropriate medications. Additional recommendations and suggestions are forthcoming. MMODL / IJN: [id number] / MTDD
[2019-02-13] MEDS: SODIUM CHLORIDE 0.9% 1,000 ML IV SCH ×2 (20:02)
[2019-02-13] MEDS: METOPROLOL TARTRATE 25 MG TAB PO SCH (20:04)
[2019-02-13] MEDS: TAMSULOSIN 0.4 MG CAP.ER.24H PO SCH (20:04)
[2019-02-14 05:49] VITALS: RESP 16
[2019-02-14] MEDS: SYMBICORT 160-4.5 MCG INHALER INHALATION SCH ×2 (07:22→20:14)
[2019-02-14] MEDS: IPRATROPIUM-ALBUTEROL 3 ML NEB INHALATION SCH ×3 (07:22→20:15)
[2019-02-14] MEDS: MULTIVITAMINS, THERA 1 EACH TAB PO SCH (08:08)
[2019-02-14] MEDS: Acetaminophen-Codeine 300-30mg TAB PO PRN (08:08)
[2019-02-14] MEDS: FOLIC ACID 1 MG TAB PO SCH (08:09)
[2019-02-14] MEDS: FERROUS SULFATE 325 MG TAB PO SCH (08:09)
[2019-02-14] MEDS: METOPROLOL TARTRATE 50 MG TAB PO SCH (08:09)
[2019-02-14] MEDS: HEPARIN SODIUM,PORCINE 5,000 UNIT/ML 1 ML VIAL SQ SCH ×2 (08:09→20:31)
[2019-02-14] MEDS: LACTULOSE 20 GM/30 ML CUP PO SCH (08:09)
[2019-02-14] MEDS: THIAMINE 100 MG TAB PO SCH (08:09)
[2019-02-14] MEDS: DOCUSATE 100 MG CAP PO SCH ×2 (08:36→20:30)
[2019-02-14 09:07] LABS: Basophils # (A) 0.1 k/uL (0-0.2); Basophils % (A) 1 %; Eosinophils # (A) 0.1 k/uL (0-0.7); Eosinophils % (A) 1 %; HCT 34.1 % (39.0-53.0); HGB 10.2 gm/dL (13.0-17.5); Hypochromasia Marked; Lymphocytes # (A) 1.7 k/uL (1.0-4.8); Lymphocytes % (A) 18 %; MCH 26.6 pg (25.0-35.0); MCV 88.6 fL (80.0-100.0); Mean Platelet Volume 6.8; Monocytes # (A) 0.4 k/uL (0-1.0); Monocytes % (A) 4 %; Neutrophils # (A) 6.9 k/uL (1.3-7.7); Neutrophils % (A) 74 %; Platelet Count 573 k/uL (150-450); RBC 3.85 m/uL (4.30-5.90); RDW 13.9 % (11.5-15.5); WBC 9.3 k/uL (3.8-10.6)
[2019-02-14 09:15] LABS: Anion Gap 6 mmol/L; Blood Urea Nitrogen 14 mg/dL (9-20); Calcium 8.4 mg/dL (8.4-10.2); Carbon Dioxide 28 mmol/L (22-30); Chloride 104 mmol/L (98-107); Glucose 144 mg/dL (74-99); Potassium 4.5 mmol/L (3.5-5.1); Sodium 138 mmol/L (137-145)
--- NOTE | 2019-02-14 11:43 | P.CNOR ---
History of Present Illness - [facility] Consult date: 02/13/19 Requesting physician: Alayna Jimenez Consult reason: low back pain, other (Right lower extremity radiculopathy) History of present illness: Patient is very pleasant 63-year-old male who is seen and examined at bedside for further evaluation of low back pain and right lower extremity radiculopathy. He presented to the hospital on the morning of 02/12/2019 after waking up with increased pain. CT of the lumbar spine was performed in the emergency department without significant findings. Patient does have a significant history of acute on chronic right-sided pneumothorax with previous chest tube. Patient was surgical intervention with Dr. Quevedo. Patient had improved post operatively and was discharged home. He recently had an enterococcal UTI which improved with antibiotics. When patient is seen and examined at bedside today, patient states he is no longer experiencing any significant back pain or right lower extremity radiculopathy. He states he may have just slept wrong that I before. He does not currently feel he needs any further treatment or evaluation. He denies any lower extremity weakness or radiculopathy bilaterally. He has had significant weight loss over the past couple weeks. Prior to this admission he had been admitted recently for several days as well. Patient is currently sitting up at the bedside eating without any significant difficulty. He has no complaints at the bedside. Patient has a medical history which includes COPD. Patient was discussed in detail with Dr. Jimenez who initially fell patient may have an infection in his spine but feels this is much unlikely given the patient's significant improvement overnight. Past Medical History Past Medical History: COPD, GERD/Reflux Additional Past Medical History / Comment(s): pneumothorax September 2017 and July 2018, COPD History of Any Multi-Drug Resistant Organisms: None Reported Past Surgical History: No Surgical Hx Reported Additional Past Surgical History / Comment(s): hemorrhoids Past Anesthesia/Blood Transfusion Reactions: No Reported Reaction Past Psychological History: Bipolar, Depression Smoking Status: Former smoker Past Alcohol Use History: None Reported Past Drug Use History: None Reported - Past Family History Father Family Medical History: Cancer Additional Family Medical History / Comment(s): cardiac issues, lung ca Mother Family Medical History: Coronary Artery Disease (CAD) Additional Family Medical History / Comment(s): heart murmur Medications and Allergies Home Medications Medication Instructions Recorded Confirmed Type Budesonide-Formot 160-4.5 Mcg 2 puff INHALATION RT-BID 30 Days 07/24/18 02/12/19 Rx [Symbicort 160-4.5 Mcg Inhaler] #1 vial Ranitidine HCl [Zantac] 75 mg PO BID PRN 12/19/18 02/12/19 History Albuterol Nebulized [Ventolin 2.5 mg INHALATION RT-QID PRN 02/12/19 02/12/19 History Nebulized] Ferrous Sulfate [Feosol] 325 mg PO DAILY 02/12/19 02/12/19 History Metoprolol Tartrate [Lopressor] 25 mg PO HS 02/12/19 02/12/19 History Metoprolol Tartrate [Lopressor] 50 mg PO QAM 02/12/19 02/12/19 History Tamsulosin HCl [Flomax] 0.4 mg PO HS 02/12/19 02/12/19 History Allergies Allergy/AdvReac Type Severity Reaction Status Date / Time No Known Allergies Allergy Verified 02/12/19 16:52 Physical Examination Physical exam: Patient is awake, alert, and oriented 3 Vital signs appear stable Examination of lumbar spine reveals skin is intact with no abrasions, lacerations, or bruises; no erythema, purulence or signs of infection No significant pain on palpation of the lumbar spine Dorsiflexion, plantarflexion, and extensor hallucis longus positive sustained bilaterally Lower extremity strength positive sustained generally slow throughout range of motion bilaterally Patellar reflex 0+ bilaterally No lower extremity hyperreflexia bilaterally Patient is able to lift legs independently off the bed but slowly No signs or symptoms of DVT; no calf pain No pain with internal and external rotation of the hips bilaterally Neurovascularly intact Results Pertinent studies: CT of the lumbar spine: L3-4 circumferential disc bulging with facet hypertrophy; L4-5 disc bulging and facet arthropathy resulting in effacement thecal sac; L5-S1 central bulging and facet arthropathy; overall alignment is adequate maintained; no evidence of vertebral body compression fracture - Labs Labs: Abnormal Lab Results - Last 24 Hours (Table) 02/13/19 02/13/19 02/14/19 Range/Units 10:53 10:53 08:34 RBC 3.90 L 3.85 L (4.30-5.90) m/uL Hgb 10.4 L 10.2 L (13.0-17.5) gm/dL Hct 33.9 L 34.1 L (39.0-53.0) % MCHC 30.6 L 30.0 L (31.0-37.0) g/dL Plt Count 559 H 573 H (150-450) k/uL ESR 103 H (0-15) mm/hr Glucose 110 H (74-99) mg/dL C-Reactive Protein 67.4 H (<10.0) mg/L 02/14/19 Range/Units 08:34 RBC (4.30-5.90) m/uL Hgb (13.0-17.5) gm/dL Hct (39.0-53.0) % MCHC (31.0-37.0) g/dL Plt Count (150-450) k/uL ESR (0-15) mm/hr Glucose 144 H (74-99) mg/dL C-Reactive Protein (<10.0) mg/L Microbiology - Last 24 Hours (Table) 02/12/19 23:29 Blood Culture - Preliminary Blood No Growth after 24 hours H & H 02/12/19 02/13/19 02/14/19 Range/Units 13:54 10:53 08:34 Hgb 11.8 L 10.4 L 10.2 L (13.0-17.5) gm/dL Hct 40.0 33.9 L 34.1 L (39.0-53.0) % Coagulation 02/12/19 Range/Units 13:54 INR 0.9 (<1.2) Result Diagrams: 02/14/19 08:34 02/14/19 08:34 Assessment and Plan Assessment: Assessment: Intractable low back pain, resolved Right lower extremity radiculopathy, resolved Lumbar and lumbosacral facet arthropathy Lumbar disc bulging History of COPD Acute on chronic right pneumothorax (1) Intractable low back pain Current Visit: Yes Status: Acute Code(s): M54.5 - LOW BACK PAIN SNOMED Code(s): 10319308853338946 (2) Lumbar back pain with radiculopathy affecting right lower extremity Current Visit: Yes Status: Acute Code(s): M54.16 - RADICULOPATHY, LUMBAR REGION SNOMED Code(s): 556864329 (3) Lumbar facet arthropathy Current Visit: Yes Status: Acute Code(s): M47.816 - SPONDYLOSIS W/O MYELOPATHY OR RADICULOPATHY, LUMBAR REGION SNOMED Code(s): 592748670 (4) Facet arthropathy, lumbosacral Current Visit: Yes Status: Acute Code(s): M47.817 - SPONDYLS W/O MYELOPATHY OR RADICULOPATHY, LUMBOSACR REGION SNOMED Code(s): 20726991 (5) Bulging lumbar disc Current Visit: Yes Status: Acute Code(s): M51.26 - OTHER INTERVERTEBRAL DISC DISPLACEMENT, LUMBAR REGION SNOMED Code(s): 707890081 (6) History of COPD Current Visit: Yes Status: Acute Code(s): Z87.09 - PERSONAL HISTORY OF OTHER DISEASES OF THE RESPIRATORY SYSTEM SNOMED Code(s): 368761262 (7) Pneumothorax Current Visit: No Status: Acute Code(s): J93.9 - PNEUMOTHORAX, UNSPECIFIED SNOMED Code(s): 62764789 Plan: Plan: 1. After physical examination of the patient, reviewing of imaging, and further discussion with the patient, we'll plan to continue conservative treatment at this time. Patient has had significant improvement of his low back pain and right lower extremity radiculopathy overnight. He is not currently complaining of any significant pain. Imaging does not show evidence of acute fracture or significant stenosis. At this time we will plan that the patient follow-up in outpatient setting in approximately 2 weeks for further evaluation. If his symptoms are worsening at that time, we may plan for further imaging. At this time patient is clear for discharge from orthopedic spine standpoint. He may perform all regular activities of daily living without restrictions and to tolerance. Patient may follow-up with Kenny Landon PA-C or Dr. Chinedu Nguyen at [facility] approximately 2 weeks in the outpatient setting. 2. Patient will continue be seen and examined by medicine for his other medical diagnoses Time with Patient: Greater than 30 (Including obtaining history, physical examination, reviewing of imaging, and dictation.)
--- NOTE | 2019-02-14 11:45 | PN ---
PROGRESS NOTE DATE OF SERVICE: 02/14/2019 A 63-year-old patient well known to our service. The patient presented to the emergency department with complaints of low back pain. The patient apparently developed pain when he was asleep. The patient has had significant weight loss over the past few weeks. He has been very frail and his appetite has been poor. He had a recent prior admission to this hospital for a number of days with a persistent pneumothorax and bronchopleural fistula. He had a chest tube in for a long period of time, which was converted to a Pneumostat. The patient was discharged to an extended care facility that is [facility]. He was readmitted to the emergency room with complaints of leg weakness and severe back pain. He apparently was readmitted to the hospital with complaints of leg weakness and severe back pain. He is denying any lung issues including shortness of breath, chest tightness, wheezing, cough, phlegm production, or any other complaints for that matter. Current vital signs include temperature 97.8, heart rate 74, respiratory rate 16, blood pressure 98/64 mean 75, room air saturation 96%. Appears in no acute distress. He is frail. Does not appear to have any respiratory distress. There is no audible wheezing, use of accessory muscles or conversational dyspnea. HEENT: Examination is grossly unremarkable. He is on room air. NECK: Supple. Full range of motion. No adenopathy or thyromegaly. Neck veins are flat. CARDIOVASCULAR: Examination reveals regular rhythm and rate. S1, S2 normal. Heart sounds are distant. LUNGS: Reveal severely diminished breath sounds throughout. No wheezes or rhonchi. No crackles. There is prolongation. ABDOMEN: Soft. Bowel sounds are heard. EXTREMITIES: Intact. No cyanosis, clubbing, or edema. SKIN: Without rash. NEUROLOGIC: Examination is brief but nonfocal. LAB DATA: Reviewed. White count 9.3, hemoglobin 10.2, hematocrit 34.1, platelet count 573,000. Sodium, potassium, chloride, CO2 all normal, anion gap normal. BUN and creatinine were normal. The rest of the labs are reviewed. His radiologic studies have all been reviewed. ASSESSMENT: 1. 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 2. History of severe bullous emphysema. 3. Acute back pain. 4. Anorexia/cachexia syndrome. 5. Previous history of heavy tobacco use. 6. History of gastroesophageal reflux disease. 7. Wasting syndrome. PLAN: The patient is not having any acute abnormalities from the pulmonary standpoint. He denies any shortness of breath, chest pain, chest discomfort, difficulty breathing, wheezing, etc. Chest x-ray is relatively stable. The patient was basically admitted for back pain. Will sign off and see the patient only as needed. Please feel free to call us back should he develop an acute lung issue. MMODL / IJN: [id number] /
--- NOTE | 2019-02-14 16:42 | PN ---
PROGRESS NOTE DATE OF SERVICE: 02/14/2019 This 63-year-old gentleman who was admitted with severe back pain and gait dysfunction with possible DJD being closely monitored at this time. The patient was seen by multiple consultants. Chest, abdomen, pelvis CAT scan has been noted. The patient continues to be afebrile. The patient has a persistent right upper lobe hydropneumothorax. No chest pain. No palpitations. No fever. PHYSICAL EXAM: Alert and oriented x3. Pulse 90, blood pressure 90/59, respiration 16, temperature 98.2, pulse ox 97% on room air. HEENT: Conjunctivae normal. Oral mucosa moist. NECK: Is no jugular venous distention. No carotid bruit. No lymph node enlargement. CARDIOVASCULAR: S1, S2. RESPIRATORY: Breath sounds diminished in the bases. A few scattered rhonchi and no crackles. ABDOMEN: Soft and nontender. No mass palpable. LEGS: No edema. No swelling. NERVOUS SYSTEM: Mild diffuse weakness. LAB STUDIES: WBC 9.2, hemoglobin 10.2. Other labs are noted. Cortisol is 19. ASSESSMENT: 1. Severe back pain and gait dysfunction with possible degenerative joint disease. 2. Recent right recurrent pneumothorax, status post thoracoscopy, lysis of pleural adhesions with stapling of the blebs and talc pleurodesis. 3. Persistent right upper lobe hydropneumothorax with history of previous bronchopleural fistula and placement Pneumostat. 4. Severe protein calorie malnutrition with a BMI of 17.7. 5. Increased WBC. 6. Anemia or chronic disease. 7. Increased platelets. 8. Mild hyperkalemia. 9. History of chronic obstructive pulmonary disease. 10.Gastroesophageal reflux disease. 11.History of bipolar depression. 12.History of nicotine dependence. 13.History of hemorrhoids. RECOMMENDATIONS AND DISCUSSION: Continue current medications, management and monitoring and symptomatic treatment. Otherwise, I would recommend continue the pain medication. Increase ambulation. Otherwise, possible home if stable within 24-48 hours with some plans for outpatient followup. Further recommendations to follow. MMODL / IJN: [id number] /
[2019-02-14] MEDS: SODIUM CHLORIDE 0.9% 1,000 ML IV SCH (19:07)
[2019-02-14] MEDS: TAMSULOSIN 0.4 MG CAP.ER.24H PO SCH (20:30)
[2019-02-14] MEDS: METOPROLOL TARTRATE 25 MG TAB PO SCH (20:30)
[2019-02-15 07:42] LABS: Basophils # (A) 0.1 k/uL (0-0.2); Basophils % (A) 1 %; Eosinophils # (A) 0.1 k/uL (0-0.7); Eosinophils % (A) 1 %; HCT 34.2 % (39.0-53.0); HGB 10.3 gm/dL (13.0-17.5); Hypochromasia Marked; Lymphocytes # (A) 1.6 k/uL (1.0-4.8); Lymphocytes % (A) 23 %; MCHC 30.2 g/dL (31.0-37.0); MCV 89.4 fL (80.0-100.0); Mean Platelet Volume 6.9; Monocytes # (A) 0.5 k/uL (0-1.0); Monocytes % (A) 7 %; Neutrophils # (A) 4.7 k/uL (1.3-7.7); Neutrophils % (A) 65 %; Platelet Count 522 k/uL (150-450); RBC 3.83 m/uL (4.30-5.90); RDW 13.9 % (11.5-15.5); WBC 7.2 k/uL (3.8-10.6)
[2019-02-15 08:03] LABS: Anion Gap 5 mmol/L; Blood Urea Nitrogen 15 mg/dL (9-20); Calcium 8.7 mg/dL (8.4-10.2); Carbon Dioxide 27 mmol/L (22-30); Chloride 107 mmol/L (98-107); Glucose 89 mg/dL (74-99); Potassium 5.1 mmol/L (3.5-5.1); Sodium 139 mmol/L (137-145)
[2019-02-15] MEDS: IPRATROPIUM-ALBUTEROL 3 ML NEB INHALATION SCH ×2 (08:17→12:06)
[2019-02-15] MEDS: SYMBICORT 160-4.5 MCG INHALER INHALATION SCH (08:17)
[2019-02-15 08:33] VITALS: BP 113/71; TEMP 97.8
[2019-02-15] MEDS: HEPARIN SODIUM,PORCINE 5,000 UNIT/ML 1 ML VIAL SQ SCH (08:36)
[2019-02-15] MEDS: THIAMINE 100 MG TAB PO SCH (08:36)
[2019-02-15] MEDS: METOPROLOL TARTRATE 50 MG TAB PO SCH (08:36)
[2019-02-15] MEDS: MULTIVITAMINS, THERA 1 EACH TAB PO SCH (08:36)
[2019-02-15] MEDS: DOCUSATE 100 MG CAP PO SCH (08:36)
[2019-02-15] MEDS: FOLIC ACID 1 MG TAB PO SCH (08:36)
[2019-02-15] MEDS: FERROUS SULFATE 325 MG TAB PO SCH (08:36)
[2019-02-15 12:18] VITALS: PULSE 108
--- NOTE | 2019-02-16 00:04 | DS ---
DISCHARGE SUMMARY FINAL DIAGNOSES: 1. Severe back pain and gait dysfunction, possibly degenerative joint disease. 2. Recent right recurrent pneumothorax, status post thoracoscopy, lysis of pleural adhesions, stapling of the bleb and talc pleurodesis. 3. Persistent right upper lobe hydropneumothorax with a history of previous bronchopleural fistula and placement of hemostat. 4. Severe protein-calorie malnutrition with a body mass index of 17.7. 5. Increased white count. 6. Anemia of chronic disease. 7. Increased platelets. 8. Mild hyperkalemia. 9. History of chronic obstructive pulmonary disease. 10.Gastroesophageal reflux disease. 11.History of bipolar depression. 12.History of nicotine dependence. 13.History of hemorrhoids. DISCHARGE DISPOSITION: The patient will be discharged in stable condition with guarded prognosis. HISTORY OF PRESENT ILLNESS: This 63-year-old gentleman with a past medical history of multiple medical problems was admitted with severe back pain. The patient was treated symptomatically. DJD was diagnosed and CT scan was noted. The patient also had recurrent pneumothorax and multiple other medical issues, as described above, which were rather stable. The patient was monitored closely and the patient improved significantly. On exam, vitals are stable. CARDIOVASCULAR SYSTEM: S1, S2 muffled. ABDOMEN: Soft. NERVOUS SYSTEM: No focal deficit. RESPIRATORY: A few rhonchi. DISCHARGE ADVICE AND MEDICATIONS: 1. Diet is cardiac. 2. Activity limited until followup. 3. Follow up with Dr. Coombs in 2-3 days. 4. Follow up with Pulmonary as advised. 5. Follow up with Orthopedics, Dr. Nguyen, as advised. 6. Flomax 0.4 at bedtime. 7. Iron 320 mg p.o. daily. 8. Lopressor 25 mg at bedtime and 50 mg each morning. 9. DuoNeb q.i.d. and p.r.n. 10.Zantac 75 mg b.i.d. p.r.n. 11.Folic acid 1 mg p.o. daily. 12.Multivitamins 1 p.o. daily. 13.[place] 5 mg q.6 p.r.n. 14.Symbicort 160/4.5 two puffs b.i.d. Once again, the patient will be discharged in stable condition with guarded prognosis. MMODL / IJN: [id number] /
== END 2019-02-15 15:20 | disposition home health service (06) | DRG 551 ==
LOC: EC 11:50 → 4MS4W 16:25 → 4SSUR 02-14 16:43
PROVIDERS: ADMIT Internal Medicine; ATTEND Internal Medicine
DX: M47.27 Other spondylosis with radiculopathy, lumbosacral region (principal); E43 Unspecified severe protein-calorie malnutrition; J86.0 Pyothorax with fistula; R64 Cachexia; Z68.1 Body mass index [BMI] 19.9 or less, adult; D69.6 Thrombocytopenia, unspecified; E87.5 Hyperkalemia; D63.8 Anemia in other chronic diseases classified elsewhere; J43.9 Emphysema, unspecified; K21.9 Gastro-esophageal reflux disease without esophagitis; M46.96 Unspecified inflammatory spondylopathy, lumbar region; F32.9 Major depressive disorder, single episode, unspecified; R26.9 Unspecified abnormalities of gait and mobility; D72.829 Elevated white blood cell count, unspecified; M51.16 Intervertebral disc disorders with radiculopathy, lumbar region; M51.17 Intervertebral disc disorders with radiculopathy, lumbosacral region; Z87.891 Personal history of nicotine dependence; Z79.51 Long term (current) use of inhaled steroids; Z79.899 Other long term (current) drug therapy; Z87.440 Personal history of urinary (tract) infections; Z82.49 Family history of ischemic heart disease and other diseases of the circulatory system; Z80.1 Family history of malignant neoplasm of trachea, bronchus and lung
CPT/HCPCS: 36415; 71046; 71250; 72131; 74176; 80048; 80053; 81001; 82533; 85025; 85610; 85652; 85730; 86140; 87040; 94640; 96374; 96375; 99285

== ENCOUNTER → 2019-02-21 | Outpatient (CLI) | payer MEDICARE ==
[2019-02-21 13:50] LABS: HCT 37.2 % (39.0-53.0); HGB 11.2 gm/dL (13.0-17.5); Hypochromasia Marked; MCHC 30.2 g/dL (31.0-37.0); MCV 89.3 fL (80.0-100.0); Mean Platelet Volume 6.4; Platelet Count 584 k/uL (150-450); RBC 4.16 m/uL (4.30-5.90); RDW 14.6 % (11.5-15.5); WBC 10.4 k/uL (3.8-10.6)
[2019-02-21 19:01] LABS: T4, Free (Free Thyroxine) 1.1 ng/dL (0.80-1.80)
== END | disposition home or self-care (01) ==
LOC: LABWHC1 13:14
PROVIDERS: ATTEND Internal Medicine Cardiovascular Disease
DX: R00.0 Tachycardia, unspecified (principal)
CPT/HCPCS: 36415; 84439; 84443; 85027